=== PATIENT | male | born 1935 | race Caucasian/White ===

== ENCOUNTER → 2018-03-23 | Outpatient (CLI) | payer MEDICARE ==
[2018-03-23 09:27] LABS: Basophils # (A) 0.1 k/uL (0-0.2); Basophils % (A) 1 %; Eosinophils # (A) 0.4 k/uL (0-0.7); Eosinophils % (A) 5 %; HGB 13.6 gm/dL (13.0-17.5); Lymphocytes % (A) 21 %; MCH 29.4 pg (25.0-35.0); MCHC 31.6 g/dL (31.0-37.0); MCV 92.9 fL (80.0-100.0); Mean Platelet Volume 6.5; Monocytes # (A) 0.7 k/uL (0-1.0); Monocytes % (A) 7 %; Neutrophils # (A) 5.9 k/uL (1.3-7.7); Neutrophils % (A) 65 %; Platelet Count 228 k/uL (150-450); RBC 4.63 m/uL (4.30-5.90); RDW 13.9 % (11.5-15.5); WBC 9.1 k/uL (3.8-10.6)
[2018-03-23 10:01] LABS: Calcium 9.9 mg/dL (8.4-10.2); Potassium 5.4 mmol/L (3.5-5.1)
== END | disposition home or self-care (01) ==
LOC: LABPAT 08:22
PROVIDERS: ATTEND Urology
DX: Z01.812 Encounter for preprocedural laboratory examination (principal); R31.29 Other microscopic hematuria; E11.9 Type 2 diabetes mellitus without complications; N40.1 Benign prostatic hyperplasia with lower urinary tract symptoms
CPT/HCPCS: 36415; 80048; 85025; 87086

== ENCOUNTER 2018-03-25 07:36 | Day surgery (SDC) | payer MEDICARE ==
[2018-03-22 15:13] VITALS: BMI 33.5
--- NOTE | 2018-03-25 06:39 | P.GSHP ---
History of Present Illness H&P Date: 03/25/18 Chief Complaint: Urinary retention The patient is an 83-year-old male with a long history of incomplete bladder emptying secondary to BPH. He developed acute urinary retention in August 2017. His incomplete bladder emptying persisted despite taking finasteride 5 mg daily and tamsulosin 0.8 mg daily. In view of this, he has elected to undergo a TURP. - EENT Ears: bilateral: decreased hearing - Genitourinary (Male) Genitourinary: Reports incontinence, Reports urinary frequency, Reports urinary retention - Allergic/Immunologic Allergic/Immunologic: Reports seasonal allergies Past Medical History Past Medical History: Asthma, Coronary Artery Disease (CAD), CVA/TIA, Diabetes Mellitus, Skin Disorder Additional Past Medical History / Comment(s): TIA post op after gallbladder surgery-no residual effects, constipation, urinary retention, History of Any Multi-Drug Resistant Organisms: None Reported Past Surgical History: Cholecystectomy, Coronary Bypass/CABG, Heart Catheterization, Hernia Repair, Tonsillectomy Additional Past Surgical History / Comment(s): CABG 2000, bari cataracts, Past Anesthesia/Blood Transfusion Reactions: No Reported Reaction Smoking Status: Never smoker - Past Family History Mother Family Medical History: No Reported History Medications and Allergies Home Medications Medication Instructions Recorded Confirmed Type Albuterol Inhaler [Ventolin Hfa 2 puff INHALATION Q6HR PRN 03/22/18 03/22/18 History Inhaler] Aspirin 325 mg PO DAILY 03/22/18 03/22/18 History Finasteride [Proscar] 5 mg PO DAILY 03/22/18 03/22/18 History Fluticasone Nasal [place] [Flonase 1 spray EA NOSTRIL DAILY PRN 03/22/18 03/22/18 History Nasal [place]] Fluticasone/Salmeterol [Advair 1 inhalation PO BID PRN 03/22/18 03/22/18 History 250-50 Diskus] Glucosam/Augusto-Msm1/C/Chadd/Bosw 1 each PO DAILY 03/22/18 03/22/18 History [Glucosamine-Chondroitin Tablet] Losartan [Cozaar] 50 mg PO BID 03/22/18 03/22/18 History Metoprolol Succinate (ER) [Toprol 25 mg PO BID 03/22/18 03/22/18 History Xl] Multivitamins, Thera [Multivitamin 1 tab PO DAILY 03/22/18 03/22/18 History (formulary)] Polyethylene Glycol 3350 [Clearlax] 17 gm PO DAILY 03/22/18 03/22/18 History Repaglinide [Prandin] 1 mg PO AC-TID 03/22/18 03/22/18 History Simvastatin 80 mg PO SUTUWEFR 03/22/18 03/22/18 History Tamsulosin HCl [Flomax] 0.4 mg PO BID 03/22/18 03/22/18 History metFORMIN HCL [Glucophage] 500 mg PO BID 03/22/18 03/22/18 History Allergies Allergy/AdvReac Type Severity Reaction Status Date / Time Sulfa (Sulfonamide Allergy Unknown Verified 03/22/18 14:52 Antibiotics) Surgical - Exam - General well developed, well nourished, no distress - Respiratory normal respiratory effort, clear to auscultation - Cardiovascular Rhythm: regular Abnormal Heart Sounds: no systolic murmur, no diastolic murmur, no rub, no S3 Gallop, no S4 Gallop, no click, no other - Genitourinary normal penis with no external lesions, testicles non-tender Assessment and Plan (1) Benign localized hyperplasia of prostate with urinary retention Status: Acute Code(s): N40.1 - BENIGN PROSTATIC HYPERPLASIA WITH LOWER URINARY TRACT SYMP SNOMED Code(s): 52383283 Plan: Cystoscopy, bipolar TURP. The procedure has been reviewed in detail with the patient. Potential risks have also been discussed, which include anesthesia, bleeding, infection, vesical neck contracture, urinary incontinence, and persistent urinary retention.
[~2018-03-25 07:36] MED LIST: DEXAMETHASONE SOD PHOSPHATE 10 MG/ML 1 ML VIAL IV ONE; HYDROmorphone 0.5 MG/0.5 ML SYRINGE IVP PRN; LACTATED RINGERS 1,000 ML IV SCH; LIDOCAINE 1% 20 ML VIAL (10MG/ML) FOR IV START INTRADERMA PRN; ONDANSETRON 4 MG/2 ML VIAL IVP ONE; SCOPOLAMINE 1.5MG/72HR PATCH TRANSDERM ONE; ceFAZolin 1,000 MG in DEXTROSE/WATER 1 50ML.BAG IVPB ONE
[2018-03-25 08:32] LABS: Glucose,Whole Blood 143 mg/dL (75-99)
[2018-03-25] MEDS ORDERED: LIDOCAINE 1% INJ 10MG/ML (20 ML MDV) ONE (09:42)
[2018-03-25] MEDS ORDERED: PHENYLEPHRINE-0.9% NACL SYG 1 MG/10 ML SYRINGE ONE (09:42)
[2018-03-25] MEDS ORDERED: ePHEDrine SULFATE/0.9% NACL/PF 50 MG/5 ML SYRINGE IV ONE (09:42)
[2018-03-25] MEDS ORDERED: fentaNYL (PF) 50 MCG/ML 2 ML AMP ONE (09:42)
[2018-03-25] MEDS ORDERED: MIDAZOLAM 2 MG/2 ML VIAL ONE (09:42)
[2018-03-25] MEDS ORDERED: FUROSEMIDE 10 MG/ML 2 ML VIAL ONE (09:42)
[2018-03-25] MEDS ORDERED: PROPOFOL 10 MG/ML 20 ML VIAL IV ONE (09:42)
[2018-03-25] MEDS ORDERED: LACTATED RINGERS 1,000 ML IV ONE (11:13)
--- NOTE | 2018-03-25 12:11 | P.OP ---
Date of Procedure: 03/25/18 Preoperative Diagnosis: Urinary retention secondary to BPH Postoperative Diagnosis: Same Procedure(s) Performed: Cystoscopy, bipolar transurethral resection of prostate (TURP) Anesthesia: ANTONI Surgeon: Edmond Wright Estimated Blood Loss (ml): 100 IV fluids (ml): 800 Pathology: other (Resected prostate tissue) Condition: stable Disposition: PACU Indications for Procedure: The patient is an 83-year-old male with a long history of incomplete bladder emptying secondary to BPH. He developed acute urinary retention in August 2017. His incomplete bladder emptying persisted despite taking finasteride 5 mg daily and tamsulosin 0.8 mg daily. In view of this, he has elected to undergo a TURP. Operative Findings: Trilobar BPH Description of Procedure: The patient was taken in the operating room and placed in the dorsolithotomy position. The external genitalia was prepped and draped sterilely. The [place] urethrotome was used to incise the urethra, allowing the 25-Trist[place] ACMI resectoscope sheath to be introduced into the bladder. The bladder was inspected. Both ureteral orifices were of normal anatomic location and configuration, and clear urine effluxed from both. No tumors or foreign bodies were seen. Examination of the prostate revealed complete obstruction with a trilobar configuration. Using the bipolar cutting loop, the median lobe was resected. Next, the lateral lobes were resected down to the surgical capsule. The floor of the prostate was then resected, proximal to the verumontanum. Lastly, any remaining anterior tissue was resected. The apical tissue was then carefully resected. The resection was carried down to the surgical capsule in all 4 quadrants. The prostatic fossa was then carefully examined, and any areas of bleeding were controlled with electrocautery. Excellent hemostasis was attained. The resectoscope was withdrawn into the bulbous urethra. The external urinary sphincter remained intact. The prostatic fossa was open. The [employer] evacuator was used to remove all prostate chips from the bladder. These were saved and sent for pathologic examination. The resectoscope was removed, and a 20 Tristanian Castillo catheter was placed. The return was essentially clear. The patient tolerated the procedure well was taken to the recovery room in stable condition.
[2018-03-25 12:18] VITALS: TEMP 99.4
[2018-03-25 12:39] VITALS: RESP 18
[2018-03-25 14:40] VITALS: BP 110/66
[2018-03-25 14:42] VITALS: PULSE 99
== END 2018-03-25 14:47 | disposition home or self-care (01) ==
LOC: OR 07:36
PROVIDERS: ATTEND Urology
DX: N40.1 Benign prostatic hyperplasia with lower urinary tract symptoms (principal); N13.8 Other obstructive and reflux uropathy; R33.8 Other retention of urine; R39.14 Feeling of incomplete bladder emptying; I25.10 Atherosclerotic heart disease of native coronary artery without angina pectoris; J45.909 Unspecified asthma, uncomplicated; I11.0 Hypertensive heart disease with heart failure; I50.9 Heart failure, unspecified; E11.9 Type 2 diabetes mellitus without complications; I65.29 Occlusion and stenosis of unspecified carotid artery; D86.9 Sarcoidosis, unspecified; L30.9 Dermatitis, unspecified; E66.9 Obesity, unspecified; Z68.33 Body mass index [BMI] 33.0-33.9, adult; Z95.1 Presence of aortocoronary bypass graft; Z79.82 Long term (current) use of aspirin; Z79.52 Long term (current) use of systemic steroids; Z79.84 Long term (current) use of oral hypoglycemic drugs; Z79.899 Other long term (current) drug therapy; Z88.2 Allergy status to sulfonamides; Z90.49 Acquired absence of other specified parts of digestive tract; Z86.73 Personal history of transient ischemic attack (TIA), and cerebral infarction without residual deficits; Z87.891 Personal history of nicotine dependence
CPT/HCPCS: 88305; 84132; 52601; J2250; J1100; J1940; J2405; J2001; J3010; J0690; J2370; J2704

== ENCOUNTER 2018-05-15 05:04 | Inpatient (IN) | payer MEDICARE ==
[2018-05-15] MEDS ORDERED: DIPH,PERTUS(ACELL)TETVAC-LF 0.5 ML VIAL IM ONE (05:13)
[2018-05-15] MEDS ORDERED: SODIUM CHLORIDE 0.9% 1,000 ML IV STA (05:13)
--- NOTE | 2018-05-15 05:17 | ED ---
Weakness HPI - General Chief complaint: Weakness Stated complaint: fall Time Seen by Provider: 05/15/18 05:08 Source: EMS Mode of arrival: EMS Limitations: no limitations - History of Present Illness Initial comments: Viet is an 83-year-old gentleman is brought to the emergency department today via EMS for evaluation of generalized weakness and fall. Patient reports he's not been feeling well all day. He reports just generalized fatigue muscle aches and weakness. This evening he had a fall in which she fell forward and struck his head either on the covered or the floor. He did note a very small laceration. He did not lose consciousness. He was so weak he couldn't get up off the ground his could not help him up so EMS was contacted. Upon their arrival they found that he was febrile and tachycardic and recommended he come to the ER for evaluation. - Related Data Home Medications Medication Instructions Recorded Confirmed Albuterol Inhaler [Ventolin Hfa 2 puff INHALATION Q6HR PRN 03/22/18 03/22/18 Inhaler] Aspirin 325 mg PO DAILY 03/22/18 03/22/18 Finasteride [Proscar] 5 mg PO DAILY 03/22/18 03/22/18 Fluticasone Nasal [place] [Flonase 1 spray EA NOSTRIL DAILY PRN 03/22/18 03/22/18 Nasal [place]] Fluticasone/Salmeterol [Advair 1 inhalation PO BID PRN 03/22/18 03/22/18 250-50 Diskus] Glucosam/Augusto-Msm1/C/Chadd/Bosw 1 each PO DAILY 03/22/18 03/22/18 [Glucosamine-Chondroitin Tablet] Losartan [Cozaar] 50 mg PO BID 03/22/18 03/22/18 Metoprolol Succinate (ER) [Toprol 25 mg PO BID 03/22/18 03/22/18 Xl] Multivitamins, Thera [Multivitamin 1 tab PO DAILY 03/22/18 03/22/18 (formulary)] Polyethylene Glycol 3350 [Clearlax] 17 gm PO DAILY 03/22/18 03/22/18 Repaglinide [Prandin] 1 mg PO AC-TID 03/22/18 03/22/18 Simvastatin 80 mg PO SUTUWEFR 03/22/18 03/22/18 Tamsulosin HCl [Flomax] 0.4 mg PO BID 03/22/18 03/22/18 metFORMIN HCL [Glucophage] 500 mg PO BID 03/22/18 03/22/18 Allergies Allergy/AdvReac Type Severity Reaction Status Date / Time Sulfa (Sulfonamide Allergy Unknown Verified 05/15/18 05:13 Antibiotics) Review of Systems ROS Statement: Those systems with pertinent positive or pertinent negative responses have been documented in the HPI. ROS Other: All systems not noted in ROS Statement are negative. Past Medical History Past Medical History: Asthma, Coronary Artery Disease (CAD), CVA/TIA, Diabetes Mellitus, Skin Disorder Additional Past Medical History / Comment(s): TIA post op after gallbladder surgery-no residual effects, constipation, urinary retention, History of Any Multi-Drug Resistant Organisms: None Reported Past Surgical History: Cholecystectomy, Coronary Bypass/CABG, Heart Catheterization, Hernia Repair, Tonsillectomy Additional Past Surgical History / Comment(s): CABG 2000, bari cataracts, Past Anesthesia/Blood Transfusion Reactions: No Reported Reaction Past Psychological History: No Psychological Hx Reported Smoking Status: Never smoker Past Alcohol Use History: Rare Past Drug Use History: None Reported - Past Family History Mother Family Medical History: No Reported History General Exam - General Exam Comments Initial Comments: Physical Exam GENERAL: Ill appearing elderly male HENT: Normocephalic Centimeter laceration in the mid forehead with bleeding controlled EYES: PERRL, EOMI PULMONARY: Crackles in all lung baeza CARDIOVASCULAR: There is a regular rate and rhythm without any murmurs gallops or rubs. ABDOMEN: Rotund, Soft and nontender with normal bowel sounds. SKIN: Warm and clammy laceration to the forehead as noted above Skin is clear with no lesions or rashes and otherwise unremarkable. : Deferred NEUROLOGIC: Patient is alert and oriented x3. Moving all extremities spontaneously MUSCULOSKELETAL: Normal extremities with adequate strength and full range of motion. No lower extremity swelling or edema. No calf tenderness. PSYCHIATRIC: Normal psychiatric evaluation. Limitations: no limitations Limitations: no limitations Course Vital Signs 05/15/18 05/15/18 05:07 06:42 Temperature 100.0 F H 98.4 F Pulse Rate 97 93 Respiratory 20 20 Rate Blood Pressure 153/65 155/76 O2 Sat by Pulse 91 L 96 Oximetry EKG Findings - EKG Comments: EKG Findings:: EKG was obtained at 5:13 AM, rate is 97, rhythm is sinus there is a right bundle-branch block, appears 170, QRS 156 QTC is 510 there is no acute ST elevations or depressions Procedures - Laceration Laceration #1 Consent Obtained: verbal consent Indication: laceration Site: face Description: linear Type of Sutures: other (exofen skin glue) Size of Sutures: other (skin glue) Medical Decision Making - Medical Decision Making Patient was seen and evaluated immediately upon arrival Patient reevaluated Per ATLS protocol - airway breathing and circulation are intact secondary survey reveals an ill-appearing gentleman tachycardic warm to the touch with flulike symptoms Trauma workup was initiated as well as sepsis workup with blood cultures lactic acid an influenza swab EKG was nonischemic Imaging revealed no acute injuries patient's laceration was repaired with skin glue he did receive a tetanus vaccine Chest x-ray concerning for bilateral pneumonia patient with no recent hospitalization or risk factors for age Pneumonia will be treated for community- acquired Patient's influenza is positive Given the patient's advanced age generalized weakness bilateral pneumonia and influenza do feel he warrants inpatient admission for further monitoring. - Lab Data Result diagrams: 05/15/18 05:40 05/15/18 05:40 Lab Results 05/15/18 05/15/18 05/15/18 Range/Units 05:40 05:40 05:40 WBC 8.5 (3.8-10.6) k/uL RBC 4.53 (4.30-5.90) m/uL Hgb 13.3 (13.0-17.5) gm/dL Hct 40.9 (39.0-53.0) % MCV 90.4 (80.0-100.0) fL MCH 29.3 (25.0-35.0) pg MCHC 32.4 (31.0-37.0) g/dL RDW 14.4 (11.5-15.5) % Plt Count 221 (150-450) k/uL Neutrophils % (Manual) 69 % Lymphocytes % (Manual) 13 % Monocytes % (Manual) 17 % Eosinophils % (Manual) 1 % Neutrophils # (Manual) 5.87 (1.3-7.7) k/uL Lymphocytes # (Manual) 1.11 (1.0-4.8) k/uL Monocytes # (Manual) 1.45 H (0-1.0) k/uL Eosinophils # (Manual) 0.09 (0-0.7) k/uL Nucleated RBCs 0 (0-0) /100 WBC Manual Slide Review Performed PT (9.0-12.0) sec INR (<1.2) APTT (22.0-30.0) sec Sodium 139 (137-145) mmol/L Potassium 4.5 (3.5-5.1) mmol/L Chloride 103 (98-107) mmol/L Carbon Dioxide 27 (22-30) mmol/L Anion Gap 9 mmol/L BUN 22 H (9-20) mg/dL Creatinine 1.31 H (0.66-1.25) mg/dL Est GFR (CKD-EPI)AfAm 58 (>60 ml/min/1.73 sqM) Est GFR (CKD-EPI)NonAf 51 (>60 ml/min/1.73 sqM) Glucose 172 H (74-99) mg/dL Plasma Lactic Acid Saji 1.8 (0.7-2.0) mmol/L Calcium 9.7 (8.4-10.2) mg/dL Total Bilirubin 0.6 (0.2-1.3) mg/dL AST 34 (17-59) U/L ALT 26 (21-72) U/L Alkaline Phosphatase 80 (38-126) U/L Troponin I (0.000-0.034) ng/mL Total Protein 7.5 (6.3-8.2) g/dL Albumin 4.0 (3.5-5.0) g/dL Influenza Type A RNA (Not Detectd) Influenza Type B (PCR) (Not Detectd) 05/15/18 05/15/18 05/15/18 Range/Units 05:40 05:40 05:40 WBC (3.8-10.6) k/uL RBC (4.30-5.90) m/uL Hgb (13.0-17.5) gm/dL Hct (39.0-53.0) % MCV (80.0-100.0) fL MCH (25.0-35.0) pg MCHC (31.0-37.0) g/dL RDW (11.5-15.5) % Plt Count (150-450) k/uL Neutrophils % (Manual) % Lymphocytes % (Manual) % Monocytes % (Manual) % Eosinophils % (Manual) % Neutrophils # (Manual) (1.3-7.7) k/uL Lymphocytes # (Manual) (1.0-4.8) k/uL Monocytes # (Manual) (0-1.0) k/uL Eosinophils # (Manual) (0-0.7) k/uL Nucleated RBCs (0-0) /100 WBC Manual Slide Review PT 10.7 (9.0-12.0) sec INR 1.0 (<1.2) APTT 25.3 (22.0-30.0) sec Sodium (137-145) mmol/L Potassium (3.5-5.1) mmol/L Chloride (98-107) mmol/L Carbon Dioxide (22-30) mmol/L Anion Gap mmol/L BUN (9-20) mg/dL Creatinine (0.66-1.25) mg/dL Est GFR (CKD-EPI)AfAm (>60 ml/min/1.73 sqM) Est GFR (CKD-EPI)NonAf (>60 ml/min/1.73 sqM) Glucose (74-99) mg/dL Plasma Lactic Acid Saji (0.7-2.0) mmol/L Calcium (8.4-10.2) mg/dL Total Bilirubin (0.2-1.3) mg/dL AST (17-59) U/L ALT (21-72) U/L Alkaline Phosphatase (38-126) U/L Troponin I <0.012 (0.000-0.034) ng/mL Total Protein (6.3-8.2) g/dL Albumin (3.5-5.0) g/dL Influenza Type A RNA Detected H (Not Detectd) Influenza Type B (PCR) Not Detected (Not Detectd) Disposition Clinical Impression: Pneumonia and influenza, General weakness Disposition: ADMITTED IP TO THIS HOSP Condition: Stable Is patient prescribed a controlled substance at d/c from ED?: No Referrals: Gloria Torrez DO [Primary Care Provider] - 1-2 days
--- NOTE | 2018-05-15 05:43 | XR ---
EXAM: XR Chest, 1 View CLINICAL HISTORY: ITS.REASON XR Reason: trauma TECHNIQUE: Frontal view of the chest. COMPARISON: No relevant prior studies available. FINDINGS: Lungs: Low lung volumes with patchy bilateral atelectasis or infiltrate. Pleural space: Trace pleural effusions not excluded. No significant pneumothorax. Heart: Enlarged cardiomediastinal silhouette. Mediastinum: See above. Bones/joints: No gross acute fracture. Sternotomy wires noted IMPRESSION: 1. Low lung volumes with patchy bilateral atelectasis or infiltrate. 2. Trace pleural effusions not excluded. 3. Enlarged cardiomediastinal silhouette.
[2018-05-15 05:54] LABS: HCT 40.9 % (39.0-53.0); HGB 13.3 gm/dL (13.0-17.5); MCH 29.3 pg (25.0-35.0); MCHC 32.4 g/dL (31.0-37.0); MCV 90.4 fL (80.0-100.0); Mean Platelet Volume 7.4; Platelet Count 221 k/uL (150-450); RBC 4.53 m/uL (4.30-5.90); RDW 14.4 % (11.5-15.5); WBC 8.5 k/uL (3.8-10.6)
--- NOTE | 2018-05-15 05:54 | CT ---
EXAM: CT Head Without Intravenous Contrast CLINICAL HISTORY: ITS.REASON CT Reason: trauma TECHNIQUE: Axial computed tomography images of the head/brain without intravenous contrast. CTDI is 45.2, 16 mGy and DLP is 1597.1 mGy-cm. This CT exam was performed using one or more of the following dose reduction techniques: automated exposure control, adjustment of the mA and/or kV according to patient size, and/or use of iterative reconstruction technique. COMPARISON: No relevant prior studies available. FINDINGS: Brain: No hemorrhage. No acute cortical infarct. No mass effect or midline shift. Involutional changes and probable small vessel disease. Ventricles: Unremarkable. Bones/joints: No acute fracture. Soft tissues: Frontal scalp soft tissue swelling. Sinuses: Sinus disease. Mastoid air cells: Unremarkable as visualized. IMPRESSION: No intracranial hemorrhage or skull fracture. EXAM: CT Cervical Spine Without Intravenous Contrast CLINICAL HISTORY: ITS.REASON CT Reason: trauma TECHNIQUE: Axial computed tomography images of the cervical spine without intravenous contrast. CTDI is 45.2, 16 mGy and DLP is 1597.1 mGy-cm. This CT exam was performed using one or more of the following dose reduction techniques: automated exposure control, adjustment of the mA and/or kV according to patient size, and/or use of iterative reconstruction technique. COMPARISON: No relevant prior studies available. FINDINGS: Vertebrae: No acute fracture. No subluxation. Discs/spinal canal/neural foramina: Degenerative changes. Soft tissues: Unremarkable. IMPRESSION: No acute fracture.
[2018-05-15 06:02] LABS: Partial Thromboplastin Time 25.3 sec (22.0-30.0); Prothrombin Time 10.7 sec (9.0-12.0)
[2018-05-15 06:03] LABS: Calcium 9.7 mg/dL (8.4-10.2); Potassium 4.5 mmol/L (3.5-5.1); Total Bilirubin 0.6 mg/dL (0.2-1.3); Total Protein 7.5 g/dL (6.3-8.2)
[2018-05-15] MEDS ORDERED: PNEUMONIA PROTOCOL UTILIZED 1 EACH MISC PO PRN (06:04)
[2018-05-15] MEDS ORDERED: TOPICAL SKIN ADHESIVE 1 EACH AMP TOPICAL ONE (06:21)
[2018-05-15 06:24] LABS: Eosinophils # (M) 0.09 k/uL (0-0.7); Lymphocytes # (M) 1.11 k/uL (1.0-4.8); Monocytes # (M) 1.45 k/uL (0-1.0); Neutrophils # (M) 5.87 k/uL (1.3-7.7); Neutrophils % (M) 69 %; Nucleated Red Blood Cells 0 /100 WBC (0-0); Total Cells Counted 100
[2018-05-15] MEDS: AZITHROMYCIN 500 MG TAB PO SCH (06:37)
[2018-05-15] MEDS ORDERED: OSELTAMIVIR 75 MG CAP PO ONE (07:00)
[2018-05-15 07:40] LABS: Glucose,Whole Blood 159 mg/dL (75-99)
[2018-05-15 08:54] VITALS: BMI 31.0
[2018-05-15 10:57] LABS: Appearance,Urine Cloudy (Clear); Bilirubin,Urine Negative (Negative); Blood,Urine Moderate (Negative); Color,Urine Yellow; Glucose,Urine (UA) Trace (Negative); Hyaline Casts,Urine 1 /lpf (0-2); Ketones,Urine Negative (Negative); Leukocyte Esterase,Urine Large (Negative); Mucus,Urine Rare /hpf; Nitrite,Urine Negative (Negative); PH, Urine 5.5 (5.0-8.0); Protein,Urine 1+ (Negative); RBC,Urine 103 /hpf (0-5); Specific Gravity,Urine 1.019 (1.001-1.035); Urobilinogen,Urine <2.0 mg/dL (<2.0)
--- NOTE | 2018-05-15 11:59 | P.HPIM ---
History of Present Illness H&P Date: 05/15/18 Arnulfo allen is an 83-year-old male patient of Dr. Gloria Torrez who presented to [facility] emergency room via EMS after sustaining a fall at home with head trauma patient has been complaining of generalized weakness and not feeling well he was evaluated in the emergency room he had a bruise on his forehead computed tomography scan of the head and neck did not reveal any significant abnormality no intracranial bleeding further evaluation revealed positive influenza A testing, bilateral lower lobe infiltrates suggestive of pneumonia and evidence of urinary tract infection he was started on IV antibiotic Rocephin and Zithromax and was admitted to medical floor for further evaluation and treatment. Patient has a known history of coronary artery disease, [id number] d iabetes mellitus, history of TIA in the past, and history of BPH with urinary retention, his surgical history is significant for coronary artery bypass graft surgery, cholecystectomy, hernia repair, and tonsillectomy. Patient was seen and examined on 05/15/2018 he is somnolent but awake easily he is complaining of weakness and low-grade fever otherwise he denies any complaints there is no chills no headache or dizziness, no chest pain or shortness of breath there is occasional cough there is no nausea or vomiting no abdominal pain no diarrhea and no urinary symptoms Past Medical History Past Medical History: Asthma, Coronary Artery Disease (CAD), CVA/TIA, Diabetes Mellitus, Skin Disorder Additional Past Medical History / Comment(s): TIA post op after gallbladder surgery-no residual effects, constipation, urinary retention, History of Any Multi-Drug Resistant Organisms: None Reported Past Surgical History: Cholecystectomy, Coronary Bypass/CABG, Heart Catheterization, Hernia Repair, Tonsillectomy Additional Past Surgical History / Comment(s): CABG 2000, bari cataracts, Past Anesthesia/Blood Transfusion Reactions: No Reported Reaction Past Psychological History: No Psychological Hx Reported Smoking Status: Never smoker Past Alcohol Use History: Rare Past Drug Use History: None Reported - Past Family History Mother Family Medical History: No Reported History Medications and Allergies Home Medications Medication Instructions Recorded Confirmed Type Glucosam/Augusto-Msm1/C/Chadd/Bosw 1 tab PO DAILY 03/22/18 05/15/18 History [Glucosamine-Chondroitin Tablet] Metoprolol Succinate (ER) [Toprol 25 mg PO DAILY 03/22/18 05/15/18 History Xl] Multivitamins, Thera [Multivitamin 1 tab PO DAILY 03/22/18 05/15/18 History (formulary)] Repaglinide [Prandin] 1 mg PO AC-BID 03/22/18 05/15/18 History Tamsulosin HCl [Flomax] 0.4 mg PO BID 03/22/18 05/15/18 History metFORMIN HCL [Glucophage] 500 mg PO BID 03/22/18 05/15/18 History Furosemide [Lasix] 40 mg PO DAILY 05/15/18 05/15/18 History L.acidoph,Paracasei, B.lactis 1 cap PO DAILY 05/15/18 05/15/18 History [Probiotic] Levothyroxine Sodium [Synthroid] 50 mcg PO DAILY 05/15/18 05/15/18 History Potassium Chloride [Klor-Con 20] 20 meq PO DAILY 05/15/18 05/15/18 History Allergies Allergy/AdvReac Type Severity Reaction Status Date / Time Sulfa (Sulfonamide Allergy Unknown Verified 05/15/18 07:05 Antibiotics) Physical Exam Vitals: Vital Signs Temp Pulse Pulse Resp BP BP Pulse Ox 05/15/18 10:25 100.1 F H 91 12 126/68 100 05/15/18 08:00 20 05/15/18 06:42 98.4 F 93 20 155/76 96 05/15/18 05:07 100.0 F H 97 20 153/65 91 L Intake and Output 05/14/18 05/15/18 05/15/18 22:59 06:59 14:59 Other: Voiding Method Toilet Weight 95.254 kg In general patient is somnolent but awakes easily he is answering questions appropriately HEENT head normocephalic there is a bruise with small laceration in the middle of the front area Neck is supple no JVD no goiter no lymphadenopathy Chest exam reveals a few scattered crackles in bilateral bases no wheezing Cardiac exam reveals regular heart sounds S1 and S2 no gallops no murmurs Abdomen is soft nontender no organomegaly with normal bowel sounds Extremity exam reveals no edema no cyanosis or clubbing Neurological examination reveals no gross focal deficit Results CBC & Chem 7: 05/15/18 05:40 05/15/18 05:40 Labs: Abnormal Lab Results - Last 24 Hours (Table) 05/15/18 05/15/18 05/15/18 Range/Units 05:40 05:40 05:40 Monocytes # (Manual) 1.45 H (0-1.0) k/uL BUN 22 H (9-20) mg/dL Creatinine 1.31 H (0.66-1.25) mg/dL Glucose 172 H (74-99) mg/dL POC Glucose (mg/dL) (75-99) mg/dL Urine Protein (Negative) Urine Glucose (UA) (Negative) Urine Blood (Negative) Ur Leukocyte Esterase (Negative) Urine RBC (0-5) /hpf Urine WBC (0-5) /hpf Urine Mucus (None) /hpf Influenza Type A RNA Detected H (Not Detectd) 05/15/18 05/15/18 Range/Units 07:37 09:21 Monocytes # (Manual) (0-1.0) k/uL BUN (9-20) mg/dL Creatinine (0.66-1.25) mg/dL Glucose (74-99) mg/dL POC Glucose (mg/dL) 159 H (75-99) mg/dL Urine Protein 1+ H (Negative) Urine Glucose (UA) Trace H (Negative) Urine Blood Moderate H (Negative) Ur Leukocyte Esterase Large H (Negative) Urine RBC 103 H (0-5) /hpf Urine WBC 165 H (0-5) /hpf Urine Mucus Rare H (None) /hpf Influenza Type A RNA (Not Detectd) Thrombosis Risk Factor Assmnt - Choose All That Apply Any of the Below Risk Factors Present?: Yes Each Factor Represents 1 point: Obesity (BMI >25) Each Risk Factor Represents 3 Points: Age 75 years or older Thrombosis Risk Factor Assessment Total Risk Factor Score: 4 Thrombosis Risk Factor Assessment Level: Moderate Risk Assessment and Plan Plan: #1 generalized weakness with fall and head trauma #2 bilateral lower lobe infiltrate suggestive of pneumonia #3 urinary tract infection #4 positive influenza A testing #5 febrile illness related to influenza A, urinary tract infection, and possible bilateral pneumonia #6 underlying history of diabetes mellitus [id number] #7 underlying history of coronary artery disease with previous history of coronary artery bypass graft surgery #8 dehydration with acute kidney injury was elevated BUN at 22 and creatinine at 1.31 At this time patient is admitted to medical floor Will hydrate gently, continue IV antibiotic Rocephin and Zithromax Check urine culture and sputum culture Continue Tamiflu Treat symptomatically for fever and weakness Initiated physical therapy when patient improved Will follow closely
[2018-05-15 12:10] LABS: Glucose,Whole Blood 168 mg/dL (75-99)
[2018-05-15] MEDS: TAMSULOSIN 0.4 MG CAP.ER.24H PO SCH ×2 (13:35→21:44)
[2018-05-15] MEDS: LEVOTHYROXINE 50 MCG TAB PO SCH (13:35)
[2018-05-15] MEDS: MULTIVITAMINS, THERA 1 EACH TAB PO SCH (13:35)
[2018-05-15] MEDS: SODIUM CHLORIDE 0.9% 1,000 ML IV SCH (14:36)
[2018-05-15 17:22] LABS: Glucose,Whole Blood 112 mg/dL (75-99)
[2018-05-15] MEDS: REPAGLINIDE 1 MG TAB PO SCH (17:37)
[2018-05-15 20:56] LABS: Glucose,Whole Blood 91 mg/dL (75-99)
[2018-05-15] MEDS: OSELTAMIVIR 75 MG CAP PO SCH (21:43)
[2018-05-15] MEDS: metFORMIN 500 MG TAB PO SCH (21:43)
--- NOTE | 2018-05-16 00:33 | P.CONS ---
History of Present Illness - Reason for Consult Consult date: 05/15/18 - Chief Complaint Fall at home - History of Present Illness 83-year-old male is brought to Hospital by EMS after the patient suffers a fall at home. The patient relates that in the days before becoming weak enough that he fell he was not feeling well. He had some mild symptoms of congestion to his chest, some fever and progressive weakness. Eventually he fell and was brought into hospital. Because fever testing was performed per patient without evidence of influenza a is also concerned to urinary tract infection. Does have a history of a recent urinary tract infection with E. coli that was not highly resistant. The patient seems to be feeling better today. He has been put upright in the chair and is having his meal without great difficulties. Review of Systems Patient is somewhat of a poor historian however HEENT:Denies headache or acute visual change. Denies sinus or mouth discomforts. Denies neck stiffness or pain. Denies significant oral cavity pain. Denies difficulty on swallowing. Lungs: Does relate to some shortness of breath cough without significant sputum production or hemoptysis Cardiovascular: Mild shortness of breath but denies, chest pain, chest wall pain, orthopnea, does believe he had syncopal event and does have dyspnea on exertion unclear if this is worse Gastrointestinal:Denies nausea, vomiting, diarrhea, constipation, hematemesis, melena, hematochezia. No no significant change of bowel habit noticed. Musculoskeletal: denies significant myalgias or arthralgias. No new joint swelling. Denies new back pain. Skin: Denies new rash or lesions. No new ulcers or wounds are related.. Neuro: Does not have focal deficits but does not feel as well was normal Psychiatric:Denies anxiety or depression. Endocrine: Positive fatigue Past Medical History Past Medical History: Asthma, Coronary Artery Disease (CAD), CVA/TIA, Diabetes Mellitus, Skin Disorder Additional Past Medical History / Comment(s): TIA post op after gallbladder khadra anupam-no residual effects, constipation, urinary retention, History of Any Multi-Drug Resistant Organisms: None Reported Past Surgical History: Cholecystectomy, Coronary Bypass/CABG, Heart Catheterization, Hernia Repair, Tonsillectomy Additional Past Surgical History / Comment(s): CABG 2000, bari cataracts, Past Anesthesia/Blood Transfusion Reactions: No Reported Reaction Past Psychological History: No Psychological Hx Reported Smoking Status: Never smoker Past Alcohol Use History: Rare Past Drug Use History: None Reported - Past Family History Mother Family Medical History: No Reported History Medications and Allergies Home Medications and Allergies Comment(s): Current Medications Azithromycin (Zithromax) 500 mg PO Q24H [facility] Last Admin: 05/15/18 06:37 Dose: 500 mg Documented by: Furosemide (Lasix) 40 mg PO DAILY [facility] Ceftriaxone Sodium 1 gm/ (Sodium Chloride) 50 mls @ 100 mls/hr IVPB Q24H [facility] Last Admin: 05/15/18 06:37 Dose: 100 mls/hr Documented by: Sodium Chloride (Saline 0.9%) 1,000 mls @ 50 mls/hr IV .Q20H [facility] Last Admin: 05/15/18 14:36 Dose: 50 mls/hr Documented by: Lactobacillus Acidoph/Bulgaricus (Lactinex) 1 each PO DAILY [facility] Levothyroxine Sodium (Synthroid) 50 mcg PO 0630 [facility] Last Admin: 05/15/18 13:35 Dose: 50 mcg Documented by: Metformin HCl (Glucophage) 500 mg PO BID [facility] Last Admin: 05/15/18 21:43 Dose: 500 mg Documented by: Metoprolol Succinate (Toprol Xl) 25 mg PO DAILY [facility] Miscellaneous Information (Pneumonia Protocol Utilized) 1 each PO ONCE PRN PRN Reason: Per Protocol Multivitamins (Theragran) 1 each PO 1200 [facility] Last Admin: 05/15/18 13:35 Dose: 1 each Documented by: Oseltamivir Phosphate (Tamiflu) 75 mg PO Q12HR [facility] Stop: 05/19/18 21:01 Last Admin: 05/15/18 21:43 Dose: 75 mg Documented by: Potassium Chloride (K-Dur 20) 20 meq PO DAILY [facility] Repaglinide (Prandin) 1 mg PO AC-BID [facility] Last Admin: 05/15/18 17:37 Dose: 1 mg Documented by: Tamsulosin HCl (Flomax) 0.4 mg PO BID [facility] Last Admin: 05/15/18 21:44 Dose: 0.4 mg Documented by: Home Medications Medication Instructions Recorded Confirmed Type Glucosam/Augusto-Msm1/C/Chadd/Bosw 1 tab PO DAILY 03/22/18 05/15/18 History [Glucosamine-Chondroitin Tablet] Metoprolol Succinate (ER) [Toprol 25 mg PO DAILY 03/22/18 05/15/18 History Xl] Multivitamins, Thera [Multivitamin 1 tab PO DAILY 03/22/18 05/15/18 History (formulary)] Repaglinide [Prandin] 1 mg PO AC-BID 03/22/18 05/15/18 History Tamsulosin HCl [Flomax] 0.4 mg PO BID 03/22/18 05/15/18 History metFORMIN HCL [Glucophage] 500 mg PO BID 03/22/18 05/15/18 History Furosemide [Lasix] 40 mg PO DAILY 05/15/18 05/15/18 History L.acidoph,Paracasei, B.lactis 1 cap PO DAILY 05/15/18 05/15/18 History [Probiotic] Levothyroxine Sodium [Synthroid] 50 mcg PO DAILY 05/15/18 05/15/18 History Potassium Chloride [Klor-Con 20] 20 meq PO DAILY 05/15/18 05/15/18 History Allergies Allergy/AdvReac Type Severity Reaction Status Date / Time Sulfa (Sulfonamide Allergy Unknown Verified 05/15/18 07:05 Antibiotics) Physical Exam Vitals: Vital Signs Temp Pulse Pulse Resp BP BP Pulse Ox 05/15/18 20:56 99.5 F 73 16 103/64 05/15/18 20:31 92 L 05/15/18 16:00 91 12 05/15/18 15:00 98.4 F 79 12 128/67 92 L 05/15/18 10:25 100.1 F H 91 12 126/68 100 05/15/18 08:00 20 05/15/18 06:42 98.4 F 93 20 155/76 96 05/15/18 05:07 100.0 F H 97 20 153/65 91 L Intake and Output 05/15/18 05/15/18 05/16/18 14:59 22:59 06:59 Other: Voiding Method Toilet Toilet # Voids 200 83-year-old male not in distress HEENT: Anicteric conjunctiva are pink and moist nasal mucosa grossly intact without significant lesions, there is no thrush. Abrasion to the forehead is without significant purulence Neck: The neck is supple without significant lymphadenopathy or thyromegaly. Lungs: Symmetrical air entry few basilar crackles scattered wheezes no bronchial sounds Heart: Regular rate and rhythm with an audible S1-S2, no S3 no S4. There is no significant murmur click or rub, PMI was nondisplaced. Abdomen: Positive bowel sounds soft and nontender without palpable masses or organomegaly. There was no guarding or rebound. Extremities: The upper extremities have excellent pulses they are symmetric, no significant petechiae or telangiectasia. No splinter hemorrhages were noted. The lower extremities are free from significant edema. The peripheral pulses were 2+ and symmetric. Neuro: The patient is able to converse, seems comfortable but does have a slow mentation Results CBC & Chem 7: 05/15/18 05:40 05/15/18 05:40 Labs: Abnormal Lab Results - Last 24 Hours (Table) 05/15/18 05/15/18 05/15/18 Range/Units 05:40 05:40 05:40 Monocytes # (Manual) 1.45 H (0-1.0) k/uL BUN 22 H (9-20) mg/dL Creatinine 1.31 H (0.66-1.25) mg/dL Glucose 172 H (74-99) mg/dL POC Glucose (mg/dL) (75-99) mg/dL Urine Protein (Negative) Urine Glucose (UA) (Negative) Urine Blood (Negative) Ur Leukocyte Esterase (Negative) Urine RBC (0-5) /hpf Urine WBC (0-5) /hpf Urine Mucus (None) /hpf Influenza Type A RNA Detected H (Not Detectd) 05/15/18 05/15/18 05/15/18 Range/Units 07:37 09:21 11:52 Monocytes # (Manual) (0-1.0) k/uL BUN (9-20) mg/dL Creatinine (0.66-1.25) mg/dL Glucose (74-99) mg/dL POC Glucose (mg/dL) 159 H 168 H (75-99) mg/dL Urine Protein 1+ H (Negative) Urine Glucose (UA) Trace H (Negative) Urine Blood Moderate H (Negative) Ur Leukocyte Esterase Large H (Negative) Urine RBC 103 H (0-5) /hpf Urine WBC 165 H (0-5) /hpf Urine Mucus Rare H (None) /hpf Influenza Type A RNA (Not Detectd) 05/15/18 Range/Units 17:18 Monocytes # (Manual) (0-1.0) k/uL BUN (9-20) mg/dL Creatinine (0.66-1.25) mg/dL Glucose (74-99) mg/dL POC Glucose (mg/dL) 112 H (75-99) mg/dL Urine Protein (Negative) Urine Glucose (UA) (Negative) Urine Blood (Negative) Ur Leukocyte Esterase (Negative) Urine RBC (0-5) /hpf Urine WBC (0-5) /hpf Urine Mucus (None) /hpf Influenza Type A RNA (Not Detectd) Microbiology - Last 24 Hours (Table) 05/15/18 09:21 Urine Culture - Preliminary Urine,Voided Laboratory Results WBC 8.5 k/uL (3.8-10.6) 05/15/18 05:40 RBC 4.53 m/uL (4.30-5.90) 05/15/18 05:40 Hgb 13.3 gm/dL (13.0-17.5) 05/15/18 05:40 Hct 40.9 % (39.0-53.0) 05/15/18 05:40 MCV 90.4 fL (80.0-100.0) 05/15/18 05:40 MCH 29.3 pg (25.0-35.0) 05/15/18 05:40 MCHC 32.4 g/dL (31.0-37.0) 05/15/18 05:40 RDW 14.4 % (11.5-15.5) 05/15/18 05:40 Plt Count 221 k/uL (150-450) 05/15/18 05:40 Neutrophils % (Manual) 69 % 05/15/18 05:40 Lymphocytes % (Manual) 13 % 05/15/18 05:40 Monocytes % (Manual) 17 % 05/15/18 05:40 Eosinophils % (Manual) 1 % 05/15/18 05:40 Neutrophils # (Manual) 5.87 k/uL (1.3-7.7) 05/15/18 05:40 Lymphocytes # (Manual) 1.11 k/uL (1.0-4.8) 05/15/18 05:40 Monocytes # (Manual) 1.45 k/uL (0-1.0) H 05/15/18 05:40 Eosinophils # (Manual) 0.09 k/uL (0-0.7) 05/15/18 05:40 Nucleated RBCs 0 /100 WBC (0-0) 05/15/18 05:40 Manual Slide Review Performed 05/15/18 05:40 PT 10.7 sec (9.0-12.0) 05/15/18 05:40 INR 1.0 (<1.2) 05/15/18 05:40 APTT 25.3 sec (22.0-30.0) 05/15/18 05:40 Sodium 139 mmol/L (137-145) 05/15/18 05:40 Potassium 4.5 mmol/L (3.5-5.1) 05/15/18 05:40 Chloride 103 mmol/L (98-107) 05/15/18 05:40 Carbon Dioxide 27 mmol/L (22-30) 05/15/18 05:40 Anion Gap 9 mmol/L 05/15/18 05:40 BUN 22 mg/dL (9-20) H 05/15/18 05:40 Creatinine 1.31 mg/dL (0.66-1.25) H 05/15/18 05:40 Est GFR (CKD-EPI)AfAm 58 (>60 ml/min/1.73 sqM) 05/15/18 05:40 Est GFR (CKD-EPI)NonAf 51 (>60 ml/min/1.73 sqM) 05/15/18 05:40 Glucose 172 mg/dL (74-99) H 05/15/18 05:40 POC Glucose (mg/dL) 91 mg/dL (75-99) 05/15/18 20:45 POC Glu [employer] ID Shereen García 05/15/18 20:45 Plasma Lactic Acid Saji 1.8 mmol/L (0.7-2.0) 05/15/18 05:40 Calcium 9.7 mg/dL (8.4-10.2) 05/15/18 05:40 Total Bilirubin 0.6 mg/dL (0.2-1.3) 05/15/18 05:40 AST 34 U/L (17-59) 05/15/18 05:40 ALT 26 U/L (21-72) 05/15/18 05:40 Alkaline Phosphatase 80 U/L (38-126) 05/15/18 05:40 Troponin I <0.012 ng/mL (0.000-0.034) 05/15/18 05:40 Total Protein 7.5 g/dL (6.3-8.2) 05/15/18 05:40 Albumin 4.0 g/dL (3.5-5.0) 05/15/18 05:40 Urine Color Yellow 05/15/18 09:21 Urine Appearance Cloudy (Clear) 05/15/18 09:21 Urine pH 5.5 (5.0-8.0) 05/15/18 09:21 Ur Specific [place] 1.019 (1.001-1.035) 05/15/18 09:21 Urine Protein 1+ (Negative) H 05/15/18 09:21 Urine Glucose (UA) Trace (Negative) H 05/15/18 09:21 Urine Ketones Negative (Negative) 05/15/18 09:21 Urine Blood Moderate (Negative) H 05/15/18 09:21 Urine Nitrite Negative (Negative) 05/15/18 09:21 Urine Bilirubin Negative (Negative) 05/15/18 09:21 Urine Urobilinogen <2.0 mg/dL (<2.0) 05/15/18 09:21 Ur Leukocyte Esterase Large (Negative) H 05/15/18 09:21 Urine RBC 103 /hpf (0-5) H 05/15/18 09:21 Urine WBC 165 /hpf (0-5) H 05/15/18 09:21 Hyaline Casts 1 /lpf (0-2) 05/15/18 09:21 Urine Mucus Rare /hpf (None) H 05/15/18 09:21 Influenza Type A RNA Detected (Not Detectd) H 05/15/18 05:40 Influenza Type B (PCR) Not Detected (Not Detectd) 05/15/18 05:40 Blood Type A Positive 05/15/18 08:09 Blood Type Confirm A Positive 05/15/18 09:28 Blood Type Recheck CABO Indicated 05/15/18 08:09 Antibody Screen NEGATIVE 05/15/18 08:09 Spec Expiration Date 05/18/2018230805/15/18 08:09 Microbiology 05/15/18 09:21 Urine,Voided Urine Culture - Preliminary Recent urine culture with E. coli cavazos susceptible Chest x-ray: image reviewed (Patchy basilar infiltrates) CT scan - chest: report reviewed (Without acute intracranial bleed or mass) Assessment and Plan (1) Pneumonia and influenza Narrative/Plan: 83-year-old presents to Hospital status post fall. He did not been feeling well for a few days in the time presentation to the ER occurs the EMS the patient has evidence of generalized weakness and fever. Workup reveals evidence of influenza A. Patient has been initiated to Tamiflu and she is to be showing some improvement this evening. There is concerns for left lower lobe infiltrate and also has a history of a recent urinary tract infection and blood and urine cultures are pending. The E. coli that was recently isolated was quite susceptible and the Rocephin and azithromycin be utilized for the current treatment of pneumonia should be effective for the prior isolated E. coli. Final cultures will help determine the final course of antibiotic therapy at discharge. Continue ongoing supportive care. Enhance nutritional intake is helpful given his recent decline of his status. Current Visit: Yes Status: Acute Code(s): J11.00 - FLU DUE TO UNIDENTIFIED FLU VIRUS [facility] TYPE OF PNEUMONIA SNOMED Code(s): 491457484 (2) Fall at home Current Visit: Yes Status: Acute Code(s): W19.XXXA - UNSPECIFIED FALL, INITIAL ENCOUNTER; Y92.009 - UNSP PLACE IN [facility] RESIDENCE PL[facility] SNOMED Code(s): 01716691
[2018-05-16] MEDS: AZITHROMYCIN 500 MG TAB PO SCH (05:40)
[2018-05-16] MEDS: LEVOTHYROXINE 50 MCG TAB PO SCH (05:40)
[2018-05-16] MEDS: POTASSIUM CHLORIDE ER 20 MEQ TAB.ER PO SCH (08:02)
[2018-05-16] MEDS: LACTOBACILLUS ACIDOPH & BULGAR 1 EACH PACKET PO SCH (08:02)
[2018-05-16] MEDS: MULTIVITAMINS, THERA 1 EACH TAB PO SCH (08:02)
[2018-05-16] MEDS: FUROSEMIDE 40 MG TAB PO SCH (08:02)
[2018-05-16] MEDS: METOPROLOL SUCCINATE (ER) 25 MG TAB.ER.24H PO SCH (08:02)
[2018-05-16] MEDS: metFORMIN 500 MG TAB PO SCH ×2 (08:02→22:15)
[2018-05-16] MEDS: REPAGLINIDE 1 MG TAB PO SCH ×2 (08:02→16:55)
[2018-05-16] MEDS: TAMSULOSIN 0.4 MG CAP.ER.24H PO SCH ×2 (08:02→22:15)
[2018-05-16] MEDS: OSELTAMIVIR 75 MG CAP PO SCH ×2 (08:03→22:15)
[2018-05-16] MEDS ORDERED: NON-FORMULARY DRUG (Glucosam/Chon-Msm1/C/Mang/Bosw [Glucosamine-Chondroitin Tablet] 1 TAB) PO SCH (09:00)
[2018-05-16 09:16] LABS: Basophils % (A) 1 %; Eosinophils # (A) 0.3 k/uL (0-0.7); Eosinophils % (A) 4 %; HCT 38.2 % (39.0-53.0); HGB 12.2 gm/dL (13.0-17.5); Lymphocytes # (A) 1.3 k/uL (1.0-4.8); Lymphocytes % (A) 20 %; MCHC 31.8 g/dL (31.0-37.0); MCV 91.2 fL (80.0-100.0); Mean Platelet Volume 7.4; Monocytes # (A) 0.7 k/uL (0-1.0); Monocytes % (A) 11 %; Neutrophils % (A) 62 %; Platelet Count 147 k/uL (150-450); RBC 4.19 m/uL (4.30-5.90); RDW 14.3 % (11.5-15.5); WBC 6.4 k/uL (3.8-10.6)
--- NOTE | 2018-05-16 09:19 | XR ---
EXAMINATION TYPE: XR chest 2V DATE OF EXAM: 05/16/2018 COMPARISON: 05/15/2018 INDICATION: Pneumonia TECHNIQUE: Frontal and lateral views of the chest are obtained. FINDINGS: The heart size is normal. The pulmonary vasculature is normal. There is mild increasing infiltrate at the left base likely the lingula. This is slightly increased f rom comparison. Developing pneumonia could be considered. Atelectasis would be within the differentia l. IMPRESSION: 1. Mild developing infiltrate at the left base. Correlate for pneumonia or possibly atelectasis. Foll ow-up is recommended.
[2018-05-16 09:30] LABS: ALT 39 U/L (21-72); AST 54 U/L (17-59); Albumin 3.1 g/dL (3.5-5.0); Alkaline Phosphatase 54 U/L (38-126); Anion Gap 8 mmol/L; Blood Urea Nitrogen 22 mg/dL (9-20); Calcium 8.4 mg/dL (8.4-10.2); Carbon Dioxide 25 mmol/L (22-30); Chloride 106 mmol/L (98-107); Glucose 88 mg/dL (74-99); Potassium 4.5 mmol/L (3.5-5.1); Sodium 139 mmol/L (137-145); Total Bilirubin 0.4 mg/dL (0.2-1.3); Total Protein 6.3 g/dL (6.3-8.2)
--- NOTE | 2018-05-16 13:57 | P.PN ---
Subjective Progress Note Date: 05/16/18 Arnulfo allen is an 83-year-old male patient of Dr. Gloria Torrez who presented to [facility] emergency room via EMS after sustaining a fall at home with head trauma patient has been complaining of generalized weakness and not feeling well he was evaluated in the emergency room he had a bruise on his forehead computed tomography scan of the head and neck did not reveal any significant abnormality no intracranial bleeding further evaluation revealed positive influenza A testing, bilateral lower lobe infiltrates suggestive of pneumonia and evidence of urinary tract infection he was started on IV antibiotic Rocephin and Zithromax and was admitted to medical floor for further evaluation and treatment. Patient has a known history of coronary artery disease, [id number] diabetes mellitus, history of TIA in the past, and history of BPH with urinary retention, his surgical history is significant for coronary artery bypass graft surgery, cholecystectomy, hernia repair, and tonsillectomy. Patient was seen and examined on 05/15/2018 he is somnolent but awake easily he is complaining of weakness and low-grade fever otherwise he denies any complaints there is no chills no headache or dizziness, no chest pain or shortness of breath there is occasional cough there is no nausea or vomiting no abdominal pain no diarrhea and no urinary symptoms On 05/16/2018 patient was seen and examined on the medical floor he is alert and oriented 3 in no apparent distress he is still feeling very weak and unsteady on his feet, he has cough, otherwise there is no complaints there is no fever or chills no headache or dizziness no chest pain no shortness of breath no nausea or vomiting no abdominal pain no diarrhea and no urinary symptoms Objective - Vital Signs Vital signs: Vital Signs Temp 97.7 F 05/16/18 07:00 Pulse 67 05/16/18 08:00 Resp 16 05/16/18 08:00 BP 120/67 05/16/18 07:00 Pulse Ox 97 05/16/18 07:00 Intake & Output 05/15/18 05/16/18 05/16/18 18:59 06:59 18:59 Intake Total 240 Balance 240 Intake: Oral 240 Other: Voiding Method Toilet Toilet # Voids 200 1 - Exam In general patient is somnolent but awakes easily he is answering questions appropriately HEENT head normocephalic there is a bruise with small laceration in the middle of the front area Neck is supple no JVD no goiter no lymphadenopathy Chest exam reveals a few scattered crackles in bilateral bases no wheezing Cardiac exam reveals regular heart sounds S1 and S2 no gallops no murmurs Abdomen is soft nontender no organomegaly with normal bowel sounds Extremity exam reveals no edema no cyanosis or clubbing Neurological examination reveals no gross focal deficit - Labs CBC & Chem 7: 05/16/18 07:49 05/16/18 07:49 Labs: Abnormal Lab Results - Last 24 Hours (Table) 05/15/18 05/16/18 05/16/18 Range/Units 17:18 07:49 07:49 RBC 4.19 L (4.30-5.90) m/uL Hgb 12.2 L (13.0-17.5) gm/dL Hct 38.2 L (39.0-53.0) % Plt Count 147 L (150-450) k/uL BUN 22 H (9-20) mg/dL POC Glucose (mg/dL) 112 H (75-99) mg/dL Albumin 3.1 L (3.5-5.0) g/dL Microbiology - Last 24 Hours (Table) 05/15/18 05:40 Blood Culture - Preliminary Blood No Growth after 24 hours 05/15/18 09:21 Urine Culture - Preliminary Urine,Voided Assessment and Plan Plan: #1 generalized weakness with fall and head trauma #2 bilateral lower lobe infiltrate suggestive of pneumonia #3 urinary tract infection #4 positive influenza A testing #5 febrile illness related to influenza A, urinary tract infection, and possible bilateral pneumonia #6 underlying history of diabetes mellitus [id number] #7 underlying history of coronary artery disease with previous history of coronary artery bypass graft surgery #8 dehydration with acute kidney injury was elevated BUN at 22 and creatinine at 1.31 At this time patient is admitted to medical floor Will hydrate gently, continue IV antibiotic Rocephin and Zithromax Check urine culture and sputum culture Continue Tamiflu Treat symptomatically for fever and weakness Initiated physical therapy when patient improved Will follow closely
[2018-05-16 21:35] LABS: Glucose,Whole Blood 67 mg/dL (75-99)
[2018-05-16 22:30] LABS: Glucose,Whole Blood 120 mg/dL (75-99)
[2018-05-17] MEDS: SODIUM CHLORIDE 0.9% 1,000 ML IV SCH ×2 (05:28→22:42)
[2018-05-17] MEDS: LEVOTHYROXINE 50 MCG TAB PO SCH (05:29)
[2018-05-17] MEDS: AZITHROMYCIN 500 MG TAB PO SCH (05:29)
[2018-05-17] MEDS: OSELTAMIVIR 75 MG CAP PO SCH ×2 (09:31→20:54)
[2018-05-17] MEDS: MULTIVITAMINS, THERA 1 EACH TAB PO SCH (09:31)
[2018-05-17] MEDS: REPAGLINIDE 1 MG TAB PO SCH ×2 (09:31→17:44)
[2018-05-17] MEDS: METOPROLOL SUCCINATE (ER) 25 MG TAB.ER.24H PO SCH (09:31)
[2018-05-17] MEDS: TAMSULOSIN 0.4 MG CAP.ER.24H PO SCH ×2 (09:31→20:54)
[2018-05-17] MEDS: FUROSEMIDE 40 MG TAB PO SCH (09:31)
[2018-05-17] MEDS: POTASSIUM CHLORIDE ER 20 MEQ TAB.ER PO SCH (09:31)
[2018-05-17] MEDS: metFORMIN 500 MG TAB PO SCH ×2 (09:31→20:54)
[2018-05-17] MEDS: LACTOBACILLUS ACIDOPH & BULGAR 1 EACH PACKET PO SCH (11:09)
[2018-05-17] MEDS ORDERED: ONDANSETRON 4 MG/2 ML VIAL IVP PRN (12:40)
[2018-05-17] MEDS ORDERED: ACETAMINOPHEN TAB 325 MG TAB PO PRN (12:40)
--- NOTE | 2018-05-17 12:45 | P.PN ---
Subjective Progress Note Date: 05/17/18 Arnulfo allen is an 83-year-old male patient of Dr. Gloria Torrez who presented to [facility] emergency room via EMS after sustaining a fall at home with head trauma patient has been complaining of generalized weakness and not feeling well he was evaluated in the emergency room he had a bruise on his forehead computed tomography scan of the head and neck did not reveal any significant abnormality no intracranial bleeding further evaluation revealed positive influenza A testing, bilateral lower lobe infiltrates suggestive of pneumonia and evidence of urinary tract infection he was started on IV antibiotic Rocephin and Zithromax and was admitted to medical floor for further evaluation and treatment. Patient has a known history of coronary artery disease, [id number] diabetes mellitus, history of TIA in the past, and history of BPH with urinary retention, his surgical history is significant for coronary artery bypass graft surgery, cholecystectomy, hernia repair, and tonsillectomy. Patient was seen and examined on 05/15/2018 he is somnolent but awake easily he is complaining of weakness and low-grade fever otherwise he denies any complaints there is no chills no headache or dizziness, no chest pain or shortness of breath there is occasional cough there is no nausea or vomiting no abdominal pain no diarrhea and no urinary symptoms On 05/16/2018 patient was seen and examined on the medical floor he is alert and oriented 3 in no apparent distress he is still feeling very weak and unsteady on his feet, he has cough, otherwise there is no complaints there is no fever or chills no headache or dizziness no chest pain no shortness of breath no nausea or vomiting no abdominal pain no diarrhea and no urinary symptoms 05/17/2018 patient sitting at bedside chair. Reports that he is still having a cough. He is influenza A positive on Tamiflu. Urine culture growing presumptive staph aureus. Blood cultures remain negative. Currently on Rocephin and azithromycin. Patient denies any chest pain. Denies any nausea or vomiting. Did report having diarrhea this morning. Stool for C. diff was ordered. He reports taking a shower this morning without dizziness or difficulty with his balance. Objective - Vital Signs Vital signs: Vital Signs Temp 97.9 F 05/17/18 09:29 Pulse 74 05/17/18 09:29 Resp 16 05/17/18 09:29 BP 120/70 05/17/18 09:29 Pulse Ox 92 L 05/17/18 09:29 Intake & Output 05/16/18 05/17/18 05/17/18 18:59 06:59 18:59 Intake Total 830 Balance 830 Intake: Intake, IV Titration 350 Amount Sodium Chloride 0.9% 1, 350 000 ml @ 50 mls/hr IV . Q20H [facility] Rx#:[id number] Oral 480 Other: Voiding Method Toilet # Voids 6 1 - Exam Head normocephalic Neck supple Lungs a few coarse breath sounds noted at the bases Heart regular rate and rhythm S1-S2, no rub or gallop Abdomen is soft nontender nondistended positive bowel sounds no hepa tosplenomegaly Extremities no edema Neuro patient is awake and alert answering questions appropriately - Labs CBC & Chem 7: 05/16/18 07:49 05/16/18 07:49 Labs: Abnormal Lab Results - Last 24 Hours (Table) 05/16/18 05/16/18 Range/Units 21:13 22:19 POC Glucose (mg/dL) 67 L 120 H (75-99) mg/dL Microbiology - Last 24 Hours (Table) 05/15/18 05:40 Blood Culture - Preliminary Blood No Growth after 48 hours 05/15/18 09:21 Urine Culture - Preliminary Urine,Voided Presumptive Staph aureus Assessment and Plan Assessment: #1 generalized weakness with fall and head trauma: Likely related to patient's infections and dehydration #2 bilateral lower lobe infiltrate suggestive of pneumonia: Continue Rocephin and azithromycin #3 urinary tract infection: Urine culture growing presumptive staph aureus. Continue Rocephin await final urine culture results #4 positive influenza A testing: Continue Tamiflu #5 febrile illness related to influenza A, urinary tract infection, and possible bilateral pneumonia #6 underlying history of diabetes mellitus [id number] #7 underlying history of coronary artery disease with previous history of coronary artery bypass graft surgery #8 dehydration with acute kidney injury was elevated BUN at 22 and creatinine at 1.31. Creatinine has normalized at 0.87. We'll continue IV fluids for now #9 diarrhea check stool for C. diff GI prophylaxis Pepcid and DVT prophylaxis Lovenox Consult physical therapy I performed an examination of the patient and discussed their management with the physician Technical Account Manager. I have reviewed the Physician Technical Account Manager's notes and agree with the documented findings and plan of care
[2018-05-17] MEDS: ENOXAPARIN 40 MG/0.4 ML SYRINGE SQ SCH (14:58)
[2018-05-18] MEDS: SODIUM CHLORIDE 0.9% 1,000 ML IV SCH (03:59)
[2018-05-18] MEDS: AZITHROMYCIN 500 MG TAB PO SCH (04:53)
[2018-05-18] MEDS: LEVOTHYROXINE 50 MCG TAB PO SCH (04:54)
[2018-05-18 08:18] LABS: ALT 33 U/L (21-72); AST 40 U/L (17-59); Albumin 3.1 g/dL (3.5-5.0); Alkaline Phosphatase 62 U/L (38-126); Anion Gap 5 mmol/L; Blood Urea Nitrogen 18 mg/dL (9-20); Calcium 8.8 mg/dL (8.4-10.2); Carbon Dioxide 27 mmol/L (22-30); Chloride 106 mmol/L (98-107); Glucose 119 mg/dL (74-99); Potassium 4.2 mmol/L (3.5-5.1); Sodium 138 mmol/L (137-145); Total Bilirubin 0.4 mg/dL (0.2-1.3); Total Protein 6.1 g/dL (6.3-8.2)
[2018-05-18] MEDS ORDERED: VANCOMYCIN IV PER PHARMACY 1 EACH MISC MISCELLANE PRN (08:19)
[2018-05-18 08:40] LABS: Basophils % (A) 1 %; Eosinophils # (A) 0.4 k/uL (0-0.7); Eosinophils % (A) 10 %; HCT 38.2 % (39.0-53.0); Lymphocytes % (A) 26 %; MCH 28.1 pg (25.0-35.0); MCHC 31.4 g/dL (31.0-37.0); MCV 89.5 fL (80.0-100.0); Mean Platelet Volume 6.9; Monocytes # (A) 0.4 k/uL (0-1.0); Monocytes % (A) 9 %; Neutrophils # (A) 2.1 k/uL (1.3-7.7); Neutrophils % (A) 53 %; Platelet Count 200 k/uL (150-450); RBC 4.26 m/uL (4.30-5.90); RDW 14.2 % (11.5-15.5); WBC 3.9 k/uL (3.8-10.6)
[2018-05-18] MEDS: VANCOMYCIN 1,500 MG in SODIUM CHLORIDE 0.9% 250 ML IVPB SCH ×2 (09:51→21:32)
[2018-05-18] MEDS: ENOXAPARIN 40 MG/0.4 ML SYRINGE SQ SCH (09:51)
[2018-05-18] MEDS: OSELTAMIVIR 75 MG CAP PO SCH ×2 (09:52→21:31)
[2018-05-18] MEDS: FUROSEMIDE 40 MG TAB PO SCH (09:52)
[2018-05-18] MEDS: FAMOTIDINE 20 MG TAB PO SCH (09:52)
[2018-05-18] MEDS: REPAGLINIDE 1 MG TAB PO SCH ×2 (09:53→17:36)
[2018-05-18] MEDS: POTASSIUM CHLORIDE ER 20 MEQ TAB.ER PO SCH (09:53)
[2018-05-18] MEDS: LACTOBACILLUS ACIDOPH & BULGAR 1 EACH PACKET PO SCH (09:53)
[2018-05-18] MEDS: TAMSULOSIN 0.4 MG CAP.ER.24H PO SCH ×2 (09:54→21:31)
[2018-05-18] MEDS: METOPROLOL SUCCINATE (ER) 25 MG TAB.ER.24H PO SCH (09:54)
[2018-05-18] MEDS: metFORMIN 500 MG TAB PO SCH ×2 (09:54→21:36)
--- NOTE | 2018-05-18 12:47 | P.PN ---
Subjective Progress Note Date: 05/18/18 Arnulfo allen is an 83-year-old male patient of Dr. Gloria Torrez who presented to [facility] emergency room via EMS after sustaining a fall at home with head trauma patient has been complaining of generalized weakness and not feeling well he was evaluated in the emergency room he had a bruise on his forehead computed tomography scan of the head and neck did not reveal any significant abnormality no intracranial bleeding further evaluation revealed positive influenza A testing, bilateral lower lobe infiltrates suggestive of pneumonia and evidence of urinary tract infection he was started on IV antibiotic Rocephin and Zithromax and was admitted to medical floor for further evaluation and treatment. Patient has a known history of coronary artery disease, pgh-laplzad-qrvrelkzh diabetes mellitus, history of TIA in the past, and history of BPH with urinary retention, his surgical history is significant for coronary artery bypass graft surgery, cholecystectomy, hernia repair, and tonsillectomy. Patient was seen and examined on 05/15/2018 he is somnolent but awake easily he is complaining of weakness and low-grade fever otherwise he denies any complaints there is no chills no headache or dizziness, no chest pain or shortness of breath there is occasional cough there is no nausea or vomiting no abdominal pain no diarrhea and no urinary symptoms On 05/16/2018 patient was seen and examined on the medical floor he is alert and oriented 3 in no apparent distress he is still feeling very weak and unsteady on his feet, he has cough, otherwise there is no complaints there is no fever or chills no headache or dizziness no chest pain no shortness of breath no nausea or vomiting no abdominal pain no diarrhea and no urinary symptoms 05/17/2018 patient sitting at bedside chair. Reports that he is still having a cough. He is influenza A positive on Tamiflu. Urine culture growing presumptive staph aureus. Blood cultures remain negative. Currently on Rocephin and azithromycin. Patient denies any chest pain. Denies any nausea or vomiting. Did report having diarrhea this morning. Stool for C. diff was ordered. He reports taking a shower this morning without dizziness or difficulty with his balance. 05/18/2018 patient's urine is positive for MRSA. IV vancomycin has been added. Infectious disease consulted. Patient still reporting cough and some shortness of breath. He is no longer having diarrhea. Stools are now soft. Denies any nausea or vomiting. Denies any burning with urination Objective - Vital Signs Vital signs: Vital Signs Temp 97.6 F 05/18/18 07:03 Pulse 70 05/18/18 07:03 Resp 16 05/18/18 07:04 BP 134/76 05/18/18 07:03 Pulse Ox 90 L 05/18/18 07:03 Intake & Output 05/17/18 05/18/18 05/18/18 18:59 06:59 18:59 Intake Total 500 Balance 500 Intake: Intake, IV Titration 500 Amount Sodium Chloride 0.9% 1, 450 000 ml @ 50 mls/hr IV . Q20H BRIGID Rx#:[id number] cefTRIAXone 1 gm In 50 Sodium Chloride 0.9% 50 ml @ 100 mls/hr IVPB Q24H BRIGID Rx#:[id number] Other: Voiding Method Toilet # Voids 2 # Bowel Movements 1 - Exam Head normocephalic Neck supple Lungs a few coarse breath sounds noted at the bases Heart regular rate and rhythm S1-S2, no rub or gallop Abdomen is soft nontender nondistended positive bowel sounds no hepatosplenomegaly Extremities no edema Neuro patient is awake and alert answering questions appropriately - Labs CBC & Chem 7: 05/18/18 07:27 05/18/18 07:27 Labs: Abnormal Lab Results - Last 24 Hours (Table) 05/18/18 05/18/18 Range/Units 07:27 07:27 RBC 4.26 L (4.30-5.90) m/uL Hgb 12.0 L (13.0-17.5) gm/dL Hct 38.2 L (39.0-53.0) % Glucose 119 H (74-99) mg/dL Total Protein 6.1 L (6.3-8.2) g/dL Albumin 3.1 L (3.5-5.0) g/dL Microbiology - Last 24 Hours (Table) 05/15/18 05:40 Blood Culture - Preliminary Blood No Growth after 72 hours 05/15/18 09:21 Urine Culture - Final Urine,Voided Methicillin resist S. aureus Assessment and Plan Assessment: #1 generalized weakness with fall and head trauma: Likely related to patient's infections and dehydration #2 bilateral lower lobe infiltrate suggestive of pneumonia: Continue Rocephin and azithromycin. Encouraged patient to give us a sputum sample #3 urinary tract infection: Urine culture growing MRSA. Patient started on IV vancomycin. Infectious disease consulted #4 positive influenza A testing: Continue Tamiflu #5 febrile illness related to influenza A, urinary tract infection, and possible bilateral pneumonia #6 underlying history of diabetes mellitus [id number]-[id number] #7 underlying history of coronary artery disease with previous history of coronary artery bypass graft surgery #8 dehydration with acute kidney injury was elevated BUN at 22 and creatinine at 1.31. Creatinine has normalized at 0.87. We'll continue IV fluids for now #9 diarrhea : Resolved unable to collect stool for C. diff GI prophylaxis Pepcid and DVT prophylaxis Lovenox Consult physical therapy I performed an examination of the patient and discussed their management with the physician Adult Education Teacher. I have reviewed the Physician Adult Education Teacher's notes and agree with the documented findings and plan of care
[2018-05-18] MEDS: MULTIVITAMINS, THERA 1 EACH TAB PO SCH (13:32)
--- NOTE | 2018-05-18 21:28 | P.PN ---
Subjective Progress Note Date: 05/18/18 83-year-old male is brought to Hospital by EMS after the patient suffers a fall at home. The patient relates that in the days before becoming weak enough that he fell he was not feeling well. He had some mild symptoms of congestion to his chest, some fever and progressive weakness. Eventually he fell and was brought into hospital. Because fever testing was performed per patient without evidence of influenza a is also concerned to urinary tract infection. Does have a history of a recent urinary tract infection with E. coli that was not highly resistant. The patient seems to be feeling better today. He has been put upright in the chair and is having his meal without great difficulties. 05/18/2018 urine culture now shows evidence of MRSA. Patient though is feeling somewhat better. He is having no other new acute complaints. With the culture vancomycin was started. He is denying fevers or chills. He is eating well without nausea or emesis. Shortness of breath is improved. Objective - Vital Signs Vital signs: Vital Signs Temp 98.2 F 05/18/18 20:51 Pulse 92 05/18/18 20:51 Resp 18 05/18/18 20:51 BP 135/73 05/18/18 20:51 Pulse Ox 92 L 05/18/18 20:51 Intake & Output 05/18/18 05/18/18 05/19/18 06:59 18:59 06:59 Intake Total 500 240 Balance 500 240 Intake: Intake, IV Titration 500 Amount Sodium Chloride 0.9% 1, 450 000 ml @ 50 mls/hr IV . Q20H BRIGID Rx#:[id number] cefTRIAXone 1 gm In 50 Sodium Chloride 0.9% 50 ml @ 100 mls/hr IVPB Q24H BRIGID Rx#:[id number] Oral 240 Other: Voiding Method Toilet # Voids 2 # Bowel Movements 1 - Exam 83-year-old male not in distress HEENT: Anicteric conjunctiva are pink and moist nasal mucosa grossly intact without significant lesions, there is no thrush. Abrasion to the forehead is without significant purulence Neck: The neck is supple without significant lymphadenopathy or thyromegaly. Lungs: Symmetrical air entry few basilar crackles scattered wheezes no bronchial sounds Heart: Regular rate and rhythm with an audible S1-S2, no S3 no S4. There is no significant murmur click or rub, PMI was nondisplaced. Abdomen: Positive bowel sounds soft and nontender without palpable masses or organomegaly. There was no guarding or rebound. Extremities: The upper extremities have excellent pulses they are symmetric, no significant petechiae or telangiectasia. No splinter hemorrhages were noted. The lower extremities are free from significant edema. The peripheral pulses were 2+ and symmetric. Neuro: Sitting upright awake alert no acute gross focal sensory motor deficits - Labs CBC & Chem 7: 05/18/18 07:27 05/18/18 07:27 Labs: Abnormal Lab Results - Last 24 Hours (Table) 05/18/18 05/18/18 Range/Units 07:27 07:27 RBC 4.26 L (4.30-5.90) m/uL Hgb 12.0 L (13.0-17.5) gm/dL Hct 38.2 L (39.0-53.0) % Glucose 119 H (74-99) mg/dL Total Protein 6.1 L (6.3-8.2) g/dL Albumin 3.1 L (3.5-5.0) g/dL Microbiology - Last 24 Hours (Table) 05/15/18 09:21 Urine Culture - Final Urine,Voided Methicillin resist S. aureus 05/15/18 05:40 Blood Culture - Preliminary Blood No Growth after 72 hours Laboratory Results WBC 3.9 k/uL (3.8-10.6) 05/18/18 07:27 RBC 4.26 m/uL (4.30-5.90) L 05/18/18 07:27 Hgb 12.0 gm/dL (13.0-17.5) L 05/18/18 07:27 Hct 38.2 % (39.0-53.0) L 05/18/18 07:27 MCV 89.5 fL (80.0-100.0) 05/18/18 07:27 MCH 28.1 pg (25.0-35.0) 05/18/18 07:27 MCHC 31.4 g/dL (31.0-37.0) 05/18/18 07:27 RDW 14.2 % (11.5-15.5) 05/18/18 07:27 Plt Count 200 k/uL (150-450) 05/18/18 07:27 Neutrophils % 53 % 05/18/18 07:27 Neutrophils % (Manual) 69 % 05/15/18 05:40 Lymphocytes % 26 % 05/18/18 07:27 Lymphocytes % (Manual) 13 % 05/15/18 05:40 Monocytes % 9 % 05/18/18 07:27 Monocytes % (Manual) 17 % 05/15/18 05:40 Eosinophils % 10 % 05/18/18 07:27 Eosinophils % (Manual) 1 % 05/15/18 05:40 Basophils % 1 % 05/18/18 07:27 Neutrophils # 2.1 k/uL (1.3-7.7) 05/18/18 07:27 Neutrophils # (Manual) 5.87 k/uL (1.3-7.7) 05/15/18 05:40 Lymphocytes # 1.0 k/uL (1.0-4.8) 05/18/18 07:27 Lymphocytes # (Manual) 1.11 k/uL (1.0-4.8) 05/15/18 05:40 Monocytes # 0.4 k/uL (0-1.0) 05/18/18 07:27 Monocytes # (Manual) 1.45 k/uL (0-1.0) H 05/15/18 05:40 Eosinophils # 0.4 k/uL (0-0.7) 05/18/18 07:27 Eosinophils # (Manual) 0.09 k/uL (0-0.7) 05/15/18 05:40 Basophils # 0.0 k/uL (0-0.2) 05/18/18 07:27 Nucleated RBCs 0 /100 WBC (0-0) 05/15/18 05:40 Manual Slide Review Performed 05/15/18 05:40 PT 10.7 sec (9.0-12.0) 05/15/18 05:40 INR 1.0 (<1.2) 05/15/18 05:40 APTT 25.3 sec (22.0-30.0) 05/15/18 05:40 Sodium 138 mmol/L (137-145) 05/18/18 07:27 Potassium 4.2 mmol/L (3.5-5.1) 05/18/18 07:27 Chloride 106 mmol/L (98-107) 05/18/18 07:27 Carbon Dioxide 27 mmol/L (22-30) 05/18/18 07:27 Anion Gap 5 mmol/L 05/18/18 07:27 BUN 18 mg/dL (9-20) 05/18/18 07:27 Creatinine 0.79 mg/dL (0.66-1.25) 05/18/18 07:27 Est GFR (CKD-EPI)AfAm >90 (>60 ml/min/1.73 sqM) 05/18/18 07:27 Est GFR (CKD-EPI)NonAf 84 (>60 ml/min/1.73 sqM) 05/18/18 07:27 Glucose 119 mg/dL (74-99) H 05/18/18 07:27 POC Glucose (mg/dL) 120 mg/dL (75-99) H 05/16/18 22:19 POC Glu Acquisitions Librarian ID Arianne Bowers 05/16/18 22:19 Plasma Lactic Acid Saji 1.8 mmol/L (0.7-2.0) 05/15/18 05:40 Calcium 8.8 mg/dL (8.4-10.2) 05/18/18 07:27 Total Bilirubin 0.4 mg/dL (0.2-1.3) 05/18/18 07:27 AST 40 U/L (17-59) 05/18/18 07:27 ALT 33 U/L (21-72) 05/18/18 07:27 Alkaline Phosphatase 62 U/L (38-126) 05/18/18 07:27 Troponin I <0.012 ng/mL (0.000-0.034) 05/15/18 05:40 Total Protein 6.1 g/dL (6.3-8.2) L 05/18/18 07:27 Albumin 3.1 g/dL (3.5-5.0) L 05/18/18 07:27 Urine Color Yellow 05/15/18 09:21 Urine Appearance Cloudy (Clear) 05/15/18 09:21 Urine pH 5.5 (5.0-8.0) 05/15/18 09:21 Ur Specific [place] 1.019 (1.001-1.035) 05/15/18 09:21 Urine Protein 1+ (Negative) H 05/15/18 09:21 Urine Glucose (UA) Trace (Negative) H 05/15/18 09:21 Urine Ketones Negative (Negative) 05/15/18 09:21 Urine Blood Moderate (Negative) H 05/15/18 09:21 Urine Nitrite Negative (Negative) 05/15/18 09:21 Urine Bilirubin Negative (Negative) 05/15/18 09:21 Urine Urobilinogen <2.0 mg/dL (<2.0) 05/15/18 09:21 Ur Leukocyte Esterase Large (Negative) H 05/15/18 09:21 Urine RBC 103 /hpf (0-5) H 05/15/18 09:21 Urine WBC 165 /hpf (0-5) H 05/15/18 09:21 Hyaline Casts 1 /lpf (0-2) 05/15/18 09:21 Urine Mucus Rare /hpf (None) H 05/15/18 09:21 Influenza Type A RNA Detected (Not Detectd) H 05/15/18 05:40 Influenza Type B (PCR) Not Detected (Not Detectd) 05/15/18 05:40 Blood Type A Positive 05/15/18 08:09 Blood Type Confirm A Positive 05/15/18 09:28 Blood Type Recheck CABO Indicated 05/15/18 08:09 Antibody Screen NEGATIVE 05/15/18 08:09 Spec Expiration Date 05/18/2018230805/15/18 08:09 Microbiology 05/15/18 09:21 Urine,Voided Urine Culture - Final Methicillin resist S. aureus 05/15/18 05:40 Blood Blood Culture - Preliminary No Growth after 72 hours Assessment and Plan (1) Pneumonia and influenza Narrative/Plan: 83-year-old presents to Hospital status post fall. He did not been feeling well for a few days in the time presentation to the ER occurs the EMS the patient has evidence of generalized weakness and fever. Workup reveals evidence of influenza A. Patient has been initiated to Tamiflu and she is to be showing some improvement this evening. There is concerns for left lower lobe infiltrate and also has a history of a recent urinary tract infection and blood and urine cultures are pending. The E. coli that was recently isolated was quite susceptible and the Rocephin and azithromycin be utilized for the current treatment of pneumonia should be effective for the prior isolated E. coli. Final cultures will help determine the final course of antibiotic therapy at discharge. Continue ongoing supportive care. Enhance nutritional intake is helpful given his recent decline of his status. 05/18/2018 patient is doing somewhat better. Respiratory status is improving with the treatment of his influenza. There is also the left lower lobe infiltrate that is found to admission. Overall the patient is considerably better but there is evidence of MRSA in the urine. For antibiotic therapy will transition to doxycycline milligrams twice per day for 10 days of discharge to complete the treatment of his pulmonary infection as well as of his MRSA urinary tract infection. Expect ready for discharge tomorrow. Current Visit: Yes Status: Acute Code(s): J11.00 - FLU DUE TO UNIDENTIFIED FLU VIRUS W UNSP TYPE OF PNEUMONIA SNOMED Code(s): 569727003 (2) Fall at home Current Visit: Yes Status: Acute Code(s): W19.XXXA - UNSPECIFIED FALL, INITIAL ENCOUNTER; Y92.009 - UNSP PLACE IN UNSP [facility] RESIDENCE PLACE SNOMED Code(s): 72220237
[2018-05-19 01:35] VITALS: RESP 17
[2018-05-19] MEDS: SODIUM CHLORIDE 0.9% 1,000 ML IV SCH (01:58)
[2018-05-19] MEDS: LEVOTHYROXINE 50 MCG TAB PO SCH (05:00)
[2018-05-19] MEDS: AZITHROMYCIN 500 MG TAB PO SCH (05:00)
[2018-05-19] MEDS: VANCOMYCIN 1,500 MG in SODIUM CHLORIDE 0.9% 250 ML IVPB SCH (07:31)
[2018-05-19] MEDS: POTASSIUM CHLORIDE ER 20 MEQ TAB.ER PO SCH (07:32)
[2018-05-19] MEDS: FAMOTIDINE 20 MG TAB PO SCH (07:32)
[2018-05-19] MEDS: METOPROLOL SUCCINATE (ER) 25 MG TAB.ER.24H PO SCH (07:32)
[2018-05-19] MEDS: FUROSEMIDE 40 MG TAB PO SCH (07:32)
[2018-05-19] MEDS: TAMSULOSIN 0.4 MG CAP.ER.24H PO SCH (07:32)
[2018-05-19] MEDS: MULTIVITAMINS, THERA 1 EACH TAB PO SCH (07:32)
[2018-05-19] MEDS: REPAGLINIDE 1 MG TAB PO SCH (07:32)
[2018-05-19] MEDS: OSELTAMIVIR 75 MG CAP PO SCH ×2 (07:33→15:30)
[2018-05-19] MEDS: metFORMIN 500 MG TAB PO SCH (07:33)
[2018-05-19 08:04] VITALS: BP 152/78; PULSE 74; TEMP 97.7
[2018-05-19 08:40] LABS: HCT 37.6 % (39.0-53.0); HGB 12.1 gm/dL (13.0-17.5); MCH 28.8 pg (25.0-35.0); MCHC 32.1 g/dL (31.0-37.0); MCV 89.7 fL (80.0-100.0); Mean Platelet Volume 7.1; Platelet Count 227 k/uL (150-450); RBC 4.19 m/uL (4.30-5.90); RDW 14.1 % (11.5-15.5); WBC 4.9 k/uL (3.8-10.6)
[2018-05-19 08:50] LABS: ALT 33 U/L (21-72); AST 34 U/L (17-59); Albumin 3.1 g/dL (3.5-5.0); Alkaline Phosphatase 61 U/L (38-126); Anion Gap 5 mmol/L; Blood Urea Nitrogen 15 mg/dL (9-20); Carbon Dioxide 29 mmol/L (22-30); Chloride 107 mmol/L (98-107); Glucose 132 mg/dL (74-99); Potassium 4.6 mmol/L (3.5-5.1); Sodium 141 mmol/L (137-145); Total Bilirubin 0.4 mg/dL (0.2-1.3); Total Protein 6.3 g/dL (6.3-8.2)
[2018-05-19 10:15] LABS: Eosinophils # (M) 0.29 k/uL (0-0.7); Lymphocytes # (M) 2.01 k/uL (1.0-4.8); Monocytes # (M) 0.83 k/uL (0-1.0); Neutrophils # (M) 1.76 k/uL (1.3-7.7); Neutrophils % (M) 36 %; Nucleated Red Blood Cells 0 /100 WBC (0-0); Total Cells Counted 100
[2018-05-19] MEDS: LACTOBACILLUS ACIDOPH & BULGAR 1 EACH PACKET PO SCH (11:00)
--- NOTE | 2018-05-19 14:19 | P.DS ---
Providers Date of admission: 05/15/18 06:22 Expected date of discharge: 05/19/18 Attending physician: Mayank Cisneros Consults: 05/15/18 11:59 Consult Physician Routine Consulting Provider: Migue Adams Consult Reason/Comments: uti, pneumonia Do you want consulting provider notified?: Yes Primary care physician: Gloria Torrez [facility] Course: Discharge diagnosis #1 generalized weakness with fall and head trauma: Likely related to patient's infections and dehydration #2 bilateral lower lobe infiltrate suggestive of pneumonia: Continue Rocephin and azithromycin. Encouraged patient to give us a sputum sample #3 urinary tract infection: Urine culture growing MRSA. Patient started on IV vancomycin. Infectious disease consulted #4 positive influenza A testing: Continue Tamiflu #5 febrile illness related to influenza A, urinary tract infection, and possible bilateral pneumonia #6 underlying history of diabetes mellitus fge-wjeuiuc-aejjufrli #7 underlying history of coronary artery disease with previous history of coronary artery bypass graft surgery #8 dehydration with acute kidney injury was elevated BUN at 22 and creatinine at 1.31. Creatinine has normalized at 0.87. We'll continue IV fluids for now #9 diarrhea : Resolved unable to collect stool for C. diff Patient has been DC'd on doxycycline per infectious disease. Hospital course Arnulfo allen is an 83-year-old male patient of Dr. Gloria Torrez who presented to [facility] emergency room via EMS after sustaining a fall at home with head trauma patient has been complaining of generalized weakness and not feeling well he was evaluated in the emergency room he had a bruise on his forehead computed tomography scan of the head and neck did not reveal any significant abnormality no intracranial bleeding further evaluation revealed positive influenza A testing, bilateral lower lobe infiltrates suggestive of pneumonia and evidence of urinary tract infection he was started on IV antibiotic Rocephin and Zithromax and was admitted to medical floor for further evaluation and treatment. Patient has a known history of coronary artery disease, ruc-ykwanmv-ixqkoltnd diabetes mellitus, history of TIA in the past, and history of BPH with urinary retention, his surgical history is significant for coronary artery bypass graft surgery, cholecystectomy, hernia repair, and tonsillectomy. Patient was seen and examined on 05/15/2018 he is somnolent but awake easily he is complaining of weakness and low-grade fever otherwise he denies any com plaints there is no chills no headache or dizziness, no chest pain or shortness of breath there is occasional cough there is no nausea or vomiting no abdominal pain no diarrhea and no urinary symptoms On 05/16/2018 patient was seen and examined on the medical floor he is alert and oriented 3 in no apparent distress he is still feeling very weak and unsteady on his feet, he has cough, otherwise there is no complaints there is no fever or chills no headache or dizziness no chest pain no shortness of breath no nausea or vomiting no abdominal pain no diarrhea and no urinary symptoms 05/17/2018 patient sitting at bedside chair. Reports that he is still having a cough. He is influenza A positive on Tamiflu. Urine culture growing presumptive staph aureus. Blood cultures remain negative. Currently on Rocephin and azithromycin. Patient denies any chest pain. Denies any nausea or vomiting. Did report having diarrhea this morning. Stool for C. diff was ordered. He reports taking a shower this morning without dizziness or difficulty with his balance. 05/18/2018 patient's urine is positive for MRSA. IV vancomycin has been added. Infectious disease consulted. Patient still reporting cough and some shortness of breath. He is no longer having diarrhea. Stools are now soft. Denies any nausea or vomiting. Denies any burning with urination On 05/19/2018 patient is alert and oriented 3. Patient stresses that he feels ready and eager to go home. Infectious disease has sent prescription for doxycycline outpatient. Patient has completed course of Tamiflu. Patient to receive final dose of Tamiflu prior to discharge. Patient advised to follow-up with his PCP closely. At this time patient denies chest pain. Patient denies shortness breath. Patient denies nausea vomiting or diarrhea. Patient denies urinary burning or frequency I performed an examination of the patient and discussed their management with the Nurse Practitioner. I have reviewed the Nurse Practitioner's notes and agree with the documented findings and plan of care Patient Condition at Discharge: Stable Plan - Discharge Summary New Discharge Prescriptions: New Doxycycline Monohydrate [Monodox] 100 mg PO Q12HR #20 cap Continue Tamsulosin HCl [Flomax] 0.4 mg PO BID Repaglinide [Prandin] 1 mg PO AC-BID Metoprolol Succinate (ER) [Toprol XL] 25 mg PO DAILY metFORMIN HCL [Glucophage] 500 mg PO BID Glucosam/Augusto-Msm1/C/Chadd/Bosw [Glucosamine-Chondroitin Tablet] 1 tab PO DAILY Multivitamins, Thera [Multivitamin (formulary)] 1 tab PO DAILY Levothyroxine Sodium [Synthroid] 50 mcg PO DAILY Furosemide [Lasix] 40 mg PO DAILY Potassium Chloride [Klor-Con 20] 20 meq PO DAILY L.acidoph,Paracasei, B.lactis [Probiotic] 1 cap PO DAILY Discharge Medication List Glucosam/Augusto-Msm1/C/Chadd/Bosw [Glucosamine-Chondroitin Tablet] 1 tab PO DAILY 03/22/18 [History] Metoprolol Succinate (ER) [Toprol XL] 25 mg PO DAILY 03/22/18 [History] Multivitamins, Thera [Multivitamin (formulary)] 1 tab PO DAILY 03/22/18 [History] Repaglinide [Prandin] 1 mg PO AC-BID 03/22/18 [History] Tamsulosin HCl [Flomax] 0.4 mg PO BID 03/22/18 [History] metFORMIN HCL [Glucophage] 500 mg PO BID 03/22/18 [History] Furosemide [Lasix] 40 mg PO DAILY 05/15/18 [History] L.acidoph,Paracasei, B.lactis [Probiotic] 1 cap PO DAILY 05/15/18 [History] Levothyroxine Sodium [Synthroid] 50 mcg PO DAILY 05/15/18 [History] Potassium Chloride [Klor-Con 20] 20 meq PO DAILY 05/15/18 [History] Doxycycline Monohydrate [Monodox] 100 mg PO Q12HR #20 cap 05/18/18 [Rx] Follow up Appointment(s)/Referral(s): [facility],Equipment [NON-STAFF] - Gloria Torrez DO [Primary Care Provider] - 1-2 days [facility], [NON-STAFF] - Activity/Diet/Wound Care/Special Instructions: Change optifoam dressing or hydrocolloid on buttocks every 72 hours Walker delivered by [facility] to the bedside Discharge Disposition: HOME SELF-CARE
[2018-05-20] MEDS ORDERED: VANCOMYCIN TROUGH DUE 1 EACH MISC MISCELLANE ONE (08:00)
== END 2018-05-19 16:00 | disposition home or self-care (01) | DRG 194 ==
LOC: EC 05:04 → 4SSUR 06:22
PROVIDERS: ADMIT Internal Medicine; ATTEND Internal Medicine
DX: J10.00 Influenza due to other identified influenza virus with unspecified type of pneumonia (principal); N17.9 Acute kidney failure, unspecified; N39.0 Urinary tract infection, site not specified; B95.62 Methicillin resistant Staphylococcus aureus infection as the cause of diseases classified elsewhere; E11.9 Type 2 diabetes mellitus without complications; E86.0 Dehydration; I25.10 Atherosclerotic heart disease of native coronary artery without angina pectoris; J45.909 Unspecified asthma, uncomplicated; N40.1 Benign prostatic hyperplasia with lower urinary tract symptoms; S00.83XA Contusion of other part of head, initial encounter; W19.XXXA Unspecified fall, initial encounter; Y92.009 Unspecified place in unspecified non-institutional (private) residence as the place of occurrence of the external cause; Z79.82 Long term (current) use of aspirin; Z79.84 Long term (current) use of oral hypoglycemic drugs; Z79.890 Hormone replacement therapy; Z79.899 Other long term (current) drug therapy; Z86.73 Personal history of transient ischemic attack (TIA), and cerebral infarction without residual deficits; Z95.1 Presence of aortocoronary bypass graft; Z88.2 Allergy status to sulfonamides; Z90.49 Acquired absence of other specified parts of digestive tract; Z98.42 Cataract extraction status, left eye; Z98.41 Cataract extraction status, right eye; R19.7 Diarrhea, unspecified; R40.2142 Coma scale, eyes open, spontaneous, at arrival to emergency department; R40.2362 Coma scale, best motor response, obeys commands, at arrival to emergency department; R40.2252 Coma scale, best verbal response, oriented, at arrival to emergency department
CPT/HCPCS: 12011; 36415; 70450; 71045; 71046; 72125; 80053; 81001; 83605; 84484; 85025; 85610; 85730; 86850; 86900; 86901; 87040; 87077; 87086; 87186; 87502; 90471; 90715; 93005; 94760; 96361; 96365; 99285

== ENCOUNTER 2018-10-19 16:51 | Inpatient (IN) | payer MEDICARE ==
[2018-10-19] MEDS ORDERED: ONDANSETRON 4 MG/2 ML VIAL IVP STA (17:45)
[2018-10-19] MEDS ORDERED: SODIUM CHLORIDE 0.9% 1,000 ML IV STA (17:45)
--- NOTE | 2018-10-19 18:03 | ED ---
Nausea/Vomiting/Diarrhea HPI - General Chief complaint: Nausea/Vomiting/Diarrhea Stated complaint: Dehydration Time Seen by Provider: 10/19/18 16:59 Source: patient Mode of arrival: wheelchair Limitations: no limitations - History of Present Illness Initial comments: The patient is an 83-year-old male who presents to the emergency room in with reported nausea and vomiting since 4 AM. He states that he has been unable to tolerate any by mouth intake. He denies any sick contacts or recent travel. Denies possibility of eating any tainted foods. He states that with the last vomiting episode that he did see some bright red blood. He denies any ass ociated abdominal pain. Reports that he has not had a bowel movement yet today. Last bowel movement was 2 days ago and was brown in color. Denies any melanotic stools or hematochezia. Denies constipation or diarrhea. Reports that he is still passing gas. He denies any changes in his urination to include dysuria, hematuria or difficulty voiding. Denies any back or flank pain. No chest pain or shortness of breath. There are no other alleviating, precipitating or modifying factors - Related Data Home Medications Medication Instructions Recorded Confirmed Glucosam/Augusto-Msm1/C/Chadd/Bosw 1 tab PO DAILY 03/22/18 10/19/18 [Glucosamine-Chondroitin Tablet] Metoprolol Succinate (ER) [Toprol 12.5 mg PO DAILY 03/22/18 10/19/18 XL] Multivitamins, Thera [Multivitamin 1 tab PO DAILY 03/22/18 10/19/18 (formulary)] Repaglinide [Prandin] 1 mg PO AC-BID 03/22/18 10/19/18 Tamsulosin HCl [Flomax] 0.4 mg PO BID 03/22/18 10/19/18 metFORMIN HCL [Glucophage] 500 mg PO BID 03/22/18 10/19/18 Furosemide [Lasix] 40 mg PO DAILY 05/15/18 10/19/18 Levothyroxine Sodium [Synthroid] 50 mcg PO DAILY 05/15/18 10/19/18 Atorvastatin [Lipitor] 40 mg PO Q48H 10/19/18 10/19/18 Finasteride [Proscar] 5 mg PO DAILY 10/19/18 10/19/18 Fluticasone Nasal [place] [Flonase 1 spray EA NOSTRIL DAILY PRN 10/19/18 10/19/18 Nasal [place]] Fluticasone/Salmeterol [Advair 1 puff INHALATION RT-BID 10/19/18 10/19/18 250-50 Diskus] Losartan Potassium [Cozaar] 25 mg PO DAILY 10/19/18 10/19/18 Allergies Allergy/AdvReac Type Severity Reaction Status Date / Time Sulfa (Sulfonamide Allergy Unknown Verified 10/19/18 17:37 Antibiotics) Childhood Review of Systems ROS Statement: Those systems with pertinent positive or pertinent negative responses have been documented in the HPI. ROS Other: All systems not noted in ROS Statement are negative. Past Medical History Past Medical History: Asthma, Coronary Artery Disease (CAD), CVA/TIA, Diabetes Mellitus, Skin Disorder Additional Past Medical History / Comment(s): TIA post op after gallbladder surgery-no residual effects, constipation, urinary retention, History of Any Multi-Drug Resistant Organisms: MRSA Date of last positivie culture/infection: 05/15/18 MDRO Source:: URINE MRSA Past Surgical History: Cholecystectomy, Coronary Bypass/CABG, Heart Catheterization, Hernia Repair, Tonsillectomy Additional Past Surgical History / Comment(s): CABG 2000, bari cataracts, Past Anesthesia/Blood Transfusion Reactions: No Reported Reaction Past Psychological History: No Psychological Hx Reported Smoking Status: Never smoker Past Alcohol Use History: Rare Past Drug Use History: None Reported - Past Family History Mother Family Medical History: No Reported History General Exam Limitations: no limitations General appearance: alert, in no apparent distress Head exam: Present: atraumatic, normocephalic, normal inspection Eye exam: Present: normal appearance, PERRL, EOMI. Absent: scleral icterus, conjunctival injection, periorbital swelling ENT exam: Present: normal exam, mucous membranes moist Neck exam: Present: normal inspection. Absent: tenderness, meningismus, lymphadenopathy Respiratory exam: Present: normal lung sounds bilaterally. Absent: respiratory distress, wheezes, rales, rhonchi, stridor Cardiovascular Exam: Present: regular rate, normal rhythm, normal heart sounds. Absent: systolic murmur, diastolic murmur, rubs, gallop, clicks GI/Abdominal exam: Present: soft, distended (minimally), normal bowel sounds. Absent: tenderness, guarding, rebound, rigid Rectal exam: Present: deferred Extremities exam: Present: normal inspection, full ROM, normal capillary refill. Absent: tenderness, pedal edema, joint swelling, calf tenderness Back exam: Present: normal inspection Neurological exam: Present: alert, oriented X3, CN II-XII intact Psychiatric exam: Present: normal affect, normal mood Skin exam: Present: warm, dry, intact, normal color. Absent: rash Course Vital Signs 10/19/18 10/19/18 16:52 21:00 Temperature 97.3 F L 97.9 F Pulse Rate 95 82 Respiratory 18 18 Rate Blood Pressure 110/70 118/67 O2 Sat by Pulse 95 100 Oximetry Medical Decision Making - Medical Decision Making Upon arrival the patient was placed into room 17. He is hooked up to continuous pulse ox and cardiac monitoring. A thorough history of physical exam is performed. Peripheral IV was established the patient was given a liter bolus of normal saline. Laboratory studies were conducted. The patient was sent over for CT of his abdomen and pelvis. Blood work is remarkable for a lactic acid of 2.9. With blood cell count is 14.2. Patient's creatinine is 1.5 from a baseline of 0.8. I did review CT of the patient's abdomen and pelvis which did demonstrate signs of a small bowel obstruction with a transition point in the pelvis. Because of these results I did call and discuss the case with Dr. Nelly harris. He did recommend hospital admission pain control, fluid hydration, antibiotics and an NG tube. The nurse does attempt to pass NG tube however has difficulty. I did attempt and and able to pass the tube. The patient is hooked up to Continuous low intermittent suction. Blood cultures were obtained and the patient was started on Zosyn. The patient did agree to hospital admission. I will place Dr. Marek Mendiola on consult. Patient remained in stable condition was transported to the floor - Lab Data Result diagrams: 10/24/18 07:15 10/24/18 07:15 Lab Results 10/19/18 10/19/18 10/19/18 Range/Units 18:09 18:09 18:09 WBC 14.2 H (3.8-10.6) k/uL RBC 4.45 (4.30-5.90) m/uL Hgb 13.5 (13.0-17.5) gm/dL Hct 41.1 (39.0-53.0) % MCV 92.4 (80.0-100.0) fL MCH 30.4 (25.0-35.0) pg MCHC 32.9 (31.0-37.0) g/dL RDW 15.4 (11.5-15.5) % Plt Count 244 (150-450) k/uL Neutrophils % 83 % Lymphocytes % 9 % Monocytes % 6 % Eosinophils % 1 % Basophils % 0 % Neutrophils # 11.8 H (1.3-7.7) k/uL Lymphocytes # 1.3 (1.0-4.8) k/uL Monocytes # 0.8 (0-1.0) k/uL Eosinophils # 0.1 (0-0.7) k/uL Basophils # 0.0 (0-0.2) k/uL Sodium 144 (137-145) mmol/L Potassium 4.5 (3.5-5.1) mmol/L Chloride 103 (98-107) mmol/L Carbon Dioxide 30 (22-30) mmol/L Anion Gap 11 mmol/L BUN 37 H (9-20) mg/dL Creatinine 1.51 H (0.66-1.25) mg/dL Est GFR (CKD-EPI)AfAm 49 (>60 ml/min/1.73 sqM) Est GFR (CKD-EPI)NonAf 43 (>60 ml/min/1.73 sqM) Glucose 202 H (74-99) mg/dL Lactic Ac Sepsis Rflx Plasma Lactic Acid Saji 2.9 H* (0.7-2.0) mmol/L Calcium 10.0 (8.4-10.2) mg/dL Total Bilirubin 0.5 (0.2-1.3) mg/dL AST 25 (17-59) U/L ALT 19 L (21-72) U/L Alkaline Phosphatase 70 (38-126) U/L Total Protein 7.8 (6.3-8.2) g/dL Albumin 4.3 (3.5-5.0) g/dL Lipase 174 (23-300) U/L 10/19/18 Range/Units 19:11 WBC (3.8-10.6) k/uL RBC (4.30-5.90) m/uL Hgb (13.0-17.5) gm/dL Hct (39.0-53.0) % MCV (80.0-100.0) fL MCH (25.0-35.0) pg MCHC (31.0-37.0) g/dL RDW (11.5-15.5) % Plt Count (150-450) k/uL Neutrophils % % Lymphocytes % % Monocytes % % Eosinophils % % Basophils % % Neutrophils # (1.3-7.7) k/uL Lymphocytes # (1.0-4.8) k/uL Monocytes # (0-1.0) k/uL Eosinophils # (0-0.7) k/uL Basophils # (0-0.2) k/uL Sodium (137-145) mmol/L Potassium (3.5-5.1) mmol/L Chloride (98-107) mmol/L Carbon Dioxide (22-30) mmol/L Anion Gap mmol/L BUN (9-20) mg/dL Creatinine (0.66-1.25) mg/dL Est GFR (CKD-EPI)AfAm (>60 ml/min/1.73 sqM) Est GFR (CKD-EPI)NonAf (>60 ml/min/1.73 sqM) Glucose (74-99) mg/dL Lactic Ac Sepsis Rflx Y Plasma Lactic Acid Saji (0.7-2.0) mmol/L Calcium (8.4-10.2) mg/dL Total Bilirubin (0.2-1.3) mg/dL AST (17-59) U/L ALT (21-72) U/L Alkaline Phosphatase (38-126) U/L Total Protein (6.3-8.2) g/dL Albumin (3.5-5.0) g/dL Lipase (23-300) U/L - EKG Data EKG Comments: EKG demonstrates a sinus rhythm with a ventricular rate of 84. LA interval 186. QRS 160. QTC 489. There is a right bundle branch block. No acute ST segment elevations Disposition Clinical Impression: Small bowel obstruction, Dehydration, KIRBY (acute kidney injury), Leukocytosis, Lactic acid acidosis Disposition: ADMITTED IP TO [facility] Condition: Stable Is patient prescribed a controlled substance at d/c from ED?: No Decision to Admit Reason: Admit from EC Decision Date: 10/19/18 Decision Time: 21:07
[2018-10-19 18:24] LABS: Basophils % (A) 0 %; Eosinophils # (A) 0.1 k/uL (0-0.7); Eosinophils % (A) 1 %; HCT 41.1 % (39.0-53.0); HGB 13.5 gm/dL (13.0-17.5); Lymphocytes # (A) 1.3 k/uL (1.0-4.8); Lymphocytes % (A) 9 %; MCH 30.4 pg (25.0-35.0); MCHC 32.9 g/dL (31.0-37.0); MCV 92.4 fL (80.0-100.0); Mean Platelet Volume 7.2; Monocytes # (A) 0.8 k/uL (0-1.0); Monocytes % (A) 6 %; Neutrophils # (A) 11.8 k/uL (1.3-7.7); Neutrophils % (A) 83 %; Platelet Count 244 k/uL (150-450); RBC 4.45 m/uL (4.30-5.90); RDW 15.4 % (11.5-15.5); WBC 14.2 k/uL (3.8-10.6)
[2018-10-19 18:38] LABS: Albumin 4.3 g/dL (3.5-5.0); Potassium 4.5 mmol/L (3.5-5.1); Total Bilirubin 0.5 mg/dL (0.2-1.3); Total Protein 7.8 g/dL (6.3-8.2)
--- NOTE | 2018-10-19 20:22 | CT ---
EXAMINATION TYPE: CT abdomen pelvis wo con DATE OF EXAM: 10/19/2018 COMPARISON: HISTORY: abdominal pain and vomiting CT DLP: 1052.4 mGycm Automated exposure control for dose reduction was used. TECHNIQUE: Helical acquisition of images was performed from the lung bases through the pelvis. FINDINGS: Within the limitations of noncontrast CT the following observations are made. LUNG BASES: No acute findings, but prominent coronary calcifications are noted. LIVER/GB: No significant abnormality is appreciated. PANCREAS: No significant abnormality is seen. SPLEEN: No significant abnormality is seen. ADRENALS: No significant abnormality is seen. KIDNEYS: No hydronephrosis or hydroureter. PERITONEAL CAVITY: No free air is visualized. No peritoneal fluid. RETROPERITONEAL ADENOPATHY: None visualized REPRODUCTIVE ORGANS: No significant abnormality is seen URINARY BLADDER: No significant abnormality is seen. PELVIC ADENOPATHY: None visualized. OSSEOUS STRUCTURES: No significant abnormality is seen. BOWEL: The stomach is mild-plus distended, as is the duodenum and jejunum. Duodenal loops reach 4 cm caliber. Small bowel mesentery is negative and there is no bowel wall thickening. The ileum is colla psed and the colon shows gas and stool throughout, but is not distended. The transition point appears to be in the pelvis, without mass, mass effect or abnormal gas or fluid collection, or other etiolog y. Therefore, etiology for the caliber change is presumably adhesions. IMPRESSION: MILD-PLUS SMALL BOWEL OBSTRUCTION PATTERN, LIKELY SECONDARY TO ADHESIONS.
[2018-10-19] MEDS ORDERED: NALOXONE 0.4 MG/ML 1 ML VIAL IV PRN (20:34)
[2018-10-19] MEDS ORDERED: ONDANSETRON 4 MG/2 ML VIAL IVP PRN (20:34)
[2018-10-19] MEDS: SODIUM CHLORIDE 0.9% 1,000 ML IV SCH (21:45)
[2018-10-19] MEDS: PIPERACILLIN-TAZOBACTAM 3.375 GM in SODIUM CHLORIDE 0.9% 100 ML IVPB SCH (21:46)
[2018-10-20] MEDS: SODIUM CHLORIDE 0.9% 1,000 ML IV SCH ×5 (00:15→17:43)
[2018-10-20] MEDS: PIPERACILLIN-TAZOBACTAM 3.375 GM in SODIUM CHLORIDE 0.9% 100 ML IVPB SCH ×4 (04:38→20:41)
[2018-10-20] MEDS: LEVOTHYROXINE 50 MCG TAB PO SCH (04:42)
[2018-10-20 05:08] LABS: Appearance,Urine Cloudy (Clear); Bacteria,Urine Rare /hpf; Bilirubin,Urine Negative (Negative); Blood,Urine Negative (Negative); Color,Urine Yellow; Glucose,Urine (UA) Negative (Negative); Hyaline Casts,Urine 57 /lpf (0-2); Ketones,Urine Negative (Negative); Leukocyte Esterase,Urine Moderate (Negative); Mucus,Urine Moderate /hpf; Nitrite,Urine Negative (Negative); PH, Urine 6.5 (5.0-8.0); Protein,Urine 1+ (Negative); RBC,Urine 2 /hpf (0-5); Specific Gravity,Urine 1.027 (1.001-1.035); Squamous Epithelial Cell,Urine 10 /hpf (0-4); Urobilinogen,Urine <2.0 mg/dL (<2.0); WBC,Urine 28 /hpf (0-5)
[2018-10-20 07:29] LABS: HCT 38.8 % (39.0-53.0); HGB 12.6 gm/dL (13.0-17.5); MCH 30.2 pg (25.0-35.0); MCHC 32.4 g/dL (31.0-37.0); MCV 93.2 fL (80.0-100.0); Mean Platelet Volume 6.8; Platelet Count 223 k/uL (150-450); RBC 4.16 m/uL (4.30-5.90); RDW 14.2 % (11.5-15.5)
[2018-10-20 07:33] LABS: Calcium 8.6 mg/dL (8.4-10.2); Potassium 4.2 mmol/L (3.5-5.1)
[2018-10-20] MEDS: INSULIN ASPART (NovoLOG) 100 UNIT/ML VIAL SQ SCH ×3 (08:12→17:44)
[2018-10-20] MEDS: LOSARTAN 25 MG TAB PO SCH ×2 (08:12→13:39)
[2018-10-20] MEDS: METOPROLOL SUCCINATE (ER) 25 MG TAB.ER.24H PO SCH ×2 (08:12→13:39)
[2018-10-20 09:04] LABS: Eosinophils # (M) 0.22 k/uL (0-0.7); Lymphocytes # (M) 1.21 k/uL (1.0-4.8); Neutrophils % (M) 77 %; Nucleated Red Blood Cells 0 /100 WBC (0-0); Total Cells Counted 100
[2018-10-20 09:05] LABS: Poikilocytosis (M) Present
--- NOTE | 2018-10-20 10:35 | P.GSHP ---
<Shahla Robin A - Last Filed: 10/20/18 10:32> History of Present Illness H&P Date: 10/20/18 Chief Complaint: abdominal pain CHIEF COMPLAINT: Abdominal pain HISTORY OF PRESENT ILLNESS: 83-year-old male who presented to the emergency room a chief complaint of abdominal pain, nausea, and vomiting. Patient reports two day history of nausea and vomiting. He has been unable to keep any fluids down. He reports generalized abdominal pain that has improved since coming to the hospital. NG tube was placed in ER. He denies passing flatus this AM. Last bowel movement was 2 days ago. Reports history of cholecystectomy a few years ago at outside facility that was unable to be performed laparoscopically and had to be converted to open. PAST MEDICAL HISTORY: See list. PAST SURGICAL HISTORY: See list. SOCIAL HISTORY: No illicit drug use. REVIEW OF SYSTEMS: CONSTITUTIONAL: Denies fever or chills. HEENT: Denies blurred vision, vision changes, or eye pain. Denies hemoptysis CARDIOVASCULAR: Denies chest pain or pressure. RESPIRATORY: No shortness of breath. GASTROINTESTINAL: Refer to [facility] for pertinent findings HEMATOLOGIC: Denies bleeding disorders. GENITOURINARY: Denies any blood in urine. SKIN: Denies pruitis. Denies rash. PHYSICAL EXAM: VITAL SIGNS: Reviewed. GENERAL: Well-developed in no acute distress. HEENT: NG to low intermittent suction. No sclera icterus. Extraocular movements grossly intact. Moist buccal mucosa. Head is atraumatic, normocephalic. ABDOMEN: Soft. Nondistended. Nontender. NEUROLOGIC: Alert and oriented. Cranial nerves II through XII grossly intact. LABORATORY DATA: Laboratory data on admission reveals white count 14.2. Hemoglobin 13.5. BUN 37. Creatinine 1.51. Lactic acid 2.9. IMAGING: CT abdomen and pelvis: Stomach is mild plus distended as it is the jejunum and duodenum. Duodenal loops measuring 4 cm. Small bowel mesentery is negative and there is no bowel wall thickening. Sandhu is collapsed in the colon shows gas and stool throughout but is not distended. The transition point appears to be in the pelvis, without mass, mass effect or abnormal gas or fluid collection. Impression mild plus small bowel obstruction pattern, likely secondary to effusions ASSESSMENT: 1. Abdominal pain, nausea, vomiting 2. Small bowel obstruction 3. History of open cholecystectomy PLAN: 1. NPO 2. Continue NG to LIS 3. Continue IV fluids 4. Medical management per Dr. Torrez 5. Protonix and Heparin 6. Patient to undergo exploratory laparotomy today with Dr. James Nurse practitioner note has been reviewed by physician. Signing provider agrees with the documented findings, assessment, and plan of care. Past Medical History Past Medical History: Asthma, Coronary Artery Disease (CAD), CVA/TIA, Diabetes Mellitus, Skin Disorder Additional Past Medical History / Comment(s): TIA post op after gallbladder surgery-no residual effects, constipation, urinary retention, History of Any Multi-Drug Resistant Organisms: MRSA Date of last positivie culture/infection: 05/15/18 MDRO Source:: URINE MRSA Past Surgical History: Cholecystectomy, Coronary Bypass/CABG, Heart Catheter ization, Hernia Repair, Tonsillectomy Additional Past Surgical History / Comment(s): CABG 2000, bari cataracts, Past Anesthesia/Blood Transfusion Reactions: No Reported Reaction Past Psychological History: No Psychological Hx Reported Smoking Status: Never smoker Past Alcohol Use History: Rare Past Drug Use History: None Reported - Past Family History Mother Family Medical History: No Reported History Medications and Allergies Home Medications Medication Instructions Recorded Confirmed Type Glucosam/Uagusto-Msm1/C/Chadd/Bosw 1 tab PO DAILY 03/22/18 10/19/18 History [Glucosamine-Chondroitin Tablet] Metoprolol Succinate (ER) [Toprol 12.5 mg PO DAILY 03/22/18 10/19/18 History XL] Multivitamins, Thera [Multivitamin 1 tab PO DAILY 03/22/18 10/19/18 History (formulary)] Repaglinide [Prandin] 1 mg PO AC-BID 03/22/18 10/19/18 History Tamsulosin HCl [Flomax] 0.4 mg PO BID 03/22/18 10/19/18 History metFORMIN HCL [Glucophage] 500 mg PO BID 03/22/18 10/19/18 History Furosemide [Lasix] 40 mg PO DAILY 05/15/18 10/19/18 History Levothyroxine Sodium [Synthroid] 50 mcg PO DAILY 05/15/18 10/19/18 History Atorvastatin [Lipitor] 40 mg PO Q48H 10/19/18 10/19/18 History Finasteride [Proscar] 5 mg PO DAILY 10/19/18 10/19/18 History Fluticasone Nasal [place] [Flonase 1 spray EA NOSTRIL DAILY PRN 10/19/18 10/19/18 History Nasal [place]] Fluticasone/Salmeterol [Advair 1 puff INHALATION RT-BID 10/19/18 10/19/18 Hi story 250-50 Diskus] Losartan Potassium [Cozaar] 25 mg PO DAILY 10/19/18 10/19/18 History Allergies Allergy/AdvReac Type Severity Reaction Status Date / Time Sulfa (Sulfonamide Allergy Unknown Verified 10/19/18 17:37 Antibiotics) Childhood Surgical - Exam Vital Signs Temp Pulse Resp BP Pulse Ox 97.3 F L 95 18 110/70 95 10/19/18 16:52 10/19/18 16:52 10/19/18 16:52 10/19/18 16:52 10/19/18 16:52 Results - Labs 10/20/18 07:00 10/20/18 07:00 Abnormal Lab Results - Last 24 Hours (Table) 10/19/18 10/19/18 10/19/18 Range/Units 18:09 18:09 18:09 WBC 14.2 H (3.8-10.6) k/uL RBC (4.30-5.90) m/uL Hgb (13.0-17.5) gm/dL Hct (39.0-53.0) % Neutrophils # 11.8 H (1.3-7.7) k/uL Chloride (98-107) mmol/L Carbon Dioxide (22-30) mmol/L BUN 37 H (9-20) mg/dL Creatinine 1.51 H (0.66-1.25) mg/dL Glucose 202 H (74-99) mg/dL Plasma Lactic Acid Saji 2.9 H* (0.7-2.0) mmol/L ALT 19 L (21-72) U/L Urine Protein (Negative) Ur Leukocyte Esterase (Negative) Urine WBC (0-5) /hpf Urine WBC Clumps (None) /hpf Ur Squamous Epith Cells (0-4) /hpf Urine Bacteria (None) /hpf Hyaline Casts (0-2) /lpf Urine Mucus (None) /hpf 10/20/18 10/20/18 10/20/18 Range/Units 04:45 07:00 07:00 WBC 11.0 H (3.8-10.6) k/uL RBC 4.16 L (4.30-5.90) m/uL Hgb 12.6 L (13.0-17.5) gm/dL Hct 38.8 L (39.0-53.0) % Neutrophils # (1.3-7.7) k/uL Chloride 108 H (98-107) mmol/L Carbon Dioxide 31 H (22-30) mmol/L BUN 30 H (9-20) mg/dL Creatinine 1.33 H (0.66-1.25) mg/dL Glucose 153 H (74-99) mg/dL Plasma Lactic Acid Saji (0.7-2.0) mmol/L ALT (21-72) U/L Urine Protein 1+ H (Negative) Ur Leukocyte Esterase Moderate H (Negative) Urine WBC 28 H (0-5) /hpf Urine WBC Clumps Rare H (None) /hpf Ur Squamous Epith Cells 10 H (0-4) /hpf Urine Bacteria Rare H (None) /hpf Hyaline Casts 57 H (0-2) /lpf Urine Mucus Moderate H (None) /hpf Diabetes panel 10/19/18 10/20/18 Range/Units 18:09 07:00 Sodium 144 145 (137-145) mmol/L Potassium 4.5 4.2 (3.5-5.1) mmol/L Chloride 103 108 H (98-107) mmol/L Carbon Dioxide 30 31 H (22-30) mmol/L BUN 37 H 30 H (9-20) mg/dL Creatinine 1.51 H 1.33 H (0.66-1.25) mg/dL Glucose 202 H 153 H (74-99) mg/dL Calcium 10.0 8.6 (8.4-10.2) mg/dL AST 25 (17-59) U/L ALT 19 L (21-72) U/L Alkaline Phosphatase 70 (38-126) U/L Total Protein 7.8 (6.3-8.2) g/dL Albumin 4.3 (3.5-5.0) g/dL Calcium panel 10/19/18 10/20/18 Range/Units 18:09 07:00 Calcium 10.0 8.6 (8.4-10.2) mg/dL Albumin 4.3 (3.5-5.0) g/dL Pituitary panel 10/19/18 10/20/18 Range/Units 18:09 07:00 Sodium 144 145 (137-145) mmol/L Potassium 4.5 4.2 (3.5-5.1) mmol/L Chloride 103 108 H (98-107) mmol/L Carbon Dioxide 30 31 H (22-30) mmol/L BUN 37 H 30 H (9-20) mg/dL Creatinine 1.51 H 1.33 H (0.66-1.25) mg/dL Glucose 202 H 153 H (74-99) mg/dL Calcium 10.0 8.6 (8.4-10.2) mg/dL Adrenal panel 10/19/18 10/20/18 Range/Units 18:09 07:00 Sodium 144 145 (137-145) mmol/L Potassium 4.5 4.2 (3.5-5.1) mmol/L Chloride 103 108 H (98-107) mmol/L Carbon Dioxide 30 31 H (22-30) mmol/L BUN 37 H 30 H (9-20) mg/dL Creatinine 1.51 H 1.33 H (0.66-1.25) mg/dL Glucose 202 H 153 H (74-99) mg/dL Calcium 10.0 8.6 (8.4-10.2) mg/dL Total Bilirubin 0.5 (0.2-1.3) mg/dL AST 25 (17-59) U/L ALT 19 L (21-72) U/L Alkaline Phosphatase 70 (38-126) U/L Total Protein 7.8 (6.3-8.2) g/dL Albumin 4.3 (3.5-5.0) g/dL <Chema James - Last Filed: 10/20/18 14:06> Surgical - Exam Vital Signs Temp Pulse Resp BP Pulse Ox 97.3 F L 95 18 110/70 95 10/19/18 16:52 10/19/18 16:52 10/19/18 16:52 10/19/18 16:52 10/19/18 16:52 Results - Labs 10/20/18 07:00 10/20/18 07:00 Abnormal Lab Results - Last 24 Hours (Table) 10/19/18 10/19/18 10/19/18 Range/Units 18:09 18:09 18:09 WBC 14.2 H (3.8-10.6) k/uL RBC (4.30-5.90) m/uL Hgb (13.0-17.5) gm/dL Hct (39.0-53.0) % Neutrophils # 11.8 H (1.3-7.7) k/uL Neutrophils # (Manual) (1.3-7.7) k/uL Monocytes # (Manual) (0-1.0) k/uL Chloride (98-107) mmol/L Carbon Dioxide (22-30) mmol/L BUN 37 H (9-20) mg/dL Creatinine 1.51 H (0.66-1.25) mg/dL Glucose 202 H (74-99) mg/dL POC Glucose (mg/dL) (75-99) mg/dL Plasma Lactic Acid Saji 2.9 H* (0.7-2.0) mmol/L ALT 19 L (21-72) U/L Urine Protein (Negative) Ur Leukocyte Esterase (Negative) Urine WBC (0-5) /hpf Urine WBC Clumps (None) /hpf Ur Squamous Epith Cells (0-4) /hpf Urine Bacteria (None) /hpf Hyaline Casts (0-2) /lpf Urine Mucus (None) /hpf 10/20/18 10/20/18 10/20/18 Range/Units 04:45 07:00 07:00 WBC 11.0 H (3.8-10.6) k/uL RBC 4.16 L (4.30-5.90) m/uL Hgb 12.6 L (13.0-17.5) gm/dL Hct 38.8 L (39.0-53.0) % Neutrophils # (1.3-7.7) k/uL Neutrophils # (Manual) 8.47 H (1.3-7.7) k/uL Monocytes # (Manual) 1.10 H (0-1.0) k/uL Chloride 108 H (98-107) mmol/L Carbon Dioxide 31 H (22-30) mmol/L BUN 30 H (9-20) mg/dL Creatinine 1.33 H (0.66-1.25) mg/dL Glucose 153 H (74-99) mg/dL POC Glucose (mg/dL) (75-99) mg/dL Plasma Lactic Acid Saji (0.7-2.0) mmol/L ALT (21-72) U/L Urine Protein 1+ H (Negative) Ur Leukocyte Esterase Moderate H (Negative) Urine WBC 28 H (0-5) /hpf Urine WBC Clumps Rare H (None) /hpf Ur Squamous Epith Cells 10 H (0-4) /hpf Urine Bacteria Rare H (None) /hpf Hyaline Casts 57 H (0-2) /lpf Urine Mucus Moderate H (None) /hpf 10/20/18 Range/Units 11:32 WBC (3.8-10.6) k/uL RBC (4.30-5.90) m/uL Hgb (13.0-17.5) gm/dL Hct (39.0-53.0) % Neutrophils # (1.3-7.7) k/uL Neutrophils # (Manual) (1.3-7.7) k/uL Monocytes # (Manual) (0-1.0) k/uL Chloride (98-107) mmol/L Carbon Dioxide (22-30) mmol/L BUN (9-20) mg/dL Creatinine (0.66-1.25) mg/dL Glucose (74-99) mg/dL POC Glucose (mg/dL) 140 H (75-99) mg/dL Plasma Lactic Acid Saji (0.7-2.0) mmol/L ALT (21-72) U/L Urine Protein (Negative) Ur Leukocyte Esterase (Negative) Urine WBC (0-5) /hpf Urine WBC Clumps (None) /hpf Ur Squamous Epith Cells (0-4) /hpf Urine Bacteria (None) /hpf Hyaline Casts (0-2) /lpf Urine Mucus (None) /hpf Diabetes panel 10/19/18 10/20/18 Range/Units 18:09 07:00 Sodium 144 145 (137-145) mmol/L Potassium 4.5 4.2 (3.5-5.1) mmol/L Chloride 103 108 H (98-107) mmol/L Carbon Dioxide 30 31 H (22-30) mmol/L BUN 37 H 30 H (9-20) mg/dL Creatinine 1.51 H 1.33 H (0.66-1.25) mg/dL Glucose 202 H 153 H (74-99) mg/dL Calcium 10.0 8.6 (8.4-10.2) mg/dL AST 25 (17-59) U/L ALT 19 L (21-72) U/L Alkaline Phosphatase 70 (38-126) U/L Total Protein 7.8 (6.3-8.2) g/dL Albumin 4.3 (3.5-5.0) g/dL Calcium panel 10/19/18 10/20/18 Range/Units 18: 07:00 Calcium 10.0 8.6 (8.4-10.2) mg/dL Albumin 4.3 (3.5-5.0) g/dL Pituitary panel 10/19/18 10/20/18 Range/Units 18: 07:00 Sodium 144 145 (137-145) mmol/L Potassium 4.5 4.2 (3.5-5.1) mmol/L Chloride 103 108 H (98-107) mmol/L Carbon Dioxide 30 31 H (22-30) mmol/L BUN 37 H 30 H (9-20) mg/dL Creatinine 1.51 H 1.33 H (0.66-1.25) mg/dL Glucose 202 H 153 H (74-99) mg/dL Calcium 10.0 8.6 (8.4-10.2) mg/dL Adrenal panel 10/19/18 10/20/18 Range/Units 18:09 07:00 Sodium 144 145 (137-145) mmol/L Potassium 4.5 4.2 (3.5-5.1) mmol/L Chloride 103 108 H (98-107) mmol/L Carbon Dioxide 30 31 H (22-30) mmol/L BUN 37 H 30 H (9-20) mg/dL Creatinine 1.51 H 1.33 H (0.66-1.25) mg/dL Glucose 202 H 153 H (74-99) mg/dL Calcium 10.0 8.6 (8.4-10.2) mg/dL Total Bilirubin 0.5 (0.2-1.3) mg/dL AST 25 (17-59) U/L ALT 19 L (21-72) U/L Alkaline Phosphatase 70 (38-126) U/L Total Protein 7.8 (6.3-8.2) g/dL Albumin 4.3 (3.5-5.0) g/dL Assessment and Plan Plan: Small bowel obstruction. We'll perform exploratory laparotomy with lysis of adhesions.
[2018-10-20] MEDS: PANTOPRAZOLE 40 MG/10 ML VIAL IVP SCH (11:05)
[2018-10-20 11:34] LABS: Glucose,Whole Blood 140 mg/dL (75-99)
[2018-10-20] MEDS ORDERED: LACTATED RINGERS 1,000 ML IV ONE ×3 (14:08→17:17)
[2018-10-20] MEDS ORDERED: ONDANSETRON 4 MG/2 ML VIAL IVP ONE (14:13)
[2018-10-20] MEDS ORDERED: DEXAMETHASONE SOD PHOSPHATE 10 MG/ML 1 ML VIAL IV ONE (14:14)
[2018-10-20 14:19] LABS: Glucose,Whole Blood 119 mg/dL (75-99)
[2018-10-20] MEDS ORDERED: MIDAZOLAM (PF) 2 MG/2 ML VIAL IV ONE (14:55)
[2018-10-20] MEDS ORDERED: HEPARIN SODIUM,PORCINE 5,000 UNIT/ML 1 ML VIAL SQ ONE (15:11)
[2018-10-20] MEDS ORDERED: PHENYLEPHRINE-0.9% NACL SYG 1 MG/10 ML SYRINGE ONE (15:12)
[2018-10-20] MEDS ORDERED: NEOSTIGMINE 1 MG/ML 10 ML VIAL ONE (15:12)
[2018-10-20] MEDS ORDERED: SUCCINYLCHOLINE CHLORIDE 100 MG/5 ML SYR IV ONE (15:12)
[2018-10-20] MEDS ORDERED: NALOXONE 0.4 MG/ML 1 ML VIAL IV PRN ×2 (15:12→16:42)
[2018-10-20] MEDS ORDERED: PROPOFOL 10 MG/ML 20 ML VIAL IV ONE (15:12)
[2018-10-20] MEDS ORDERED: fentaNYL (PF) 50 MCG/ML 2 ML AMP ONE (15:12)
[2018-10-20] MEDS ORDERED: diphenhydrAMINE 50 MG/ML 1 ML VIAL IVP PRN (15:12)
[2018-10-20] MEDS ORDERED: LIDOCAINE 1% INJ 10MG/ML (20 ML MDV) ONE (15:12)
[2018-10-20] MEDS ORDERED: GLYCOPYRROLATE 0.2 MG/ML 2 ML VIAL ONE (15:12)
[2018-10-20] MEDS ORDERED: ROCURONIUM BROMIDE 10 MG/ML 10 ML VIAL IV ONE (15:12)
[2018-10-20] MEDS ORDERED: ePHEDrine SULFATE/0.9% NACL/PF 50 MG/5 ML SYRINGE IV ONE (15:12)
--- NOTE | 2018-10-20 16:41 | P.OP ---
Date of Procedure: 10/20/18 Preoperative Diagnosis: Small bowel obstruction Postoperative Diagnosis: Small bowel obstruction secondary to adhesions Procedure(s) Performed: Exploratory laparotomy Anesthesia: ANTONI Surgeon: Chema James Estimated Blood Loss (ml): 5 Pathology: none sent Condition: stable Disposition: PACU Description of Procedure: Patient's placed on the operative table in the supine position. He received general anesthesia. His abdomen was prepped and draped usual sterile fashion. The abdomen was entered through a midline incision. Upon entering the abdomen there was dilated small bowel. Small bowel was run and in the right upper quadrant there is evidence of an internal hernia with an adhesion. The adhesion was lysed the small bowel was freed. There is no evidence of any ischemia to the small bowel. The small bowel was then run from the terminal ileum to the ligament of Treitz there is no other obstruction seen. This point the abdomen was irrigated. The fascia was closed with looped #1 PDS suture. Skin was closed franki. Patient top she will was sent to recovery room stable condition.
[2018-10-20] MEDS ORDERED: HYDROmorphone 0.5 MG/0.5 ML SYRINGE IVP PRN (16:42)
[2018-10-20] MEDS ORDERED: METOCLOPRAMIDE 5 MG/ML 2 ML VIAL IVP PRN (16:42)
[2018-10-20] MEDS ORDERED: HYDROcodone/APAP 5-325MG 1 EACH TAB PO PRN (16:42)
[2018-10-20] MEDS ORDERED: traMADol 50 MG TAB PO PRN (16:42)
[2018-10-20 17:10] LABS: Glucose,Whole Blood 160 mg/dL (75-99)
[2018-10-20] MEDS: HEPARIN SODIUM,PORCINE 5,000 UNIT/ML 1 ML VIAL SQ SCH (17:43)
[2018-10-20] MEDS: ROPIVACAINE 250 MG, HYDROMORPHONE (PF) 5 MG in SODIUM CHLORIDE 0.9% 200 ML EPIDURAL PRN (18:28)
[2018-10-20] MEDS: DOCUSATE 100 MG CAP PO SCH (21:10)
--- NOTE | 2018-10-20 21:34 | P.CONS ---
History of Present Illness - Reason for Consult Consult date: 10/20/18 - Chief Complaint n/v abd pain - History of Present Illness Arnulfo Ortiz is an 83 yo M who presented to [facility] ED with a 2 day history of nausea, vomiting, and abdominal pain. He states he has had previous similar episodes over the past 1-2 years but this was severe and long lasting to the point he decided to come to the hospital. He reports being in usual state of health until Thursday evening, when he began to feel very nauseated. He made himself vomit and went to sleep. When he woke up he remained nauseated and vomited again Thursday morning. He barely had anything to eat over the past two days and when his nausea persisted he came in. He reports history of cholecystectomy a few years ago. No fevers, chills, diarrhea. Review of Systems All systems: negative Constitutional: Reports malaise, Denies chills, Denies fever Eyes: denies blurred vision, denies pain Ears, nose, mouth and throat: Denies headache, Denies sore throat Cardiovascular: Denies chest pain, Denies shortness of breath Respiratory: Denies cough Gastrointestinal: Reports loss of appetite, Reports nausea, Reports vomiting, Denies abdominal pain, Denies diarrhea Musculoskeletal: Denies myalgias Integumentary: Denies pruritus, Denies rash Neurological: Denies numbness, Denies weakness Psychiatric: Denies anxiety, Denies depression Endocrine: Denies fatigue, Denies weight change Past Medical History Past Medical History: Asthma, Coronary Artery Disease (CAD), CVA/TIA, Diabetes Mellitus, Skin Disorder Additional Past Medical History / Comment(s): TIA post op after gallbladder surgery-no residual effects, constipation, urinary retention, History of Any Multi-Drug Resistant Organisms: MRSA Year Discovered:: 05/15/18 MDRO Source:: URINE MRSA Past Surgical History: Cholecystectomy, Coronary Bypass/CABG, Heart Catheterization, Hernia Repair, Tonsillectomy Additional Past Surgical History / Comment(s): CABG 2000, bari cataracts, Past Anesthesia/Blood Transfusion Reactions: No Reported Reaction Past Psychological History: No Psychological Hx Reported Smoking Status: Never smoker Past Alcohol Use History: Rare Past Drug Use History: None Reported - Past Family History Mother Family Medical History: No Reported History Medications and Allergies Home Medications Medication Instructions Recorded Confirmed Type Glucosam/Augusto-Msm1/C/Chadd/Bosw 1 tab PO DAILY 03/22/18 10/19/18 History [Glucosamine-Chondroitin Tablet] Metoprolol Succinate (ER) [Toprol 12.5 mg PO DAILY 03/22/18 10/19/18 History XL] Multivitamins, Thera [Multivitamin 1 tab PO DAILY 03/22/18 10/19/18 History (formulary)] Repaglinide [Prandin] 1 mg PO AC-BID 03/22/18 10/19/18 History Tamsulosin HCl [Flomax] 0.4 mg PO BID 03/22/18 10/19/18 History metFORMIN HCL [Glucophage] 500 mg PO BID 03/22/18 10/19/18 History Furosemide [Lasix] 40 mg PO DAILY 05/15/18 10/19/18 History Levothyroxine Sodium [Synthroid] 50 mcg PO DAILY 05/15/18 10/19/18 History Atorvastatin [Lipitor] 40 mg PO Q48H 10/19/18 10/19/18 History Finasteride [Proscar] 5 mg PO DAILY 10/19/18 10/19/18 History Fluticasone Nasal [place] [Flonase 1 spray EA NOSTRIL DAILY PRN 10/19/18 10/19/18 History Nasal [place]] Fluticasone/Salmeterol [Advair 1 puff INHALATION RT-BID 10/19/18 10/19/18 History 250-50 Diskus] Losartan Potassium [Cozaar] 25 mg PO DAILY 10/19/18 10/19/18 History Allergies Allergy/AdvReac Type Severity Reaction Status Date / Time Sulfa (Sulfonamide Allergy Unknown Verified 10/19/18 17:37 Antibiotics) Childhood Physical Exam Vitals: Vital Signs Temp Pulse Resp BP Pulse Ox 10/20/18 19:10 93 116/68 95 10/20/18 18:55 102 H 132/72 94 L 10/20/18 18:40 99 126/71 93 L 10/20/18 18:25 101 H 131/72 93 L 10/20/18 18:10 98 128/72 95 10/20/18 17:55 97 135/74 90 L 10/20/18 17:40 97.5 F L 97 17 143/75 92 L 10/20/18 17:15 96 16 136/65 10/20/18 17:00 98 16 139/66 97 10/20/18 16:45 104 H 14 134/63 100 10/20/18 16:40 97.1 F L 109 H 16 143/69 98 10/20/18 15:08 79 18 125/60 98 10/20/18 14:02 97.8 F 84 18 154/72 94 L 10/20/18 08:00 17 10/20/18 07:00 97.9 F 80 16 126/71 94 L 10/20/18 00:17 98.1 F 98 17 143/72 90 L Intake and Output 10/20/18 10/20/18 10/20/18 06:59 14:59 22:59 Intake Total 1100 1000 1225 Output Total 560 Balance 1100 1000 665 Intake: IV 200 850 Intake, IV Titration 1100 800 375 Amount Lactated Ringers 1,000 ml 375 @ 125 mls/hr IV .Q8H [facility] Rx#:[id number] Piperacillin-Tazobactam 3 100 100 .375 gm In Sodium Chloride 0.9% 100 ml @ 25 mls/hr IVPB Q8H [facility] Rx#: [id number] Sodium Chloride 0.9% 1, 1000 700 000 ml @ 100 mls/hr IV . Q10H [facility] Rx#:[id number] Output: Urine 550 Estimated Blood Loss 10 Other: Voiding Method Indwelling Catheter General: well nourished, well developed, NAD. Vitals reviewed Eyes: PERRL, EOMI, conjunctiva normal HENT: normocephalic, mucus membranes moist. NGT to LIS with minimal output Neck: supple, no JVD Lungs: normal respiratory effort, no wheezes or rales CV: Regular rate and rhythm, no murmur. Peripheral pulses 2+ Abdomen: soft, nondistended, no organomegaly Lymph: no cervical or axillary LAD Skin: warm and dry. Neuro: A&Ox3, normal mood and affect Results CBC & Chem 7: 10/20/18 07:00 10/20/18 07:00 Labs: Abnormal Lab Results - Last 24 Hours (Table) 10/20/18 10/20/18 10/20/18 Range/Units 04:45 07:00 07:00 WBC 11.0 H (3.8-10.6) k/uL RBC 4.16 L (4.30-5.90) m/uL Hgb 12.6 L (13.0-17.5) gm/dL Hct 38.8 L (39.0-53.0) % Neutrophils # (Manual) 8.47 H (1.3-7.7) k/uL Monocytes # (Manual) 1.10 H (0-1.0) k/uL Chloride 108 H (98-107) mmol/L Carbon Dioxide 31 H (22-30) mmol/L BUN 30 H (9-20) mg/dL Creatinine 1.33 H (0.66-1.25) mg/dL Glucose 153 H (74-99) mg/dL POC Glucose (mg/dL) (75-99) mg/dL Urine Protein 1+ H (Negative) Ur Leukocyte Esterase Moderate H (Negative) Urine WBC 28 H (0-5) /hpf Urine WBC Clumps Rare H (None) /hpf Ur Squamous Epith Cells 10 H (0-4) /hpf Urine Bacteria Rare H (None) /hpf Hyaline Casts 57 H (0-2) /lpf Urine Mucus Moderate H (None) /hpf 10/20/18 10/20/18 10/20/18 Range/Units 11:32 14:17 17:03 WBC (3.8-10.6) k/uL RBC (4.30-5.90) m/uL Hgb (13.0-17.5) gm/dL Hct (39.0-53.0) % Neutrophils # (Manual) (1.3-7.7) k/uL Monocytes # (Manual) (0-1.0) k/uL Chloride (98-107) mmol/L Carbon Dioxide (22-30) mmol/L BUN (9-20) mg/dL Creatinine (0.66-1.25) mg/dL Glucose (74-99) mg/dL POC Glucose (mg/dL) 140 H 119 H 160 H (75-99) mg/dL Urine Protein (Negative) Ur Leukocyte Esterase (Negative) Urine WBC (0-5) /hpf Urine WBC Clumps (None) /hpf Ur Squamous Epith Cells (0-4) /hpf Urine Bacteria (None) /hpf Hyaline Casts (0-2) /lpf Urine Mucus (None) /hpf Assessment and Plan (1) Intra-abdominal adhesions Current Visit: Yes Status: Acute Code(s): K66.0 - PERITONEAL ADHESIONS (POSTPROCEDURAL) (POSTINFECTION) SNOMED Code(s): 797010201 (2) Hypertension Current Visit: Yes Status: Acute Code(s): I10 - ESSENTIAL (PRIMARY) HYPERTENSION SNOMED Code(s): 01489565 (3) Acquired hypothyroidism Current Visit: Yes Status: Acute Code(s): E03.9 - HYPOTHYROIDISM, UNSPECIFIED SNOMED Code(s): 060183792 (4) Small bowel obstruction Current Visit: Yes Status: Acute Code(s): K56.609 - UNSP INTESTNL OBST, UNSP TO PARTIAL VERSUS COMPLETE OBST SNOMED Code(s): 996846752 (5) Leukocytosis Current Visit: Yes Status: Acute Code(s): D72.829 - ELEVATED WHITE BLOOD CELL COUNT, UNSPECIFIED SNOMED Code(s): 478572383 (6) KIRBY (acute kidney injury) Current Visit: Yes Status: Acute Code(s): N17.9 - ACUTE KIDNEY FAILURE, UNSP ECIFIED SNOMED Code(s): 87380319 Plan: 1. SBO. NGT in place. Management per primary. Cover with zosyn 2. Leukocytosis. Secondary to above 3. KIRBY. Continue IV fluids 4. HTN. Continue cozaar 5. T2DM. Accucheck/sliding scale 6. BPH. Hold flomax while NPO, resume in am DVT prophylaxis heparin GI prophylaxis protonix
[2018-10-21] MEDS: HEPARIN SODIUM,PORCINE 5,000 UNIT/ML 1 ML VIAL SQ SCH ×3 (00:03→18:21)
[2018-10-21] MEDS: SODIUM CHLORIDE 0.9% 1,000 ML IV SCH (03:28)
[2018-10-21] MEDS: PIPERACILLIN-TAZOBACTAM 3.375 GM in SODIUM CHLORIDE 0.9% 100 ML IVPB SCH ×3 (05:06→21:53)
[2018-10-21] MEDS: LEVOTHYROXINE 50 MCG TAB PO SCH (05:35)
[2018-10-21 07:03] LABS: Glucose,Whole Blood 169 mg/dL (75-99)
[2018-10-21 07:16] LABS: Basophils % (A) 0 %; Eosinophils # (A) 0.1 k/uL (0-0.7); Eosinophils % (A) 0 %; HCT 37.4 % (39.0-53.0); HGB 11.8 gm/dL (13.0-17.5); Lymphocytes % (A) 9 %; MCH 30.1 pg (25.0-35.0); MCHC 31.5 g/dL (31.0-37.0); MCV 95.3 fL (80.0-100.0); Mean Platelet Volume 7.1; Monocytes # (A) 0.9 k/uL (0-1.0); Monocytes % (A) 8 %; Neutrophils # (A) 9.1 k/uL (1.3-7.7); Neutrophils % (A) 82 %; Platelet Count 224 k/uL (150-450); RBC 3.92 m/uL (4.30-5.90); RDW 14.6 % (11.5-15.5); WBC 11.1 k/uL (3.8-10.6)
[2018-10-21 07:38] LABS: Calcium 8.6 mg/dL (8.4-10.2); Potassium 5.4 mmol/L (3.5-5.1)
[2018-10-21] MEDS: INSULIN ASPART (NovoLOG) 100 UNIT/ML VIAL SQ SCH ×3 (07:55→17:31)
[2018-10-21] MEDS: DOCUSATE 100 MG CAP PO SCH ×2 (07:56→21:53)
[2018-10-21] MEDS: ENOXAPARIN 40 MG/0.4 ML SYRINGE SQ SCH (07:56)
[2018-10-21] MEDS: METOPROLOL SUCCINATE (ER) 25 MG TAB.ER.24H PO SCH (07:56)
[2018-10-21] MEDS: LOSARTAN 25 MG TAB PO SCH (07:56)
[2018-10-21] MEDS: PANTOPRAZOLE 40 MG/10 ML VIAL IVP SCH (07:57)
--- NOTE | 2018-10-21 08:36 | P.PN ---
Progress Note - Text Progress Note Date: 10/21/18 Patient was seen today at 07:10 in the morning, Postoperative day #1 status post exp laparotomy/epidural catheter placed for postoperative analgesia, patient doing well epidural site okay, patient currently on combination of epidural infusion solution of Ropivacaine 0.0625% and Dilaudid 20 g per mL the infusion rate at 8 ml per hour , patient had no motor deficit epidural site okay , vital signs stable ,VAS 2 /10 , Assessment and plan= post operative day #1 patient doing well ,pain well controlled , there is no anesthesia related complications
[2018-10-21 11:19] LABS: Glucose,Whole Blood 144 mg/dL (75-99)
--- NOTE | 2018-10-21 13:31 | P.PN ---
Subjective Progress Note Date: 10/21/18 CHIEF COMPLAINT: Abdominal pain HISTORY OF PRESENT ILLNESS: Patient seen and examined this morning the bedside. He is status post exploratory laparotomy with lysis of adhesions. POD #1. Patient reports he is having pain overnight and has epidural was increased. He states he feels groggy this morning. He denies abdominal pain. NG intact. He denies passing flatus. PHYSICAL EXAM: VITAL SIGNS: Reviewed. GENERAL: Well-developed in no acute distress. HEENT: NG to low intermittent suction. No sclera icterus. Extraocular movements grossly intact. Moist buccal mucosa. Head is atraumatic, normocephalic. ABDOMEN: Soft. Nondistended. Nontender. Dressing to the midline incision with shadowing present. NEUROLOGIC: Alert and oriented. Cranial nerves II through XII grossly intact. ASSESSMENT: 1. Abdominal pain, nausea, vomiting 2. Small bowel obstruction, status post exploratory laparotomy with lysis of a dhesions 3. History of open cholecystectomy PLAN: 1. Discontinue NG tube 2. Begin sips of clear liquids 3. Pain control. Continue epidural. Recommend turning down infusion by 1 mL. 4. Continue urinary catheter while epidural is intact 5. Activity as tolerated Nurse practitioner note has been reviewed by physician. Signing provider agrees with the documented findings, assessment, and plan of care. Objective - Vital Signs Vital signs: Vital Signs Temp 97.6 F 10/21/18 06:53 Pulse 85 10/21/18 08:40 Resp 18 10/21/18 08:40 BP 128/72 10/21/18 06:53 Pulse Ox 96 10/21/18 06:53 Intake & Output 10/20/18 10/21/18 10/21/18 18:59 06:59 18:59 Intake Total 1850 1200 Output Total 560 Balance 1290 1200 Intake: IV 1050 Intake, IV Titration 800 1200 Amount Lactated Ringers 1,000 ml 1000 @ 125 mls/hr IV .Q8H [facility] Rx#:[id number] Piperacillin-Tazobactam 3 100 200 .375 gm In Sodium Chloride 0.9% 100 ml @ 25 mls/hr IVPB Q8H [facility] Rx#: [id number] Sodium Chloride 0.9% 1, 700 000 ml @ 100 mls/hr IV . Q10H [facility] Rx#:[id number] Output: Urine 550 Estimated Blood Loss 10 Other: Voiding Method Indwelling Catheter Indwelling Catheter - Labs CBC & Chem 7: 10/21/18 06:53 10/21/18 12:04 Labs: Abnormal Lab Results - Last 24 Hours (Table) 10/20/18 10/20/18 10/21/18 Range/Units 14:17 17:03 06:52 WBC (3.8-10.6) k/uL RBC (4.30-5.90) m/uL Hgb (13.0-17.5) gm/dL Hct (39.0-53.0) % Neutrophils # (1.3-7.7) k/uL Potassium (3.5-5.1) mmol/L Chloride (98-107) mmol/L BUN (9-20) mg/dL Creatinine (0.66-1.25) mg/dL Glucose (74-99) mg/dL POC Glucose (mg/dL) 119 H 160 H 169 H (75-99) mg/dL 10/21/18 10/21/18 10/21/18 Range/Units 06:53 06:53 11:07 WBC 11.1 H (3.8-10.6) k/uL RBC 3.92 L (4.30-5.90) m/uL Hgb 11.8 L (13.0-17.5) gm/dL Hct 37.4 L (39.0-53.0) % Neutrophils # 9.1 H (1.3-7.7) k/uL Potassium 5.4 H (3.5-5.1) mmol/L Chloride 110 H (98-107) mmol/L BUN 28 H (9-20) mg/dL Creatinine 1.27 H (0.66-1.25) mg/dL Glucose 173 H (74-99) mg/dL POC Glucose (mg/dL) 144 H (75-99) mg/dL Microbiology - Last 24 Hours (Table) 10/19/18 21:27 Blood Culture - Preliminary Blood No Growth after 24 hours
[2018-10-21 17:33] LABS: Glucose,Whole Blood 102 mg/dL (75-99)
[2018-10-21 17:33] LABS: Hemoglobin A1C 6.7 % (4.0-6.0)
[2018-10-21] MEDS: ROPIVACAINE 250 MG, HYDROMORPHONE (PF) 5 MG in SODIUM CHLORIDE 0.9% 200 ML EPIDURAL PRN (22:13)
[2018-10-22] MEDS: HEPARIN SODIUM,PORCINE 5,000 UNIT/ML 1 ML VIAL SQ SCH ×3 (00:20→15:25)
[2018-10-22] MEDS: SODIUM CHLORIDE 0.9% 1,000 ML IV SCH ×4 (02:14→19:56)
[2018-10-22] MEDS: ROPIVACAINE 250 MG, HYDROMORPHONE (PF) 5 MG in SODIUM CHLORIDE 0.9% 200 ML EPIDURAL PRN (03:23)
[2018-10-22] MEDS: PIPERACILLIN-TAZOBACTAM 3.375 GM in SODIUM CHLORIDE 0.9% 100 ML IVPB SCH ×3 (05:50→21:53)
--- NOTE | 2018-10-22 07:02 | P.PN ---
Progress Note - Text Progress Note Date: 10/22/18 Patient c/o some pain, especially with coughing. Generally pain controlled. Denies headache or leg weakness VSS Back - epidural A/P POD#2 s/p exploratory laparotomy - increase epidural to 9 ml/hr if BP allows to increase patient comfort - incentive spirometer
[2018-10-22 07:16] LABS: Glucose,Whole Blood 139 mg/dL (75-99)
[2018-10-22] MEDS: DOCUSATE 100 MG CAP PO SCH ×2 (07:42→21:53)
[2018-10-22] MEDS: INSULIN ASPART (NovoLOG) 100 UNIT/ML VIAL SQ SCH ×3 (07:43→17:34)
[2018-10-22] MEDS: LEVOTHYROXINE 50 MCG TAB PO SCH (07:43)
[2018-10-22] MEDS: METOPROLOL SUCCINATE (ER) 25 MG TAB.ER.24H PO SCH (07:43)
[2018-10-22] MEDS: ENOXAPARIN 40 MG/0.4 ML SYRINGE SQ SCH (07:44)
[2018-10-22] MEDS: LOSARTAN 25 MG TAB PO SCH (07:45)
[2018-10-22] MEDS: PANTOPRAZOLE 40 MG/10 ML VIAL IVP SCH (07:46)
[2018-10-22 09:31] LABS: Calcium 8.8 mg/dL (8.4-10.2); Potassium 4.2 mmol/L (3.5-5.1)
[2018-10-22 10:29] LABS: Basophils % (A) 0 %; Eosinophils # (A) 0.3 k/uL (0-0.7); Eosinophils % (A) 3 %; Lymphocytes # (A) 1.1 k/uL (1.0-4.8); Lymphocytes % (A) 12 %; MCH 30.5 pg (25.0-35.0); MCHC 32.5 g/dL (31.0-37.0); MCV 93.9 fL (80.0-100.0); Mean Platelet Volume 7.7; Monocytes # (A) 0.6 k/uL (0-1.0); Monocytes % (A) 6 %; Neutrophils # (A) 6.9 k/uL (1.3-7.7); Neutrophils % (A) 77 %; Platelet Count 210 k/uL (150-450); RBC 3.94 m/uL (4.30-5.90); RDW 13.9 % (11.5-15.5)
[2018-10-22 11:43] LABS: Glucose,Whole Blood 132 mg/dL (75-99)
[2018-10-22 13:43] VITALS: BMI 32.5
--- NOTE | 2018-10-22 15:18 | P.PN ---
Subjective Progress Note Date: 10/22/18 CHIEF COMPLAINT: Abdominal pain HISTORY OF PRESENT ILLNESS: Patient seen and examined this morning the bedside. He is status post exploratory laparotomy with lysis of adhesions. POD #2. He reports pain is controlled at this time. Epidural infusing. NG tube has been discontinued. He denies passing flatus. Reports a lot of belching. He is taking sips of clear liquid tray. PHYSICAL EXAM: VITAL SIGNS: Reviewed. GENERAL: Well-developed in no acute distress. HEENT: No sclera icterus. Extraocular movements grossly intact. Moist buccal mucosa. Head is atraumatic, normocephalic. ABDOMEN: Soft. Distended. Nontender. Dressing to the midline incision with shadowing present. NEUROLOGIC: Alert and oriented. Cranial nerves II through XII grossly intact. ASSESSMENT: 1. Abdominal pain, nausea, vomiting 2. Small bowel obstruction, status post exploratory laparotomy with lysis of adhesions 3. History of open cholecystectomy PLAN: 1. Continue sips of clear liquids. Do not advance diet. If nausea or increased abdominal pain, downgrade diet to NPO 2. Await bowel function. Add Reglan 10mg IV Q6 hours 3. Pain control. Continue epidural. Discontinue POD #3 (tomorrow) 4. Continue urinary catheter while epidural is intact 5. Activity as tolerated 6. Incentive spirometry Nurse practitioner note has been reviewed by physician. Signing provider agrees with the documented findings, assessment, and plan of care. Objective - Vital Signs Vital signs: Vital Signs Temp 98.0 F 10/22/18 07:13 Pulse 60 10/22/18 08:15 Resp 18 10/22/18 08:15 BP 117/68 10/22/18 07:13 Pulse Ox 97 10/22/18 07:13 Intake & Output 10/21/18 10/22/18 10/22/18 18:59 06:59 18:59 Intake Total 425.25 1490 Output Total 725 350 200 Balance -725 75.25 1290 Weight 99.79 kg Intake: Intake, IV Titration 425.25 800 Amount Ropivacaine 250 mg 225.25 Hydromorphone (Pf) 5 mg In Sodium Chloride 0.9% 200 ml @ Per Protocol EPIDURAL .Q0M [facility] Rx#: [id number] Sodium Chloride 0.9% 1, 200 800 000 ml @ 100 mls/hr IV . Q10H [facility] Rx#:[id number] Oral 690 Output: Gastric Drainage 200 Urine 725 350 Other: Voiding Method Indwelling Catheter Indwelling Catheter - Labs CBC & Chem 7: 10/22/18 08:01 10/22/18 08:01 Labs: Abnormal Lab Results - Last 24 Hours (Table) 10/21/18 10/21/18 10/22/18 Range/Units 06:53 17:19 07:14 RBC (4.30-5.90) m/uL Hgb (13.0-17.5) gm/dL Hct (39.0-53.0) % Carbon Dioxide (22-30) mmol/L BUN (9-20) mg/dL Glucose (74-99) mg/dL POC Glucose (mg/dL) 102 H 139 H (75-99) mg/dL Hemoglobin A1c 6.7 H (4.0-6.0) % 10/22/18 10/22/18 10/22/18 Range/Units 08:01 08:01 11:37 RBC 3.94 L (4.30-5.90) m/uL Hgb 12.0 L (13.0-17.5) gm/dL Hct 37.0 L (39.0-53.0) % Carbon Dioxide 31 H (22-30) mmol/L BUN 26 H (9-20) mg/dL Glucose 129 H (74-99) mg/dL POC Glucose (mg/dL) 132 H (75-99) mg/dL Hemoglobin A1c (4.0-6.0) % Microbiology - Last 24 Hours (Table) 10/19/18 21:27 Blood Culture - Preliminary Blood No Growth after 48 hours
[2018-10-22 17:10] LABS: Glucose,Whole Blood 132 mg/dL (75-99)
[2018-10-22] MEDS: METOCLOPRAMIDE 5 MG/ML 2 ML VIAL IVP SCH (18:04)
[2018-10-22 21:15] LABS: Glucose,Whole Blood 143 mg/dL (75-99)
[2018-10-23] MEDS: METOCLOPRAMIDE 5 MG/ML 2 ML VIAL IVP SCH ×5 (00:17→23:28)
[2018-10-23] MEDS: HEPARIN SODIUM,PORCINE 5,000 UNIT/ML 1 ML VIAL SQ SCH ×4 (00:17→23:29)
[2018-10-23] MEDS: ROPIVACAINE 250 MG, HYDROMORPHONE (PF) 5 MG in SODIUM CHLORIDE 0.9% 200 ML EPIDURAL PRN (03:30)
[2018-10-23] MEDS: PIPERACILLIN-TAZOBACTAM 3.375 GM in SODIUM CHLORIDE 0.9% 100 ML IVPB SCH ×3 (05:01→21:27)
[2018-10-23] MEDS: SODIUM CHLORIDE 0.9% 1,000 ML IV SCH ×2 (05:01→15:35)
[2018-10-23] MEDS: LEVOTHYROXINE 50 MCG TAB PO SCH (05:02)
[2018-10-23 07:31] LABS: Glucose,Whole Blood 148 mg/dL (75-99)
[2018-10-23] MEDS ORDERED: HYDROmorphone 1 MG/ML 1 ML SYRINGE IVP PRN (07:59)
[2018-10-23] MEDS ORDERED: HYDROcodone/APAP 5-325MG 1 EACH TAB PO PRN ×2 (08:00→08:01)
[2018-10-23 08:13] LABS: Potassium 3.6 mmol/L (3.5-5.1)
[2018-10-23] MEDS: LOSARTAN 25 MG TAB PO SCH (08:15)
[2018-10-23] MEDS: METOPROLOL SUCCINATE (ER) 25 MG TAB.ER.24H PO SCH (08:15)
[2018-10-23] MEDS: ENOXAPARIN 40 MG/0.4 ML SYRINGE SQ SCH (08:15)
[2018-10-23] MEDS: INSULIN ASPART (NovoLOG) 100 UNIT/ML VIAL SQ SCH ×3 (08:15→17:26)
[2018-10-23] MEDS: PANTOPRAZOLE 40 MG/10 ML VIAL IVP SCH (08:15)
[2018-10-23] MEDS: DOCUSATE 100 MG CAP PO SCH ×2 (08:16→21:27)
[2018-10-23 08:39] LABS: HCT 33.8 % (39.0-53.0); HGB 11.2 gm/dL (13.0-17.5); MCH 30.9 pg (25.0-35.0); MCV 93.7 fL (80.0-100.0); Mean Platelet Volume 7.5; Platelet Count 192 k/uL (150-450); RBC 3.61 m/uL (4.30-5.90); WBC 6.3 k/uL (3.8-10.6)
--- NOTE | 2018-10-23 10:48 | P.PN ---
Subjective Progress Note Date: 10/22/18 83 yo M who presented to [facility] ED with a 2 day history of nausea, vomiting, and abdominal pain. Patient was admitted to hospital with small bowel obstruction and underwent exploratory laparotomy with adhenolysis Objective - Vital Signs Vital signs: Vital Signs Temp 98.0 F 10/22/18 07:13 Pulse 60 10/22/18 07:13 Resp 18 10/22/18 07:13 BP 117/68 10/22/18 07:13 Pulse Ox 97 10/22/18 07:13 Intake & Output 10/21/18 10/22/18 10/22/18 18:59 06:59 18:59 Intake Total 425.25 Output Total 725 350 200 Balance -725 75.25 -200 Intake: Intake, IV Titration 425.25 Amount Ropivacaine 250 mg 225.25 Hydromorphone (Pf) 5 mg In Sodium Chloride 0.9% 200 ml @ Per Protocol EPIDURAL .Q0M [facility] Rx#: [id number] Sodium Chloride 0.9% 1, 200 000 ml @ 100 mls/hr IV . Q10H [facility] Rx#:[id number] Output: Gastric Drainage 200 Urine 725 350 Other: Voiding Method Indwelling Catheter - Exam General: well nourished, well developed, NAD. Vitals reviewed Eyes: PERRL, EOMI, conjunctiva normal HENT: normocephalic, mucus membranes moist. NGT to LIS with minimal output Neck: supple, no JVD Lungs: normal respiratory effort, no wheezes or rales CV: Regular rate and rhythm, no murmur. Peripheral pulses 2+ Abdomen: soft, nondistended, no organomegaly Lymph: no cervical or axillary LAD Skin: warm and dry. Neuro: A&Ox3, normal mood and affect - Labs CBC & Chem 7: 10/23/18 07:03 10/23/18 07:03 Labs: Abnormal Lab Results - Last 24 Hours (Table) 10/21/18 10/21/18 10/22/18 Range/Units 06:53 17: 07:14 RBC (4.30-5.90) m/uL Hgb (13.0-17.5) gm/dL Hct (39.0-53.0) % Carbon Dioxide (22-30) mmol/L BUN (9-20) mg/dL Glucose (74-99) mg/dL POC Glucose (mg/dL) 102 H 139 H (75-99) mg/dL Hemoglobin A1c 6.7 H (4.0-6.0) % 10/22/18 10/22/18 Range/Units 08:01 08:01 RBC 3.94 L (4.30-5.90) m/uL Hgb 12.0 L (13.0-17.5) gm/dL Hct 37.0 L (39.0-53.0) % Carbon Dioxide 31 H (22-30) mmol/L BUN 26 H (9-20) mg/dL Glucose 129 H (74-99) mg/dL POC Glucose (mg/dL) (75-99) mg/dL Hemoglobin A1c (4.0-6.0) % Microbiology - Last 24 Hours (Table) 10/19/18 21:27 Blood Culture - Preliminary Blood No Growth after 48 hours Assessment and Plan Assessment: 1. SBO; status post exploratory laparotomy with lysis of adhesions. Remains on IV zosyn 2. Leukocytosis. Resolved 3. Acute renal injury; resolved with creatinine at 1.09 this morning; Continue with slow IV fluids hydration 4. HTN. Continue cozar 25 mg daily along with Toprol-XL 12.5 mg daily 5. T2DM. Accucheck/sliding scale 6. Hypothyroidism; continue with levothyroxine at 50 MCG daily 7. DVT prophylaxis; subcu Lovenox CODE STATUS; full code Time with Patient: Greater than 30
--- NOTE | 2018-10-23 11:13 | P.PN ---
Progress Note - Text Progress Note Date: 10/23/18 The patient still has not had any significant flatus. He denies it minimal abdominal pain. His epidural catheter was removed this morning. On exam his vital signs are stable. His abdomen soft. Status post lysis of adhesion for small on traction. Patient will not be advanced past clear liquids until he has significant bowel function.
--- NOTE | 2018-10-23 11:48 | P.PN ---
Progress Note - Text 10/23/2018 1110am 83-year-old male status post exploratory lap by Dr. James. Patient patient has an epidural catheter for postop pain control, epidural catheter was DC'd as per the surgeon, patient seen this morning, doing very well. She has a VAS of 2 at rest with no motor or sensory weakness. Plan patient to be treated with either IV or oral pain meds as per the surgeon
[2018-10-23 12:12] LABS: Glucose,Whole Blood 181 mg/dL (75-99)
[2018-10-23 12:15] LABS: Eosinophils # (M) 0.32 k/uL (0-0.7); Lymphocytes # (M) 0.69 k/uL (1.0-4.8); Monocytes # (M) 0.88 k/uL (0-1.0); Neutrophils % (M) 70 %; Nucleated Red Blood Cells 0 /100 WBC (0-0); Total Cells Counted 100
[2018-10-23 17:21] LABS: Glucose,Whole Blood 125 mg/dL (75-99)
[2018-10-23 21:03] LABS: Glucose,Whole Blood 112 mg/dL (75-99)
[2018-10-24] MEDS: SODIUM CHLORIDE 0.9% 1,000 ML IV SCH ×3 (01:02→20:33)
[2018-10-24] MEDS: PIPERACILLIN-TAZOBACTAM 3.375 GM in SODIUM CHLORIDE 0.9% 100 ML IVPB SCH ×3 (05:10→20:33)
[2018-10-24] MEDS: LEVOTHYROXINE 50 MCG TAB PO SCH (05:10)
[2018-10-24] MEDS: METOCLOPRAMIDE 5 MG/ML 2 ML VIAL IVP SCH ×3 (05:10→17:36)
[2018-10-24 07:26] LABS: Glucose,Whole Blood 129 mg/dL (75-99)
[2018-10-24] MEDS: INSULIN ASPART (NovoLOG) 100 UNIT/ML VIAL SQ SCH ×3 (07:26→17:36)
[2018-10-24] MEDS: HEPARIN SODIUM,PORCINE 5,000 UNIT/ML 1 ML VIAL SQ SCH ×2 (07:27→17:36)
[2018-10-24] MEDS: LOSARTAN 25 MG TAB PO SCH (07:35)
[2018-10-24] MEDS: DOCUSATE 100 MG CAP PO SCH ×2 (07:35→20:33)
[2018-10-24] MEDS: PANTOPRAZOLE 40 MG/10 ML VIAL IVP SCH (07:35)
[2018-10-24] MEDS: METOPROLOL SUCCINATE (ER) 25 MG TAB.ER.24H PO SCH (07:35)
[2018-10-24] MEDS: ENOXAPARIN 40 MG/0.4 ML SYRINGE SQ SCH (07:35)
[2018-10-24 08:18] LABS: African American GFR (CKD) >90 (>60 ml/min/1.73 sqM); Anion Gap 5 mmol/L; Blood Urea Nitrogen 15 mg/dL (9-20); Calcium 7.7 mg/dL (8.4-10.2); Carbon Dioxide 26 mmol/L (22-30); Chloride 110 mmol/L (98-107); Glucose 113 mg/dL (74-99); Potassium 3.5 mmol/L (3.5-5.1); Sodium 141 mmol/L (137-145)
[2018-10-24 08:44] LABS: HCT 32.5 % (39.0-53.0); MCH 30.8 pg (25.0-35.0); MCHC 33.7 g/dL (31.0-37.0); MCV 91.3 fL (80.0-100.0); Mean Platelet Volume 7.5; Platelet Count 190 k/uL (150-450); RBC 3.56 m/uL (4.30-5.90); RDW 13.8 % (11.5-15.5); WBC 6.9 k/uL (3.8-10.6)
--- NOTE | 2018-10-24 10:46 | P.PN ---
Progress Note - Text Progress Note Date: 10/24/18 The patient is resting comfortably in his bed. He has had some flatus today. However he has developed urinary retention. He requires Castillo catheter to be replaced. On exam his vital signs are stable. His abdomen soft. Incision sites clean dry tach. Resolving small bowel obstruction. Patient will have his diet advanced. He will have Castillo catheter placed today.
[2018-10-24 10:58] LABS: Band Neutrophils % 1 %; Eosinophils # (M) 0.14 k/uL (0-0.7); Lymphocytes # (M) 1.59 k/uL (1.0-4.8); Monocytes # (M) 0.97 k/uL (0-1.0); Neutrophils % (M) 60 %; Nucleated Red Blood Cells 0 /100 WBC (0-0); Total Cells Counted 100
[2018-10-24 11:46] LABS: Glucose,Whole Blood 152 mg/dL (75-99)
--- NOTE | 2018-10-24 14:03 | P.PN ---
Subjective Progress Note Date: 10/23/18 Principal diagnosis: Bowel obstruction; status post exploratory laparotomy with adhenolysis 83 yo M who presented to [facility] ED with a 2 day history of nausea, vomiting, and abdominal pain. Patient was admitted to hospital with small bowel obstruction and underwent exploratory laparotomy with adhenolysis 10/23/2018 Patient is seen and evaluated in room sitting up in a chair with family members at bedside; patient continues to complain of pain with movement; epidural catheter has been removed this morning; patient hasn't had any significant bowel function Vital signs remained stable with a temperature of 99, pulse 80, respirations 16 and blood pressure 128/79. SpO2 of 93% on room air Labs are reviewed showing a white blood count of 6.3, hemoglobin of 11.2 and platelet count of 192; sodium is 141, potassium of 3.6 with BUN of 29 and creatinine of 0.99; blood cultures have been negative so far; blood sugars remained stable between 112-127 Surgery is following and recommending to continue with clear liquids until patient has significant bowel function improvement Objective - Vital Signs Vital signs: Vital Signs Temp 98 F 10/23/18 07:00 Pulse 80 10/23/18 07:00 Resp 16 10/23/18 07:00 BP 133/73 10/23/18 07:00 Pulse Ox 97 10/23/18 07:00 Intake & Output 10/22/18 10/23/18 10/23/18 18:59 06:59 18:59 Intake Total 1490 1608.817 Output Total 200 700 Balance 1290 908.817 Weight 99.79 kg Intake: Intake, IV Titration 800 1368.817 Amount Ropivacaine 250 mg 168.817 Hydromorphone (Pf) 5 mg In Sodium Chloride 0.9% 200 ml @ Per Protocol EPIDURAL .Q0M [facility] Rx#: [id number] Sodium Chloride 0.9% 1, 800 1200 000 ml @ 100 mls/hr IV . Q10H [facility] Rx#:[id number] Oral 690 240 Output: Gastric Drainage 200 Urine 700 Uretheral (Castillo) 700 Other: Voiding Method Indwelling Catheter Indwelling Catheter - Exam General: well nourished, well developed, NAD. Vitals reviewed Eyes: PERRL, EOMI, conjunctiva normal HENT: normocephalic, mucus membranes moist. NGT to LIS with minimal output Neck: supple, no JVD Lungs: normal respiratory effort, no wheezes or rales CV: Regular rate and rhythm, no murmur. Peripheral pulses 2+ Abdomen: soft, nondistended, no organomegaly Lymph: no cervical or axillary LAD Skin: warm and dry. Neuro: A&Ox3, normal mood and affect - Labs CBC & Chem 7: 10/24/18 07:15 10/24/18 07:15 Labs: Abnormal Lab Results - Last 24 Hours (Table) 10/22/18 10/22/18 10/22/18 Range/Units 08:01 11:37 16:59 RBC 3.94 L (4.30-5.90) m/uL Hgb 12.0 L (13.0-17.5) gm/dL Hct 37.0 L (39.0-53.0) % Chloride (98-107) mmol/L BUN (9-20) mg/dL Glucose (74-99) mg/dL POC Glucose (mg/dL) 132 H 132 H (75-99) mg/dL Calcium (8.4-10.2) mg/dL 10/22/18 10/23/18 10/23/18 Range/Units 21:03 07:03 07:03 RBC 3.61 L (4.30-5.90) m/uL Hgb 11.2 L (13.0-17.5) gm/dL Hct 33.8 L (39.0-53.0) % Chloride 109 H (98-107) mmol/L BUN 21 H (9-20) mg/dL Glucose 127 H (74-99) mg/dL POC Glucose (mg/dL) 143 H (75-99) mg/dL Calcium 8.0 L (8.4-10.2) mg/dL 10/23/18 Range/Units 07:19 RBC (4.30-5.90) m/uL Hgb (13.0-17.5) gm/dL Hct (39.0-53.0) % Chloride (98-107) mmol/L BUN (9-20) mg/dL Glucose (74-99) mg/dL POC Glucose (mg/dL) 148 H (75-99) mg/dL Calcium (8.4-10.2) mg/dL Microbiology - Last 24 Hours (Table) 09/03/19 21:27 Blood Culture - Preliminary Blood No Growth after 72 hours Assessment and Plan Assessment: 1. SBO; status post exploratory laparotomy with lysis of adhesions. Remains on IV zosyn 2. Leukocytosis. Resolved 3. Acute renal injury; resolved with creatinine at 1.09 this morning; Continue with slow IV fluids hydration 4. HTN. Continue cozar 25 mg daily along with Toprol-XL 12.5 mg daily 5. T2DM. Accucheck/sliding scale 6. Hypothyroidism; continue with levothyroxine at 50 MCG daily 7. DVT prophylaxis; subcu Lovenox CODE STATUS; full code Time with Patient: Greater than 30
--- NOTE | 2018-10-24 16:52 | P.PN ---
Subjective Progress Note Date: 10/24/18 Principal diagnosis: Bowel obstruction; status post exploratory laparotomy with adhenolysis 83 yo M who presented to [facility] ED with a 2 day history of nausea, vomiting, and abdominal pain. Patient was admitted to hospital with small bowel obstruction and underwent exploratory laparotomy with adhenolysis 10/23/2018 Patient is seen and evaluated in room sitting up in a chair with family members at bedside; patient continues to complain of pain with movement; epidural catheter has been removed this morning; patient hasn't had any significant bowel function Vital signs remained stable with a temperature of 99, pulse 80, respirations 16 and blood pressure 128/79. SpO2 of 93% on room air Labs are reviewed showing a white blood count of 6.3, hemoglobin of 11.2 and platelet count of 192; sodium is 141, potassium of 3.6 with BUN of 29 and creatinine of 0.99; blood cultures have been negative so far; blood sugars remained stable between 112-127 Surgery is following and recommending to continue with clear liquids until patient has significant bowel function improvement 10/24/2018 Patient reports some improvement in pain; epidural catheter has been removed since yesterday; patient has been passing some flatus; did develop urinary retention for which he required for the catheter Stable vital signs with temperature 98.5, pulse 74, respirations 16 and blood pressure 149/78 Labs stable at white blood count of 6.9, hemoglobin of 11, sodium of 141 with potassium 3.5 Patient's diet is being advanced by surgery with slowly resolving small bowel obstruction Objective - Vital Signs Vital signs: Vital Signs Temp 98 F 10/24/18 07:00 Pulse 87 10/24/18 07:00 Resp 16 10/24/18 07:00 BP 153/80 10/24/18 07:00 Pulse Ox 94 L 10/24/18 07:00 Intake & Output 10/23/18 10/24/18 10/24/18 18:59 06:59 18:59 Intake Total 120 1440 240 Output Total 1000 500 Balance 120 440 -260 Intake: Intake, IV Titration 1200 Amount Sodium Chloride 0.9% 1, 1200 000 ml @ 100 mls/hr IV . Q10H BRIGID Rx#:[id number] Oral 120 240 240 Output: Urine 1000 500 Uretheral (Castillo) 500 Other: # Voids 3 1 3 - Exam General: well nourished, well developed, NAD. Vitals reviewed Eyes: PERRL, EOMI, conjunctiva normal HENT: normocephalic, mucus membranes moist. NGT to LIS with minimal output Neck: supple, no JVD Lungs: normal respiratory effort, no wheezes or rales CV: Regular rate and rhythm, no murmur. Peripheral pulses 2+ Abdomen: soft, nondistended, no organomegaly Lymph: no cervical or axillary LAD Skin: warm and dry. Neuro: A&Ox3, normal mood and affect - Labs CBC & Chem 7: 10/24/18 07:15 10/24/18 07:15 Labs: Abnormal Lab Results - Last 24 Hours (Table) 10/23/18 10/23/18 10/24/18 Range/Units 17:10 20:52 07:13 RBC (4.30-5.90) m/uL Hgb (13.0-17.5) gm/dL Hct (39.0-53.0) % Chloride (98-107) mmol/L Glucose (74-99) mg/dL POC Glucose (mg/dL) 125 H 112 H 129 H (75-99) mg/dL Calcium (8.4-10.2) mg/dL 10/24/18 10/24/18 10/24/18 Range/Units 07:15 07:15 11:34 RBC 3.56 L (4.30-5.90) m/uL Hgb 11.0 L (13.0-17.5) gm/dL Hct 32.5 L (39.0-53.0) % Chloride 110 H (98-107) mmol/L Glucose 113 H (74-99) mg/dL POC Glucose (mg/dL) 152 H (75-99) mg/dL Calcium 7.7 L (8.4-10.2) mg/dL Microbiology - Last 24 Hours (Table) 10/19/18 21:27 Blood Culture - Preliminary Blood No Growth after 96 hours Assessment and Plan Assessment: 1. SBO; status post exploratory laparotomy with lysis of adhesions. Remains on IV zosyn 2. Leukocytosis. Resolved 3. Acute renal injury; resolved with creatinine at 1.09 this morning; Continue with slow IV fluids hydration 4. HTN. Continue cozar 25 mg daily along with Toprol-XL 12.5 mg daily 5. T2DM. Accucheck/sliding scale 6. Hypothyroidism; continue with levothyroxine at 50 MCG daily 7. DVT prophylaxis; subcu Lovenox CODE STATUS; full code Time with Patient: Greater than 30
[2018-10-24 17:13] LABS: Glucose,Whole Blood 133 mg/dL (75-99)
[2018-10-24 20:19] LABS: Glucose,Whole Blood 134 mg/dL (75-99)
[2018-10-25] MEDS: PIPERACILLIN-TAZOBACTAM 3.375 GM in SODIUM CHLORIDE 0.9% 100 ML IVPB SCH ×3 (05:30→21:20)
[2018-10-25] MEDS: LEVOTHYROXINE 50 MCG TAB PO SCH (05:31)
[2018-10-25] MEDS: METOCLOPRAMIDE 5 MG/ML 2 ML VIAL IVP SCH ×4 (05:31→17:55)
[2018-10-25] MEDS: SODIUM CHLORIDE 0.9% 1,000 ML IV SCH ×2 (06:13→17:48)
[2018-10-25 07:13] LABS: Glucose,Whole Blood 126 mg/dL (75-99)
[2018-10-25 07:31] LABS: HGB 11.8 gm/dL (13.0-17.5); MCH 30.9 pg (25.0-35.0); MCHC 33.7 g/dL (31.0-37.0); MCV 91.8 fL (80.0-100.0); Mean Platelet Volume 7.5; Platelet Count 220 k/uL (150-450); RBC 3.81 m/uL (4.30-5.90); RDW 14.8 % (11.5-15.5); WBC 8.7 k/uL (3.8-10.6)
[2018-10-25 07:37] LABS: African American GFR (CKD) >90 (>60 ml/min/1.73 sqM); Anion Gap 7 mmol/L; Blood Urea Nitrogen 11 mg/dL (9-20); Carbon Dioxide 26 mmol/L (22-30); Chloride 109 mmol/L (98-107); Glucose 133 mg/dL (74-99); Potassium 3.4 mmol/L (3.5-5.1); Sodium 142 mmol/L (137-145)
[2018-10-25] MEDS: INSULIN ASPART (NovoLOG) 100 UNIT/ML VIAL SQ SCH ×3 (07:46→17:47)
[2018-10-25 07:54] LABS: Eosinophils # (M) 0.17 k/uL (0-0.7); Lymphocytes # (M) 1.91 k/uL (1.0-4.8); Monocytes # (M) 1.04 k/uL (0-1.0); Neutrophils % (M) 64 %; Nucleated Red Blood Cells 0 /100 WBC (0-0); Total Cells Counted 100
[2018-10-25] MEDS: LOSARTAN 25 MG TAB PO SCH (08:47)
[2018-10-25] MEDS: DOCUSATE 100 MG CAP PO SCH ×2 (08:47→21:20)
[2018-10-25] MEDS: METOPROLOL SUCCINATE (ER) 25 MG TAB.ER.24H PO SCH (08:48)
[2018-10-25] MEDS: HEPARIN SODIUM,PORCINE 5,000 UNIT/ML 1 ML VIAL SQ SCH ×2 (08:49)
[2018-10-25] MEDS: PANTOPRAZOLE 40 MG/10 ML VIAL IVP SCH (08:50)
[2018-10-25] MEDS: ENOXAPARIN 40 MG/0.4 ML SYRINGE SQ SCH (08:51)
--- NOTE | 2018-10-25 08:57 | P.PN ---
Subjective Progress Note Date: 10/25/18 83 yo M who presented to [facility] ED with a 2 day history of nausea, vomiting, and abdominal pain. Patient was admitted to hospital with small bowel obstruction and underwent exploratory laparotomy with adhenolysis 10/23/2018 Patient is seen and evaluated in room sitting up in a chair with family members at bedside; patient continues to complain of pain with movement; epidural catheter has been removed this morning; patient hasn't had any significant bowel function Vital signs remained stable with a temperature of 99, pulse 80, respirations 16 and blood pressure 128/79. SpO2 of 93% on room air Labs are reviewed showing a white blood count of 6.3, hemoglobin of 11.2 and p latelet count of 192; sodium is 141, potassium of 3.6 with BUN of 29 and creatinine of 0.99; blood cultures have been negative so far; blood sugars remained stable between 112-127 Surgery is following and recommending to continue with clear liquids until patient has significant bowel function improvement 10/24/2018 Patient reports some improvement in pain; epidural catheter has been removed since yesterday; patient has been passing some flatus; did develop urinary reten tion for which he required for the catheter Stable vital signs with temperature 98.5, pulse 74, respirations 16 and blood pressure 149/78 Labs stable at white blood count of 6.9, hemoglobin of 11, sodium of 141 with potassium 3.5 Patient's diet is being advanced by surgery with slowly resolving small bowel obstruction 10/25. Pt had brief cramping pain last night but currently is comfortable. Contin ues to pass flatus but no BM. Denies nausea or bloating. He is tolerating full liquid diet. Ambulating minimally with rolling walker. Labs stable and glucose controlled. Objective - Vital Signs Vital signs: Vital Signs Temp 98.6 F 10/25/18 08:43 Pulse 101 H 10/25/18 08:43 Resp 16 10/25/18 08:43 BP 170/82 10/25/18 08:43 Pulse Ox 94 L 10/25/18 08:43 Intake & Output 10/24/18 10/25/18 10/25/18 18:59 06:59 18:59 Intake Total 240 Output Total 500 Balance -260 Intake: Oral 240 Output: Urine 500 Other: Voiding Method Indwelling Catheter Indwelling Catheter Indwelling Catheter # Voids 3 0 - Exam General: well nourished, well developed, NAD. Vitals reviewed Lungs: normal respiratory effort, no wheezes or rales CV: Regular rate and rhythm, no murmur. Peripheral pulses 2+ Abdomen: soft, nondistended, no organomegaly, hypoactive bowel sounds Skin: warm and dry. Neuro: A&Ox3, normal mood and affect - Labs CBC & Chem 7: 10/25/18 06:54 10/25/18 06:54 Labs: Abnormal Lab Results - Last 24 Hours (Table) 10/24/18 10/24/18 10/24/18 Range/Units 07:15 11:34 17:12 RBC 3.56 L (4.30-5.90) m/uL Hgb 11.0 L (13.0-17.5) gm/dL Hct 32.5 L (39.0-53.0) % Monocytes # (Manual) (0-1.0) k/uL Potassium (3.5-5.1) mmol/L Chloride (98-107) mmol/L Glucose (74-99) mg/dL POC Glucose (mg/dL) 152 H 133 H (75-99) mg/dL Calcium (8.4-10.2) mg/dL 10/24/18 10/25/18 10/25/18 Range/Units 20:07 06:54 06:54 RBC 3.81 L (4.30-5.90) m/uL Hgb 11.8 L (13.0-17.5) gm/dL Hct 35.0 L (39.0-53.0) % Monocytes # (Manual) 1.04 H (0-1.0) k/uL Potassium 3.4 L (3.5-5.1) mmol/L Chloride 109 H (98-107) mmol/L Glucose 133 H (74-99) mg/dL POC Glucose (mg/dL) 134 H (75-99) mg/dL Calcium 8.0 L (8.4-10.2) mg/dL 10/25/18 Range/Units 07:11 RBC (4.30-5.90) m/uL Hgb (13.0-17.5) gm/dL Hct (39.0-53.0) % Monocytes # (Manual) (0-1.0) k/uL Potassium (3.5-5.1) mmol/L Chloride (98-107) mmol/L Glucose (74-99) mg/dL POC Glucose (mg/dL) 126 H (75-99) mg/dL Calcium (8.4-10.2) mg/dL Microbiology - Last 24 Hours (Table) 10/19/18 21:27 Blood Culture - Preliminary Blood No Growth after 120 hours Assessment and Plan (1) Intra-abdominal adhesions Current Visit: Yes Status: Acute Code(s): K66.0 - PERITONEAL ADHESIONS (POSTPROCEDURAL) (POSTINFECTION) SNOMED Code(s): 244621063 (2) Hypertension Current Visit: Yes Status: Acute Code(s): I10 - ESSENTIAL (PRIMARY) HYPERTENSION SNOMED Code(s): 21177015 (3) Acquired hypothyroidism Current Visit: Yes Status: Acute Code(s): E03.9 - HYPOTHYROIDISM, U NSPECIFIED SNOMED Code(s): 976720542 (4) Small bowel obstruction Current Visit: Yes Status: Acute Code(s): K56.609 - UNSP INTESTNL OBST, UNSP TO PARTIAL VERSUS COMPLETE OBST SNOMED Code(s): 962377880 (5) Leukocytosis Current Visit: Yes Status: Acute Code(s): D72.829 - ELEVATED WHITE BLOOD CELL COUNT, UNSPECIFIED SNOMED Code(s): 102489076 (6) KIRBY (acute kidney injury) Current Visit: Yes Status: Acute Code(s): N17.9 - ACUTE KIDNEY FAILURE, UNSPECIFIED SNOMED Code(s): 83049299 Plan: 1. SBO; status post exploratory laparotomy with lysis of adhesions. Remains on IV zosyn. Advance diet per surgery. Ambulate with PT today 2. Leukocytosis. Resolved 3. Acute renal injury; resolved 4. HTN. Continue cozar 25 mg daily along with Toprol-XL 12.5 mg daily 5. T2DM. Accucheck/sliding scale 6. Hypothyroidism. continue with levothyroxine at 50 MCG daily 7. DVT prophylaxis. subcu Lovenox
--- NOTE | 2018-10-25 10:57 | P.PN ---
Subjective Progress Note Date: 10/25/18 CHIEF COMPLAINT: Abdominal pain HISTORY OF PRESENT ILLNESS: Patient examined this morning at the bedside. He is status post exploratory laparotomy with lysis of adhesions. POD #5. He reports pain is controlled at this time. Tolerating full liquid diet. Passing flatus. Denies BM. Denies nausea or vomiting. PHYSICAL EXAM: VITAL SIGNS: Reviewed. GENERAL: Well-developed in no acute distress. HEENT: No sclera icterus. Extraocular movements grossly intact. Moist buccal mucosa. Head is atraumatic, normocephalic. ABDOMEN: Soft. Mildly distended. Nontender. Dressing to the midline incision with shadowing present. NEUROLOGIC: Alert and oriented. Cranial nerves II through XII grossly intact. ASSESSMENT: 1. Abdominal pain, nausea, vomiting 2. Small bowel obstruction, status post exploratory laparotomy with lysis of adhesions 3. History of open cholecystectomy 4. Urinary retention PLAN: 1. Continue full liquid diet. Do not advance until patient has BM. Continue IV reglan. 2. Management of urinary catheter per Dr. Torrez 3. Pain control 4. Activity as tolerated. Patient encouraged to be OOB and ambulatory. PT/OT on consult 6. Incentive spirometry Nurse practitioner note has been reviewed by physician. Signing provider agrees with the documented findings, assessment, and plan of care. Objective - Vital Signs Vital signs: Vital Signs Temp 98.6 F 10/25/18 08:43 Pulse 101 H 10/25/18 08:43 Resp 16 10/25/18 08:43 BP 170/82 10/25/18 08:43 Pulse Ox 94 L 10/25/18 08:43 Intake & Output 10/24/18 10/25/18 10/25/18 18:59 06:59 18:59 Intake Total 240 Output Total 500 Balance -260 Intake: Oral 240 Output: Urine 500 Other: Voiding Method Indwelling Catheter Indwelling Catheter Indwelling Catheter # Voids 3 0 - Labs CBC & Chem 7: 10/25/18 06:54 10/25/18 06:54 Labs: Abnormal Lab Results - Last 24 Hours (Table) 10/24/18 10/24/18 10/24/18 Range/Units 11:34 17:12 20:07 RBC (4.30-5.90) m/uL Hgb (13.0-17.5) gm/dL Hct (39.0-53.0) % Monocytes # (Manual) (0-1.0) k/uL Potassium (3.5-5.1) mmol/L Chloride (98-107) mmol/L Glucose (74-99) mg/dL POC Glucose (mg/dL) 152 H 133 H 134 H (75-99) mg/dL Calcium (8.4-10.2) mg/dL 10/25/18 10/25/18 10/25/18 Range/Units 06:54 06:54 07:11 RBC 3.81 L (4.30-5.90) m/uL Hgb 11.8 L (13.0-17.5) gm/dL Hct 35.0 L (39.0-53.0) % Monocytes # (Manual) 1.04 H (0-1.0) k/uL Potassium 3.4 L (3.5-5.1) mmol/L Chloride 109 H (98-107) mmol/L Glucose 133 H (74-99) mg/dL POC Glucose (mg/dL) 126 H (75-99) mg/dL Calcium 8.0 L (8.4-10.2) mg/dL Microbiology - Last 24 Hours (Table) 10/19/18 21:27 Blood Culture - Preliminary Blood No Growth after 120 hours
[2018-10-25 12:01] LABS: Glucose,Whole Blood 169 mg/dL (75-99)
[2018-10-25] MEDS ORDERED: diphenhydrAMINE 25 MG CAP PO PRN (14:00)
[2018-10-25 17:40] LABS: Glucose,Whole Blood 119 mg/dL (75-99)
[2018-10-25 20:19] LABS: Glucose,Whole Blood 131 mg/dL (75-99)
[2018-10-25] MEDS: LISINOPRIL 10 MG TAB PO SCH (21:20)
[2018-10-25] MEDS: FINASTERIDE 5 MG TAB PO SCH (21:20)
[2018-10-26] MEDS: METOCLOPRAMIDE 5 MG/ML 2 ML VIAL IVP SCH ×2 (00:11→05:28)
[2018-10-26] MEDS: SODIUM CHLORIDE 0.9% 1,000 ML IV SCH (02:40)
[2018-10-26] MEDS: LEVOTHYROXINE 50 MCG TAB PO SCH (05:28)
[2018-10-26] MEDS: PIPERACILLIN-TAZOBACTAM 3.375 GM in SODIUM CHLORIDE 0.9% 100 ML IVPB SCH ×2 (05:28→12:19)
[2018-10-26 07:25] LABS: Glucose,Whole Blood 129 mg/dL (75-99)
[2018-10-26] MEDS: INSULIN ASPART (NovoLOG) 100 UNIT/ML VIAL SQ SCH ×2 (08:35→12:19)
[2018-10-26] MEDS: DOCUSATE 100 MG CAP PO SCH (08:36)
[2018-10-26] MEDS: LOSARTAN 25 MG TAB PO SCH (08:38)
[2018-10-26] MEDS: ENOXAPARIN 40 MG/0.4 ML SYRINGE SQ SCH (08:38)
[2018-10-26] MEDS: LISINOPRIL 10 MG TAB PO SCH (08:38)
[2018-10-26] MEDS: METOPROLOL SUCCINATE (ER) 25 MG TAB.ER.24H PO SCH (08:38)
[2018-10-26] MEDS: FINASTERIDE 5 MG TAB PO SCH (08:38)
[2018-10-26] MEDS ORDERED: TAMSULOSIN 0.4 MG CAP.ER.24H PO STA (08:55)
[2018-10-26] MEDS ORDERED: PANTOPRAZOLE 40 MG TABLET PO SCH (09:00)
[2018-10-26 09:36] VITALS: RESP 16; TEMP 97.6
[2018-10-26] MEDS ORDERED: Potassium Replacement Protocol 1 EACH MISC MISCELLANE PRN (10:12)
--- NOTE | 2018-10-26 10:19 | P.PN ---
Subjective Progress Note Date: 10/27/18 83 yo M who presented to [facility] ED with a 2 day history of nausea, vomiting, and abdominal pain. Patient was admitted to hospital with small bowel obstruction and underwent exploratory laparotomy with adhenolysis 10/23/2018 Patient is seen and evaluated in room sitting up in a chair with family members at bedside; patient continues to complain of pain with movement; epidural c atheter has been removed this morning; patient hasn't had any significant bowel function Vital signs remained stable with a temperature of 99, pulse 80, respirations 16 and blood pressure 128/79. SpO2 of 93% on room air Labs are reviewed showing a white blood count of 6.3, hemoglobin of 11.[address] atelet count of 192; sodium is 141, potassium of 3.6 with BUN of 29 and creatinine of 0.99; blood cultures have been negative so far; blood sugars remained stable between 112-127 Surgery is following and recommending to continue with clear liquids until patient has significant bowel function improvement 10/24/2018 Patient reports some improvement in pain; epidural catheter has been removed since yesterday; patient has been passing some flatus; did develop urinary retention for which he required for the catheter Stable vital signs with temperature 98.5, pulse 74, respirations 16 and blood pressure 149/78 Labs stable at white blood count of 6.9, hemoglobin of 11, sodium of 141 with potassium 3.5 Patient's diet is being advanced by surgery with slowly resolving small bowel obstruction 10/25. Pt had brief cramping pain last night but currently is comfortable. Continu es to pass flatus but no BM. Denies nausea or bloating. He is tolerating full liquid diet. Ambulating minimally with rolling walker. Labs stable and glucose controlled. 10/26/2018 positive bowel movement; one last night and one this morning. Denies nausea or vomiting, tolerating full liquid diet. Blood sugars controlled. Pain controlled. BMP pending. Castillo catheter inserted yesterday for urinary retention. Patient follows with Dr. Irby outpatient. Objective - Vital Signs Vital signs: Vital Signs Temp 97.6 F 10/26/18 07:00 Pulse 76 10/26/18 07:00 Resp 16 10/26/18 07:00 BP 178/79 10/26/18 07:00 Pulse Ox 93 L 10/26/18 07:00 Intake & Output 10/25/18 10/26/18 10/26/18 18:59 06:59 18:59 Intake Total 1250 240 Output Total 1001 450 600 Balance 249 -450 -360 Weight 99.79 kg Intake: Intake, IV Titration 750 Amount Piperacillin-Tazobactam 3 100 .375 gm In Sodium Chloride 0.9% 100 ml @ 25 mls/hr IVPB Q8H BRIGID Rx#: [id number] Sodium Chloride 0.9% 1, 650 000 ml @ 100 mls/hr IV . Q10H BRIGID Rx#:[id number] Oral 500 240 Output: Urine 1000 450 600 Uretheral (Castillo) 1000 Stool 1 Other: Voiding Method Indwelling Catheter Indwelling Catheter - Exam - Exam General: Alert and oriented 3, no acute distress Lungs: normal respiratory effort, no wheezes or rales CV: Regular rate and rhythm, no murmur. Peripheral pulses 2+ Abdomen: soft, nondistended, no organomegaly, positive bowel sounds Skin: warm and dry. Neuro: No focal deficits - Labs CBC & Chem 7: 10/25/18 06:54 10/25/18 06:54 Labs: Abnormal Lab Results - Last 24 Hours (Table) 10/25/18 10/25/18 10/25/18 Range/Units 11:59 17:27 20:07 POC Glucose (mg/dL) 169 H 119 H 131 H (75-99) mg/dL 10/26/18 Range/Units 07:14 POC Glucose (mg/dL) 129 H (75-99) mg/dL Microbiology - Last 24 Hours (Table) 10/19/18 21:27 Blood Culture - Final Blood No Growth after 144 hours Assessment and Plan Assessment: (1) Intra-abdominal adhesions, status post exploratory laparotomy with lysis of adhesions. Current Visit: Yes Status: Acute Code(s): K66.0 - PERITONEAL ADHESIONS (POSTPROCEDURAL) (POSTINFECTION) SNOMED Code(s): 825741782 (2) Hypertension Current Visit: Yes Status: Acute Code(s): I10 - ESSENTIAL (PRIMARY) HYPERTENSION SNOMED Code(s): 81477281 (3) Acquired hypothyroidism Current Visit: Yes Status: Acute Code(s): E03.9 - HYPOTHYROIDISM, UNSPECIFIED SNOMED Code(s): 870755021 (4) Small bowel obstruction Current Visit: Yes Status: Acute Code(s): K56.609 - UNSP INTESTNL OBST, UNSP TO PARTIAL VERSUS COMPLETE OBST SNOMED Code(s): 781023352 (5) Leukocytosis, resolved Current Visit: Yes Status: Acute Code(s): D72.829 - ELEVATED WHITE BLOOD CELL COUNT, UNSPECIFIED SNOMED Code(s): 900381057 (6) KIRBY (acute kidney injury), resolved Current Visit: Yes Status: Acute Code(s): N17.9 - ACUTE KIDNEY FAILURE, UNSPECIFIED SNOMED Code(s): 39444422 Plan: Continue on current medication regime ,monitoring and symptomatic treatment. Significant clinical improvement. Discharge planning in progress for today as per surgery. Maintain on Flomax, Proscar, Lasix. Castillo catheter being discontinued today. If any problems with urinary retention, reinsert and follow-up with Dr. Irby outpatient in 1 week. Follow-up with PCP in one week. Aggressive pulmonary toileting, recommended discharge incentive spirometer every hour 10 while awake. Further recommendations to follow. The impression and plan of care has been dictated as directed. : I performed a history and examination of this patient, discussed the same with the dictator. I agree with the dictator's note ,documented as a scribe. Any additional findings or plans will be noted.
[2018-10-26 11:18] LABS: Glucose,Whole Blood 146 mg/dL (75-99)
[2018-10-26 11:25] LABS: African American GFR (CKD) >90 (>60 ml/min/1.73 sqM); Anion Gap 6 mmol/L; Blood Urea Nitrogen 9 mg/dL (9-20); Calcium 8.3 mg/dL (8.4-10.2); Carbon Dioxide 26 mmol/L (22-30); Chloride 109 mmol/L (98-107); Glucose 162 mg/dL (74-99); Potassium 3.3 mmol/L (3.5-5.1); Sodium 141 mmol/L (137-145)
[2018-10-26 11:44] VITALS: BP 135/63; PULSE 74
[2018-10-26] MEDS: POTASSIUM CHLORIDE ER 20 MEQ TAB.ER PO SCH ×2 (12:32→14:01)
[2018-10-26] MEDS ORDERED: FUROSEMIDE 40 MG TAB PO STA (13:03)
--- NOTE | 2018-10-26 13:03 | P.DS ---
Providers Date of admission: 10/19/18 20:34 Expected date of discharge: 10/26/18 Attending physician: Chema James Consults: 10/19/18 20:35 Consult Physician Urgent Consulting Provider: Marek Torrez Consult Reason/Comments: medical management, n/v, sbo Do you want consulting provider notified?: Yes Primary care physician: Gloria [facility] Course: 83-year-old male who presented to the emergency room a chief complaint of abdominal pain, nausea, and vomiting. Patient reports two day history of nausea and vomiting. He has been unable to keep any fluids down. He reports generalized abdominal pain that has improved since coming to the hospital. NG tube was placed in ER. He denies passing flatus. Last bowel movement was 2 days ago before coming to the hospital. Reports history of cholecystectomy a few years ago at outside facility that was unable to be performed laparoscopically and had to be converted to open. CT completed in ER with evidence of small bowel obstruction. Patiet underwent exploratory laparotomy with lysis of adhesions with Dr. James. Patient doing well postoperatively. He is tolerating diet. Passing flatus and having BMs. Stable for discharge home today per Dr. James. Please see EMR for further hospital course details. Discharge Diagnosis: 1. Abdominal pain, nausea, vomiting 2. Small bowel obstruction 3. History of open cholecystectomy 4. Urinary retention, pre-existing uropathy 5. Anemia, suspect dilutional with component of acute blood loss anemia from surgery, an expected outcome Nurse practitioner note has been reviewed by physician. Signing provider agrees with the documented findings, assessment, and plan of care Patient Condition at Discharge: Stable Plan - Discharge Summary Discharge Rx Participant: Yes New Discharge Prescriptions: New Lisinopril [Zestril] 10 mg PO DAILY #30 tab Hydrocodone/Acetaminophen [Bidwell 5-325] 1 tab PO Q4HR PRN 3 Days #18 tab PRN Reason: Pain Continue Tamsulosin HCl [Flomax] 0.4 mg PO BID Repaglinide [Prandin] 1 mg PO AC-BID Metoprolol Succinate (ER) [Toprol XL] 12.5 mg PO DAILY metFORMIN HCL [Glucophage] 500 mg PO BID Glucosam/Augusto-Msm1/C/Chadd/Bosw [Glucosamine-Chondroitin Tablet] 1 tab PO DAILY Multivitamins, Thera [Multivitamin (formulary)] 1 tab PO DAILY Levothyroxine Sodium [Synthroid] 50 mcg PO DAILY Furosemide [Lasix] 40 mg PO DAILY Losartan Potassium [Cozaar] 25 mg PO DAILY Fluticasone/Salmeterol [Advair 250-50 Diskus] 1 puff INHALATION RT-BID Finasteride [Proscar] 5 mg PO DAILY Fluticasone Nasal [place] [Flonase Nasal [place]] 1 spray EA NOSTRIL DAILY PRN PRN Reason: Congestion Atorvastatin [Lipitor] 40 mg PO Q48H Discharge Medication List Glucosam/Augusto-Msm1/C/Chadd/Bosw [Glucosamine-Chondroitin Tablet] 1 tab PO DAILY 03/22/18 [History] Metoprolol Succinate (ER) [Toprol XL] 12.5 mg PO DAILY 03/22/18 [History] Multivitamins, Thera [Multivitamin (formulary)] 1 tab PO DAILY 03/22/18 [History] Repaglinide [Prandin] 1 mg PO AC-BID 03/22/18 [History] Tamsulosin HCl [Flomax] 0.4 mg PO BID 03/22/18 [History] metFORMIN HCL [Glucophage] 500 mg PO BID 03/22/18 [History] Furosemide [Lasix] 40 mg PO DAILY 05/15/18 [History] Levothyroxine Sodium [Synthroid] 50 mcg PO DAILY 05/15/18 [History] Atorvastatin [Lipitor] 40 mg PO Q48H 10/19/18 [History] Finasteride [Proscar] 5 mg PO DAILY 10/19/18 [History] Fluticasone Nasal [place] [Flonase Nasal [place]] 1 spray EA NOSTRIL DAILY PRN 10/19/18 [History] Fluticasone/Salmeterol [Advair 250-50 Diskus] 1 puff INHALATION RT-BID 10/19/18 [History] Losartan Potassium [Cozaar] 25 mg PO DAILY 10/19/18 [History] Hydrocodone/Acetaminophen [Bidwell 5-325] 1 tab PO Q4HR PRN 3 Days #18 tab 10/26/18 [Rx] Lisinopril [Zestril] 10 mg PO DAILY #30 tab 10/26/18 [Rx] Follow up Appointment(s)/Referral(s): Gloria Torrez DO [Primary Care Provider] - 11/01/18 2:00 pm [facility], [NON-STAFF] - As Needed Chema James MD [STAFF PHYSICIAN] - 11/02/18 4:20 pm Activity/Diet/Wound Care/Special Instructions: No driving while taking Bidwell No lifting over 10 pounds You may shower. No soaking or tub baths Very light activity until you are reevaluated at your follow up appointment with your surgeon
--- NOTE | 2018-10-28 08:24 | CDI ---
Documentation Clarification Form Date: 10/28/2018 8:22:00 AM From: Jessica Steel Phone: If you have a question regarding this query, please contact Bonnie Cunningham at [phone] between 8am and 5pm. Admit Date: 10/19/2018 8:34:00 PM Patient Name: Arnulfo Ortiz Visit Number: [id number] Discharge Date: 10/26/2018 5:08:00 PM ATTENTION: The Clinical Documentation Specialists (CDI) and [facility] Coding Staff appreciate your assistance in clarifying documentation. Please respond to the clarification below the line at the bottom and electronically sign. The CDI & [facility] Coding staff will review the response and follow-up if needed. Please note: Queries are made part of the Legal Health Record. If you have any questions, please contact the author of this message via ITS. Dr. Marek Torrez Acute Renal failure is documented in the ED note, your consult and progress notes and Dr. Turner's progress notes. History Risk factors/Other underlying illness: Dehydration, small bowel obstruction, adhesions Clinical Indicators: Elevated Creatinine Labs: Patient presents with a BUN/CR and GFR of: 37/1.51/43 Patients baseline BUN/CR and GFR: Patient's baseline creatinine is 0.8 Urinalysis: Protein 1+, casts 57, moderate leukocyte esterase, WBC 28, bacteria rare, mucus moderate, squamous epithelial cells 10, wbc clumps rare Treatment: Sodium Chloride 1 liter bolus then at 100 mls/hr In your professional opinion, can you please clarify if the condition can be further specified? Acute Renal Failure with Acute Tubular Necrosis Acute Renal Failure with Renal Cortical Necrosis Acute Renal Failure with other specified pathological cause, please specify Acute Renal Failure with other cause, please specify Unable to determine Other, please specify ARF with ATN MTDD
== END 2018-10-26 17:08 | disposition home health service (06) | DRG 335 ==
LOC: EC 16:51 → 4SSUR 20:34
PROVIDERS: ADMIT Surgery; ATTEND Surgery
PROC: 0DNW0ZZ Release Peritoneum, Open Approach (ICD-10-PCS; principal; 2018-10-20 10:30)
DX: K56.50 Intestinal adhesions [bands], unspecified as to partial versus complete obstruction (principal); N17.0 Acute kidney failure with tubular necrosis; E87.2 Acidosis; D62 Acute posthemorrhagic anemia; E86.0 Dehydration; Z95.1 Presence of aortocoronary bypass graft; E11.9 Type 2 diabetes mellitus without complications; D72.829 Elevated white blood cell count, unspecified; E03.9 Hypothyroidism, unspecified; I10 Essential (primary) hypertension; I25.10 Atherosclerotic heart disease of native coronary artery without angina pectoris; J45.909 Unspecified asthma, uncomplicated; R33.9 Retention of urine, unspecified; N39.9 Disorder of urinary system, unspecified; E78.5 Hyperlipidemia, unspecified; Z90.49 Acquired absence of other specified parts of digestive tract; Z86.73 Personal history of transient ischemic attack (TIA), and cerebral infarction without residual deficits; Z79.84 Long term (current) use of oral hypoglycemic drugs; Z79.890 Hormone replacement therapy; Z79.899 Other long term (current) drug therapy; Z88.2 Allergy status to sulfonamides; Z86.14 Personal history of Methicillin resistant Staphylococcus aureus infection; Z98.42 Cataract extraction status, left eye; Z98.41 Cataract extraction status, right eye; Z96.1 Presence of intraocular lens
CPT/HCPCS: 36415; 74176; 80048; 80053; 81001; 83036; 83605; 83690; 83735; 84132; 85025; 87040; 93005; 96361; 96365; 96375; 99285

== ENCOUNTER 2020-07-30 15:56 | Inpatient (IN) | payer MEDICARE ==
--- NOTE | 2020-07-30 16:19 | ED ---
General Adult HPI - General Chief complaint: Weakness Stated complaint: weakness Time Seen by Provider: 07/30/20 16:04 Source: patient Mode of arrival: wheelchair Limitations: no limitations - History of Present Illness Initial comments: Dictation was produced using Dragon Law dictation software. please excuse any grammatical, word or spelling errors. Chief Complaint: 85-year-old male past medical history of asthma coronary artery disease diabetes presents to the emergency department for blood transfusion History of Present Illness: And 85-year-old male he has multiple comorbidities he is here today in the emergency department after being directed by his primary care doctor, Dr. Brooks come to the emergency department for blood transfusion. Patient states that he was in the office recently and had blood work drawn and was told that he should come to the emergency room for low hemoglobin. He does not know what the exact levels are. Patient fell yesterday. states that he tripped over a rock that was covered by a piece of paper. Fell forward. He denies any pain. The ROS documented in this emergency department record has been reviewed and confirmed by me. Those systems with pertinent positive or negative responses have been documented in the HPI. All other systems are other negative and/or noncontributory. PHYSICAL EXAM: General Impression: Alert and oriented x3, not in acute distress HEENT: Mild left sided ecchymoses to the periorbital area, extra-ocular movements intact, pupils equal and reactive to light bilaterally, mucous membranes moist. Cardiovascular: Heart regular rate and rhythm Chest: Able to complete full sentences, no retractions, no tachypnea Abdomen: abdomen soft, non-tender, non-distended, no organomegaly Musculoskeletal: Pulses present and equal in all extremities, no peripheral edema Motor: no focal deficits noted Neurological: CN II-XII grossly intact, no focal motor or sensory deficits noted Skin: Small superficial abrasions to the bilateral knees Psych: Normal affect and mood ED course: 85-year-old male presents to the emergency department for low hemoglobin, fall yesterday. Vital signs upon arrival are within acceptable limits. EKG interpretation: Ventricular rate 86, normal sinus rhythm, KS interval 176, QRS 154, QTC 512, right bundle branch block. No KS prolongation, no ST or T-wave changes noted. Laboratory evaluation obtained. Patient is leukocytosis of 32.5. This appears to be significant increased from patient's baseline. Hemoglobin of 7.1. There is market macrocytosis. Coag panel is unremarkable. Metabolic panel shows acute kidney injury. GI still call blood is negative. Computed tomography scan the brain is unremarkable for any injuries. At this point patient's anemia is likely secondary to anemia of chronic disease. Patient is afebrile does not have any localizing symptoms. Unlikely to be infectious cause. Case is discussed with Dr. Torrez who requests the patient be given a transfusion of 1 unit of packed red blood cells and to have a GI consult. Hematology is also consulted. Patient reevaluated at bedside at 6:20 PM found to be stable medical condition. He has no complaints at this time. He is agreeable to admission. - Related Data Home Medications Medication Instructions Recorded Confirmed Repaglinide [Prandin] 1 mg PO TID 03/22/18 07/30/20 Furosemide [Lasix] 40 mg PO DAILY 05/15/18 07/30/20 Levothyroxine Sodium [Synthroid] 50 mcg PO DAILY 05/15/18 07/30/20 Losartan Potassium [Cozaar] 50 mg PO DAILY 10/19/18 07/30/20 Atorvastatin Calcium [Lipitor] 40 mg PO DAILY 07/30/20 07/30/20 DULoxetine HCL [Cymbalta] 30 mg PO DAILY 07/30/20 07/30/20 metOLazone 2.5 mg PO MOTH 07/30/20 07/30/20 traZODone HCL [Desyrel] 50 mg PO HS 07/30/20 07/30/20 Allergies Allergy/AdvReac Type Severity Reaction Status Date / Time Sulfa (Sulfonamide Allergy Unknown Verified 07/30/20 16:02 Antibiotics) Childhood Review of Systems ROS Statement: Those systems with pertinent positive or pertinent negative responses have been documented in the HPI. ROS Other: All systems not noted in ROS Statement are negative. Past Medical History Past Medical History: Asthma, Coronary Artery Disease (CAD), CVA/TIA, Diabetes M ellitus, Skin Disorder Additional Past Medical History / Comment(s): TIA post op after gallbladder surgery-no residual effects, constipation, urinary retention, History of Any Multi-Drug Resistant Organisms: MRSA Date of last positivie culture/infection: 05/15/18 MDRO Source:: URINE MRSA Past Surgical History: Cholecystectomy, Coronary Bypass/CABG, Heart Catheterization, Hernia Repair, Tonsillectomy Additional Past Surgical History / Comment(s): CABG 2000, bari cataracts, Past Anesthesia/Blood Transfusion Reactions: No Reported Reaction Past Psychological History: No Psychological Hx Reported Smoking Status: Never smoker Past Alcohol Use History: Rare Past Drug Use History: None Reported - Past Family History Mother Family Medical History: No Reported History General Exam Limitations: no limitations Course Vital Signs 07/30/20 07/30/20 15:59 17:43 Temperature 98.3 F Pulse Rate 81 89 Respiratory 18 18 Rate Blood Pressure 118/57 124/64 O2 Sat by Pulse 92 L 94 L Oximetry Medical Decision Making - Lab Data Result diagrams: 07/30/20 16:20 07/30/20 16:20 Lab Results 07/30/20 07/30/20 07/30/20 Range/Units 16:20 16:20 16:20 WBC 32.5 H (3.8-10.6) k/uL RBC 1.98 L (4.30-5.90) m/uL Hgb 7.1 L (13.0-17.5) gm/dL Hct 22.0 L (39.0-53.0) % MCV 111.2 H (80.0-100.0) fL MCH 36.0 H (25.0-35.0) pg MCHC 32.4 (31.0-37.0) g/dL RDW 16.1 H (11.5-15.5) % Plt Count 318 (150-450) k/uL MPV 7.2 Neutrophils % (Manual) 83 % Band Neuts % (Manual) 1 % Lymphocytes % (Manual) 8 % Monocytes % (Manual) 9 % Neutrophils # (Manual) 27.30 H (1.3-7.7) k/uL Lymphocytes # (Manual) 2.60 (1.0-4.8) k/uL Monocytes # (Manual) 2.93 H (0-1.0) k/uL Nucleated RBCs 0 (0-0) /100 WBC Manual Slide Review Performed Anisocytosis Slight Macrocytosis Marked A PT 10.9 (9.0-12.0) sec INR 1.0 (<1.2) APTT 22.0 (22.0-30.0) sec Sodium 138 (137-145) mmol/L Potassium 4.6 (3.5-5.1) mmol/L Chloride 103 (98-107) mmol/L Carbon Dioxide 24 (22-30) mmol/L Anion Gap 11 mmol/L BUN 37 H (9-20) mg/dL Creatinine 2.14 H (0.66-1.25) mg/dL Est GFR (CKD-EPI)AfAm 32 (>60 ml/min/1.73 sqM) Est GFR (CKD-EPI)NonAf 28 (>60 ml/min/1.73 sqM) Glucose 89 (74-99) mg/dL Calcium 9.3 (8.4-10.2) mg/dL Stool Occult Blood (Negative) Blood Type Blood Type Recheck Bld Type Recheck Status Antibody Screen Crossmatch Spec Expiration Date 07/30/20 07/30/20 Range/Units 16:20 16:20 WBC (3.8-10.6) k/uL RBC (4.30-5.90) m/uL Hgb (13.0-17.5) gm/dL Hct (39.0-53.0) % MCV (80.0-100.0) fL MCH (25.0-35.0) pg MCHC (31.0-37.0) g/dL RDW (11.5-15.5) % Plt Count (150-450) k/uL MPV Neutrophils % (Manual) % Band Neuts % (Manual) % Lymphocytes % (Manual) % Monocytes % (Manual) % Neutrophils # (Manual) (1.3-7.7) k/uL Lymphocytes # (Manual) (1.0-4.8) k/uL Monocytes # (Manual) (0-1.0) k/uL Nucleated RBCs (0-0) /100 WBC Manual Slide Review Anisocytosis Macrocytosis PT (9.0-12.0) sec INR (<1.2) APTT (22.0-30.0) sec Sodium (137-145) mmol/L Potassium (3.5-5.1) mmol/L Chloride (98-107) mmol/L Carbon Dioxide (22-30) mmol/L Anion Gap mmol/L BUN (9-20) mg/dL Creatinine (0.66-1.25) mg/dL Est GFR (CKD-EPI)AfAm (>60 ml/min/1.73 sqM) Est GFR (CKD-EPI)NonAf (>60 ml/min/1.73 sqM) Glucose (74-99) mg/dL Calcium (8.4-10.2) mg/dL Stool Occult Blood Negative (Negative) Blood Type A Positive Blood Type Recheck A Pos Bld Type Recheck Status No Antibody Screen NEGATIVE Crossmatch See Detail Spec Expiration Date 08/02/20202319 Disposition Clinical Impression: Anemia Disposition: ADMITTED IP TO THIS [facility] Condition: Fair Referrals: Gloria Torrez DO [Primary Care Provider] - 1-2 days
[2020-07-30 16:48] LABS: Prothrombin Time 10.9 sec (9.0-12.0)
[2020-07-30 16:50] LABS: Anisocytosis Slight; HGB 7.1 gm/dL (13.0-17.5); MCHC 32.4 g/dL (31.0-37.0); MCV 111.2 fL (80.0-100.0); Macrocytosis Marked; Mean Platelet Volume 7.2; Platelet Count 318 k/uL (150-450); RBC 1.98 m/uL (4.30-5.90); RDW 16.1 % (11.5-15.5); WBC 32.5 k/uL (3.8-10.6)
[2020-07-30 16:55] LABS: Calcium 9.3 mg/dL (8.4-10.2); Potassium 4.6 mmol/L (3.5-5.1)
[2020-07-30] MEDS ORDERED: SODIUM CHLORIDE 0.9% 1,000 ML IV STA (17:04)
[2020-07-30 17:17] LABS: Band Neutrophils % 1 %; Monocytes # (M) 2.93 k/uL (0-1.0); Neutrophils % (M) 83 %; Nucleated Red Blood Cells 0 /100 WBC (0-0); Total Cells Counted 200
--- NOTE | 2020-07-30 17:36 | CT ---
EXAMINATION TYPE: CT brain wo con DATE OF EXAM: 07/30/2020 COMPARISON: 05/15/2018 INDICATION: Weakness, fall with head injury. DLP: 1099.4 mGycm, Automated exposure control for dose reduction was used. CONTRAST: None CT of the brain is performed utilizing 3 mm thick sections through the posterior fossa and 3 mm thick sections through the remaining calvarium. Study is performed within 24 hours of arrival to the hosp [facility]. No abnormal hyperdensity is present to suggest an acute intracranial hemorrhage. No mass lesion is evident. No acute infarcts are evident. There is some mild periventricular white matter hypodensity, likely on the basis of chronic white matter ischemic change. Ventricles and sulci are prominent for the patient age. Paranasal sinuses and mastoid air cells within the [id number] are clear. IMPRESSIONS: 1. Atrophy with mild periventricular white matter ischemic-type changes.
[2020-07-30] MEDS ORDERED: ONDANSETRON 4 MG/2 ML VIAL IVP PRN (18:22)
[2020-07-30] MEDS ORDERED: NALOXONE 0.4 MG/ML 1 ML VIAL IV PRN (18:22)
[2020-07-30] MEDS ORDERED: ACETAMINOPHEN TAB 325 MG TAB PO PRN (18:22)
[2020-07-30] MEDS ORDERED: PANTOPRAZOLE 40 MG/10 ML VIAL IVP STA (18:26)
[2020-07-30] MEDS: SODIUM CHLORIDE 0.9% 1,000 ML IV SCH (19:30)
[2020-07-30] MEDS ORDERED: traZODone HCL 50 MG TAB PO SCH (22:30)
[2020-07-30] MEDS ORDERED: metOLazone 2.5 MG TAB PO SCH (22:30)
[2020-07-31 01:09] LABS: Anisocytosis Slight; Basophils # (A) 0.1 k/uL (0-0.2); Basophils % (A) 0 %; Eosinophils # (A) 0.1 k/uL (0-0.7); Eosinophils % (A) 0 %; HCT 27.7 % (39.0-53.0); HGB 8.5 gm/dL (13.0-17.5); Hypochromasia Slight; Lymphocytes # (A) 1.8 k/uL (1.0-4.8); Lymphocytes % (A) 6 %; MCH 34.6 pg (25.0-35.0); MCHC 30.7 g/dL (31.0-37.0); MCV 112.9 fL (80.0-100.0); Macrocytosis Marked; Monocytes # (A) 2.3 k/uL (0-1.0); Monocytes % (A) 7 %; Neutrophils # (A) 27.8 k/uL (1.3-7.7); Neutrophils % (A) 86 %; Platelet Count 204 k/uL (150-450); RBC 2.46 m/uL (4.30-5.90); RDW 17.1 % (11.5-15.5); WBC 32.4 k/uL (3.8-10.6)
[2020-07-31 03:27] LABS: Band Neutrophils % 3 %; Lymphocytes # (M) 3.56 k/uL (1.0-4.8); Monocytes # (M) 2.27 k/uL (0-1.0); Neutrophils % (M) 79 %; Nucleated Red Blood Cells 0 /100 WBC (0-0); Total Cells Counted 100
[2020-07-31] MEDS ORDERED: LEVOTHYROXINE 50 MCG TAB PO SCH (06:30)
[2020-07-31] MEDS: SODIUM CHLORIDE 0.9% 1,000 ML IV SCH (07:01)
[2020-07-31] MEDS ORDERED: ATORVASTATIN 40 MG TAB PO SCH (09:00)
[2020-07-31] MEDS ORDERED: REPAGLINIDE 1 MG TAB PO SCH (09:00)
[2020-07-31] MEDS ORDERED: DULoxetine HCL 30 MG CAPSULE.DR PO SCH (09:00)
[2020-07-31] MEDS ORDERED: FUROSEMIDE 40 MG TAB PO SCH (09:00)
[2020-07-31 09:23] LABS: African American GFR (CKD) 42 (>60 ml/min/1.73 sqM); Anion Gap 5 mmol/L; Blood Urea Nitrogen 32 mg/dL (9-20); Calcium 8.1 mg/dL (8.4-10.2); Carbon Dioxide 25 mmol/L (22-30); Chloride 107 mmol/L (98-107); Glucose 112 mg/dL (74-99); Non-African American GFR(CKD) 36 (>60 ml/min/1.73 sqM); Potassium 4.4 mmol/L (3.5-5.1); Sodium 137 mmol/L (137-145)
[2020-07-31 12:44] VITALS: RESP 18
--- NOTE | 2020-07-31 14:52 | P.CONS ---
History of Present Illness - Reason for Consult Consult date: 07/31/20 Anemia Requesting physician: Marek Torrez - Chief Complaint Sent in for abnormal labs - History of Present Illness This is a pleasant 85-year-old white male patient who was sent into the emergency department by his PCP with a low hemoglobin. His past medical history includes asthma, coronary artery disease, CVA/TIA, diabetes mellitus and chronic kidney disease. On admission he presented with a hemoglobin of 7.1, he was transfused with 1 unit of PRBC. He denies any recent weakness, dizziness, or increased fatigue. He denies any history of anemia unsure if he is on any blood thinners, denies any NSAID use. He denies any black or maroon colored stool, denies any rectal bleeding. He denies any history of peptic ulcer disease or GERD. He does not believe he has had colonoscopy or an EGD before. He denies any nausea, vomiting, diarrhea or abdominal pain. He is currently denying any shortness of breath, chest pain, abdominal pain, fever or chills. States he has a bowel movement daily. Today's labs to PBC 32.4, hemoglobin 8.5, hematocrit 27.7, platelets 204,000, INR 1.0, negative stool for occult blood Review of Systems REVIEW OF SYSTEMS: CARDIOPULMONARY: No chest pain or shortness of breath. Gastrointestinal: Denies any abdominal pain. No nausea or vomiting. No hematemesis, coffee-ground emesis. No rectal bleeding, or melena. GENITOURINARY: No dysuria or hematuria. MUSCULOSKELETAL: Reports normal range of motion., Joint pain. SKIN: No rashes. No jaundice. ENDOCRINE: No chills, fevers. No excessive weight gain or loss. No polydipsia or polyuria. PSYCHIATRIC: Unremarkable. NEUROLOGY: No change in mental status. Denies dizziness, headache. ENT: Vision unremarkable. CONSTITUTIONAL: No recent weight loss. No fever, chills, night sweats. Past Medical History Past Medical History: Asthma, Coronary Artery Disease (CAD), CVA/TIA, Diabetes Mellitus, Hyperlipidemia, Hypertension, Pneumonia, Prostate Disorder, Skin Disorder, Thyroid Disorder Additional Past Medical History / Comment(s): Pt recently went to 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, bilateral lower leg edema/fluid retention, current R hip decub/seen in [facility], past L axillae boil/C now healed, hypothyroid, History of Any Multi-Drug Resistant Organisms: MRSA Year Discovered:: 05/15/18 MDRO Source:: URINE MRSA Past Surgical History: Cholecystectomy, Coronary Bypass/CABG, Heart Catheterization, Hernia Repair, Prostate Surgery, Tonsillectomy Additional Past Surgical History / Comment(s): 2 vessel CABG 2000, 2018 exploratory laparotomy/lysis of adhesions, TURP, colonoscopy, L axillae boil drained, R hip I&D, bari cataracts, Past Anesthesia/Blood Transfusion Reactions: No Reported Reaction Additional Past Anesthesia/Blood Transfusion Reaction / Comm: Pt received blood without reaction. Smoking Status: Never smoker - Past Family History Mother History Unknown: Yes Family Medical History: No Reported History Additional Family Medical History / Comment(s): Pt cannot recall mother's medical hx. Father History Unknown: Yes Additional Family Medical History / Comment(s): Pt cannot recall father's medical history. Medications and Allergies Home Medications Medication Instructions Recorded Confirmed Type Repaglinide [Prandin] 1 mg PO TID 03/22/18 07/30/20 History Furosemide [Lasix] 40 mg PO DAILY 05/15/18 07/30/20 History Levothyroxine Sodium [Synthroid] 50 mcg PO DAILY 05/15/18 07/30/20 History Losartan Potassium [Cozaar] 50 mg PO DAILY 10/19/18 07/30/20 History Atorvastatin Calcium [Lipitor] 40 mg PO DAILY 07/30/20 07/30/20 History DULoxetine HCL [Cymbalta] 30 mg PO DAILY 07/30/20 07/30/20 History metOLazone 2.5 mg PO MOTH 07/30/20 07/30/20 History traZODone HCL [Desyrel] 50 mg PO HS 07/30/20 07/30/20 History Allergies Allergy/AdvReac Type Severity Reaction Status Date / Time Sulfa (Sulfonamide Allergy Unknown Verified 07/30/20 16:02 Antibiotics) Childhood Physical Exam Vitals: Vital Signs Temp Pulse Resp BP Pulse Ox 07/31/20 12:00 98 F 92 18 103/46 95 07/31/20 10:00 96 16 106/50 95 07/31/20 08:00 98.2 F 87 16 113/44 94 L 07/31/20 06:39 99.1 F 88 16 133/52 95 07/31/20 03:00 88 16 137/58 96 07/30/20 23:36 87 16 128/64 96 07/30/20 22:20 98.6 F 83 18 116/55 96 07/30/20 21:23 98.8 F 84 18 131/57 95 07/30/20 20:23 98.2 F 82 18 133/65 93 L 07/30/20 19:53 98.6 F 87 18 131/64 92 L 07/30/20 19:43 99.2 F 88 18 123/56 95 07/30/20 17:43 89 18 124/64 94 L 07/30/20 15:59 98.3 F 81 18 118/57 92 L Intake and Output 07/30/20 07/31/20 07/31/20 22:59 06:59 14:59 Intake Total 310 Balance 310 Intake: Blood Product 310 Rc As-1 Unit 310 [id number] Other: Weight 83 kg 83 kg General appearance: The patient is alert, oriented, appears in no acute distress. HET: Head is normocephalic and atraumatic. Conjunctiva pink. Sclerae anicteric. Neck: Supple without lymphadenopathy. Trachea midline. Heart: S1 S2. Regular rate and rhythm. Lungs: Her to auscultation.. Abdomen: Soft, diffuse tenderness,, nondistended with bowel sounds. No guardin g or rigidity. Extremities: No pedal edema. Neurological: No focal deficits. Alert and oriented 3. Results CBC & Chem 7: 07/31/20 00:13 07/31/20 08:13 Labs: Abnormal Lab Results - Last 24 Hours (Table) 07/30/20 07/30/20 07/30/20 Range/Units 16:20 16:20 16:20 WBC 32.5 H (3.8-10.6) k/uL RBC 1.98 L (4.30-5.90) m/uL Hgb 7.1 L (13.0-17.5) gm/dL Hct 22.0 L (39.0-53.0) % MCV 111.2 H (80.0-100.0) fL MCH 36.0 H (25.0-35.0) pg MCHC (31.0-37.0) g/dL RDW 16.1 H (11.5-15.5) % Neutrophils # (1.3-7.7) k/uL Neutrophils # (Manual) 27.30 H (1.3-7.7) k/uL Monocytes # (0-1.0) k/uL Monocytes # (Manual) 2.93 H (0-1.0) k/uL Macrocytosis Marked A BUN 37 H (9-20) mg/dL Creatinine 2.14 H (0.66-1.25) mg/dL Glucose (74-99) mg/dL Calcium (8.4-10.2) mg/dL Crossmatch See Detail 07/31/20 07/31/20 Range/Units 00:13 08:13 WBC 32.4 H (3.8-10.6) k/uL RBC 2.46 L (4.30-5.90) m/uL Hgb 8.5 L (13.0-17.5) gm/dL Hct 27.7 L (39.0-53.0) % MCV 112.9 H (80.0-100.0) fL MCH (25.0-35.0) pg MCHC 30.7 L (31.0-37.0) g/dL RDW 17.1 H (11.5-15.5) % Neutrophils # 27.8 H (1.3-7.7) k/uL Neutrophils # (Manual) 26.50 H (1.3-7.7) k/uL Monocytes # 2.3 H (0-1.0) k/uL Monocytes # (Manual) 2.27 H (0-1.0) k/uL Macrocytosis Marked A BUN 32 H (9-20) mg/dL Creatinine 1.70 H (0.66-1.25) mg/dL Glucose 112 H (74-99) mg/dL Calcium 8.1 L (8.4-10.2) mg/dL Crossmatch Assessment and Plan (1) Anemia Narrative/Plan: This is an 85-year-old male patient who was sent in by his PCP for low hemoglobin. His presenting hemoglobin was 7.1 and was transfused with 1 unit of PRBC transfusion and his hemoglobin went up to 8.5. He has a past medical history including asthma coronary artery disease, CVA/TIA, diabetes and chronic kidney disease. He does have a history of a small bowel obstruction and underwent exploratory laparotomy October 2018. He denies any previous history of GI bleed, denies NSAID use, unsure if he takes any blood thinners. Patient is somewhat of a poor historian. He denies any black, mild room, or blood in his stool. He denies any rectal bleeding. He denies any previous history of peptic ulcer disease or reflux disease. He is unsure if he's ever had colonoscopy please see his never had an EGD or colonoscopy. He had negative occult stool. Likely we are dealing with anemia of chronic disease. Iron studies will be ordered. Patient is declining any endoscopic evaluation and patient has been discharged from primary medicine pending GI clearance. Current Visit: Yes Status: Acute Code(s): D64.9 - ANEMIA, UNSPECIFIED SNOMED Code(s): 583669793 (2) Leukocytosis Current Visit: No Status: Acute Code(s): D72.829 - ELEVATED WHITE BLOOD CELL COUNT, UNSPECIFIED SNOMED Code(s): 384250021 Plan: 1. Symptomatic and supportive care 2. Anemia panel ordered 3. Avoid NSAIDs 4. Close outpatient monitoring of hemoglobin/hematocrit 5. Patient may follow-up with gastroenterology in two weeks, can consider outpatient EGD and colonoscopy at that time. Thank you for this consultation, patient may be discharged home from a gastroenterology standpoint. Dr. Kane Nguyen I agree with the dictator's note, documented as a scribe by Beata Green.
--- NOTE | 2020-07-31 14:52 | P.CONS ---
History of Present Illness - Reason for Consult Consult date: 07/31/20 Leukocytosis, ARF, Anemia - Chief Complaint bayudan - History of Present Illness Patient presents with worsening anemia, renal function and increased leukocytosis over the past couple years, worse the past few months. Therefore we have been asked to further evaluate. 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, bilateral lower leg edema/fluid retention, current R hip decub/seen in [facility], past L axillae boil/WCC now healed, hypothyroid, History of Any Multi-Drug Resistant Organisms: MRSA Year Discovered:: 07/26/20 MDRO Source:: Buttock Past Surgical History: Cholecystectomy, Coronary Bypass/CABG, Heart Catheterization, Hernia Repair, Prostate Surgery, Tonsillectomy Additional Past Surgical History / Comment(s): 2 vessel CABG 2000, 2018 exploratory laparotomy/lysis of adhesions, TURP, colonoscopy, L axillae boil drained, R hip I&D, bari cataracts, Past Anesthesia/Blood Transfusion Reactions: No Reported Reaction Additional Past Anesthesia/Blood Transfusion Reaction / Comm: Pt received blood without reaction. Smoking Status: Never smoker - Past Family History Mother History Unknown: Yes Family Medical History: No Reported History Additional Family Medical History / Comment(s): Pt cannot recall mother's medical hx. Father History Unknown: Yes Additional Family Medical History / Comment(s): Pt cannot recall father's medical history. Medications and Allergies Home Medications Medication Instructions Recorded Confirmed Type Repaglinide [Prandin] 1 mg PO TID 03/22/18 07/30/20 History Furosemide [Lasix] 40 mg PO DAILY 05/15/18 07/30/20 History Levothyroxine Sodium [Synthroid] 50 mcg PO DAILY 05/15/18 07/30/20 History Losartan Potassium [Cozaar] 50 mg PO DAILY 10/19/18 07/30/20 History Atorvastatin Calcium [Lipitor] 40 mg PO DAILY 07/30/20 07/30/20 History DULoxetine HCL [Cymbalta] 30 mg PO DAILY 07/30/20 07/30/20 History metOLazone 2.5 mg PO MOTH 07/30/20 07/30/20 History traZODone HCL [Desyrel] 50 mg PO HS 07/30/20 07/30/20 History Allergies Allergy/AdvReac Type Severity Reaction Status Date / Time Sulfa (Sulfonamide Allergy Unknown Verified 07/30/20 16:02 Antibiotics) Childhood Physical Exam Vitals: Vital Signs Temp Pulse Resp BP Pulse Ox 07/31/20 12:00 98 F 92 18 103/46 95 07/31/20 10:00 96 16 106/50 95 07/31/20 08:00 98.2 F 87 16 113/44 94 L 07/31/20 06:39 99.1 F 88 16 133/52 95 07/31/20 03:00 88 16 137/58 96 07/30/20 23:36 87 16 128/64 96 07/30/20 22:20 98.6 F 83 18 116/55 96 07/30/20 21:23 98.8 F 84 18 131/57 95 07/30/20 20:23 98.2 F 82 18 133/65 93 L 07/30/20 19:53 98.6 F 87 18 131/64 92 L 07/30/20 19:43 99.2 F 88 18 123/56 95 07/30/20 17:43 89 18 124/64 94 L 07/30/20 15:59 98.3 F 81 18 118/57 92 L Intake and Output 07/30/20 07/31/20 07/31/20 22:59 06:59 14:59 Intake Total 310 Balance 310 Intake: Blood Product 310 Rc As-1 Unit 310 [id number] Other: Weight 83 kg 83 kg General Impression: Alert and oriented x3, not in acute distress HEENT: Mild left sided ecchymoses to the periorbital area, Heart: RRR Abdomen: abdomen soft Musculoskeletal: Pulses present Motor: no focal deficits noted Neurological: , no focal motor or sensory deficits noted Skin: Small superficial abrasions to the bilateral knees Psych: Normal affect and mood Results CBC & Chem 7: 07/31/20 00:13 06/15/21 08:13 Labs: Abnormal Lab Results - Last 24 Hours (Table) 07/30/20 07/30/20 07/30/20 Range/Units 16:20 16:20 16:20 WBC 32.5 H (3.8-10.6) k/uL RBC 1.98 L (4.30-5.90) m/uL Hgb 7.1 L (13.0-17.5) gm/dL Hct 22.0 L (39.0-53.0) % MCV 111.2 H (80.0-100.0) fL MCH 36.0 H (25.0-35.0) pg MCHC (31.0-37.0) g/dL RDW 16.1 H (11.5-15.5) % Neutrophils # (1.3-7.7) k/uL Neutrophils # (Manual) 27.30 H (1.3-7.7) k/uL Monocytes # (0-1.0) k/uL Monocytes # (Manual) 2.93 H (0-1.0) k/uL Macrocytosis Marked A BUN 37 H (9-20) mg/dL Creatinine 2.14 H (0.66-1.25) mg/dL Glucose (74-99) mg/dL Calcium (8.4-10.2) mg/dL Crossmatch See Detail 07/31/20 07/31/20 Range/Units 00:13 08:13 WBC 32.4 H (3.8-10.6) k/uL RBC 2.46 L (4.30-5.90) m/uL Hgb 8.5 L (13.0-17.5) gm/dL Hct 27.7 L (39.0-53.0) % MCV 112.9 H (80.0-100.0) fL MCH (25.0-35.0) pg MCHC 30.7 L (31.0-37.0) g/dL RDW 17.1 H (11.5-15.5) % Neutrophils # 27.8 H (1.3-7.7) k/uL Neutrophils # (Manual) 26.50 H (1.3-7.7) k/uL Monocytes # 2.3 H (0-1.0) k/uL Monocytes # (Manual) 2.27 H (0-1.0) k/uL Macrocytosis Marked A BUN 32 H (9-20) mg/dL Creatinine 1.70 H (0.66-1.25) mg/dL Glucose 112 H (74-99) mg/dL Calcium 8.1 L (8.4-10.2) mg/dL Crossmatch Assessment and Plan (1) Anemia Current Visit: Yes Status: Acute Code(s): D64.9 - ANEMIA, UNSPECIFIED SNOMED Code(s): 758034264 (2) KIRBY (acute kidney injury) Current Visit: No Status: Acute Code(s): N17.9 - ACUTE KIDNEY FAILURE, UNSPECIFIED SNOMED Code(s): 84066637 (3) Fall at home Current Visit: No Status: Acute Code(s): W19.XXXA - UNSPECIFIED FALL, INITIAL ENCOUNTER; Y92.009 - UNSP PLACE IN [facility] SNOMED Code(s): 47931856 (4) Leukocytosis Current Visit: No Status: Acute Code(s): D72.829 - ELEVATED WHITE BLOOD CELL COUNT, UNSPECIFIED SNOMED Code(s): 829304781 Plan: Neutrophiollic leukocytosis - Work-up for infectious causes Anemia work-=up in progress including myeloma and Chronic inflammatory Physician attest: I have completed the full history and physical and agree with above dictation, dictated as a ascribe.
[2020-07-31 15:48] VITALS: BP 130/70; PULSE 90; TEMP 98.5
[2020-07-31 22:55] LABS: % Iron Saturation 6.32 (15.00-50.00); Ferritin 1516.8 ng/mL (22.0-322.0); Folate, Serum 16.6 ng/mL
--- NOTE | 2020-07-31 22:55 | P.HPIM ---
History of Present Illness H&P Date: 07/31/20 Arnulfo Ortiz is an 85 yo M with PMH of HTN, T2DM, anemia, chronic pressure ulcer of buttock being followed by his PCP who presented to the ED at the request of his PCP for outpatient hemoglobin of 6.4. He states he has felt more easily fatigued but denies any dizziness, shortness of breath or dark stools. He has not had a colonoscopy in years. On presentation his WBC was 32k, Hgb 7.1, Cr 2.12, FOBT negative. Review of Systems All systems: negative Constitutional: Reports weakness, Denies chills, Denies fever Eyes: denies blurred vision, denies pain Ears, nose, mouth and throat: Denies headache, Denies sore throat Cardiovascular: Denies chest pain, Denies shortness of breath Respiratory: Denies cough Gastrointestinal: Denies abdominal pain, Denies diarrhea, Denies nausea, Denies vomiting Musculoskeletal: Denies myalgias Integumentary: Reports wounds, Denies pruritus, Denies rash Neurological: Denies numbness, Denies weakness Psychiatric: Denies anxiety, Denies depression Endocrine: Denies fatigue, Denies weight change Past Medical History Past Medical History: Asthma, Coronary Artery Disease (CAD), CVA/TIA, Diabetes Mellitus, Hyperlipidemia, Hypertension, Pneumonia, Prostate Disorder, Skin Disorder, Thyroid Disorder Additional Past Medical History / Comment(s): Pt recently went to [facility] with fall/injury to L forehead/anemia-refused admission/transfusion, chronic leukocytosis, iron deficiency anemia, TIA after gallbladder surgery, SBO with surgery, urinary retention, 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, bilateral lower leg edema/fluid retention, current R hip decub/seen in [facility], past L axillae boil/[facility] now healed, hypothyroid, History of Any Multi-Drug Resistant Organisms: MRSA Date of last positivie culture/infection: 05/15/18 MDRO Source:: URINE MRSA Past Surgical History: Cholecystectomy, Coronary Bypass/CABG, Heart Catheterization, Hernia Repair, Prostate Surgery, Tonsillectomy Additional Past Surgical History / Comment(s): 2 vessel CABG 2000, 2018 exploratory laparotomy/lysis of adhesions, TURP, colonoscopy, L axillae boil drained, R hip I&D, bari cataracts, Past Anesthesia/Blood Transfusion Reactions: No Reported Reaction Additional Past Anesthesia/Blood Transfusion Reaction / Comment(s): Pt received blood without reaction. Smoking Status: Never smoker - Past Family History Mother History Unknown: Yes Family Medical History: No Reported History Additional Family Medical History / Comment(s): Pt cannot recall mother's medical hx. Father History Unknown: Yes Additional Family Medical History / Comment(s): Pt cannot recall father's medical history. Medications and Allergies Home Medications Medication Instructions Recorded Confirmed Type Repaglinide [Prandin] 1 mg PO TID 03/22/18 07/30/20 History Furosemide [Lasix] 40 mg PO DAILY 05/15/18 07/30/20 History Levothyroxine Sodium [Synthroid] 50 mcg PO DAILY 05/15/18 07/30/20 History Losartan Potassium [Cozaar] 50 mg PO DAILY 10/19/18 07/30/20 History Atorvastatin Calcium [Lipitor] 40 mg PO DAILY 07/30/20 07/30/20 History DULoxetine HCL [Cymbalta] 30 mg PO DAILY 07/30/20 07/30/20 History metOLazone 2.5 mg PO MOTH 07/30/20 07/30/20 History traZODone HCL [Desyrel] 50 mg PO HS 07/30/20 07/30/20 History Allergies Allergy/AdvReac Type Severity Reaction Status Date / Time Sulfa (Sulfonamide Allergy Unknown Verified 07/30/20 16:02 Antibiotics) Childhood Physical Exam Vitals: Vital Signs Temp Pulse Resp BP Pulse Ox 07/31/20 15:45 98.5 F 90 18 130/70 99 07/31/20 12:00 98 F 92 18 103/46 95 07/31/20 10:00 96 16 106/50 95 07/31/20 08:00 98.2 F 87 16 113/44 94 L 07/31/20 06:39 99.1 F 88 16 133/52 95 07/31/20 03:00 88 16 137/58 96 07/30/20 23:36 87 16 128/64 96 Intake and Output 07/31/20 07/31/20 07/31/20 06:59 14:59 22:59 Other: Weight 83 kg General: well nourished, well developed, NAD. Vitals reviewed Eyes: PERRL, EOMI, conjunctiva normal HENT: normocephalic, mucus membranes moist Neck: supple, no JVD Lungs: normal respiratory effort, no wheezes or rales CV: Regular rate and rhythm, no murmur. Peripheral pulses 2+ Abdomen: soft, nondistended, no organomegaly Lymph: no cervical or axillary LAD Skin: warm and dry. Neuro: A&Ox3, normal mood and affect Results CBC & Chem 7: 07/31/20 00:13 07/31/20 08:13 Labs: Abnormal Lab Results - Last 24 Hours (Table) 07/31/20 07/31/20 Range/Units 00:13 08:13 WBC 32.4 H (3.8-10.6) k/uL RBC 2.46 L (4.30-5.90) m/uL Hgb 8.5 L (13.0-17.5) gm/dL Hct 27.7 L (39.0-53.0) % MCV 112.9 H (80.0-100.0) fL MCHC 30.7 L (31.0-37.0) g/dL RDW 17.1 H (11.5-15.5) % Neutrophils # 27.8 H (1.3-7.7) k/uL Neutrophils # (Manual) 26.50 H (1.3-7.7) k/uL Monocytes # 2.3 H (0-1.0) k/uL Monocytes # (Manual) 2.27 H (0-1.0) k/uL Macrocytosis Marked A BUN 32 H (9-20) mg/dL Creatinine 1.70 H (0.66-1.25) mg/dL Glucose 112 H (74-99) mg/dL Calcium 8.1 L (8.4-10.2) mg/dL Thrombosis Risk Factor Assmnt - Choose All That Apply Any of the Below Risk Factors Present?: Yes Each Factor Represents 1 point: Obesity (BMI >25) Other Risk Factors: Yes Each Risk Factor Represents 3 Points: Age 75 years or older Other congenital or acquired thrombophilia - If yes, enter type in comment: No Thrombosis Risk Factor Assessment Total Risk Factor Score: 4 Thrombosis Risk Factor Assessment Level: Moderate Risk Assessment and Plan Plan: 1. Symptomatic anemia due to iron deficiency. Admit, transfuse 1 U PRBC. GI consult consider colonoscopy 2. Leukocytosis. consider secondary to chronic pressure ulcer vs leukemia. Hematology consulted 3. T2DM. Continue home medications
--- NOTE | 2020-08-12 18:08 | P.DS ---
Providers Date of admission: 07/30/20 18:22 Expected date of discharge: 07/31/20 Attending physician: Marek Torrez MD Consults: 07/30/20 18:23 Consult Physician Routine Consulting Provider: Félix Gerard Consult Reason/Comments: leukocytosis, anemia of chronic disease Do you want consulting provider notified?: Yes Consult Physician Routine Consulting Provider: Deirdre Nguyen Consult Reason/Comments: anemia, GI bleed? Do you want consulting provider notified?: Yes Primary care physician: [facility] Course: Arnulfo Ortiz is an 85 yo M with PMH of HTN, T2DM, anemia, chronic pressure ulcer of buttock being followed by his PCP who presented to the ED at the request of his PCP for outpatient hemoglobin of 6.4. He states he has felt more easily fatigued but denies any dizziness, shortness of breath or dark stools. He has not had a colonoscopy in years. On presentation his WBC was 32k, Hgb 7.1, Cr 2.12, FOBT negative. He was transfused 1 U PRBC with improvement in Hgb. Pt declined further workup and testing of his leukocytosis and expressed desire to leave the hospital after he was transfused and follow as an outpatient. He is discharged in serious condition with guarded prognosis. Patient Condition at Discharge: Fair Plan - Discharge Summary Discharge Rx Participant: No New Discharge Prescriptions: Continue Repaglinide [Prandin] 1 mg PO TID Levothyroxine Sodium [Synthroid] 50 mcg PO DAILY Furosemide [Lasix] 40 mg PO DAILY Losartan Potassium [Cozaar] 50 mg PO DAILY DULoxetine HCL [Cymbalta] 30 mg PO DAILY traZODone HCL [Desyrel] 50 mg PO HS Atorvastatin Calcium [Lipitor] 40 mg PO DAILY No Action lisinopriL [Zestril] 2.5 mg PO DAILY tab metroNIDAZOLE [Flagyl] 500 mg PO Q8HR #90 tab INSULIN LISPRO (HumaLOG) [humaLOG] 0 unit SQ ACHS #1 vial Famotidine [Pepcid] 20 mg PO HS tab Acetaminophen Tab [Tylenol] 650 mg PO Q6HR PRN tab PRN Reason: Fever And/ Or Pain Vancomycin HCl in 5 % Dextrose [Vancomycin 1 Gram/250 ml-D5w] 1.25 gm IV DAILY #28 plast..bag Discharge Medication List Repaglinide [Prandin] 1 mg PO TID 03/22/18 [History] Furosemide [Lasix] 40 mg PO DAILY 05/15/18 [History] Levothyroxine Sodium [Synthroid] 50 mcg PO DAILY 05/15/18 [History] Losartan Potassium [Cozaar] 50 mg PO DAILY 10/19/18 [History] Atorvastatin Calcium [Lipitor] 40 mg PO DAILY 07/30/20 [History] DULoxetine HCL [Cymbalta] 30 mg PO DAILY 07/30/20 [History] traZODone HCL [Desyrel] 50 mg PO HS 07/30/20 [History] Acetaminophen Tab [Tylenol] 650 mg PO Q6HR PRN tab 08/09/20 [Rx] Famotidine [Pepcid] 20 mg PO HS tab 08/09/20 [Rx] INSULIN LISPRO (HumaLOG) [humaLOG] 0 unit SQ ACHS #1 vial 08/09/20 [Rx] Vancomycin HCl in 5 % Dextrose [Vancomycin 1 Gram/250 ml-D5w] 1.25 gm IV DAILY #28 plast..bag 08/10/20 [Rx] lisinopriL [Zestril] 2.5 mg PO DAILY tab 08/10/20 [Rx] metroNIDAZOLE [Flagyl] 500 mg PO Q8HR #90 tab 08/10/20 [Rx] Follow up Appointment(s)/Referral(s): Gloria Torrez DO [Primary Care Provider] - 1-2 days Nina Duong NPC [Nurse Practitioner] - 2 Weeks Discharge Disposition: HOME SELF-CARE
== END 2020-07-31 15:45 | disposition home or self-care (01) | DRG 812 ==
LOC: EC 15:56 → 5NMEDONC 18:22
PROVIDERS: ADMIT Family Medicine; ATTEND Family Medicine
PROC: 30233N1 Transfusion of Nonautologous Red Blood Cells into Peripheral Vein, Percutaneous Approach (ICD-10-PCS; principal; 2020-07-30)
DX: D50.9 Iron deficiency anemia, unspecified (principal); N17.9 Acute kidney failure, unspecified; N13.8 Other obstructive and reflux uropathy; D63.8 Anemia in other chronic diseases classified elsewhere; D72.829 Elevated white blood cell count, unspecified; D75.89 Other specified diseases of blood and blood-forming organs; I25.10 Atherosclerotic heart disease of native coronary artery without angina pectoris; I12.9 Hypertensive chronic kidney disease with stage 1 through stage 4 chronic kidney disease, or unspecified chronic kidney disease; S80.211A Abrasion, right knee, initial encounter; S80.212A Abrasion, left knee, initial encounter; N40.1 Benign prostatic hyperplasia with lower urinary tract symptoms; S00.10XA Contusion of unspecified eyelid and periocular area, initial encounter; E03.9 Hypothyroidism, unspecified; E11.22 Type 2 diabetes mellitus with diabetic chronic kidney disease; N18.9 Chronic kidney disease, unspecified; Z20.822 Contact with and (suspected) exposure to COVID-19; E78.5 Hyperlipidemia, unspecified; L89.309 Pressure ulcer of unspecified buttock, unspecified stage; I45.10 Unspecified right bundle-branch block; J45.909 Unspecified asthma, uncomplicated; Z79.890 Hormone replacement therapy; Y92.009 Unspecified place in unspecified non-institutional (private) residence as the place of occurrence of the external cause; Z79.899 Other long term (current) drug therapy; Z86.73 Personal history of transient ischemic attack (TIA), and cerebral infarction without residual deficits; Z95.1 Presence of aortocoronary bypass graft; W19.XXXA Unspecified fall, initial encounter; Z87.01 Personal history of pneumonia (recurrent); Z87.19 Personal history of other diseases of the digestive system; Z88.2 Allergy status to sulfonamides; Z90.49 Acquired absence of other specified parts of digestive tract; Z98.42 Cataract extraction status, left eye; Z98.41 Cataract extraction status, right eye
CPT/HCPCS: 36415; 70450; 80048; 82272; 82607; 82728; 82746; 83540; 83550; 83735; 85025; 85610; 85730; 86850; 86900; 86901; 86920; 87635; 93005; 96360; 99285

== ENCOUNTER 2020-08-01 | Inpatient (IN) | payer MEDICARE | END 2020-08-10 19:12 | DRG 853 | PROVIDERS: ADMIT Family Medicine | PROC: 30233N1 Transfusion of Nonautologous Red Blood Cells into Peripheral Vein, Percutaneous Approach (ICD-10-PCS; 2020-08-02) | PROC: 0JB90ZZ Excision of Buttock Subcutaneous Tissue and Fascia, Open Approach (ICD-10-PCS; principal; 2020-08-09) | PROC: 02HV33Z Insertion of Infusion Device into Superior Vena Cava, Percutaneous Approach (ICD-10-PCS; 2020-08-09) | DX: A41.02 Sepsis due to Methicillin resistant Staphylococcus aureus (principal); G93.41 Metabolic encephalopathy; L89.213 Pressure ulcer of right hip, stage 3; D62 Acute posthemorrhagic anemia; C94.6 Myelodysplastic disease, not elsewhere classified; N17.9 Acute kidney failure, unspecified; N13.8 Other obstructive and reflux uropathy; L03.317 Cellulitis of buttock; E11.52 Type 2 diabetes mellitus with diabetic peripheral angiopathy with gangrene; L89.322 Pressure ulcer of left buttock, stage 2; E11.22 Type 2 diabetes mellitus with diabetic chronic kidney disease; E11.622 Type 2 diabetes mellitus with other skin ulcer; F03.90 Unspecified dementia, unspecified severity, without behavioral disturbance, psychotic disturbance, mood disturbance, and anxiety; N18.30 Chronic kidney disease, stage 3 unspecified; I13.10 Hypertensive heart and chronic kidney disease without heart failure, with stage 1 through stage 4 chronic kidney disease, or unspecified chronic kidney disease; Z20.822 Contact with and (suspected) exposure to COVID-19; D50.9 Iron deficiency anemia, unspecified; F32.9 Major depressive disorder, single episode, unspecified; I25.5 Ischemic cardiomyopathy; I08.1 Rheumatic disorders of both mitral and tricuspid valves; E78.5 Hyperlipidemia, unspecified; I25.10 Atherosclerotic heart disease of native coronary artery without angina pectoris; N40.1 Benign prostatic hyperplasia with lower urinary tract symptoms; R33.8 Other retention of urine; J45.909 Unspecified asthma, uncomplicated; E03.9 Hypothyroidism, unspecified; R29.6 Repeated falls; D75.89 Other specified diseases of blood and blood-forming organs; I45.10 Unspecified right bundle-branch block; R26.9 Unspecified abnormalities of gait and mobility; I87.2 Venous insufficiency (chronic) (peripheral); Z79.890 Hormone replacement therapy; Z79.899 Other long term (current) drug therapy; Z95.1 Presence of aortocoronary bypass graft; Z90.89 Acquired absence of other organs; Z90.49 Acquired absence of other specified parts of digestive tract; Z87.19 Personal history of other diseases of the digestive system; Z87.438 Personal history of other diseases of male genital organs; Z90.79 Acquired absence of other genital organ(s); Z98.42 Cataract extraction status, left eye; Z98.41 Cataract extraction status, right eye; Z86.73 Personal history of transient ischemic attack (TIA), and cerebral infarction without residual deficits; Z86.14 Personal history of Methicillin resistant Staphylococcus aureus infection; Z95.5 Presence of coronary angioplasty implant and graft; Z98.890 Other specified postprocedural states; Z88.2 Allergy status to sulfonamides; W19.XXXA Unspecified fall, initial encounter; Y92.009 Unspecified place in unspecified non-institutional (private) residence as the place of occurrence of the external cause | CPT/HCPCS: 36415; 36573; 71046; 74176; 80053; 80202; 81001; 81206; 81270; 82306; 82550; 82565; 82607; 82668; 82728; 82746; 82784; 83010; 83021; 83036; 83540; 83550; 83605; 83615; 83735; 83883; 83921; 84100; 84145; 84443; 84484; 84550; 84630; 85025; 85045; 85379; 85384; 85610; 85652; 85730; 86038; 86334; 86850; 86900; 86901; 86920; 87040; 87070; 87075; 87077; 87186; 87205; 87635; 93005; 93306; 96374; 96375; 99285 ==

== ENCOUNTER 2020-09-07 19:18 | Inpatient (IN) | payer MEDICARE ==
[2020-09-07 19:48] LABS: Albumin 3.4 g/dL (3.5-5.0); Calcium 9.4 mg/dL (8.4-10.2); Magnesium 2.7 mg/dL (1.6-2.3); Total Bilirubin 0.6 mg/dL (0.2-1.3); Total Protein 7.2 g/dL (6.3-8.2)
[2020-09-07] MEDS ORDERED: DOPamine DRIP 800 MG in DEXTROSE/WATER 1 250ML.BAG IV ONE (19:53)
[2020-09-07 19:59] LABS: Potassium 6.3 mmol/L (3.5-5.1)
[2020-09-07] MEDS ORDERED: INSULIN REGULAR 100 UNIT/ML VIAL (IV) IV ONE (20:02)
[2020-09-07] MEDS ORDERED: CALCIUM CHLORIDE 100 MG/ML 10 ML SYRINGE IVP STA (20:02)
[2020-09-07] MEDS ORDERED: SODIUM BICARB 8.4% 50 ML SYR (1 MEQ/ML) IV STA (20:03)
[2020-09-07] MEDS ORDERED: DEXTROSE 50% SYRINGE 50 ML IVP STA (20:03)
[2020-09-07] MEDS ORDERED: SODIUM CHLORIDE 0.9% 1,000 ML IV ONE (20:04)
--- NOTE | 2020-09-07 20:05 | ED ---
General Adult HPI - General Chief complaint: Altered Mental Status Stated complaint: unresponsive Time Seen by Provider: 09/07/20 19:25 Source: EMS Mode of arrival: EMS - History of Present Illness Initial comments: Patient is an 85 year old male with past medical history of CVA, diabetes mellitus, coronary artery disease with history of CABG, sacral wounds with recent bacteremia currently on antibiotics via PICC line who presents emergency department from [facility]. History is provided by EMS. They state that the patient was found unresponsive by nursing staff at 4:30 PM. They left the patient alone at that time hoping that his mentation would "resolve." The patient remained altered at 6:30 PM and this is when EMS was called. They arrived on scene and found the patient to be hypotensive with a heart rate of 20. He was unresponsive and therefore a 7.5 ET tube was placed and they began cutaneously pacing the patient. He also received a dose of epi prior to hospital arrival. He does arrive being bagged. No further history can be obtained. I did review the patient's chart and he was recently hospitalized for sepsis due to sacral wounds. Patient is currently on antibiotics. He is also on Xarelto for documented reason of "CAGB". The patient cannot provide any history and family is unavailable for questioning. Patient is not on any AV kaitlin blocking agents. No history of kidney disease. The remainder of the HPI is limited - Related Data Home Medications Medication Instructions Recorded Confirmed Insulin Detemir [Levemir Flextouch] 10 units SQ HS 09/07/20 09/07/20 Ondansetron HCl [Zofran] 4 mg PO Q6H PRN 09/07/20 09/07/20 Vancomycin 500 mg IVPB Q24HR 09/07/20 09/07/20 Allergies Allergy/AdvReac Type Severity Reaction Status Date / Time Sulfa (Sulfonamide Allergy Unknown Verified 09/07/20 20:45 Antibiotics) Childhood Review of Systems ROS Statement: Those systems with pertinent positive or pertinent negative responses have been documented in the HPI. ROS Other: All systems not noted in ROS Statement are negative. 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, bilateral lower leg edema/fluid retention, current R hip decub/seen in [facility], past L axillae boil/[facility] now healed, hypothyroid, History of Any Multi-Drug Resistant Organisms: MRSA Date of last positivie culture/infection: 08/04/20 MDRO Source:: Buttock, BLOOD Past Surgical History: Cholecystectomy, Coronary Bypass/CABG, Heart Catheterization, Hernia Repair, Prostate Surgery, Tonsillectomy Additional Past Surgical History / Comment(s): 2 vessel CABG 2000, 2018 exploratory laparotomy/lysis of adhesions, TURP, colonoscopy, L axillae boil drained, R hip I&D, bari cataracts, Past Anesthesia/Blood Transfusion Reactions: No Reported Reaction Additional Past Anesthesia/Blood Transfusion Reaction / Comment(s): Pt received blood without reaction. Past Psychological History: No Psychological Hx Reported Smoking Status: Never smoker Past Alcohol Use History: Occasional - Past Family History Mother History Unknown: Yes Family Medical History: No Reported History Additional Family Medical History / Comment(s): Pt cannot recall mother's medical hx. Father History Unknown: Yes Additional Family Medical History / Comment(s): Pt cannot recall father's medical history. General Exam Limitations: altered mental status General appearance: obtunded Head exam: Present: atraumatic, normocephalic, normal inspection Eye exam: Present: normal appearance, PERRL, EOMI. Absent: scleral icterus, conjunctival injection, periorbital swelling Respiratory exam: Present: rales (left base), other (Patient is being bagged. 7.[address]) Cardiovascular Exam: Present: bradycardia, other (Transcutaneous pacing) GI/Abdominal exam: Present: soft, normal bowel sounds. Absent: distended, tenderness, guarding, rebound, rigid Neurological exam: Present: altered Skin exam: Present: pallor, other (cool) Course Vital Signs 09/07/20 09/07/20 09/07/20 19:22 19:26 19:30 Pulse Rate 79 79 Pulse Rate [ Director Patient Financial Services ] Respiratory 16 53 H 44 H Rate Blood Pressure 96/54 96/54 83/48 O2 Sat by Pulse 97 Oximetry 09/07/20 09/07/20 09/07/20 19:31 19:38 19:40 Pulse Rate 79 79 79 Pulse Rate [ 78 Director Patient Financial Services ] Respiratory 16 16 22 Rate Blood Pressure 83/48 108/46 108/46 O2 Sat by Pulse 97 100 100 Oximetry 09/07/20 09/07/20 09/07/20 19:41 19:47 19:50 Pulse Rate 79 79 79 Pulse Rate [ Director Patient Financial Services ] Respiratory 22 22 54 H Rate Blood Pressure 86/53 71/54 71/54 O2 Sat by Pulse 100 98 100 Oximetry 09/07/20 09/07/20 09/07/20 19:55 20:00 20:05 Pulse Rate 79 Pulse Rate [ Director Patient Financial Services ] Respiratory 29 H 60 H 54 H Rate Blood Pressure 75/54 115/63 102/23 O2 Sat by Pulse 100 100 99 Oximetry 09/07/20 09/07/20 09/07/20 20:10 20:14 20:15 Pulse Rate 79 79 58 L Pulse Rate [ Director Patient Financial Services ] Respiratory 56 H 14 39 H Rate Blood Pressure 71/59 97/56 97/56 O2 Sat by Pulse 98 98 99 Oximetry 09/07/20 09/07/20 20:20 20:25 Pulse Rate 54 L 79 Pulse Rate [ Director Patient Financial Services ] Respiratory 22 22 Rate Blood Pressure 53/38 65/31 O2 Sat by Pulse 98 99 Oximetry EKG Findings - EKG Comments: EKG Findings:: EKG looks like a third-degree heart block with a ventricular rate of 30. QRS 12. QTC of 176. Negative for STEMI criteria. Procedures - Central Line Placement Right IJ Consent Obtained: emergent situation Patient Placed on Monitor/Pulse Ox: Yes Prep: mask, gown, gloves Central Line Prep: Chlorhexidine scrub Ultrasound Used for Placement: Yes Central Line Lumen Inserted: triple Central Line Position: good blood return, all ports aspirated, flushed, capped, sutured in place with nylon Dressing Applied: Tegaderm Post Procedure X-Ray: tip of catheter in good position Patient Tolerated Procedure: no complications Medical Decision Making - Medical Decision Making Upon arrival patient was promptly placed into trauma bay 2. He is being transcutaneously paced. He is moved to the stretcher and the cutaneous pacer is turned off. The EKG was performed which demonstrates a third-degree heart block. Patient is hypotensive and therefore cutaneous pacing is resumed. Cardiology is notified. I did speak with Dr. Koroma who asked for the mechanical laboratory technician to be activated. Patient is started on dopamine. Laboratory studies are drawn. We did place an OG tube and a right-sided central line is placed in the patient's IJ. Laboratory studies are remarkable for a white count of 25.6. Hemoglobin 8.4. Potassium 6.3. Creatinine 4.2 which is a change from the patient's baseline. Glucose of 404. Troponin is 2.1. Patient is given 10 units of insulin, 1 g of calcium chloride, 1 amp of bicarb. ABG is ordered. Patient remains ended without sedation. He does have some purposeful movement of his left upper extremity. Pupils are 4-3 and reactive. Chest x-ray demonstrates a low endotracheal tube. His proximal 0.2 cm from the yair. This is discussed with the respiratory therapist. Dr. Koroma does present to the emergency department. Agrees to take the patient for TVP. I did attempt to call family however I am unable to reach the patient's however did leave a message. Dr. Clifton is paged. He response via [employer] serve to litigation secretary Clair stating he is busy in the hospital right now but will call back soon. I'm currently awaiting his call back. Patient was taken to [facility] in critical condition - Lab Data Result diagrams: 09/14/20 04:30 09/14/20 04:30 Lab Results 09/07/20 09/07/20 09/07/20 Range/Units 19:20 19:32 19:32 WBC 25.6 H (3.8-10.6) k/uL RBC 2.45 L (4.30-5.90) m/uL Hgb 8.4 L (13.0-17.5) gm/dL Hct 27.7 L (39.0-53.0) % MCV 112.8 H D (80.0-100.0) fL MCH 34.2 (25.0-35.0) pg MCHC 30.3 L (31.0-37.0) g/dL RDW 19.0 H (11.5-15.5) % Plt Count 290 (150-450) k/uL MPV 9.3 Neutrophils % (Manual) 72 % Lymphocytes % (Manual) 20 % Monocytes % (Manual) 7 % Myelocytes % 1 % Neutrophils # (Manual) 18.43 H (1.3-7.7) k/uL Lymphocytes # (Manual) 5.12 H (1.0-4.8) k/uL Monocytes # (Manual) 1.79 H (0-1.0) k/uL Myelocytes # (Manual) 0.26 H (0) k/uL Nucleated RBCs 0 (0-0) /100 WBC Manual Slide Review Performed Hypochromasia Marked Anisocytosis Slight Macrocytosis Marked A PT 11.4 (9.0-12.0) sec INR 1.1 (<1.2) APTT 23.5 (22.0-30.0) sec Sodium (137-145) mmol/L Potassium (3.5-5.1) mmol/L Chloride (98-107) mmol/L Carbon Dioxide (22-30) mmol/L Anion Gap mmol/L BUN (9-20) mg/dL Creatinine (0.66-1.25) mg/dL Est GFR (CKD-EPI)AfAm (>60 ml/min/1.73 sqM) Est GFR (CKD-EPI)NonAf (>60 ml/min/1.73 sqM) Glucose (74-99) mg/dL POC Glucose (mg/dL) 403 H (75-99) mg/dL POC Glu Custodial Engineer ID Heather Jhaa Calcium (8.4-10.2) mg/dL Magnesium (1.6-2.3) mg/dL Total Bilirubin (0.2-1.3) mg/dL AST (17-59) U/L ALT (4-49) U/L Alkaline Phosphatase (38-126) U/L Troponin I (0.000-0.034) ng/mL Total Protein (6.3-8.2) g/dL Albumin (3.5-5.0) g/dL TSH (0.465-4.680) mIU/L Free T4 (0.78-2.19) ng/dL 09/07/20 09/07/20 Range/Units 19:32 19:32 WBC (3.8-10.6) k/uL RBC (4.30-5.90) m/uL Hgb (13.0-17.5) gm/dL Hct (39.0-53.0) % MCV (80.0-100.0) fL MCH (25.0-35.0) pg MCHC (31.0-37.0) g/dL RDW (11.5-15.5) % Plt Count (150-450) k/uL MPV Neutrophils % (Manual) % Lymphocytes % (Manual) % Monocytes % (Manual) % Myelocytes % % Neutrophils # (Manual) (1.3-7.7) k/uL Lymphocytes # (Manual) (1.0-4.8) k/uL Monocytes # (Manual) (0-1.0) k/uL Myelocytes # (Manual) (0) k/uL Nucleated RBCs (0-0) /100 WBC Manual Slide Review Hypochromasia Anisocytosis Macrocytosis PT (9.0-12.0) sec INR (<1.2) APTT (22.0-30.0) sec Sodium 138 (137-145) mmol/L Potassium 6.3 H* (3.5-5.1) mmol/L Chloride 102 (98-107) mmol/L Carbon Dioxide 10 L (22-30) mmol/L Anion Gap 26 mmol/L BUN 79 H (9-20) mg/dL Creatinine 4.22 H (0.66-1.25) mg/dL Est GFR (CKD-EPI)AfAm 14 (>60 ml/min/1.73 sqM) Est GFR (CKD-EPI)NonAf 12 (>60 ml/min/1.73 sqM) Glucose 404 H (74-99) mg/dL POC Glucose (mg/dL) (75-99) mg/dL POC Glu Custodial Engineer ID Calcium 9.4 (8.4-10.2) mg/dL Magnesium 2.7 H (1.6-2.3) mg/dL Total Bilirubin 0.6 (0.2-1.3) mg/dL AST 64 H (17-59) U/L ALT 30 (4-49) U/L Alkaline Phosphatase 84 (38-126) U/L Troponin I 2.130 H* (0.000-0.034) ng/mL Total Protein 7.2 (6.3-8.2) g/dL Albumin 3.4 L (3.5-5.0) g/dL TSH 8.320 H (0.465-4.680) mIU/L Free T4 1.81 (0.78-2.19) ng/dL Critical Care Time Critical Care Time: Yes Critical Care Time: 45 minutes Disposition Clinical Impression: Acute encephalopathy, Third degree AV block, Hypotension, KIRBY (acute kidney injury), Hyperkalemia Disposition: ADMITTED IP TO THIS [facility] Condition: Stable Is patient prescribed a controlled substance at d/c from ED?: No Decision to Admit Reason: Admit from EC Decision Date: 09/07/20 Decision Time: 20:20
--- NOTE | 2020-09-07 20:10 | XR ---
EXAMINATION TYPE: XR chest 1V portable DATE OF EXAM: 09/07/2020 COMPARISON: 08/02/2020 HISTORY: Dysrhythmia TECHNIQUE: 2 views FINDINGS: There is no heart failure nor confluent pneumonic infiltrate. Costophrenic angles are clear . There is right jugular catheter with tip in the superior vena cava. Endotracheal tube is approximat margy 1.2 cm from the yair. There is no pleural effusion. There is nasogastric tube in the stomach. T here is left subclavian catheter with tip in the superior vena cava. IMPRESSION: Endotracheal tube is low. There is improvement in the pulmonary interstitial infiltrates compared to last exam.
[2020-09-07 20:12] LABS: Anisocytosis Slight; HCT 27.7 % (39.0-53.0); HGB 8.4 gm/dL (13.0-17.5); Hypochromasia Marked; MCH 34.2 pg (25.0-35.0); MCHC 30.3 g/dL (31.0-37.0); Macrocytosis Marked; Mean Platelet Volume 9.3; Platelet Count 290 k/uL (150-450); RBC 2.45 m/uL (4.30-5.90); WBC 25.6 k/uL (3.8-10.6)
[2020-09-07 20:16] LABS: INR 1.1 (<1.2); Partial Thromboplastin Time 23.5 sec (22.0-30.0); Prothrombin Time 11.4 sec (9.0-12.0)
[2020-09-07] MEDS ORDERED: LIDOCAINE 1% INJ 10MG/ML (20 ML MDV) ONE (20:18)
[2020-09-07 20:23] LABS: MCV 112.8 fL (80.0-100.0)
[2020-09-07] MEDS ORDERED: IV FLUID CONTINUATION 1,000 ML IV ONE (20:40)
[2020-09-07] MEDS ORDERED: LIDOCAINE 1% INJ 10MG/ML (20 ML MDV) SQ ONE (20:47)
[2020-09-07 20:58] LABS: Lymphocytes # (M) 5.12 k/uL (1.0-4.8); Monocytes # (M) 1.79 k/uL (0-1.0); Myelocytes # (M) 0.26 k/uL (0); Myelocytes % 1 %; Neutrophils # (M) 18.43 k/uL (1.3-7.7); Neutrophils % (M) 72 %; Nucleated Red Blood Cells 0 /100 WBC (0-0); Total Cells Counted 200
[2020-09-07] MEDS ORDERED: NOREPINEPHRINE 4 MG in SODIUM CHLORIDE 0.9% 250 ML IV ONE (21:06)
[2020-09-07 21:11] LABS: T4, Free (Free Thyroxine) 1.81 ng/dL (0.78-2.19)
[2020-09-07] MEDS ORDERED: NALOXONE 0.4 MG/ML 1 ML VIAL IV PRN (21:11)
--- NOTE | 2020-09-07 21:13 | CONS ---
CONSULTATION Mr. Ortiz is an 85-year-old male who was brought in from the [facility], being unresponsive. Apparently, he was unresponsive a couple hours in the [facility] and since he did not improve, he was brought into the emergency room, was noted to be severely bradycardic with complete heart block and rate in the 20s with hypotension. In view of that, cardiology consultation was requested. The patient was in the hospital toward the end of July with sepsis. He has a history of coronary artery disease status post coronary artery bypass grafting. According to the records, he was in sinus mechanism with right bundle branch block on his EKG. An echocardiogram that was performed during that hospitalization showed a preserved left ventricular size and systolic function with no significant valvular disease. On presentation here, he has significant worsening of his renal function with hyperkalemia and a complete heart block with a very slow ventricular escape. The patient is intubated and unresponsive. He had a decubitus during prior admission with sepsis. He has a prior history of chronic anemia, history of hypertension, hyperlipidemia, diabetes mellitus, and history of cerebrovascular accident, according to the records. He is limited in his physical activity and apparently during the last admission, he had some element of confusion. No other history is obtainable. In the emergency room, he was placed on cutaneous pacing. MEDICATION: At the time of admission included Flagyl, Zestril 2.5 mg daily, vancomycin. Prandin, Cozaar 50 mg daily. It is unclear to me if he was on both of them. Levothyroxine, insulin, furosemide 40 mg daily, Pepcid, Cymbalta, Lipitor 40 mg daily, and Tylenol. According to the emergency room, he was on Xarelto. It is unclear to me why he was on it, and I am reviewing the list of medication from the emergency room, Xarelto is not one of the medications. PHYSICAL EXAMINATION: An 85-year-old male, intubated, unresponsive. Blood pressure running in the 60s to 90s with a heart rate in the 50s to 70s. HEAD: Normocephalic. EYES: Pupils fixed and not reactive. NECK: IJ noted on the right side. LUNGS: Clear to auscultation anteriorly. HEART: S1, S2. No S3. Unable to appreciate a murmur. ABDOMEN: Soft, hypoactive bowel sounds. No organomegaly. EXTREMITIES: Decreased distal pulses with mild chronic skin changes. LAB DATA: Hemoglobin 8.4, white blood cell 25.6, platelet count of 290, potassium 6.3, BUN and creatinine 79 and 4.22. Troponin of 2.130. TSH of 8.3, blood sugar of 404. EKG revealed a complete heart block with a slow wide escape. IMPRESSION: 1. Complete heart block, probably exacerbated by the hyperkalemia and the renal failure. 2. Troponin elevation most likely related to hypoperfusion and hypotension. 3. Respiratory failure. 4. Anoxic encephalopathy. 5. History of coronary bypass grafting. 6. History of hypertension. 7. Hyperlipidemia. 8. Chronic anemia. 9. Worsening renal failure. 10.Decubitus, by history. RECOMMENDATION: From the cardiac standpoint, the prognosis unfortunately is very poor. The patient is FULL CODE. Will proceed in placing a temporary pacemaker. Follow his lab data. He will receive IV fluid. Depending on his progress, further recommendation will be made. MMODL / IJN: [id number] /
[2020-09-07 21:44] LABS: Glucose,Whole Blood 331 mg/dL (75-99)
[2020-09-07] MEDS ORDERED: propofoL 100 ML IV ONE (21:50)
[2020-09-07 22:07] LABS: ABG Base Excess -14.2 mmol/L; ABG HCO3 14 mmol/L (21-25); ABG PCO2 33 mmHg (35-45); ABG PH 7.22 (7.35-7.45); ABG PO2 >400 mmHg (83-108); ABG TCO2 15 mmol/L (19-24); Allen Test Performed? Yes
[2020-09-07 22:22] LABS: Albumin 3.2 g/dL (3.5-5.0); Calcium 10.1 mg/dL (8.4-10.2); Magnesium 2.3 mg/dL (1.6-2.3); Potassium 5.3 mmol/L (3.5-5.1); Total Bilirubin 0.4 mg/dL (0.2-1.3); Total Protein 7.1 g/dL (6.3-8.2)
[2020-09-07] MEDS: NOREPINEPHRINE 8 MG in SODIUM CHLORIDE 0.9% 250 ML IV SCH (22:35)
[2020-09-08] MEDS ORDERED: VANCOMYCIN IV PER PHARMACY 1 EACH MISC MISCELLANE PRN (01:15)
--- NOTE | 2020-09-08 01:27 | P.HPIM ---
History of Present Illness H&P Date: 09/07/20 The patient is an 85-year-old male with a PMH of type II DM, coronary artery disease status post CABG (on Xarelto) hypertension, hyperlipidemia, hypothyroidism, and multiple decubitus ulcers and recent sepsis requiring IV antibiotics via PICC line, [facility]resp onsiveness. The patient was intubated at time of evaluation and no family could be contacted thereby history obtained from the emergency room physician and chart review. The patient was reportedly found to be unresponsive by nursing staff of [facility] at 4:30 PM. The staff was hoping that his mental status would improve spontaneously, and proceeded to call EMS at 6:30 PM when it did not. Upon arrival, the patient was noted to be bradycardic with a heart rate of 20 along with being hypertensive. He was intubated and was transcutaneously paced. Upon chart review, the patient was discharged on 08/10 to [facility] after a prolonged hospitalization for left gluteal necrotizing infection requiring debridement with MRSA and was prescribed vancomycin and Flagyl for 2 or 3 weeks and further follow-up. Upon presentation to the emergency room, the patient's EKG revealed third-degree AV block. Cardiology was immediately notified and the patient was taken for transvenous pacemaker insertion, which was performed by Dr. Koroma. Laboratory evaluation revealed potassium of 6.3, troponin I 2.13, WBC count 25.6, hemoglobin 8.4, platelets 290, CO2 10, BUN 79, creatinine 4.2 (baseline 1.1), and glucose 404. Multiple attempts were made to contact the family via all numbers listed in the [facility] chart with no answer. Review of systems: Could not be obtained since patient intubated at time of evaluation Physical examination: General: Intubated male, nontoxic, no distress, appears at stated age, normal weight Derm: Right lateral hip stage I healing ulcer, left gluteal large stage II ulcer without surrounding erythema or drainage, no unusual ecchymoses, warm, dry Head: atraumatic, normocephalic, symmetric Eyes: Anicteric sclera, pupils pinpoint ENT: Nose and ears atraumatic Neck: No thyromegaly, no cervical lymphadenopathy, trachea midline, supple Mouth: no lip lesion Cardiovascular: S1S2 reg, no murmur, positive posterior tibial pulse bilateral, no edema, capillary refill less than 2 seconds Lungs: CTA bilateral, no rhonchi, no rales , no accessory muscle use Abdominal: soft, no appreciable organomegaly Ext: no gross muscle atrophy, no contractures Neuro: Unable to assess, unresponsive to noxious stimuli Assessment/plan Third-degree heart block, possibly secondary to hyperkalemia and uremia -Status post transvenous pacer insertion -Cardiology recommendations appreciated -Cardiac monitoring Septic shock requiring IV pressors -Patient was receiving vancomycin via PICC line as per nursing documentation -C/w Vancomycin and Flagyl for now -Infectious disease consult -Follow up blood cultures Acute renal failure, likely due to hypotension with hyperkalemia -Nephrology consult -Monitor BMP -Status post calcium chloride Macrocytic anemia, at baseline -Monitor for now Chronic conditions: Type 2 DM, Hypothyroidism, CAD, HLD -LADAN with FS -Check A1C, Levemir 10 U qhs -Hold antihypertensives -C/w home Synthroid 50 mcg qd, -Will defer to Cardio regarding restarting Xarelto DVT prophylaxis -Xarelto The patient is admitted with an anticipated greater than 2 midnight stay for evaluation of septic shock CODE STATUS: Full Code Anticipated discharge date: 4-[address]: SNF Past Medical History Past Medical History: Asthma, Coronary Artery Disease (CAD), CVA/TIA, Diabetes Mellitus, Hyperlipidemia, Hypertension, Pneumonia, Prostate Disorder, Skin Disorder, Thyroid Disorder Additional Past Medical History / Comment(s): Pt recently went to [facility] with fall/injury to L forehead/anemia-refused admission/transfusion, chronic leukocytosis, iron deficiency anemia, TIA after gallbladder surgery, SBO with surgery, urinary retention, 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, bilateral lower leg edema/fluid retention, current R hip decub/seen in [facility], past L axillae boil/C now healed, hypothyroid, History of Any Multi-Drug Resistant Organisms: MRSA Date of last positivie culture/infection: 08/04/20 MDRO Source:: Buttock, BLOOD Past Surgical History: Cholecystectomy, Coronary Bypass/CABG, Heart Catheterization, Hernia Repair, Prostate Surgery, Tonsillectomy Additional Past Surgical History / Comment(s): 2 vessel CABG 2000, 2018 exploratory laparotomy/lysis of adhesions, TURP, colonoscopy, L axillae boil drained, R hip I&D, bari cataracts, Past Anesthesia/Blood Transfusion Reactions: No Reported Reaction Additional Past Anesthesia/Blood Transfusion Reaction / Comment(s): Pt received blood without reaction. Past Psychological History: No Psychological Hx Reported Smoking Status: Never smoker Past Alcohol Use History: Occasional - Past Family History Mother History Unknown: Yes Family Medical History: Unable to Obtain (Patient intubated) Additional Family Medical History / Comment(s): Pt cannot recall mother's medic al hx. Father History Unknown: Yes Additional Family Medical History / Comment(s): Pt cannot recall father's medical history. Medications and Allergies Home Medications Medication Instructions Recorded Confirmed Type Insulin Detemir [Levemir Flextouch] 10 units SQ HS 09/07/20 09/07/20 History Ondansetron HCl [Zofran] 4 mg PO Q6H PRN 09/07/20 09/07/20 History Vancomycin 500 mg IVPB Q24HR 09/07/20 09/07/20 History Allergies Allergy/AdvReac Type Severity Reaction Status Date / Time Sulfa (Sulfonamide Allergy Unknown Verified 09/07/20 20:45 Antibiotics) Childhood Physical Exam Vitals: Vital Signs Temp Pulse Pulse Resp BP Pulse Ox 09/07/20 23:15 78 86/55 99 09/07/20 23:00 79 18 97/50 99 09/07/20 22:45 80 14 97/50 99 09/07/20 22:30 79 16 90/43 09/07/20 22:15 80 17 115/45 09/07/20 22:00 92.8 F L 79 21 103/44 09/07/20 20:25 79 22 65/31 99 09/07/20 20:20 54 L 22 53/38 98 09/07/20 20:15 58 L 39 H 97/56 99 09/07/20 20:14 79 14 97/56 98 09/07/20 20:10 79 56 H 71/59 98 09/07/20 20:05 79 54 H 102/23 99 09/07/20 20:00 60 H 115/63 100 09/07/20 19:55 29 H 75/54 100 09/07/20 19:50 79 54 H 71/54 100 09/07/20 19:47 79 22 71/54 98 09/07/20 19:41 79 22 86/53 100 09/07/20 19:40 79 78 22 108/46 100 09/07/20 19:38 79 16 108/46 100 09/07/20 19:31 79 16 83/48 97 09/07/20 19:30 44 H 83/48 09/07/20 19:26 79 53 H 96/54 09/07/20 19:22 79 16 96/54 97 Intake and Output 09/07/20 09/07/20 09/08/20 14:59 22:59 06:59 Intake Total 209 Output Total 5 Balance 209 -5 Intake: IV 209 Output: Urine 5 Other: Voiding Method Indwelling Catheter Weight 77 kg ABP, PAP, CO, CI - Last 8 Hours Arterial Blood Pressure 110/52 Arterial Blood Pressure 106/49 Arterial Blood Pressure 97/47 Arterial Blood Pressure 95/46 Arterial Blood Pressure 97/42 Arterial Blood Pressure 100/23 Results CBC & Chem 7: 09/07/20 19:32 09/07/20 21:55 Labs: Abnormal Lab Results - Last 24 Hours (Table) 09/07/20 09/07/20 09/07/20 Range/Units 19:32 19:32 19:32 WBC 25.6 H (3.8-10.6) k/uL RBC 2.45 L (4.30-5.90) m/uL Hgb 8.4 L (13.0-17.5) gm/dL Hct 27.7 L (39.0-53.0) % MCV 112.8 H D (80.0-100.0) fL MCHC 30.3 L (31.0-37.0) g/dL RDW 19.0 H (11.5-15.5) % Neutrophils # (Manual) 18.43 H (1.3-7.7) k/uL Lymphocytes # (Manual) 5.12 H (1.0-4.8) k/uL Monocytes # (Manual) 1.79 H (0-1.0) k/uL Myelocytes # (Manual) 0.26 H (0) k/uL Macrocytosis Marked A ABG pH (7.35-7.45) ABG pCO2 (35-45) mmHg ABG pO2 (83-108) mmHg ABG HCO3 (21-25) mmol/L ABG Total CO2 (19-24) mmol/L ABG O2 Saturation (94-97) % Potassium 6.3 H* (3.5-5.1) mmol/L Chloride (98-107) mmol/L Carbon Dioxide 10 L (22-30) mmol/L BUN 79 H (9-20) mg/dL Creatinine 4.22 H (0.66-1.25) mg/dL Glucose 404 H (74-99) mg/dL POC Glucose (mg/dL) (75-99) mg/dL Magnesium 2.7 H (1.6-2.3) mg/dL AST 64 H (17-59) U/L Troponin I 2.130 H* (0.000-0.034) ng/mL Albumin 3.4 L (3.5-5.0) g/dL TSH 8.320 H (0.465-4.680) mIU/L 09/07/20 09/07/20 09/07/20 Range/Units 21:42 21:55 22:03 WBC (3.8-10.6) k/uL RBC (4.30-5.90) m/uL Hgb (13.0-17.5) gm/dL Hct (39.0-53.0) % MCV (80.0-100.0) fL MCHC (31.0-37.0) g/dL RDW (11.5-15.5) % Neutrophils # (Manual) (1.3-7.7) k/uL Lymphocytes # (Manual) (1.0-4.8) k/uL Monocytes # (Manual) (0-1.0) k/uL Myelocytes # (Manual) (0) k/uL Macrocytosis ABG pH 7.22 L (7.35-7.45) ABG pCO2 33 L (35-45) mmHg ABG pO2 >400 H (83-108) mmHg ABG HCO3 14 L (21-25) mmol/L ABG Total CO2 15 L (19-24) mmol/L ABG O2 Saturation 100.0 H (94-97) % Potassium 5.3 H (3.5-5.1) mmol/L Chloride 108 H (98-107) mmol/L Carbon Dioxide 14 L (22-30) mmol/L BUN 77 H (9-20) mg/dL Creatinine 4.01 H (0.66-1.25) mg/dL Glucose 275 H (74-99) mg/dL POC Glucose (mg/dL) 331 H (75-99) mg/dL Magnesium (1.6-2.3) mg/dL AST 103 H (17-59) U/L Troponin I (0.000-0.034) ng/mL Albumin 3.2 L (3.5-5.0) g/dL TSH (0.465-4.680) mIU/L
[2020-09-08] MEDS ORDERED: VANCOMYCIN 1,250 MG in SODIUM CHLORIDE 0.9% 250 ML IVPB ONE (03:00)
[2020-09-08 05:06] LABS: Calcium 9.5 mg/dL (8.4-10.2); Magnesium 2.1 mg/dL (1.6-2.3); Potassium 5.9 mmol/L (3.5-5.1)
[2020-09-08 05:16] LABS: Anisocytosis Slight; HCT 24.6 % (39.0-53.0); MCH 34.2 pg (25.0-35.0); MCHC 32.7 g/dL (31.0-37.0); MCV 104.4 fL (80.0-100.0); Macrocytosis Marked; Mean Platelet Volume 8.1; Platelet Count 329 k/uL (150-450); RBC 2.36 m/uL (4.30-5.90); RDW 19.4 % (11.5-15.5); WBC 29.9 k/uL (3.8-10.6)
[2020-09-08 05:55] LABS: ABG Base Excess -2.4 mmol/L; ABG HCO3 23 mmol/L (21-25); ABG Oxygen Saturation 99.7 % (94-97); ABG PCO2 37 mmHg (35-45); ABG PH 7.39 (7.35-7.45); ABG PO2 208 mmHg (83-108); ABG TCO2 24 mmol/L (19-24); Allen Test Performed? Yes
[2020-09-08 05:57] LABS: Band Neutrophils % 1 %; Lymphocytes # (M) 1.79 k/uL (1.0-4.8); Metamyelocytes % 3 %; Monocytes # (M) 5.08 k/uL (0-1.0); Myelocytes % 2 %; Neutrophils % (M) 72 %; Nucleated Red Blood Cells 0 /100 WBC (0-0); Total Cells Counted 200
[2020-09-08 06:36] LABS: Glucose,Whole Blood 167 mg/dL (75-99)
[2020-09-08] MEDS: LEVOTHYROXINE 50 MCG TAB PO SCH (06:50)
[2020-09-08] MEDS: INSULIN ASPART (NovoLOG) 100 UNIT/ML VIAL SQ SCH ×4 (06:50→22:32)
[2020-09-08] MEDS ORDERED: INSULIN DETEMIR (LEVEMIR) 100 UNIT/ML SYR SQ SCH (07:00)
--- NOTE | 2020-09-08 07:20 | CE ---
CARDIAC ELECTROPHYSIOLOGY REPORT PROCEDURE PERFORMED: Temporary pacemaker. INDICATION: Mr. Ortiz is an 85-year-old male who presented to the emergency room from the [place] [facility] with unresponsiveness, was noted to be in complete heart block with very slow escape and hypotensive. In view of that, recommendation was made regarding temporary pacemaker implantation. Patient is a FULL CODE. PROCEDURE: Patient was brought to labor relations consultant. He was prepped and draped in the usual fashion. Using Seldinger technique, a 6-Icelandic sheath was introduced in the right femoral vein. Temporary pacemaker was advanced, positioned under fluoroscopy. Pacing parameters were obtained with good pacing parameters. Pacer was set at 80 beats per minute and secured in place. Subsequently, a 5-Icelandic sheath was introduced in the right femoral artery using Seldinger technique for hemodynamic monitoring with no complication. It was secured in place. There was no immediate complication. The patient is hypotensive. He will receive vasopressor and IV fluid. The prognosis is guarded. MMODL / IJN: [id number] /
--- NOTE | 2020-09-08 07:35 | XR ---
EXAMINATION TYPE: XR chest 1V DATE OF EXAM: 09/08/2020 COMPARISON: 09/07/2020 and prior HISTORY: 85 years Male. STUDY INDICATION GIVEN: Respiratory failure intubated TECHNIQUE: Semiupright AP portable chest radiograph FINDINGS AND IMPRESSION: Tip of endotracheal tube about 2.2 cm above yair. Consider retracting 2 cm. Enteric tube courses into the left upper abdomen. A replaced lead projects over the heart. Postsurgical changes in the mediastinum/heart unchanged. There is an opacity in the retrocardiac space which appears stable, may represent atelectasis or pneu monia. There is mild pulmonary edema which is slightly improved. Left hemidiaphragm eventration slightly increased. Cardiomediastinal silhouette mildly enlarged similar to prior study. No pneumothorax or pleural effusion seen. No acute osseous abnormalities seen.
[2020-09-08] MEDS: NOREPINEPHRINE 8 MG in SODIUM CHLORIDE 0.9% 250 ML IV SCH ×2 (08:00→15:38)
--- NOTE | 2020-09-08 08:18 | PN ---
PROGRESS NOTE Mr. Ortiz is an 85-year-old male who presented with episode of unresponsiveness at the [place] [facility]. On presentation was found to be in complete heart block with slow ventricular response. He underwent the placement of a temporary pacemaker through the right femoral vein and an arterial line in the right femoral artery. The patient was intubated and unresponsive. He has been moving his extremities during the night. He had a prior history of decubitus. On presentation he had worsening renal function as well as hyperkalemia. He continues to be intubated and continues to be paced. His urine output is improving. There is no ventricular ectopic activity. He continues to be on the IV fluid. His dose of norepinephrine has been decreased. His dopamine has been stopped. PHYSICAL EXAMINATION: VITAL SIGNS: Blood pressure is running in the 100s with a heart rate paced at 80s. LUNGS: Clear anteriorly. HEART: Regular rate and rhythm, S1, S2. No S3 with systolic murmur. No diastolic murmur. ABDOMEN: Soft, positive bowel sounds. EXTREMITIES: No edema. LAB DATA: Hemoglobin of 8, white blood cell of 29.9, BUN and creatinine 82 and 3.71, potassium 5.9. His troponin went up to 58. He is paced with complete heart block. IMPRESSION: 1. Complete heart block with prolonged hypotension and unresponsiveness. His neurological status is unclear. 2. Prior history of coronary bypass grafting. 3. Renal failure, worsened compared to last admission. 4. Probable anoxic encephalopathy. 5. Respiratory failure. 6. Hypertension. 7. Hyperlipidemia. 8. Chronic anemia. 9. Decubitus. RECOMMENDATION: We will continue present therapy. Patient elevation of the troponin represents a myocardial infarction that more likely has been exacerbated by the hypotension and bradycardia. It is unclear if this is the initiating problem. At this time, we will continue supportive care. Follow his renal function closely. There is some improvement of his lungs and his renal function, which is encouraging. I will obtain an echocardiogram with Doppler to evaluate his left ventricular systolic function. We will continue on supportive care. I will add an aspirin to his regimen and the hold anticoagulation because of the severe anemia that was in the past. The prognosis remains quite poor. MMODL / IJN: [id number] /
[2020-09-08] MEDS ORDERED: CHLORHEXIDINE GLUCONATE 15 ML CUP MUCOUS MEM SCH (09:00)
[2020-09-08] MEDS: ASPIRIN 81 MG PO SCH (09:42)
[2020-09-08] MEDS: ATORVASTATIN 40 MG TAB PO SCH (09:42)
--- NOTE | 2020-09-08 09:55 | P.CNPUL ---
History of Present Illness Consult date: 09/08/20 Requesting physician: Jorge Alberto Schaeffer Reason for consult: other Chief complaint: Third-degree heart block. History of present illness: 85-year-old male with a history of CVA, diabetes, coronary disease, bypass grafting, and sacral wounds of recent bacteremia, who was at [facility]. Apparently, according to the ER janelle and my nurses in the ICU, the patient started having some changes in mental status. Apparently they waited for quite some time before EMS was called. Maybe 2 hours or so. When EMS arrived, the patient was unresponsive, and they intubated him at the scene. He was hypotensive at that time, with a heart rate of 20. He was brought to the emergency room he was further evaluated. He was found to be in third-degree heart block. The patient was taken to the catheterization laboratory and had a transvenous pacemaker placed by one of the cardiologists. Apparently, the patient has no rhythm under the pacemaker. He apparently has occasional P-wave QRS complex, but essentially his asystole. The patient is on the ventilator. He is on the volume assist control mode, rate, 22, tidal volume 400, FiO2 45%, and PEEP of 5. Blood gases on 60% showed a pO2 of 208. PCO2 37, and pH 7.39. The FiO2 was turned down to 45%. He is on norepinephrine at 15 mcg/m, and prop ofol at 30 mcg/kg/m. I told the nurse to stop the propofol so we can better evaluate his neurologic status. White count 29.9, hemoglobin 8, hematocrit 24.6, and platelet count 329,000. Sodium 139, potassium 5.9, chlorides 107, CO2 23, anion gap 9, BUN 82, and creatinine 3.71. The troponin was 58.6, and creatine kinase is 833. Chest x-ray shows some left lower lobe atelectasis or infiltrate, with some mild pulmonary edema changes. There is cardiomegaly, without pneumothorax or pleural effusion. Review of Systems The patient is currently sedated and possibly unresponsive, and hence, no review of systems can be obtained. 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, past L axillae boil/WCC now healed, hypothyroid, History of Any Multi-Drug Resistant Organisms: MRSA Date of last positivie culture/infection: 08/04/20 MDRO Source:: Buttock, BLOOD Past Surgical History: Cholecystectomy, Coronary Bypass/CABG, Heart Catheterization, Hernia Repair, Prostate Surgery, Tonsillectomy Additional Past Surgical History / Comment(s): 2 vessel CABG 2000, 2018 expl oratory laparotomy/lysis of adhesions, TURP, colonoscopy, L axillae boil drained, R hip I&D, bari cataracts, Past Anesthesia/Blood Transfusion Reactions: No Reported Reaction Additional Past Anesthesia/Blood Transfusion Reaction / Comment(s): Pt received blood without reaction. Past Psychological History: No Psychological Hx Reported Smoking Status: Never smoker Past Alcohol Use History: Occasional - Past Family History Mother History Unknown: Yes Family Medical History: Unable to Obtain (Patient intubated) Additional Family Medical History / Comment(s): Pt cannot recall mother's medical hx. Father History Unknown: Yes Additional Family Medical History / Comment(s): Pt cannot recall father's medical history. Medications and Allergies Home Medications Medication Instructions Recorded Confirmed Type Insulin Detemir [Levemir Flextouch] 10 units SQ HS 09/07/20 09/07/20 History Ondansetron HCl [Zofran] 4 mg PO Q6H PRN 09/07/20 09/07/20 History Vancomycin 500 mg IVPB Q24HR 09/07/20 09/07/20 History Allergies Allergy/AdvReac Type Severity Reaction Status Date / Time Sulfa (Sulfonamide Allergy Unknown Verified 09/07/20 20:45 Antibiotics) Childhood Physical Exam Osteopathic Statement: *. No significant issues noted on an osteopathic structural exam other than those noted in the History and Physical/Consult. Vitals: Vital Signs Temp Pulse Pulse Resp BP Pulse Ox 09/08/20 07:15 83 17 98 09/08/20 07:00 80 20 98 09/08/20 06:45 79 16 98 09/08/20 06:30 79 18 98 09/08/20 06:15 79 7 L 98 09/08/20 06:00 79 20 98 09/08/20 05:45 79 19 98 09/08/20 05:30 79 22 98 09/08/20 05:15 79 22 98 09/08/20 05:00 80 24 98 09/08/20 04:45 99.7 F H 79 24 97 09/08/20 04:30 80 23 97 09/08/20 04:15 79 24 97 09/08/20 04:00 79 80 24 74/58 97 09/08/20 03:45 99.7 F H 79 23 97 09/08/20 03:30 79 23 97 09/08/20 03:15 80 23 97 09/08/20 03:00 79 23 97 09/08/20 02:45 79 98 09/08/20 02:30 79 97 09/08/20 02:15 80 14 97 09/08/20 02:00 79 20 97 09/08/20 01:45 80 23 98 09/08/20 01:30 80 23 99 09/08/20 01:15 79 19 98 09/08/20 01:00 79 19 99 09/08/20 00:45 79 24 74/58 99 09/08/20 00:30 79 19 98 09/08/20 00:15 97.8 F 79 23 98 09/08/20 00:00 79 80 22 99 09/07/20 23:45 79 22 99 09/07/20 23:30 80 19 99 09/07/20 23:23 79 19 99 09/07/20 23:15 78 86/55 99 09/07/20 23:00 79 18 97/50 99 09/07/20 22:45 80 14 97/50 99 09/07/20 22:30 79 16 90/43 09/07/20 22:15 80 17 115/45 09/07/20 22:00 92.8 F L 79 21 103/44 09/07/20 20:25 79 22 65/31 99 09/07/20 20:20 54 L 22 53/38 98 09/07/20 20:15 58 L 39 H 97/56 99 09/07/20 20:14 79 14 97/56 98 09/07/20 20:10 79 56 H 71/59 98 09/07/20 20:05 79 54 H 102/23 99 09/07/20 20:00 60 H 115/63 100 09/07/20 19:55 29 H 75/54 100 09/07/20 19:50 79 54 H 71/54 100 09/07/20 19:47 79 22 71/54 98 09/07/20 19:41 79 22 86/53 100 09/07/20 19:40 79 78 22 108/46 100 09/07/20 19:38 79 16 108/46 100 09/07/20 19:31 79 16 83/48 97 09/07/20 19:30 44 H 83/48 09/07/20 19:26 79 53 H 96/54 09/07/20 19:22 79 16 96/54 97 Intake and Output 09/07/20 09/08/20 09/08/20 22:59 06:59 14:59 Intake Total 209 61.523 258 Output Total 130 80 Balance 209 -68.477 178 Intake: IV 209 Intake, IV Titration 61.523 258 Amount Norepinephrine 8 mg In 258 Sodium Chloride 0.9% 250 ml @ 0.05 MCG/KG/MIN 7.45 mls/hr IV .Q24H [facility] Rx#: [id number] propofoL 1,000 mg In 61.523 Empty Bag 1 bag @ Titrate IV .Q0M [facility] Rx#: [id number] Output: Urine 130 80 Other: Voiding Method Indwelling Catheter Indwelling Catheter Weight 75.9 kg 75.9 kg ABP, PAP, CO, CI - Last 8 Hours Arterial Blood Pressure 108/48 Arterial Blood Pressure 107/48 Arterial Blood Pressure 106/47 Arterial Blood Pressure 112/45 Arterial Blood Pressure 99/43 Arterial Blood Pressure 97/41 Arterial Blood Pressure 94/41 Arterial Blood Pressure 100/43 Arterial Blood Pressure 104/43 Arterial Blood Pressure 109/46 Arterial Blood Pressure 110/47 Arterial Blood Pressure 105/44 Arterial Blood Pressure 117/47 Arterial Blood Pressure 107/44 Arterial Blood Pressure 115/45 Arterial Blood Pressure 111/45 Arterial Blood Pressure 115/47 Arterial Blood Pressure 113/47 Arterial Blood Pressure 126/52 Arterial Blood Pressure 93/41 Arterial Blood Pressure 87/39 Arterial Blood Pressure 91/41 Arterial Blood Pressure 101/45 No acute distress, heavily sedated, with an orally placed endotracheal tube and NG tube. HEENT examination is grossly unremarkable. Neck supple. Full range of motion. No adenopathy thyromegaly or neck vein distention. Cardiovascular examination reveals regular rhythm rate. S1-S2 normal. No S3 or S4. No discernible murmur noted. Heart sounds are distant. Heart rate is 83 bpm. Lungs reveal mostly clear breath sounds. A few scattered rhonchi are noted. No wheezes or crackles. Breath sounds are equal bilaterally. Saturation is 98%. Abdomen is soft, without bowel sounds. No masses or tenderness. Extremities are intact. No cyanosis clubbing or edema. Skin is without rash or lesion. Neurologic examination cannot be adequately assessed as the patient's heavily sedated. Results - Laboratory Findings CBC and BMP: 09/08/20 04:20 09/08/20 04:20 ABG ABG pH 7.39 (7.35-7.45) 09/08/20 05:45 ABG pCO2 37 mmHg (35-45) 09/08/20 05:45 ABG pO2 208 mmHg (83-108) H 09/08/20 05:45 ABG O2 Saturation 99.7 % (94-97) H 09/08/20 05:45 PT/INR, D-dimer PT 11.4 sec (9.0-12.0) 09/07/20 19:32 INR 1.1 (<1.2) 09/07/20 19:32 Abnormal lab findings: Abnormal Labs 09/07/20 09/07/20 09/07/20 19:32 19:32 19:32 WBC 25.6 H RBC 2.45 L Hgb 8.4 L Hct 27.7 L MCV 112.8 H D MCHC 30.3 L RDW 19.0 H Neutrophils # (Manual) 18.43 H Lymphocytes # (Manual) 5.12 H Monocytes # (Manual) 1.79 H Metamyelocytes # (Man) Myelocytes # (Manual) 0.26 H Macrocytosis Marked A ABG pH ABG pCO2 ABG pO2 ABG HCO3 ABG Total CO2 ABG O2 Saturation Potassium 6.3 H* Chloride Carbon Dioxide 10 L BUN 79 H Creatinine 4.22 H Glucose 404 H POC Glucose (mg/dL) Magnesium 2.7 H AST 64 H Creatine Kinase Troponin I 2.130 H* Albumin 3.4 L TSH 8.320 H 09/07/20 09/07/20 09/07/20 21:42 21:55 22:03 WBC RBC Hgb Hct MCV MCHC RDW Neutrophils # (Manual) Lymphocytes # (Manual) Monocytes # (Manual) Metamyelocytes # (Man) Myelocytes # (Manual) Macrocytosis ABG pH 7.22 L ABG pCO2 33 L ABG pO2 >400 H ABG HCO3 14 L ABG Total CO2 15 L ABG O2 Saturation 100.0 H Potassium 5.3 H Chloride 108 H Carbon Dioxide 14 L BUN 77 H Creatinine 4.01 H Glucose 275 H POC Glucose (mg/dL) 331 H Magnesium AST 103 H Creatine Kinase Troponin I Albumin 3.2 L TSH 09/08/20 09/08/20 09/08/20 04:20 04:20 04:20 WBC 29.9 H RBC 2.36 L Hgb 8.0 L Hct 24.6 L MCV 104.4 H D MCHC RDW 19.4 H Neutrophils # (Manual) 21.80 H Lymphocytes # (Manual) Monocytes # (Manual) 5.08 H Metamyelocytes # (Man) 0.90 H Myelocytes # (Manual) 0.60 H Macrocytosis Marked A ABG pH ABG pCO2 ABG pO2 ABG HCO3 ABG Total CO2 ABG O2 Saturation Potassium 5.9 H Chloride Carbon Dioxide BUN 82 H Creatinine 3.71 H Glucose 157 H POC Glucose (mg/dL) Magnesium AST Creatine Kinase 833 H Troponin I 58.600 H* Albumin TSH 09/08/20 09/08/20 05:45 06:34 WBC RBC Hgb Hct MCV MCHC RDW Neutrophils # (Manual) Lymphocytes # (Manual) Monocytes # (Manual) Metamyelocytes # (Man) Myelocytes # (Manual) Macrocytosis ABG pH ABG pCO2 ABG pO2 208 H ABG HCO3 ABG Total CO2 ABG O2 Saturation 99.7 H Potassium Chloride Carbon Dioxide BUN Creatinine Glucose POC Glucose (mg/dL) 167 H Magnesium AST Creatine Kinase Troponin I Albumin TSH - Diagnostic Findings Chest x-ray: image reviewed Assessment and Plan Assessment: Mental status changes, with unresponsiveness, likely secondary to acute myocardial infarction, and third-degree heart block, status post transvenous pac emaker, as well as intubation and mechanical ventilation on September 07 by EMS. Rule out anoxic encephalopathy. Hypotension, currently on norepinephrine. History of chronic bronchial asthma. History of coronary artery disease, status post bypass grafting. History of CVA. Diabetes mellitus. History of hyperlipidemia. History of hypertension. History of hypothyroidism. History of iron deficiency anemia. History of BPH. Multiple other medical problems and comorbidities. Plan: Plan dated 09/08/2020. We will discontinue the propofol and assess the patient's neurologic status. The patient apparently had issues for over 2 hours before EMS was called. The patient may of sustained significant anoxic brain injury. Additional recommendations and suggestions are forthcoming. Apparently the family is coming in to see the patient today. The patient remains on norepinephrine at 15 mcg/m. The FiO2 on the ventilator to this dropped to 45%. Additional recommendations and suggestions are forthcoming. We will begin tube feeds. Prognosis is poor. Time with Patient: Greater than 30
--- NOTE | 2020-09-08 11:35 | P.PN ---
Subjective Progress Note Date: 09/08/20 Principal diagnosis: Unresponsive Patient is still on mechanical ventilation, he is on propofol. Still requiring norepi gtt to keep pressures up. No overnight events. Objective - Vital Signs Vital signs: Vital Signs Temp 98.5 F 09/08/20 08:00 Pulse 79 09/08/20 10:00 Resp 15 09/08/20 10:00 BP 74/58 09/08/20 10:00 Pulse Ox 98 09/08/20 10:00 Intake & Output 09/07/20 09/08/20 09/08/20 18:59 06:59 18:59 Intake Total 270.523 333.768 Output Total 130 120 Balance 140.523 213.768 Weight 75.9 kg 75.9 kg Intake: IV 209 Intake, IV Titration 61.523 333.768 Amount Norepinephrine 8 mg In 258 Sodium Chloride 0.9% 250 ml @ 0.05 MCG/KG/MIN 7.45 mls/hr IV .Q24H [facility] Rx#: [id number] propofoL 1,000 mg In 61.523 75.768 Empty Bag 1 bag @ Titrate IV .Q0M [facility] Rx#: [id number] Output: Urine 130 120 Other: Voiding Method Indwelling Catheter Indwelling Catheter ABP, PAP, CO, CI - Last Documented Arterial Blood Pressure 133/56 - Labs CBC & Chem 7: 09/08/20 04:20 09/08/20 04:20 Labs: Abnormal Lab Results - Last 24 Hours (Table) 09/07/20 09/07/20 09/07/20 Range/Units 19:32 19:32 19:32 WBC 25.6 H (3.8-10.6) k/uL RBC 2.45 L (4.30-5.90) m/uL Hgb 8.4 L (13.0-17.5) gm/dL Hct 27.7 L (39.0-53.0) % MCV 112.8 H D (80.0-100.0) fL MCHC 30.3 L (31.0-37.0) g/dL RDW 19.0 H (11.5-15.5) % Neutrophils # (Manual) 18.43 H (1.3-7.7) k/uL Lymphocytes # (Manual) 5.12 H (1.0-4.8) k/uL Monocytes # (Manual) 1.79 H (0-1.0) k/uL Metamyelocytes # (Man) (0) k/uL Myelocytes # (Manual) 0.26 H (0) k/uL Macrocytosis Marked A ABG pH (7.35-7.45) ABG pCO2 (35-45) mmHg ABG pO2 (83-108) mmHg ABG HCO3 (21-25) mmol/L ABG Total CO2 (19-24) mmol/L ABG O2 Saturation (94-97) % Potassium 6.3 H* (3.5-5.1) mmol/L Chloride (98-107) mmol/L Carbon Dioxide 10 L (22-30) mmol/L BUN 79 H (9-20) mg/dL Creatinine 4.22 H (0.66-1.25) mg/dL Glucose 404 H (74-99) mg/dL POC Glucose (mg/dL) (75-99) mg/dL Magnesium 2.7 H (1.6-2.3) mg/dL AST 64 H (17-59) U/L Creatine Kinase (55-170) U/L Troponin I 2.130 H* (0.000-0.034) ng/mL Albumin 3.4 L (3.5-5.0) g/dL TSH 8.320 H (0.465-4.680) mIU/L 09/07/20 09/07/20 09/07/20 Range/Units 21:42 21:55 22:03 WBC (3.8-10.6) k/uL RBC (4.30-5.90) m/uL Hgb (13.0-17.5) gm/dL Hct (39.0-53.0) % MCV (80.0-100.0) fL MCHC (31.0-37.0) g/dL RDW (11.5-15.5) % Neutrophils # (Manual) (1.3-7.7) k/uL Lymphocytes # (Manual) (1.0-4.8) k/uL Monocytes # (Manual) (0-1.0) k/uL Metamyelocytes # (Man) (0) k/uL Myelocytes # (Manual) (0) k/uL Macrocytosis ABG pH 7.22 L (7.35-7.45) ABG pCO2 33 L (35-45) mmHg ABG pO2 >400 H (83-108) mmHg ABG HCO3 14 L (21-25) mmol/L ABG Total CO2 15 L (19-24) mmol/L ABG O2 Saturation 100.0 H (94-97) % Potassium 5.3 H (3.5-5.1) mmol/L Chloride 108 H (98-107) mmol/L Carbon Dioxide 14 L (22-30) mmol/L BUN 77 H (9-20) mg/dL Creatinine 4.01 H (0.66-1.25) mg/dL Glucose 275 H (74-99) mg/dL POC Glucose (mg/dL) 331 H (75-99) mg/dL Magnesium (1.6-2.3) mg/dL AST 103 H (17-59) U/L Creatine Kinase (55-170) U/L Troponin I (0.000-0.034) ng/mL Albumin 3.2 L (3.5-5.0) g/dL TSH (0.465-4.680) mIU/L 09/08/20 09/08/20 09/08/20 Range/Units 04:20 04:20 04:20 WBC 29.9 H (3.8-10.6) k/uL RBC 2.36 L (4.30-5.90) m/uL Hgb 8.0 L (13.0-17.5) gm/dL Hct 24.6 L (39.0-53.0) % MCV 104.4 H D (80.0-100.0) fL MCHC (31.0-37.0) g/dL RDW 19.4 H (11.5-15.5) % Neutrophils # (Manual) 21.80 H (1.3-7.7) k/uL Lymphocytes # (Manual) (1.0-4.8) k/uL Monocytes # (Manual) 5.08 H (0-1.0) k/uL Metamyelocytes # (Man) 0.90 H (0) k/uL Myelocytes # (Manual) 0.60 H (0) k/uL Macrocytosis Marked A ABG pH (7.35-7.45) ABG pCO2 (35-45) mmHg ABG pO2 (83-108) mmHg ABG HCO3 (21-25) mmol/L ABG Total CO2 (19-24) mmol/L ABG O2 Saturation (94-97) % Potassium 5.9 H (3.5-5.1) mmol/L Chloride (98-107) mmol/L Carbon Dioxide (22-30) mmol/L BUN 82 H (9-20) mg/dL Creatinine 3.71 H (0.66-1.25) mg/dL Glucose 157 H (74-99) mg/dL POC Glucose (mg/dL) (75-99) mg/dL Magnesium (1.6-2.3) mg/dL AST (17-59) U/L Creatine Kinase 833 H (55-170) U/L Troponin I 58.600 H* (0.000-0.034) ng/mL Albumin (3.5-5.0) g/dL TSH (0.465-4.680) mIU/L 09/08/20 09/08/20 Range/Units 05:45 06:34 WBC (3.8-10.6) k/uL RBC (4.30-5.90) m/uL Hgb (13.0-17.5) gm/dL Hct (39.0-53.0) % MCV (80.0-100.0) fL MCHC (31.0-37.0) g/dL RDW (11.5-15.5) % Neutrophils # (Manual) (1.3-7.7) k/uL Lymphocytes # (Manual) (1.0-4.8) k/uL Monocytes # (Manual) (0-1.0) k/uL Metamyelocytes # (Man) (0) k/uL Myelocytes # (Manual) (0) k/uL Macrocytosis ABG pH (7.35-7.45) ABG pCO2 (35-45) mmHg ABG pO2 208 H (83-108) mmHg ABG HCO3 (21-25) mmol/L ABG Total CO2 (19-24) mmol/L ABG O2 Saturation 99.7 H (94-97) % Potassium (3.5-5.1) mmol/L Chloride (98-107) mmol/L Carbon Dioxide (22-30) mmol/L BUN (9-20) mg/dL Creatinine (0.66-1.25) mg/dL Glucose (74-99) mg/dL POC Glucose (mg/dL) 167 H (75-99) mg/dL Magnesium (1.6-2.3) mg/dL AST (17-59) U/L Creatine Kinase (55-170) U/L Troponin I (0.000-0.034) ng/mL Albumin (3.5-5.0) g/dL TSH (0.465-4.680) mIU/L Assessment and Plan Plan: Mental status changes, with unresponsiveness, likely secondary to acute myocard ial infarction, and third-degree heart block, status post transvenous pacemaker, as well as intubation and mechanical ventilation on September 07 by EMS. Rule out anoxic encephalopathy. -Status post transvenous pacer insertion -Cardiology recommendations appreciated -Cardiac monitoring Septic shock requiring IV pressors -Patient was receiving vancomycin via PICC line as per nursing documentation -Started on dapto and zosyn -Infectious disease consult -Follow up blood cultures Acute renal failure, likely due to hypotension with hyperkalemia -Nephrology consult -Monitor BMP -Status post calcium chloride Macrocytic anemia, at baseline -Monitor for now Type 2 DM -LADAN with FS -Check A1C Chronic Hypothyroidism, CAD, HLD -C/w home Synthroid 50 mcg qd, hold bp meds CODE STATUS: Full Code Anticipated discharge date: 4-[address]: [facility]
[2020-09-08] MEDS: PIPERACILLIN-TAZOBACTAM 3.375 GM in SODIUM CHLORIDE 0.9% 100 ML IVPB SCH ×2 (11:41→22:32)
--- NOTE | 2020-09-08 11:46 | P.NPCON ---
History of Present Illness - Reason for Consult Consult date: 09/08/20 acute renal failure - Chief Complaint Complete heart block - History of Present Illness This 85-year-old male seen in consultation because of acute kidney injury, hyperkalemia severe acidosis that he was transferred from the [facility] where he was found to be comatose, he was noted to be severely bradycardic and in complete heart block and was intubated and a transvenous pacemaker has been placed through the right femoral. Currently his face and is on the ventilator but he is awake and alert and follows commands He is recently discharged on 625 after a prolonged hospitalization for a left gluteal necrotizing cellulitis, had debridement and was placed on vancomycin and Flagyl. Admission labs showed creatinine of 4.2, bicarb of 10 gap of 26. potassium of 6.3 Since admission he was hydrated with unknown amount of fluid, remains on Casodex withdrawal. He is on levo fed. He was also on dopamine that has been discontinued. While signs are improved now blood pressure is in the 120s but saline but 70s by cough Is warm to touch and seems to be well perfused he has mild edema Past Medical History Past Medical History: Asthma, Coronary Artery Disease (CAD), CVA/TIA, Diabetes Mellitus, Hyperlipidemia, Hypertension, Pneumonia, Prostate Disorder, Skin Disorder, Thyroid Disorder Additional Past Medical History / Comment(s): Pt recently went to 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, bilateral lower leg edema/fluid retention, current R hip decub/seen in [facility], past L axillae boil/[facility] now healed, hypothyroid, History of Any Multi-Drug Resistant Organisms: MRSA Date of last positivie culture/infection: 08/04/20 MDRO Source:: Buttock, BLOOD Past Surgical History: Cholecystectomy, Coronary Bypass/CABG, Heart Catheterization, Hernia Repair, Prostate Surgery, Tonsillectomy Additional Past Surgical History / Comment(s): 2 vessel CABG 2000, 2018 exploratory laparotomy/lysis of adhesions, TURP, colonoscopy, L axillae boil drained, R hip I&D, bari cataracts, Past Anesthesia/Blood Transfusion Reactions: No Reported Reaction Additional Past Anesthesia/Blood Transfusion Reaction / Comment(s): Pt received blood without reaction. Past Psychological History: No Psychological Hx Reported Smoking Status: Never smoker Past Alcohol Use History: Occasional - Past Family History Mother History Unknown: Yes Family Medical History: Unable to Obtain (Patient intubated) Additional Family Medical History / Comment(s): Pt cannot recall mother's medical hx. Father History Unknown: Yes Additional Family Medical History / Comment(s): Pt cannot recall father's medical history. Medications and Allergies Home Medications Medication Instructions Recorded Confirmed Type Insulin Detemir [Levemir Flextouch] 10 units SQ HS 09/07/20 09/07/20 History Ondansetron HCl [Zofran] 4 mg PO Q6H PRN 09/07/20 09/07/20 History Vancomycin 500 mg IVPB Q24HR 09/07/20 09/07/20 History Allergies Allergy/AdvReac Type Severity Reaction Status Date / Time Sulfa (Sulfonamide Allergy Unknown Verified 09/07/20 20:45 Antibiotics) Childhood Physical Exam Vitals: Vital Signs Temp Pulse Pulse Resp BP Pulse Ox 09/08/20 10:00 79 15 74/58 98 09/08/20 09:30 79 10 L 74/58 98 09/08/20 09:00 80 21 74/58 98 09/08/20 08:30 79 21 74/58 99 09/08/20 08:00 98.5 F 79 22 74/58 99 09/08/20 07:15 83 17 98 09/08/20 07:00 80 20 98 09/08/20 06:45 79 16 98 09/08/20 06:30 79 18 98 09/08/20 06:15 79 7 L 98 09/08/20 06:00 79 20 98 09/08/20 05:45 79 19 98 09/08/20 05:30 79 22 98 09/08/20 05:15 79 22 98 09/08/20 05:00 80 24 98 09/08/20 04:45 99.7 F H 79 24 97 09/08/20 04:30 80 23 97 09/08/20 04:15 79 24 97 09/08/20 04:00 79 80 24 74/58 97 09/08/20 03:45 99.7 F H 79 23 97 09/08/20 03:30 79 23 97 09/08/20 03:15 80 23 97 09/08/20 03:00 79 23 97 09/08/20 02:45 79 98 09/08/20 02:30 79 97 09/08/20 02:15 80 14 97 09/08/20 02:00 79 20 97 09/08/20 01:45 80 23 98 09/08/20 01:30 80 23 99 09/08/20 01:15 79 19 98 09/08/20 01:00 79 19 99 09/08/20 00:45 79 24 74/58 99 09/08/20 00:30 79 19 98 09/08/20 00:15 97.8 F 79 23 98 09/08/20 00:00 79 80 22 99 09/07/20 23:45 79 22 99 09/07/20 23:30 80 19 99 09/07/20 23:23 79 19 99 09/07/20 23:15 78 86/55 99 09/07/20 23:00 79 18 97/50 99 09/07/20 22:45 80 14 97/50 99 09/07/20 22:30 79 16 90/43 09/07/20 22:15 80 17 115/45 09/07/20 22:00 92.8 F L 79 21 103/44 09/07/20 20:25 79 22 65/31 99 09/07/20 20:20 54 L 22 53/38 98 09/07/20 20:15 58 L 39 H 97/56 99 09/07/20 20:14 79 14 97/56 98 09/07/20 20:10 79 56 H 71/59 98 09/07/20 20:05 79 54 H 102/23 99 09/07/20 20:00 60 H 115/63 100 09/07/20 19:55 29 H 75/54 100 09/07/20 19:50 79 54 H 71/54 100 09/07/20 19:47 79 22 71/54 98 09/07/20 19:41 79 22 86/53 100 09/07/20 19:40 79 78 22 108/46 100 09/07/20 19:38 79 16 108/46 100 09/07/20 19:31 79 16 83/48 97 09/07/20 19:30 44 H 83/48 09/07/20 19:26 79 53 H 96/54 09/07/20 19:22 79 16 96/54 97 Intake and Output 09/07/20 09/08/20 09/08/20 22:59 06:59 14:59 Intake Total 209 61.523 333.768 Output Total 130 120 Balance 209 -68.477 213.768 Intake: IV 209 Intake, IV Titration 61.523 333.768 Amount Norepinephrine 8 mg In 258 Sodium Chloride 0.9% 250 ml @ 0.05 MCG/KG/MIN 7.45 mls/hr IV .Q24H [facility] Rx#: [id number] propofoL 1,000 mg In 61.523 75.768 Empty Bag 1 bag @ Titrate IV .Q0M [facility] Rx#: [id number] Output: Urine 130 120 Other: Voiding Method Indwelling Catheter Indwelling Catheter Indwelling Catheter Weight 75.9 kg 75.9 kg 75.9 kg ABP, PAP, CO, CI - Last 8 Hours Arterial Blood Pressure 133/56 Arterial Blood Pressure 113/49 Arterial Blood Pressure 115/48 Arterial Blood Pressure 130/55 Arterial Blood Pressure 140/58 Arterial Blood Pressure 108/48 Arterial Blood Pressure 107/48 Arterial Blood Pressure 106/47 Arterial Blood Pressure 112/45 Arterial Blood Pressure 99/43 Arterial Blood Pressure 97/41 Arterial Blood Pressure 94/41 Arterial Blood Pressure 100/43 Arterial Blood Pressure 104/43 Arterial Blood Pressure 109/46 Arterial Blood Pressure 110/47 Arterial Blood Pressure 105/44 Arterial Blood Pressure 117/47 Arterial Blood Pressure 107/44 Arterial Blood Pressure 115/45 On examination he is on the vent, awake and alert and responsive HEENT exam no JVP is noted no facial asymmetry noted Lungs are clear to auscultation on the ventilator Heart sounds unremarkable for any murmur rub gallop Abdomen soft nontender no masses felt Extremity exam was mild edema Neurologically as mentioned he makes eye contact and follows commands Results - Lab Results Most recent lab results ABG pH 7.39 (7.35-7.45) 09/08/20 05:45 ABG pCO2 37 mmHg (35-45) 09/08/20 05:45 ABG pO2 208 mmHg (83-108) H 09/08/20 05:45 ABG HCO3 23 mmol/L (21-25) 09/08/20 05:45 ABG O2 Saturation 99.7 % (94-97) H 09/08/20 05:45 Calcium 9.5 mg/dL (8.4-10.2) 09/08/20 04:20 Magnesium 2.1 mg/dL (1.6-2.3) 09/08/20 04:20 09/08/20 04:20 09/08/20 04:20 Assessment and Plan Assessment: Impression 1. Acute kidney injury secondary to bradycardia and hypotension possibly vancomycin related. His baseline creatinine was 1.1 on 08/10/2020 on the day of discharge 2. Severe gap acidosis, bicarb was 10 gap was 26. Lactic acid not available, etiology from perfusion because of low blood pressure and bradycardia improved. Bicarb is 23 gap is 9 3. Hyperkalemia secondary to combination of high blood sugar acidosis and acute kidney injury recovering with potassium of 5.9. 4. Possible ID, troponin is gone up to 58 5. Possible sepsis currently on levo fed off of dopamine. 6. History of sacral decubitus which is large on the left gluteal region. 7. Mild increase in total CK at 833, will follow her 8. Anemia of chronic illness, hemoglobin is 8. Recommendation 1. Would start him on lactated Ringer's at 75 an hour for maintenance hydration 2. Watch bicarb potassium and renal profile and urine output 3. No indication for dialysis today. 4. Maintain blood pressure with inotropes as necessary currently on levo fed, 5. Check total CK again tomorrow, troponin needs to be followed up as well. 6. Monitor hemoglobin, If necessary transfuse packed cells Thank you for this consultation and continue to follow closely
[2020-09-08 11:51] LABS: Glucose,Whole Blood 194 mg/dL (75-99)
[2020-09-08] MEDS: LACTATED RINGERS 1,000 ML IV SCH (11:54)
[2020-09-08] MEDS: DAPTOmycin 500 MG in SODIUM CHLORIDE 0.9% 50 ML IVPB SCH (12:09)
[2020-09-08] MEDS: IPRATROPIUM-ALBUTEROL 3 ML NEB INHALATION SCH ×3 (13:06→19:41)
[2020-09-08 13:53] LABS: Hemoglobin A1C 5.7 % (4.0-6.0)
--- NOTE | 2020-09-08 15:00 | ECHOF ---
Referral Reason:mi MEASUREMENTS -------- HEIGHT: 170.2 cm WEIGHT: 75.7 kg BP: IVSd: 0.9 cm (0.6 - 1.1) LVIDd: 4.7 cm (3.9 - 5.3) LVPWd: 1.2 cm (0.6 - 1.1) IVSs: 1.1 cm LVIDs: 3.7 cm LVPWs: 1.6 cm LAESV Index (A-L): 27.17 ml/m Ao Diam: 3.7 cm (2.0 - 3.7) AV Cusp: 1.7 cm (1.5 - 2.6) LA Diam: 3.3 cm (2.7 - 3.8) MV EXCURSION: 19.089 mm (> 18.000) MV EF SLOPE: 164 mm/s (70 - 150) EPSS: 2.2 cm MV E Cirilo: 0.80 m/s MV DecT: 230 ms MV A Cirilo: 0.82 m/s MV E/A Ratio: 0.98 RAP: 5.00 mmHg RVSP: 31.05 mmHg FINDINGS -------- Paced rhythm. This was a technically adequate study. The left ventricular size is normal. Left ventricular wall thickness is normal. Overall left vent ricular systolic function is moderate-severely impaired with, an EF between 30 - 35 %. Basal anteri or LV wall motion is hypokinetic. Basal anteroseptal LV wall motion is hypokinetic. Mid anterio r LV wall motion is hypokinetic. Apical anterior LV wall motion is hypokinetic. Apical septum L V wall motion is hypokinetic. The right ventricle is normal in size. Normal LA size by volume 22+/-6 ml/m2. The right atrial size is normal. There is mild aortic valve sclerosis. Trace amount of aortic regurgitation. Mild mitral annular calcification present. Mild mitral regurgitation is present. The tricuspid valve appears structurally normal. Mild tricuspid regurgitation present. Right vent ricular systolic pressure is normal at < 35 mmHg. There is no pulmonic regurgitation present. The aortic root size is normal. IVC Not well visulized. There is no pericardial effusion. CONCLUSIONS -------- 1. Paced rhythm. 2. Left ventricular wall thickness is normal. 3. Overall left ventricular systolic function is moderate-severely impaired with, an EF between 30 - 35 %. 4. Basal anterior LV wall motion is hypokinetic. 5. Basal anteroseptal LV wall motion is hypokinetic. 6. Mid anterior LV wall motion is hypokinetic. 7. Apical anterior LV wall motion is hypokinetic. 8. Apical septum LV wall motion is hypokinetic. 9. Normal LA size by volume 22+/-6 ml/m2. 10. There is mild aortic valve sclerosis. 11. Trace amount of aortic regurgitation. 12. Mild mitral annular calcification present. 13. Mild mitral regurgitation is present. 14. Mild tricuspid regurgitation present. 15. There is no pericardial effusion. POLICE CAPTAIN: Christal Lopez RDCS
[2020-09-08 17:00] LABS: Glucose,Whole Blood 207 mg/dL (75-99)
[2020-09-08 17:25] LABS: Calcium 9.2 mg/dL (8.4-10.2)
--- NOTE | 2020-09-08 20:50 | P.CONS ---
History of Present Illness - Reason for Consult Consult date: 09/08/20 Sepsis Requesting physician: Jorge Alberto Schaeffer - Chief Complaint unresponsive 1 day - History of Present Illness Patient is 85-year male who was recently admitted at this facility in this patient who did have 11 total abscess and cellulitis status post drainage culture positive for MRSA patient did get a PICC line and was advised a 2 to 3- week course of IV vancomycin but the patient is currently receiving at [facility] patient was supposed to follow-up in the wound care center however he has been lost to follow-up patient has been brought to [facility] ER last night for evaluation of unresponsiveness patient was noticed to be unresponsive in the afternoon by the nursing staff EMS was called around 6 patient was noticed to be unresponsive the patient got intubated in the field and transcutaneously paced at the patient was bradycardic with a heart rate of 20 patient on arrival to the ER was noticed to have third-degree AV block cardiology saw the patient and was taken for a transvenous pacemaker insertion patient on presentation to the hospital was hypothermic with a temperature of 92.8 F patient did have white count of 25.6 up to 29.9 today did have elevated BUN and creatinine as well as troponin (was 26.1 patient was given a dose of Vanco infectious was consulted for further management of antibiotic therapy patient did have a chest x-ray on admission improvement in the pulmonary/infiltrate chest x-ray completed this morning patchy retrocardiac opacity in the most information has been obtained from review the chart and nu rsing staff as the patient himself intubated on the vent and is not able to provide any history Review of Systems Positive points has been mentioned in HPI complete review could not be obtained because of pt sedated on vent Past Medical History Past Medical History: Asthma, Coronary Artery Disease (CAD), CVA/TIA, Diabetes Mellitus, Hyperlipidemia, Hypertension, Pneumonia, Prostate Disorder, Skin Disorder, Thyroid Disorder Additional Past Medical History / Comment(s): Pt recently went to [facility] with fall/injury to L forehead/anemia-refused admission/transfusion, chronic leukocytosis, iron deficiency anemia, TIA after gallbladder surgery, SBO with surgery, urinary retention, 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, bilateral lower leg edema/fluid retention, current R hip decub/seen in [facility], past L axillae boil/[facility] now healed, hypothyroid, History of Any Multi-Drug Resistant Organisms: MRSA Year Discovered:: 08/04/20 MDRO Source:: Buttock, BLOOD Past Surgical History: Cholecystectomy, Coronary Bypass/CABG, Heart Catheterization, Hernia Repair, Prostate Surgery, Tonsillectomy Additional Past Surgical History / Comment(s): 2 vessel CABG 2000, 2018 exploratory laparotomy/lysis of adhesions, TURP, colonoscopy, L axillae boil drained, R hip I&D, bari cataracts, Past Anesthesia/Blood Transfusion Reactions: No Reported Reaction Additional Past Anesthesia/Blood Transfusion Reaction / Comm: Pt received blood without reaction. Past Psychological History: No Psychological Hx Reported Smoking Status: Never smoker Past Alcohol Use History: Occasional - Past Family History Mother History Unknown: Yes Family Medical History: Unable to Obtain (Patient intubated) Additional Family Medical History / Comment(s): Pt cannot recall mother's medical hx. Father History Unknown: Yes Additional Family Medical History / Comment(s): Pt cannot recall father's medical history. Medications and Allergies Home Medications Medication Instructions Recorded Confirmed Type Insulin Detemir [Levemir Flextouch] 10 units SQ HS 09/07/20 09/07/20 History Ondansetron HCl [Zofran] 4 mg PO Q6H PRN 09/07/20 09/07/20 History Vancomycin 500 mg IVPB Q24HR 09/07/20 09/07/20 History Allergies Allergy/AdvReac Type Severity Reaction Status Date / Time Sulfa (Sulfonamide Allergy Unknown Verified 09/07/20 20:45 Antibiotics) Childhood Physical Exam Vitals: Vital Signs Temp Pulse Pulse Resp BP Pulse Ox 09/08/20 10:00 79 15 74/58 98 09/08/20 09:30 79 10 L 74/58 98 09/08/20 09:00 80 21 74/58 98 09/08/20 08:30 79 21 74/58 99 09/08/20 08:00 98.5 F 79 22 74/58 99 09/08/20 07:15 83 17 98 09/08/20 07:00 80 20 98 09/08/20 06:45 79 16 98 09/08/20 06:30 79 18 98 09/08/20 06:15 79 7 L 98 09/08/20 06:00 79 20 98 09/08/20 05:45 79 19 98 09/08/20 05:30 79 22 98 09/08/20 05:15 79 22 98 09/08/20 05:00 80 24 98 09/08/20 04:45 99.7 F H 79 24 97 09/08/20 04:30 80 23 97 09/08/20 04:15 79 24 97 09/08/20 04:00 79 80 24 74/58 97 09/08/20 03:45 99.7 F H 79 23 97 09/08/20 03:30 79 23 97 09/08/20 03:15 80 23 97 09/08/20 03:00 79 23 97 09/08/20 02:45 79 98 09/08/20 02:30 79 97 09/08/20 02:15 80 14 97 09/08/20 02:00 79 20 97 09/08/20 01:45 80 23 98 09/08/20 01:30 80 23 99 09/08/20 01:15 79 19 98 09/08/20 01:00 79 19 99 09/08/20 00:45 79 24 74/58 99 09/08/20 00:30 79 19 98 09/08/20 00:15 97.8 F 79 23 98 09/08/20 00:00 79 80 22 99 09/07/20 23:45 79 22 99 09/07/20 23:30 80 19 99 09/07/20 23:23 79 19 99 09/07/20 23:15 78 86/55 99 09/07/20 23:00 79 18 97/50 99 09/07/20 22:45 80 14 97/50 99 09/07/20 22:30 79 16 90/43 09/07/20 22:15 80 17 115/45 09/07/20 22:00 92.8 F L 79 21 103/44 09/07/20 20:25 79 22 65/31 99 09/07/20 20:20 54 L 22 53/38 98 09/07/20 20:15 58 L 39 H 97/56 99 09/07/20 20:14 79 14 97/56 98 09/07/20 20:10 79 56 H 71/59 98 09/07/20 20:05 79 54 H 102/23 99 09/07/20 20:00 60 H 115/63 100 09/07/20 19:55 29 H 75/54 100 09/07/20 19:50 79 54 H 71/54 100 09/07/20 19:47 79 22 71/54 98 09/07/20 19:41 79 22 86/53 100 09/07/20 19:40 79 78 22 108/46 100 09/07/20 19:38 79 16 108/46 100 09/07/20 19:31 79 16 83/48 97 09/07/20 19:30 44 H 83/48 09/07/20 19:26 79 53 H 96/54 09/07/20 19:22 79 16 96/54 97 Intake and Output 09/07/20 09/08/20 09/08/20 22:59 06:59 14:59 Intake Total 209 61.523 333.768 Output Total 130 120 Balance 209 -68.477 213.768 Intake: IV 209 Intake, IV Titration 61.523 333.768 Amount Norepinephrine 8 mg In 258 Sodium Chloride 0.9% 250 ml @ 0.05 MCG/KG/MIN 7.45 mls/hr IV .Q24H [facility] Rx#: [id number] propofoL 1,000 mg In 61.523 75.768 Empty Bag 1 bag @ Titrate IV .Q0M [facility] Rx#: [id number] Output: Urine 130 120 Other: Voiding Method Indwelling Catheter Indwelling Catheter Indwelling Catheter Weight 75.9 kg 75.9 kg 75.9 kg ABP, PAP, CO, CI - Last 8 Hours Arterial Blood Pressure 133/56 Arterial Blood Pressure 113/49 Arterial Blood Pressure 115/48 Arterial Blood Pressure 130/55 Arterial Blood Pressure 140/58 Arterial Blood Pressure 108/48 Arterial Blood Pressure 107/48 Arterial Blood Pressure 106/47 Arterial Blood Pressure 112/45 Arterial Blood Pressure 99/43 Arterial Blood Pressure 97/41 Arterial Blood Pressure 94/41 Arterial Blood Pressure 100/43 Arterial Blood Pressure 104/43 Arterial Blood Pressure 109/46 Arterial Blood Pressure 110/47 Arterial Blood Pressure 105/44 Arterial Blood Pressure 117/47 Arterial Blood Pressure 107/44 Arterial Blood Pressure 115/45 Arterial Blood Pressure 111/45 Arterial Blood Pressure 115/47 GENERAL DESCRIPTION: Elderly male intubated on the vent, no distress. No tachypnea or accessory muscle of respiration use. HEENT: Shows Pallor , no scleral icterus. Oral mucous membrane is dry. No pharyngeal erythema or thrush NECK: Trachea central, no thyromegaly. LUNGS: Unlabored breathing. Decreased breath sound at the base. HEART: S1, S2, regular rate and rhythm. No loud murmur ABDOMEN: Soft, no tenderness , guarding or rigidity, no organomegaly EXTREMITIES: No edema of feet. SKIN: No rash, no masses palpable. Left gluteal area patient had shown sign ificant improvement some superficial ulceration or redness NEUROLOGICAL: The patient is sedated on the vent Results CBC & Chem 7: 09/08/20 04:20 09/08/20 16:55 Labs: Abnormal Lab Results - Last 24 Hours (Table) 09/07/20 09/07/20 09/07/20 Range/Units 19:32 19:32 19:32 WBC 25.6 H (3.8-10.6) k/uL RBC 2.45 L (4.30-5.90) m/uL Hgb 8.4 L (13.0-17.5) gm/dL Hct 27.7 L (39.0-53.0) % MCV 112.8 H D (80.0-100.0) fL MCHC 30.3 L (31.0-37.0) g/dL RDW 19.0 H (11.5-15.5) % Neutrophils # (Manual) 18.43 H (1.3-7.7) k/uL Lymphocytes # (Manual) 5.12 H (1.0-4.8) k/uL Monocytes # (Manual) 1.79 H (0-1.0) k/uL Metamyelocytes # (Man) (0) k/uL Myelocytes # (Manual) 0.26 H (0) k/uL Macrocytosis Marked A ABG pH (7.35-7.45) ABG pCO2 (35-45) mmHg ABG pO2 (83-108) mmHg ABG HCO3 (21-25) mmol/L ABG Total CO2 (19-24) mmol/L ABG O2 Saturation (94-97) % Potassium 6.3 H* (3.5-5.1) mmol/L Chloride (98-107) mmol/L Carbon Dioxide 10 L (22-30) mmol/L BUN 79 H (9-20) mg/dL Creatinine 4.22 H (0.66-1.25) mg/dL Glucose 404 H (74-99) mg/dL POC Glucose (mg/dL) (75-99) mg/dL Magnesium 2.7 H (1.6-2.3) mg/dL AST 64 H (17-59) U/L Creatine Kinase (55-170) U/L Troponin I 2.130 H* (0.000-0.034) ng/mL Albumin 3.4 L (3.5-5.0) g/dL TSH 8.320 H (0.465-4.680) mIU/L 09/07/20 09/07/20 09/07/20 Range/Units 21:42 21:55 22:03 WBC (3.8-10.6) k/uL RBC (4.30-5.90) m/uL Hgb (13.0-17.5) gm/dL Hct (39.0-53.0) % MCV (80.0-100.0) fL MCHC (31.0-37.0) g/dL RDW (11.5-15.5) % Neutrophils # (Manual) (1.3-7.7) k/uL Lymphocytes # (Manual) (1.0-4.8) k/uL Monocytes # (Manual) (0-1.0) k/uL Metamyelocytes # (Man) (0) k/uL Myelocytes # (Manual) (0) k/uL Macrocytosis ABG pH 7.22 L (7.35-7.45) ABG pCO2 33 L (35-45) mmHg ABG pO2 >400 H (83-108) mmHg ABG HCO3 14 L (21-25) mmol/L ABG Total CO2 15 L (19-24) mmol/L ABG O2 Saturation 100.0 H (94-97) % Potassium 5.3 H (3.5-5.1) mmol/L Chloride 108 H (98-107) mmol/L Carbon Dioxide 14 L (22-30) mmol/L BUN 77 H (9-20) mg/dL Creatinine 4.01 H (0.66-1.25) mg/dL Glucose 275 H (74-99) mg/dL POC Glucose (mg/dL) 331 H (75-99) mg/dL Magnesium (1.6-2.3) mg/dL AST 103 H (17-59) U/L Creatine Kinase (55-170) U/L Troponin I (0.000-0.034) ng/mL Albumin 3.2 L (3.5-5.0) g/dL TSH (0.465-4.680) mIU/L 09/08/20 09/08/20 09/08/20 Range/Units 04:20 04:20 04:20 WBC 29.9 H (3.8-10.6) k/uL RBC 2.36 L (4.30-5.90) m/uL Hgb 8.0 L (13.0-17.5) gm/dL Hct 24.6 L (39.0-53.0) % MCV 104.4 H D (80.0-100.0) fL MCHC (31.0-37.0) g/dL RDW 19.4 H (11.5-15.5) % Neutrophils # (Manual) 21.80 H (1.3-7.7) k/uL Lymphocytes # (Manual) (1.0-4.8) k/uL Monocytes # (Manual) 5.08 H (0-1.0) k/uL Metamyelocytes # (Man) 0.90 H (0) k/uL Myelocytes # (Manual) 0.60 H (0) k/uL Macrocytosis Marked A ABG pH (7.35-7.45) ABG pCO2 (35-45) mmHg ABG pO2 (83-108) mmHg ABG HCO3 (21-25) mmol/L ABG Total CO2 (19-24) mmol/L ABG O2 Saturation (94-97) % Potassium 5.9 H (3.5-5.1) mmol/L Chloride (98-107) mmol/L Carbon Dioxide (22-30) mmol/L BUN 82 H (9-20) mg/dL Creatinine 3.71 H (0.66-1.25) mg/dL Glucose 157 H (74-99) mg/dL POC Glucose (mg/dL) (75-99) mg/dL Magnesium (1.6-2.3) mg/dL AST (17-59) U/L Creatine Kinase 833 H (55-170) U/L Troponin I 58.600 H* (0.000-0.034) ng/mL Albumin (3.5-5.0) g/dL TSH (0.465-4.680) mIU/L 09/08/20 09/08/20 Range/Units 05:45 06:34 WBC (3.8-10.6) k/uL RBC (4.30-5.90) m/uL Hgb (13.0-17.5) gm/dL Hct (39.0-53.0) % MCV (80.0-100.0) fL MCHC (31.0-37.0) g/dL RDW (11.5-15.5) % Neutrophils # (Manual) (1.3-7.7) k/uL Lymphocytes # (Manual) (1.0-4.8) k/uL Monocytes # (Manual) (0-1.0) k/uL Metamyelocytes # (Man) (0) k/uL Myelocytes # (Manual) (0) k/uL Macrocytosis ABG pH (7.35-7.45) ABG pCO2 (35-45) mmHg ABG pO2 208 H (83-108) mmHg ABG HCO3 (21-25) mmol/L ABG Total CO2 (19-24) mmol/L ABG O2 Saturation 99.7 H (94-97) % Potassium (3.5-5.1) mmol/L Chloride (98-107) mmol/L Carbon Dioxide (22-30) mmol/L BUN (9-20) mg/dL Creatinine (0.66-1.25) mg/dL Glucose (74-99) mg/dL POC Glucose (mg/dL) 167 H (75-99) mg/dL Magnesium (1.6-2.3) mg/dL AST (17-59) U/L Creatine Kinase (55-170) U/L Troponin I (0.000-0.034) ng/mL Albumin (3.5-5.0) g/dL TSH (0.465-4.680) mIU/L Assessment and Plan Assessment: 1-patient presented to hospital with unresponsiveness in this patient who did have a acute renal failure with hyperkalemia more likely from her Vanco toxicity the patient was receiving at the skilled nursing for his left gluteal abscess and cellulitis in this patient who was lost to follow-up , patient did have a significant improvement to his left gluteal area compared to his last admission and now with concern for possible aspiration pneumonitis with increasing appearance of retrocardiac area 2-patient with renal insufficiency and high risk of nephrotoxicity from vancomycin (1) Cellulitis of buttock, left Current Visit: No Status: Acute Code(s): L03.317 - CELLULITIS OF BUTTOCK SNOMED Code(s): 29416329 (2) Sepsis Current Visit: No Status: Acute Code(s): A41.9 - SEPSIS, UNSPECIFIED ORGANISM SNOMED Code(s): 29210606 Plan: 1-we will obtain blood cultures and sputum cultures 2-patient empirically treated with Zosyn and daptomycin We will follow on clinical condition and cultures to further adjust medication if needed Thank you for this consultation we will follow the patient along with you Time with Patient: Greater than 30
[2020-09-08 21:02] LABS: Glucose,Whole Blood 215 mg/dL (75-99)
[2020-09-08] MEDS ORDERED: IPRATROPIUM-ALBUTEROL 3 ML NEB INHALATION PRN (22:03)
[2020-09-09] MEDS: LACTATED RINGERS 1,000 ML IV SCH ×2 (00:47→13:26)
[2020-09-09] MEDS: NOREPINEPHRINE 8 MG in SODIUM CHLORIDE 0.9% 250 ML IV SCH ×2 (01:34→16:03)
[2020-09-09 04:51] LABS: Glucose,Whole Blood 192 mg/dL (75-99)
[2020-09-09 05:43] LABS: Anisocytosis Slight; Calcium 9.5 mg/dL (8.4-10.2); HCT 21.3 % (39.0-53.0); MCH 33.7 pg (25.0-35.0); MCHC 32.3 g/dL (31.0-37.0); MCV 104.4 fL (80.0-100.0); Macrocytosis Marked; Mean Platelet Volume 7.9; Platelet Count 207 k/uL (150-450); Potassium 4.8 mmol/L (3.5-5.1); RBC 2.04 m/uL (4.30-5.90); RDW 19.9 % (11.5-15.5); WBC 34.4 k/uL (3.8-10.6)
[2020-09-09 05:49] LABS: HGB 6.9 gm/dL (13.0-17.5)
[2020-09-09] MEDS ORDERED: VANCOMYCIN 1,500 MG in SODIUM CHLORIDE 0.9% 250 ML IVPB ONE (06:00)
[2020-09-09 06:35] LABS: Glucose,Whole Blood 199 mg/dL (75-99)
[2020-09-09] MEDS: LEVOTHYROXINE 50 MCG TAB PO SCH (06:43)
[2020-09-09] MEDS: INSULIN ASPART (NovoLOG) 100 UNIT/ML VIAL SQ SCH ×4 (06:44→21:18)
[2020-09-09 07:32] LABS: Band Neutrophils % 2 %; Lymphocytes # (M) 3.44 k/uL (1.0-4.8); Metamyelocytes # (M) 0.34 k/uL (0); Metamyelocytes % 1 %; Monocytes # (M) 5.85 k/uL (0-1.0); Myelocytes # (M) 0.34 k/uL (0); Myelocytes % 1 %; Neutrophils % (M) 71 %; Nucleated Red Blood Cells 0 /100 WBC (0-0); Total Cells Counted 200
--- NOTE | 2020-09-09 07:39 | XR ---
EXAMINATION TYPE: XR chest 1V portable DATE OF EXAM: 09/09/2020 COMPARISON: 09/08/2020 HISTORY: 85 years Male. STUDY INDICATION GIVEN: Tube placement TECHNIQUE: AP portable chest radiograph FINDINGS AND IMPRESSION: Interval extubation and removal of nasogastric tube. Stable postsurgical changes in the mediastinum with prominence of the cardiomediastinal silhouette. Worsening bilateral left greater than right interstitial opacities and more airspace-like opacity in the left lower lobe: Pulmonary edema, atelectasis, developing infiltrate cannot be entirely excluded. No pneumothorax or pleural effusion. No acute osseous abnormality. Stable right jugular CVC.
--- NOTE | 2020-09-09 08:47 | P.PN ---
Subjective Progress Note Date: 09/09/20 Principal diagnosis: This is an 85-year-old male transferred from group home after a severe bradycardia hypotension. He is in acute kidney injury from a combination off hypotension bradycardia as well as vancomycin possibly. He was on vancomycin in the group home because of sacral decubitus. Vancomycin level drawn yesterday on 09/08/2020 is 26.1 Currently he is in the ICU and additionally he had hyperkalemia secondary to high blood sugar acute kidney injury, severe gap acidosis which improved rapidly because of possibly lactic acidosis from the hypoperfusion. Additionally he had a slightly high CPK at 833, anemia with hemoglobin of 8. Troponins were slightly up to 58. He is known with coronary artery disease asthma diabetes mellitus and was recently discharge after being treated for a large sacral decub in the gluteal area Currently he is on room air, awake and alert stable although he is on small doses of levo fed. Blood pressure is in the 100-110 and his urine output is documented at 11 25 mL Objective - Vital Signs Vital signs: Vital Signs Temp 98.2 F 09/09/20 04:00 Pulse 80 09/09/20 07:00 Resp 19 09/09/20 07:00 BP 108/52 09/08/20 16:30 Pulse Ox 91 L 09/09/20 07:00 Intake & Output 09/08/20 09/09/20 09/09/20 18:59 06:59 18:59 Intake Total 9379.342 4613.028 150 Output Total 590 535 70 Balance 595.116 627.028 80 Weight 75.9 kg Intake: IV 625 900 150 Lactated Ringers 1,000 ml 525 900 150 @ 75 mls/hr IV .[id number] [facility] Rx#:[id number] Piperacillin-Tazobactam 3 100 .375 gm In Sodium Chloride 0.9% 100 ml @ 25 mls/hr IVPB Q12HR [facility] Rx #:[id number] Intake, IV Titration 560.116 262.028 Amount Norepinephrine 8 mg In 484.348 262.028 Sodium Chloride 0.9% 250 ml @ 0.05 MCG/KG/MIN 7.45 mls/hr IV .Q24H [facility] Rx#: [id number] propofoL 1,000 mg In 75.768 Empty Bag 1 bag @ Titrate IV .Q0M [facility] Rx#: [id number] Output: Urine 590 535 70 Other: Voiding Method Indwelling Catheter Indwelling Catheter ABP, PAP, CO, CI - Last Documented Arterial Blood Pressure 115/51 On examination awake alert oriented HEENT exam no JVP neck is supple no facial asymmetry Lungs clear to auscultation with coarse crackles that are improved with cough. Heart sounds unremarkable for any murmur rub gallop Abdomen soft nontender extremity reveals no edema Neurologically awake alert oriented but generalized - Labs CBC & Chem 7: 09/09/20 04:50 09/09/20 04:50 Labs: Abnormal Lab Results - Last 24 Hours (Table) 09/08/20 09/08/20 09/08/20 Range/Units 11:50 12:25 16:55 WBC (3.8-10.6) k/uL RBC (4.30-5.90) m/uL Hgb (13.0-17.5) gm/dL Hct (39.0-53.0) % MCV (80.0-100.0) fL RDW (11.5-15.5) % Neutrophils # (Manual) (1.3-7.7) k/uL Monocytes # (Manual) (0-1.0) k/uL Metamyelocytes # (Man) (0) k/uL Myelocytes # (Manual) (0) k/uL Macrocytosis Chloride 111 H (98-107) mmol/L Carbon Dioxide 20 L (22-30) mmol/L BUN 76 H (9-20) mg/dL Creatinine 3.25 H (0.66-1.25) mg/dL Glucose 199 H (74-99) mg/dL POC Glucose (mg/dL) 194 H (75-99) mg/dL Troponin I 98.600 H* (0.000-0.034) ng/mL 09/08/20 09/08/20 09/09/20 Range/Units 16:57 21:00 04:48 WBC (3.8-10.6) k/uL RBC (4.30-5.90) m/uL Hgb (13.0-17.5) gm/dL Hct (39.0-53.0) % MCV (80.0-100.0) fL RDW (11.5-15.5) % Neutrophils # (Manual) (1.3-7.7) k/uL Monocytes # (Manual) (0-1.0) k/uL Metamyelocytes # (Man) (0) k/uL Myelocytes # (Manual) (0) k/uL Macrocytosis Chloride (98-107) mmol/L Carbon Dioxide (22-30) mmol/L BUN (9-20) mg/dL Creatinine (0.66-1.25) mg/dL Glucose (74-99) mg/dL POC Glucose (mg/dL) 207 H 215 H 192 H (75-99) mg/dL Troponin I (0.000-0.034) ng/mL 09/09/20 09/09/20 09/09/20 Range/Units 04:50 04:50 06:34 WBC 34.4 H (3.8-10.6) k/uL RBC 2.04 L (4.30-5.90) m/uL Hgb 6.9 L* (13.0-17.5) gm/dL Hct 21.3 L (39.0-53.0) % MCV 104.4 H (80.0-100.0) fL RDW 19.9 H (11.5-15.5) % Neutrophils # (Manual) 25.10 H (1.3-7.7) k/uL Monocytes # (Manual) 5.85 H (0-1.0) k/uL Metamyelocytes # (Man) 0.34 H (0) k/uL Myelocytes # (Manual) 0.34 H (0) k/uL Macrocytosis Marked A Chloride 111 H (98-107) mmol/L Carbon Dioxide (22-30) mmol/L BUN 67 H (9-20) mg/dL Creatinine 2.90 H (0.66-1.25) mg/dL Glucose 188 H (74-99) mg/dL POC Glucose (mg/dL) 199 H (75-99) mg/dL Troponin I (0.000-0.034) ng/mL Microbiology - Last 24 Hours (Table) 09/08/20 12:45 Gram Stain - Preliminary Sputum Sputum Culture - Preliminary Assessment and Plan Assessment: Impression 1. Acute kidney injury secondary to bradycardia and hypotension vancomycin r elated, level was 26. His baseline creatinine was 1.1 on 08/10/2020 on the day of discharge. He came in with a creatinine 4.22 and currently is improved to 2.9 2. Severe gap acidosis, bicarb was 10 gap was 26. Lactic acid not available, etiology from perfusion because of low blood pressure and bradycardia improved. Resolved 3. Hyperkalemia secondary to combination of high blood sugar acidosis and acute kidney injury recovering with potassium of 5.9. Resolved this morning 4. Possible UT, troponin is gone up to 58, further up to 98 5. Possible sepsis currently on small doses of levo fed off of dopamine. 6. History of sacral decubitus which is large on the left gluteal region. 7. Mild increase in total CK at 833, will follow her 8. Anemia of chronic illness, hemoglobin is 8 and further down to 6.9. Recommendation 1. Maintain IV fluids at 75 mL of lactated Ringer's Would start him on lactated Ringer's at 75 an hour for maintenance hydration 2. Watch bicarb potassium and renal profile and urine output 3. Avoid nephrotoxic medication including vancomycin 4. Watch troponins as his going up 5. Transfuse 1 unit of packed cells Thank you for this consultation and continue to follow closely
[2020-09-09] MEDS: IPRATROPIUM-ALBUTEROL 3 ML NEB INHALATION SCH ×4 (08:52→20:28)
[2020-09-09] MEDS: PIPERACILLIN-TAZOBACTAM 3.375 GM in SODIUM CHLORIDE 0.9% 100 ML IVPB SCH ×2 (09:17→21:18)
[2020-09-09] MEDS: ATORVASTATIN 40 MG TAB PO SCH (09:17)
[2020-09-09] MEDS: ASPIRIN 81 MG PO SCH (09:17)
--- NOTE | 2020-09-09 09:49 | P.PN ---
Subjective Progress Note Date: 09/09/20 Principal diagnosis: Unresponsive Currently he is on room air, awake and alert stable although he is on small doses of levo fed. Blood pressure is in the 100-110 and his urine output is documented at 11 25 mL Objective - Vital Signs Vital signs: Vital Signs Temp 98.2 F 09/09/20 04:00 Pulse 80 09/09/20 09:07 Resp 19 09/09/20 07:00 BP 108/52 09/08/20 16:30 Pulse Ox 91 L 09/09/20 07:00 Intake & Output 09/08/20 09/09/20 09/09/20 18:59 06:59 18:59 Intake Total 9746.377 3103.028 150 Output Total 590 535 70 Balance 595.116 627.028 80 Weight 75.9 kg Intake: IV 625 900 150 Lactated Ringers 1,000 ml 525 900 150 @ 75 mls/hr IV .[id number] [facility] Rx#:[id number] Piperacillin-Tazobactam 3 100 .375 gm In Sodium Chloride 0.9% 100 ml @ 25 mls/hr IVPB Q12HR [facility] Rx #:[id number] Intake, IV Titration 560.116 262.028 Amount Norepinephrine 8 mg In 484.348 262.028 Sodium Chloride 0.9% 250 ml @ 0.05 MCG/KG/MIN 7.45 mls/hr IV .Q24H [facility] Rx#: [id number] propofoL 1,000 mg In 75.768 Empty Bag 1 bag @ Titrate IV .Q0M [facility] Rx#: [id number] Output: Urine 590 535 70 Other: Voiding Method Indwelling Catheter Indwelling Catheter ABP, PAP, CO, CI - Last Documented Arterial Blood Pressure 115/51 - Exam GEN: No acute distress, pleasantly confused, fidgety. HEENT PERRL, NC, AT. Neck supple. Full range of motion. No adenopathy thyromegaly or neck vein distention. Cardiovascular examination reveals regular rhythm rate. S1-S2 normal. No S3 or S4. No discernible murmur noted. Lungs reveal mostly clear breath sounds. A few scattered rhonchi are noted. No wheezes or crackles. Breath sounds are equal bilaterally. Saturation is 98%. Abdomen is soft, without bowel sounds. No masses or tenderness. Extremities are intact. No cyanosis clubbing or edema. Skin is without rash or lesion. Neuro: Alert and orientedX1. Non focal. - Labs CBC & Chem 7: 09/09/20 04:50 09/09/20 04:50 Labs: Abnormal Lab Results - Last 24 Hours (Table) 09/08/20 09/08/20 09/08/20 Range/Units 11:50 12:25 16:55 WBC (3.8-10.6) k/uL RBC (4.30-5.90) m/uL Hgb (13.0-17.5) gm/dL Hct (39.0-53.0) % MCV (80.0-100.0) fL RDW (11.5-15.5) % Neutrophils # (Manual) (1.3-7.7) k/uL Monocytes # (Manual) (0-1.0) k/uL Metamyelocytes # (Man) (0) k/uL Myelocytes # (Manual) (0) k/uL Macrocytosis Chloride 111 H (98-107) mmol/L Carbon Dioxide 20 L (22-30) mmol/L BUN 76 H (9-20) mg/dL Creatinine 3.25 H (0.66-1.25) mg/dL Glucose 199 H (74-99) mg/dL POC Glucose (mg/dL) 194 H (75-99) mg/dL Troponin I 98.600 H* (0.000-0.034) ng/mL 09/08/20 09/08/20 09/09/20 Range/Units 16:57 21:00 04:48 WBC (3.8-10.6) k/uL RBC (4.30-5.90) m/uL Hgb (13.0-17.5) gm/dL Hct (39.0-53.0) % MCV (80.0-100.0) fL RDW (11.5-15.5) % Neutrophils # (Manual) (1.3-7.7) k/uL Monocytes # (Manual) (0-1.0) k/uL Metamyelocytes # (Man) (0) k/uL Myelocytes # (Manual) (0) k/uL Macrocytosis Chloride (98-107) mmol/L Carbon Dioxide (22-30) mmol/L BUN (9-20) mg/dL Creatinine (0.66-1.25) mg/dL Glucose (74-99) mg/dL POC Glucose (mg/dL) 207 H 215 H 192 H (75-99) mg/dL Troponin I (0.000-0.034) ng/mL 09/09/20 09/09/20 09/09/20 Range/Units 04:50 04:50 06:34 WBC 34.4 H (3.8-10.6) k/uL RBC 2.04 L (4.30-5.90) m/uL Hgb 6.9 L* (13.0-17.5) gm/dL Hct 21.3 L (39.0-53.0) % MCV 104.4 H (80.0-100.0) fL RDW 19.9 H (11.5-15.5) % Neutrophils # (Manual) 25.10 H (1.3-7.7) k/uL Monocytes # (Manual) 5.85 H (0-1.0) k/uL Metamyelocytes # (Man) 0.34 H (0) k/uL Myelocytes # (Manual) 0.34 H (0) k/uL Macrocytosis Marked A Chloride 111 H (98-107) mmol/L Carbon Dioxide (22-30) mmol/L BUN 67 H (9-20) mg/dL Creatinine 2.90 H (0.66-1.25) mg/dL Glucose 188 H (74-99) mg/dL POC Glucose (mg/dL) 199 H (75-99) mg/dL Troponin I (0.000-0.034) ng/mL Microbiology - Last 24 Hours (Table) 09/08/20 12:45 Gram Stain - Preliminary Sputum Sputum Culture - Preliminary Assessment and Plan Plan: Mental status changes, with unresponsiveness, likely secondary to acute myocardial infarction, and third-degree heart block, status post transvenous pacemaker. Rule out anoxic encephalopathy. -Was on mechanical ventilation, extubated 09/08. -Status post transvenous pacer insertion -Cardiology and pulm following -Cardiac monitoring Septic shock possibly sec to HCAP vs aspiration PNA -Requiring IV pressors -Patient was receiving vancomycin via PICC line for recent MRSA left gluteal necrotizing infection that required debridement. This is currently better. -Continue dapto and zosyn -Infectious disease following -Follow up blood and sputum cultures Acute renal failure, likely due to hypotension with hyperkalemia, r/o vanco toxicity from recent treatment -Better -Nephrology following -Monitor BMP Acute on chronic macrocytic anemia, at baseline -Transfuse 1 unit and follow in am. No obvious signs of bleeding. Type 2 DM -LADAN with FS -A1C ok Chronic Hypothyroidism, CAD, HLD -C/w home Synthroid 50 mcg qd, hold bp meds CODE STATUS: Full Code Anticipated discharge date: 4-[address]: SNF
--- NOTE | 2020-09-09 10:30 | P.PN ---
Subjective Progress Note Date: 09/09/20 Principal diagnosis: Respiratory failure. 85-year-old male with a history of CVA, diabetes, coronary disease, bypass grafting, and sacral wounds of recent bacteremia, who was at [facility]. Apparently, according to the ER janelle and my nurses in the ICU, the patient started having some changes in mental status. Apparently they waited for quite some time before EMS was called. Maybe 2 hours or so. When EMS arrived, the patient was unresponsive, and they intubated him at the scene. He was hypotensive at that time, with a heart rate of 20. He was brought to the [facility] room he was further evaluated. He was found to be in third-degree heart block. The patient was taken to the catheterization laboratory and had a transvenous pacemaker placed by one of the cardiologists. Apparently, the patient has no rhythm under the pacemaker. He apparently has occasional P-wave QRS complex, but essentially his asystole. The patient is on the ventilator. He is on the volume assist control mode, rate, 22, tidal volume 400, FiO2 45%, and PEEP of 5. Blood gases on 60% showed a pO2 of 208. PCO2 37, and pH 7.39. The FiO2 was turned down to 45%. He is on norepinephrine at 15 mcg/m, and propofol at 30 mcg/kg/m. I told the nurse to stop the propofol so we can better evaluate his neurologic status. White count 29.9, hemoglobin 8, hematocrit 24.6, and platelet count 329,000. Sodium 139, potassium 5.9, chlorides 107, CO2 23, anion gap 9, BUN 82, and creatinine 3.71. The troponin was 58.6, and creatine kinase is 833. Chest x-ray shows some left lower lobe atelectasis or infiltrate, with some mild pulmonary edema changes. There is cardiomegaly, without pneumothorax or pleural effusion. Progress note dated 09/09/2020. 85-year-old male, with history of CVA, diabetes mellitus, coronary artery disease, status post bypass grafting, sacral wounds/bacteremia, who apparently had mental status changes,. When EMS arrived, the patient was unresponsive and intubated him at the scene. The patient was extubated yesterday. Currently, he's on room air. He is receiving norepinephrine at 7.6 mcg/m, and lactated Ringer's at 75 mL an hour. For low hemoglobin, the patient will receive 1 unit of packed red blood cells. The patient is currently on Zosyn and daptomycin as per infectious diseases. I've asked the nurse to check a TSH, a cortisol level, and add midodrine, 5 mg 3 times a day. White count 34.4, hemoglobin 6.9, hematocrit 21.3, and platelet count 207,000. Sodium 142, potassium 4.8, chlorides 111, CO2 22, anion gap 9, BUN 67, and creatinine 2.90. TSH was 1.070 and cortisol level was 48. Chest x-ray shows diffuse bilateral infiltrates, which may relate to either edema, atelectasis or infiltrate. Objective - Vital Signs Vital signs: Vital Signs Temp 98.2 F 09/09/20 04:00 Pulse 80 09/09/20 09:07 Resp 19 09/09/20 07:00 BP 108/52 09/08/20 16:30 Pulse Ox 91 L 09/09/20 07:00 Intake & Output 09/08/20 09/09/20 09/09/20 18:59 06:59 18:59 Intake Total 0123.539 5141.028 150 Output Total 590 535 70 Balance 595.116 627.028 80 Weight 75.9 kg Intake: IV 625 900 150 Lactated Ringers 1,000 ml 525 900 150 @ 75 mls/hr IV .[id number] [facility] Rx#:[id number] Piperacillin-Tazobactam 3 100 .375 gm In Sodium Chloride 0.9% 100 ml @ 25 mls/hr IVPB Q12HR [facility] Rx #:[id number] Intake, IV Titration 560.116 262.028 Amount Norepinephrine 8 mg In 484.348 262.028 Sodium Chloride 0.9% 250 ml @ 0.05 MCG/KG/MIN 7.45 mls/hr IV .Q24H [facility] Rx#: [id number] propofoL 1,000 mg In 75.768 Empty Bag 1 bag @ Titrate IV .Q0M [facility] Rx#: [id number] Output: Urine 590 535 70 Other: Voiding Method Indwelling Catheter Indwelling Catheter ABP, PAP, CO, CI - Last Documented Arterial Blood Pressure 115/51 - Exam No acute distress, confused, currently on room air. Saturations are 93%. HEENT examination is grossly unremarkable. Neck supple. Full range of motion. No adenopathy thyromegaly or neck vein distention. Cardiovascular examination reveals regular rhythm rate. S1-S2 normal. No S3 or S4. No discernible murmur noted. Heart sounds are distant. Heart rate 80 bpm. Lungs reveal scattered rhonchi. No wheezes or crackles. Breath sounds equal. The patient does not take deep breaths. Abdomen soft bowel sounds are heard. No masses or tenderness. Extremities are intact. No cyanosis clubbing or edema. Skin is without rash or lesion. Neurologic examination reveals an awake individual, that does respond to verbal stimuli. He does move all 4 extremities. He seems a bit confused. - Labs CBC & Chem 7: 09/09/20 04:50 09/09/20 04:50 Labs: Abnormal Lab Results - Last 24 Hours (Table) 09/08/20 09/08/20 09/08/20 Range/Units 11:50 12:25 16:55 WBC (3.8-10.6) k/uL RBC (4.30-5.90) m/uL Hgb (13.0-17.5) gm/dL Hct (39.0-53.0) % MCV (80.0-100.0) fL RDW (11.5-15.5) % Neutrophils # (Manual) (1.3-7.7) k/uL Monocytes # (Manual) (0-1.0) k/uL Metamyelocytes # (Man) (0) k/uL Myelocytes # (Manual) (0) k/uL Macrocytosis Chloride 111 H (98-107) mmol/L Carbon Dioxide 20 L (22-30) mmol/L BUN 76 H (9-20) mg/dL Creatinine 3.25 H (0.66-1.25) mg/dL Glucose 199 H (74-99) mg/dL POC Glucose (mg/dL) 194 H (75-99) mg/dL Troponin I 98.600 H* (0.000-0.034) ng/mL Crossmatch 09/08/20 09/08/20 09/09/20 Range/Units 16:57 21:00 04:48 WBC (3.8-10.6) k/uL RBC (4.30-5.90) m/uL Hgb (13.0-17.5) gm/dL Hct (39.0-53.0) % MCV (80.0-100.0) fL RDW (11.5-15.5) % Neutrophils # (Manual) (1.3-7.7) k/uL Monocytes # (Manual) (0-1.0) k/uL Metamyelocytes # (Man) (0) k/uL Myelocytes # (Manual) (0) k/uL Macrocytosis Chloride (98-107) mmol/L Carbon Dioxide (22-30) mmol/L BUN (9-20) mg/dL Creatinine (0.66-1.25) mg/dL Glucose (74-99) mg/dL POC Glucose (mg/dL) 207 H 215 H 192 H (75-99) mg/dL Troponin I (0.000-0.034) ng/mL Crossmatch 09/09/20 09/09/20 09/09/20 Range/Units 04:50 04:50 06:34 WBC 34.4 H (3.8-10.6) k/uL RBC 2.04 L (4.30-5.90) m/uL Hgb 6.9 L* (13.0-17.5) gm/dL Hct 21.3 L (39.0-53.0) % MCV 104.4 H (80.0-100.0) fL RDW 19.9 H (11.5-15.5) % Neutrophils # (Manual) 25.10 H (1.3-7.7) k/uL Monocytes # (Manual) 5.85 H (0-1.0) k/uL Metamyelocytes # (Man) 0.34 H (0) k/uL Myelocytes # (Manual) 0.34 H (0) k/uL Macrocytosis Marked A Chloride 111 H (98-107) mmol/L Carbon Dioxide (22-30) mmol/L BUN 67 H (9-20) mg/dL Creatinine 2.90 H (0.66-1.25) mg/dL Glucose 188 H (74-99) mg/dL POC Glucose (mg/dL) 199 H (75-99) mg/dL Troponin I (0.000-0.034) ng/mL Crossmatch 09/09/20 Range/Units 09:05 WBC (3.8-10.6) k/uL RBC (4.30-5.90) m/uL Hgb (13.0-17.5) gm/dL Hct (39.0-53.0) % MCV (80.0-100.0) fL RDW (11.5-15.5) % Neutrophils # (Manual) (1.3-7.7) k/uL Monocytes # (Manual) (0-1.0) k/uL Metamyelocytes # (Man) (0) k/uL Myelocytes # (Manual) (0) k/uL Macrocytosis Chloride (98-107) mmol/L Carbon Dioxide (22-30) mmol/L BUN (9-20) mg/dL Creatinine (0.66-1.25) mg/dL Glucose (74-99) mg/dL POC Glucose (mg/dL) (75-99) mg/dL Troponin I (0.000-0.034) ng/mL Crossmatch See Detail Microbiology - Last 24 Hours (Table) 09/08/20 12:45 Gram Stain - Preliminary Sputum Sputum Culture - Preliminary Assessment and Plan Assessment: Mental status changes, with unresponsiveness, likely secondary to acute myocardial infarction, and third-degree heart block, status post transvenous pacemaker, as well as intubation and mechanical ventilation on September 07 by EMS. Status post extubation on 09/08/2020. Rule out anoxic encephalopathy. Hypotension, currently on norepinephrine. History of chronic bronchial asthma. History of coronary artery disease, status post bypass grafting. History of CVA. Diabetes mellitus. History of hyperlipidemia. History of hypertension. History of hypothyroidism. History of iron deficiency anemia. History of BPH. Multiple other medical problems and comorbidities. Plan: Plan dated 09/08/2020. We will discontinue the propofol and assess the patient's neurologic status. The patient apparently had issues for over 2 hours before EMS was called. The patient may of sustained significant anoxic brain injury. Additional recommendations and suggestions are forthcoming. Apparently the family is coming in to see the patient today. The patient remains on norepinephrine at 15 mcg/m. The FiO2 on the ventilator to this dropped to 45%. Additional recommendations and suggestions are forthcoming. We will begin tube feeds. Prognosis is poor. Plan dated 09/09/2020. We were able to get the patient extubated yesterday, September 08. The patient is not requiring any supplemental oxygen. Saturations are in the low 90s. For her low hemoglobin, the patient will receive 1 unit of packed red blood cells. TSH and cortisol levels are both normal. We'll add some midodrine to see for can wean the norepinephrine off. Currently, he is on norepinephrine at 7.6 mcg/m. He is getting lactated Ringer's at 75 mL an hour. Infectious diseases saw the patient and added Zosyn and daptomycin. The family has made the patient's DO NOT RESUSCITATE. I believe that to be appropriate. Time with Patient: Greater than 30
--- NOTE | 2020-09-09 10:41 | PN ---
PROGRESS NOTE INTERVAL HISTORY: Mr. Ortiz is an 85-year-old male who presented with an episode of unresponsiveness. He was noted to be in complete heart block with slow ventricular response. He underwent temporary pacemaker implantation. He is extubated. He is awake, confused, but denying any chest pain. He denies any dizziness. He denies any palpitation. On the monitor, he continues to be 100% paced with complete heart block and slow escape. He had evidence of myocardial infarction with elevation of his troponins. He had an echocardiogram that showed ejection fraction 30-35% with anteroseptal and apical anterior wall severe hypokinesis to akinesis. He continues to be on aspirin, Lipitor 40 mg daily, levothyroxine. PHYSICAL EXAMINATION: VITAL SIGNS: Blood pressure 115/50 with the heart rate paced at 80. LUNGS: Clear anteriorly. HEART: Regular rate and rhythm S1, S2. No S3 with a systolic murmur. No diastolic murmur. ABDOMEN: Soft and nontender. EXTREMITIES: No significant edema. LAB DATA: Lab data revealed a hemoglobin down to 6.9, BUN and creatinine 67 and 2.9, which is improving. His troponin peaked at 98. IMPRESSION: 1. Complete heart block, persistent. 2. Myocardial infarction with moderately severely impaired systolic function with segmental wall motion abnormality. 3. Status post coronary artery bypass grafting. 4. Renal failure, improving. 5. Severe anemia. RECOMMENDATION: From the cardiac standpoint, will continue clinical observation. If he continues to be requiring temporary pacemaker, he will require a permanent one. In regard to his troponin elevation at this time coronary angiography is not advisable in view of the renal failure and severe anemia. We will await stabilization to make further recommendations. The prognosis remains quite guarded. MMODL / IJN: [id number] /
[2020-09-09 11:32] LABS: Glucose,Whole Blood 165 mg/dL (75-99)
[2020-09-09] MEDS: MIDODRINE 5 MG TAB PO SCH ×2 (11:36→17:02)
[2020-09-09 16:16] LABS: Anisocytosis Slight; HCT 23.6 % (39.0-53.0); HGB 7.9 gm/dL (13.0-17.5); MCH 33.7 pg (25.0-35.0); MCHC 33.6 g/dL (31.0-37.0); MCV 100.3 fL (80.0-100.0); Macrocytosis Moderate; Mean Platelet Volume 8.5; Platelet Count 163 k/uL (150-450); RBC 2.35 m/uL (4.30-5.90); RDW 19.5 % (11.5-15.5); WBC 38.1 k/uL (3.8-10.6)
[2020-09-09 16:57] LABS: Glucose,Whole Blood 162 mg/dL (75-99)
--- NOTE | 2020-09-09 20:15 | PN ---
PROGRESS NOTE DATE OF SERVICE: 09/09/2020 REASON FOR FOLLOW UP: 1. Left gluteal MRSA abscess cellulitis. 2. Possible aspiration pneumonia. INTERVAL HISTORY: Patient is afebrile. The patient has been extubated, is slightly lethargic though hemodynamically stable not on any pressor support. No vomiting or diarrhea has been reported by nursing staff. PHYSICAL EXAMINATION: Blood pressure 104/47, pulse of 89, temperature 98.7, he is 97% on 5% FiO2. GENERAL DESCRIPTION: Is a middle-aged male lying in bed in no distress. RESPIRATORY SYSTEM: Unlabored breathing, decreased breath sounds in the base, with no wheeze. HEART: S1, S2. Regular rate and rhythm. ABDOMEN: Soft, bowel sounds normal. LABS: White count 38.1, hemoglobin 7.9. Creatinine is down to 0.90. Sputum is pending. DIAGNOSTIC IMPRESSION AND PLAN: 1. Patient with left gluteal MRSA abscess, cellulitis. The patient has developed nephrotoxicity to vancomycin, is currently on daptomycin. 2. Patient with possible aspiration pneumonia, covered with Zosyn with worsening of the white count. We will monitor closely. at the bedside. Questions were answered. MMODL / IJN: [id number] /
[2020-09-09 20:59] LABS: Glucose,Whole Blood 178 mg/dL (75-99)
[2020-09-09] MEDS ORDERED: ALPRAZolam 0.5 MG TAB PO STA (23:08)
[2020-09-10] MEDS: LACTATED RINGERS 1,000 ML IV SCH ×2 (03:14→16:37)
[2020-09-10 03:40] LABS: Glucose,Whole Blood 403 mg/dL (75-99)
[2020-09-10 04:42] LABS: Anisocytosis Moderate; HCT 23.3 % (39.0-53.0); HGB 7.5 gm/dL (13.0-17.5); MCH 32.8 pg (25.0-35.0); MCHC 32.1 g/dL (31.0-37.0); MCV 102.2 fL (80.0-100.0); Macrocytosis Marked; Mean Platelet Volume 8.6; Platelet Count 160 k/uL (150-450); RBC 2.28 m/uL (4.30-5.90); RDW 20.9 % (11.5-15.5); WBC 32.3 k/uL (3.8-10.6)
[2020-09-10 05:00] LABS: Band Neutrophils % 4 %; Lymphocytes # (M) 3.88 k/uL (1.0-4.8); Monocytes # (M) 4.85 k/uL (0-1.0); Neutrophils % (M) 69 %; Nucleated Red Blood Cells 0 /100 WBC (0-0); Total Cells Counted 100
[2020-09-10 05:01] LABS: Toxic Granulation Present
[2020-09-10 06:11] LABS: Albumin 2.5 g/dL (3.5-5.0); Calcium 9.2 mg/dL (8.4-10.2); Potassium 4.4 mmol/L (3.5-5.1); Total Bilirubin 0.4 mg/dL (0.2-1.3); Total Protein 5.9 g/dL (6.3-8.2)
[2020-09-10 06:40] LABS: Glucose,Whole Blood 148 mg/dL (75-99)
[2020-09-10] MEDS: INSULIN ASPART (NovoLOG) 100 UNIT/ML VIAL SQ SCH ×4 (06:43→20:52)
[2020-09-10] MEDS: MIDODRINE 5 MG TAB PO SCH ×3 (09:26→16:36)
[2020-09-10] MEDS: PIPERACILLIN-TAZOBACTAM 3.375 GM in SODIUM CHLORIDE 0.9% 100 ML IVPB SCH ×2 (09:26→20:53)
[2020-09-10] MEDS: LEVOTHYROXINE 50 MCG TAB PO SCH (09:26)
[2020-09-10] MEDS: ATORVASTATIN 40 MG TAB PO SCH (09:26)
[2020-09-10] MEDS: ASPIRIN 81 MG PO SCH (09:26)
[2020-09-10] MEDS: IPRATROPIUM-ALBUTEROL 3 ML NEB INHALATION SCH ×4 (09:56→20:55)
--- NOTE | 2020-09-10 09:56 | P.PN ---
Subjective Progress Note Date: 09/10/20 85-year-old male with a history of CVA, diabetes, coronary disease, bypass grafting, and sacral wounds of recent bacteremia, who was at [facility]. Apparently, according to the ER janelle and my nurses in the ICU, the patient started having some changes in mental status. Apparently they waited fo r quite some time before EMS was called. Maybe 2 hours or so. When EMS arrived, the patient was unresponsive, and they intubated him at the scene. He was hypotensive at that time, with a heart rate of 20. He was brought to the emergency room he was further evaluated. He was found to be in third-degree heart block. The patient was taken to the catheterization laboratory and had a transvenous pacemaker placed by one of the cardiologists. Apparently, the patient has no rhythm under the pacemaker. He apparently has occasional P-wave QRS complex, but essentially his asystole. The patient is on the ventilator. 09/08/2020, the patient was extubated, on room air. He is receiving norepinep hrine at 0.05 mcg/kg/m, and lactated Ringer's at 75 mL an hour. For low hemoglobin, the patient received 1 unit of packed red blood cells. The patient is currently on Zosyn and daptomycin as per infectious diseases. Note that the patient has history of coronary artery disease. The patient developed also an acute myocardial infarctions elevation of troponin. Echocardiogram showed an ejection fraction of 30-35% along with anteroseptal and anteroapical wall motion abnormalities. Note that the patient is post coronary artery bypass surgery several years back. The patient also developed an acute kidney injury from which she is approving. White cell count was on the rise and the patient was started on a combination of Zosyn and daptomycin. Infectious disease also on the case in combination with cardiology. In terms of his acute myocardial infarction, no cardiac catheterization was done as the patient had developed an acute kidney injury.The patient remains on the percent paced with transvenous pacemaker at the rate of 80. Hemodynamically stable and pressor requirements have improved compared to yesterday. The plan is to ultimately undergoing a cardiac catheterization once the renal function improves and possibly have a pacemaker inserted. The patient was seen by Dr. Perales from cardiology. Creatinine for now is improving and is currently down to 2.48. Serum bicarb is 22 with a sodium level of 141. Troponin peaked at 98.6 consistent with an acute non-STEMI. White cell count is at 32.3. He is covered with broad-spectrum antibiotics and ID is on the case. Blood cultures of been negative.he is on room air oxygen for now. No signs of any respiratory distress. He is a no code, no intubation Objective - Vital Signs Vital signs: Vital Signs Temp 98.4 F 09/10/20 08:00 Pulse 80 09/10/20 09:00 Resp 13 09/10/20 09:00 BP 111/61 09/10/20 06:00 Pulse Ox 93 L 09/10/20 09:00 Intake & Output 09/09/20 09/10/20 09/10/20 18:59 06:59 18:59 Intake Total 9795.713 3914.097 190 Output Total 605 670 10 Balance 1052.626 357.097 180 Weight 78.2 kg 78.8 kg Intake: IV 900 900 190 .9 kvo 40 Lactated Ringers 1,000 ml 900 900 150 @ 75 mls/hr IV .[id number] [facility] Rx#:[id number] Intake, IV Titration 137.626 127.097 Amount Norepinephrine 8 mg In 137.626 127.097 Sodium Chloride 0.9% 250 ml @ 0.05 MCG/KG/MIN 7.45 mls/hr IV .Q24H [facility] Rx#: [id number] Blood Product 620 Rc As-1 Unit 310 [id number] Output: Urine 605 670 10 Other: Voiding Method Indwelling Catheter Indwelling Catheter Indwelling Catheter ABP, PAP, CO, CI - Last Documented Arterial Blood Pressure 110/47 - Exam No acute distress, confused, currently on room air. Saturations are 93%. He is on RA HEENT examination is grossly unremarkable. Neck supple. Full range of motion. No adenopathy thyromegaly or neck vein distention. Cardiovascular examination reveals regular rhythm rate. V paced at a rate of 80. S1-S2 normal. No S3 or S4. No discernible murmur noted. Heart sounds are distant. Lungs reveal scattered rhonchi. No wheezes or crackles. Breath sounds equal. The patient does not take deep breaths. Abdomen soft bowel sounds are heard. No masses or tenderness. Extremities are intact. No cyanosis clubbing or edema. Skin is without rash or lesion. Neurologic examination reveals an awake individual, that does respond to verbal stimuli. He does move all 4 extremities. He seems a bit confused. - Labs CBC & Chem 7: 09/10/20 04:24 09/10/20 04:24 Labs: Abnormal Lab Results - Last 24 Hours (Table) 09/07/20 09/09/20 09/09/20 Range/Units 19:20 09:05 11:31 WBC (3.8-10.6) k/uL RBC (4.30-5.90) m/uL Hgb (13.0-17.5) gm/dL Hct (39.0-53.0) % MCV (80.0-100.0) fL RDW (11.5-15.5) % Neutrophils # (Manual) (1.3-7.7) k/uL Monocytes # (Manual) (0-1.0) k/uL Macrocytosis Chloride (98-107) mmol/L BUN (9-20) mg/dL Creatinine (0.66-1.25) mg/dL Glucose (74-99) mg/dL POC Glucose (mg/dL) 403 H 165 H (75-99) mg/dL AST (17-59) U/L Total Protein (6.3-8.2) g/dL Albumin (3.5-5.0) g/dL Crossmatch See Detail 09/09/20 09/09/20 09/09/20 Range/Units 16:13 16:55 20:57 WBC 38.1 H (3.8-10.6) k/uL RBC 2.35 L (4.30-5.90) m/uL Hgb 7.9 L (13.0-17.5) gm/dL Hct 23.6 L (39.0-53.0) % MCV 100.3 H (80.0-100.0) fL RDW 19.5 H (11.5-15.5) % Neutrophils # (Manual) (1.3-7.7) k/uL Monocytes # (Manual) (0-1.0) k/uL Macrocytosis Chloride (98-107) mmol/L BUN (9-20) mg/dL Creatinine (0.66-1.25) mg/dL Glucose (74-99) mg/dL POC Glucose (mg/dL) 162 H 178 H (75-99) mg/dL AST (17-59) U/L Total Protein (6.3-8.2) g/dL Albumin (3.5-5.0) g/dL Crossmatch 09/10/20 09/10/20 09/10/20 Range/Units 04:24 04:24 06:38 WBC 32.3 H (3.8-10.6) k/uL RBC 2.28 L (4.30-5.90) m/uL Hgb 7.5 L (13.0-17.5) gm/dL Hct 23.3 L (39.0-53.0) % MCV 102.2 H (80.0-100.0) fL RDW 20.9 H (11.5-15.5) % Neutrophils # (Manual) 23.50 H (1.3-7.7) k/uL Monocytes # (Manual) 4.85 H (0-1.0) k/uL Macrocytosis Marked A Chloride 112 H (98-107) mmol/L BUN 55 H (9-20) mg/dL Creatinine 2.48 H (0.66-1.25) mg/dL Glucose 153 H (74-99) mg/dL POC Glucose (mg/dL) 148 H (75-99) mg/dL AST 112 H (17-59) U/L Total Protein 5.9 L (6.3-8.2) g/dL Albumin 2.5 L (3.5-5.0) g/dL Crossmatch Microbiology - Last 24 Hours (Table) 09/08/20 12:45 Gram Stain - Final Sputum Sputum Culture - Final 09/08/20 16:43 Blood Culture - Preliminary Blood No Growth after 24 hours Assessment and Plan Plan: 1 Mental status changes, with unresponsiveness, likely secondary to acute myocardial infarction, and third-degree heart block, status post transvenous pacemaker, as well as intubation and mechanical ventilation on September 07 , status post extubation on 09/08/2020, Rule out anoxic encephalopathy. He is Oa x1 and that could be his baseline Consider underlying dementia 2 Hypotension, currently on norepinephrine, A requirements are down compared to yesterday and the patient continues to be V paced rate of 80 3 acute non-ST segment elevation myocardial infarction with elevation of troponins, able to the cardiac catheterization based on underlying acute kidney injury. Note that the patient is known to have COPD and previous bypass surgery 4 acute kidney injury, improving, cr is down to 2.4 5 acute leukocytosis currently on a combination of daptomycin and Zosyn, cul tures are negative, WBC is elevated 6 History of CVA. 7 Diabetes mellitus. 8 History of hyperlipidemia. 9 History of hypertension. 10 History of hypothyroidism. 11 History of BPH. 12 Multiple other medical problems and comorbidities. 13 Chronic anemia and interval drop in the Hb, the patient is also known to have chronic iron deficiency anemia. 14 History of chronic bronchial asthma. Plan: Keep transvenous pacer, Vpaced rate 80 norepinephrine to weaned off lactated Ringer's at 75 mL an hour Zosyn and daptomycin. Monitor Cr and consider cath once improved possible pacemaker, permanent DO NOT RESUSCITATE
[2020-09-10] MEDS ORDERED: ALPRAZolam 0.25 MG TAB PO PRN (10:29)
--- NOTE | 2020-09-10 10:55 | P.PN ---
Subjective Progress Note Date: 09/10/20 85-year-old male with a history of diabetes mellitus type 2, coronary artery disease status post CABG, hypertension, dyslipidemia, hypothyroidism, and multiple decubitus ulcers with recent sepsis secondary to MRSA requiring IV antibiotics. Patient is a resident at [facility] and EMS was called for the patient being unresponsive. In the ER he was found to have third-degree AV block. Laboratory analysis showed a white blood cell count 25.6, hemoglobin 8.4, and troponin of 2.13, his potassium was also noted to be 6.3, BUN 79, and creatinine 4.2. He was immediately taken to the cardiac [facility] for insertion of a transvenous pacemaker. He is minutes the ICU for further monitoring. Critical care was consulted. Due to his renal failure nephrology was consulted. Infectious disease was consulted who recommended starting the patient empirically on Zosyn and daptomycin as well as checking blood cultures. Echocardiogram: Diffuse global hypokinesis, ejection fraction 30-35% Patient seen and examined at bedside. He is currently resting and does not wake up to voice. Per nursing's and O 0 has been very restless and required Xanax last night. They're concerned with him pulling at lines and tubes as he continues to require transvenous pacemaker. General: non toxic, no distress, appears at stated age Derm: warm, dry Head: atraumatic, normocephalic, symmetric Eyes: EOMI, no lid lag, anicteric sclera Mouth: no lip lesion, mucus membranes moist Cardiovascular: S1S2 reg, no murmur, positive posterior tibial pulse bilateral, Lungs: Decreased breath sounds bilateral], no rhonchi, no rales , no accessory muscle use Abdominal: soft, nontender to palpation, no guarding, no appreciable organomegaly Ext: + gross muscle atrophy, no edema, no contractures Neuro: CN II-XI grossly intact, no focal neuro deficits Psych: Sleeping does not arouse to voice, will not attempt to wake up as the patient does move any lines he is at risk for due to his requirement for transvenous pacemaker Third-degree heart block Non-STEMI Systolic cardiomyopathy with ejection fraction 30-30% -Cardiology recommendations appreciated: plans are for PPM and possible cath once renal function is stabilized. Toxic metabolic encephalopathy -Safe and supportive care -Likely secondary continue third-degree heart block, acute myocardial infarction, and possibly sepsis Shock, possibly septic versus cardiogenic -Started on Midrin secondary to hypotension -Continue to wean the Levophed -Critical care recs Acute renal failure with hyperkalemia and severe anion gap metabolic acidosis -Nephrology recommendations appreciated - conitnue with LR - Avoid nephrotoxic agents Macrocytic anemia -Status post 1 unit of packed red blood cells - possibly secondary to hypothyroidism - check B12 and Folic Acid Diabetes mellitus type 2 - SSI - follow BS - hold levemir - A1C 5.7 Multiple pressure ulcers -Frequent turns -Offload -Barrier cream Chronic: Coronary artery disease Dyslipidemia Hypothyroidism Asthma History of CVA BPH DVT prophylaxis: SCDs Discussed with: patient, nursing Anticipated discharge: 5-[address]: return to [facility] facility A total of 35 minutes was spent on the care of this complex patient more than 50% of the time was spent in counseling and care coordination. Objective - Vital Signs Vital signs: Vital Signs Temp 98.4 F 09/10/20 08:00 Pulse 79 09/10/20 10:00 Resp 17 09/10/20 10:00 BP 111/61 09/10/20 06:00 Pulse Ox 93 L 09/10/20 10:00 Intake & Output 09/09/20 09/10/20 09/10/20 18:59 06:59 18:59 Intake Total 0620.136 9843.097 480 Output Total 605 670 155 Balance 1052.626 357.097 325 Weight 78.2 kg 78.8 kg Intake: IV 900 900 480 .9 kvo 80 Lactated Ringers 1,000 ml 900 900 300 @ 75 mls/hr IV .[id number] [facility] Rx#:[id number] Piperacillin-Tazobactam 3 100 .375 gm In Sodium Chloride 0.9% 100 ml @ 25 mls/hr IVPB Q12HR [facility] Rx #:[id number] Intake, IV Titration 137.626 127.097 Amount Norepinephrine 8 mg In 137.626 127.097 Sodium Chloride 0.9% 250 ml @ 0.05 MCG/KG/MIN 7.45 mls/hr IV .Q24H [facility] Rx#: [id number] Blood Product 620 Rc As-1 Unit 310 [id number] Output: Urine 605 670 155 Other: Voiding Method Indwelling Catheter Indwelling Catheter Indwelling Catheter ABP, PAP, CO, CI - Last Documented Arterial Blood Pressure 121/52 - Labs CBC & Chem 7: 09/10/20 04:24 09/10/20 04:24 Labs: Abnormal Lab Results - Last 24 Hours (Table) 09/07/20 09/09/20 09/09/20 Range/Units 19:20 09:05 11:31 WBC (3.8-10.6) k/uL RBC (4.30-5.90) m/uL Hgb (13.0-17.5) gm/dL Hct (39.0-53.0) % MCV (80.0-100.0) fL RDW (11.5-15.5) % Neutrophils # (Manual) (1.3-7.7) k/uL Monocytes # (Manual) (0-1.0) k/uL Macrocytosis Chloride (98-107) mmol/L BUN (9-20) mg/dL Creatinine (0.66-1.25) mg/dL Glucose (74-99) mg/dL POC Glucose (mg/dL) 403 H 165 H (75-99) mg/dL AST (17-59) U/L Total Protein (6.3-8.2) g/dL Albumin (3.5-5.0) g/dL Crossmatch See Detail 09/09/20 09/09/20 09/09/20 Range/Units 16:13 16:55 20:57 WBC 38.1 H (3.8-10.6) k/uL RBC 2.35 L (4.30-5.90) m/uL Hgb 7.9 L (13.0-17.5) gm/dL Hct 23.6 L (39.0-53.0) % MCV 100.3 H (80.0-100.0) fL RDW 19.5 H (11.5-15.5) % Neutrophils # (Manual) (1.3-7.7) k/uL Monocytes # (Manual) (0-1.0) k/uL Macrocytosis Chloride (98-107) mmol/L BUN (9-20) mg/dL Creatinine (0.66-1.25) mg/dL Glucose (74-99) mg/dL POC Glucose (mg/dL) 162 H 178 H (75-99) mg/dL AST (17-59) U/L Total Protein (6.3-8.2) g/dL Albumin (3.5-5.0) g/dL Crossmatch 09/10/20 09/10/20 09/10/20 Range/Units 04:24 04:24 06:38 WBC 32.3 H (3.8-10.6) k/uL RBC 2.28 L (4.30-5.90) m/uL Hgb 7.5 L (13.0-17.5) gm/dL Hct 23.3 L (39.0-53.0) % MCV 102.2 H (80.0-100.0) fL RDW 20.9 H (11.5-15.5) % Neutrophils # (Manual) 23.50 H (1.3-7.7) k/uL Monocytes # (Manual) 4.85 H (0-1.0) k/uL Macrocytosis Marked A Chloride 112 H (98-107) mmol/L BUN 55 H (9-20) mg/dL Creatinine 2.48 H (0.66-1.25) mg/dL Glucose 153 H (74-99) mg/dL POC Glucose (mg/dL) 148 H (75-99) mg/dL AST 112 H (17-59) U/L Total Protein 5.9 L (6.3-8.2) g/dL Albumin 2.5 L (3.5-5.0) g/dL Crossmatch Microbiology - Last 24 Hours (Table) 09/08/20 12:45 Gram Stain - Final Sputum Sputum Culture - Final 09/08/20 16:43 Blood Culture - Preliminary Blood No Growth after 24 hours
--- NOTE | 2020-09-10 11:36 | P.PN ---
Subjective This is an 85-year-old male who presented to the hospital secondary to unresponsiveness and noted to be in complete heart block. He underwent TVP placement. He continues to be maintained on TVP and is 100% paced. TVP slowed to evaluate underlying rhythm and he continues to be in complete heart block. He is confused at baseline and pulling at tubes. He does not answer any questions. He appears comfortable laying flat at rest. Blood pressure 118/51 heart rate 79 afebrile maintaining oxygen saturation on nasal cannula. Laborato ry data reviewed, WBC 32.3, hemoglobin 7.5, platelets 160, sodium 141, potassium 4.4, creatinine 2.48. Currently maintained on aspirin 81 mg daily, midodrine 5 mg 3 times a day and IV antibiotics. GENERAL: Well-appearing, well-nourished and in no acute distress. NECK: Supple without JVD or thyromegaly. LUNGS: Breath sounds clear to auscultation bilaterally. Respiration equal and unlabored. No wheezes, rales or rhonchi. HEART: Regular rate and rhythm with systolic ejection murmur at the base, no rubs or gallops. S1 and S2 heard. EXTREMITIES: Normal range of motion, no edema. No clubbing or cyanosis. Peripheral pulses intact. ASSESSMENT Complete heart block, persistent Non-ST elevated myocardial infarction Acute systolic heart failure, clinically euvolemic Schema cardiomyopathy Metabolic encephalopathy Diabetes mellitus Leukocytosis Wound infection Coronary artery disease status post bypass grafting Anemia PLAN Continue current medical regimen. Discussed with Dr. Mike, plan for possible permanent pacemaker implantation tomorrow if he remains in complete heart block. Left a message with his to discuss and update her of the plan of care. NPO after midnight tonight. Further recommendations to follow based on clinical course. Nurse Practitioner note has been reviewed, I agree with a documented findings and plan of care. Patient was seen and examined. Objective - Vital Signs Vital signs: Vital Signs Temp 98.4 F 09/10/20 08:00 Pulse 79 09/10/20 11:22 Resp 13 09/10/20 11:00 BP 111/61 09/10/20 06:00 Pulse Ox 93 L 09/10/20 11:00 Intake & Output 09/09/20 09/10/20 09/10/20 18:59 06:59 18:59 Intake Total 7479.295 4242.097 480 Output Total 605 670 155 Balance 1052.626 357.097 325 Weight 78.2 kg 78.8 kg Intake: IV 900 900 480 .9 kvo 80 Lactated Ringers 1,000 ml 900 900 300 @ 75 mls/hr IV .[id number] [facility] Rx#:[id number] Piperacillin-Tazobactam 3 100 .375 gm In Sodium Chloride 0.9% 100 ml @ 25 mls/hr IVPB Q12HR [facility] Rx #:[id number] Intake, IV Titration 137.626 127.097 Amount Norepinephrine 8 mg In 137.626 127.097 Sodium Chloride 0.9% 250 ml @ 0.05 MCG/KG/MIN 7.45 mls/hr IV .Q24H [facility] Rx#: [id number] Blood Product 620 Rc As-1 Unit 310 [id number] Output: Urine 605 670 155 Other: Voiding Method Indwelling Catheter Indwelling Catheter Indwelling Catheter ABP, PAP, CO, CI - Last Documented Arterial Blood Pressure 118/51 - Labs CBC & Chem 7: 09/10/20 04:24 09/10/20 04:24 Labs: Abnormal Lab Results - Last 24 Hours (Table) 09/07/20 09/09/20 09/09/20 Range/Units 19:20 09:05 11:31 WBC (3.8-10.6) k/uL RBC (4.30-5.90) m/uL Hgb (13.0-17.5) gm/dL Hct (39.0-53.0) % MCV (80.0-100.0) fL RDW (11.5-15.5) % Neutrophils # (Manual) (1.3-7.7) k/uL Monocytes # (Manual) (0-1.0) k/uL Macrocytosis Chloride (98-107) mmol/L BUN (9-20) mg/dL Creatinine (0.66-1.25) mg/dL Glucose (74-99) mg/dL POC Glucose (mg/dL) 403 H 165 H (75-99) mg/dL AST (17-59) U/L Total Protein (6.3-8.2) g/dL Albumin (3.5-5.0) g/dL Crossmatch See Detail 0709/09/20 09/09/20 Range/Units 16:13 16:55 20:57 WBC 38.1 H (3.8-10.6) k/uL RBC 2.35 L (4.30-5.90) m/uL Hgb 7.9 L (13.0-17.5) gm/dL Hct 23.6 L (39.0-53.0) % MCV 100.3 H (80.0-100.0) fL RDW 19.5 H (11.5-15.5) % Neutrophils # (Manual) (1.3-7.7) k/uL Monocytes # (Manual) (0-1.0) k/uL Macrocytosis Chloride (98-107) mmol/L BUN (9-20) mg/dL Creatinine (0.66-1.25) mg/dL Glucose (74-99) mg/dL POC Glucose (mg/dL) 162 H 178 H (75-99) mg/dL AST (17-59) U/L Total Protein (6.3-8.2) g/dL Albumin (3.5-5.0) g/dL Crossmatch 09/10/20 09/10/20 09/10/20 Range/Units 04:24 04:24 06:38 WBC 32.3 H (3.8-10.6) k/uL RBC 2.28 L (4.30-5.90) m/uL Hgb 7.5 L (13.0-17.5) gm/dL Hct 23.3 L (39.0-53.0) % MCV 102.2 H (80.0-100.0) fL RDW 20.9 H (11.5-15.5) % Neutrophils # (Manual) 23.50 H (1.3-7.7) k/uL Monocytes # (Manual) 4.85 H (0-1.0) k/uL Macrocytosis Marked A Chloride 112 H (98-107) mmol/L BUN 55 H (9-20) mg/dL Creatinine 2.48 H (0.66-1.25) mg/dL Glucose 153 H (74-99) mg/dL POC Glucose (mg/dL) 148 H (75-99) mg/dL AST 112 H (17-59) U/L Total Protein 5.9 L (6.3-8.2) g/dL Albumin 2.5 L (3.5-5.0) g/dL Crossmatch Microbiology - Last 24 Hours (Table) 09/08/20 12:45 Gram Stain - Final Sputum Sputum Culture - Final 09/08/20 16:43 Blood Culture - Preliminary Blood No Growth after 24 hours
[2020-09-10 11:43] LABS: Glucose,Whole Blood 123 mg/dL (75-99)
[2020-09-10] MEDS: DAPTOmycin 500 MG in SODIUM CHLORIDE 0.9% 50 ML IVPB SCH (11:59)
--- NOTE | 2020-09-10 12:41 | PN ---
PROGRESS NOTE Patient is seen for followup for acute kidney injury. Patient's renal function is currently improving. Creatinine has decreased from 4.2 at peak to 2.48 now. Urine output at about 30-100 mL an hour. PHYSICAL EXAMINATION: Today patient is comfortable. Blood pressure 118/51, heart rate 79 per minute, he is afebrile. Examination of the heart S1, S2. Examination of the lungs, bilateral breath sounds are heard. Abdomen is soft, nontender. Examination of lower extremities shows no significant edema. IT GENERALIST exam, the patient is currently sleeping. He has been arousable, confused and pulling at lines. He is moving all 4 extremities. LABS: Show sodium 141, potassium 4.4, chloride 112, CO2 is 22, BUN 55, creatinine 2.48, hemoglobin 7.5 g/dL. ASSESSMENT: 1. Acute kidney injury ATN currently improving, nonoliguric. Also component of vancomycin toxicity. 2. Severe metabolic acidosis, currently resolved. 3. Hyperkalemia associated with hyperglycemia, metabolic acidosis, acute kidney injury, currently resolved. 4. Sacral decub. PLAN: Continue with daptomycin. Continue with midodrine and try to wean down Levophed. Repeat labs in a.m. Avoid nephrotoxic agents. MMODL / IJN: [id number] /
--- NOTE | 2020-09-10 14:23 | CDI ---
Documentation Clarification Form Date: 09/10/2020 01:49:02 PM From: Lola Jang RN, CCDS Admit Date: 09/07/2020 09:11:00 PM Patient Name: Arnulfo Ortiz Visit Number: [id number] Discharge Date: ATTENTION: The Clinical Documentation Specialists (CDI) and [facility] Coding Staff appreciate your assistance in clarifying documentation. Please respond to the clarification below the line at the bottom and electronically sign. The CDI & [facility] Coding staff will review the response and follow-up if needed. Please note: Queries are made part of the Legal Health Record. If you have any questions, please contact the author of this message via ITS. Dr. Navid Clifton The patient was found unresponsive by nursing staff at [facility]. EMS found patient to be hypotensive heart rate 20, unresponsive. he was intubated and was being bagged on arrival hospital. Based on this information and the findings below, is there an additional diagnosis that is clinically appropriate for this patient? History/Risk Factors: CVA, Diabetes mellitus, Coronary artery disease, Sepsis Clinical Indicators: 85-year-old male was unresponsive at time of EMS arrival to [facility] in was intubated and being bagged on arrival to hospital. 09/07/20 (19:22) Vital signs: 96/54 79 16 97 % BVM to Mechanical Ventilator 09/07 Labs: BUN 55 CR 2.48, CO2 112 09/07 Lung/Breathing assessment ED: rales (left base), 09/07 ED (20:00) ABG/CBG: pH 7.22 pO2 >400 pCO2 33 Treatment: ICU/Telemetry monitoring 09/07 (19:40)Mechanical ventilation ( per pulmonary) ( 09/08 (12:49) Extubate Monitor O2 Sat's (titrate) Albuterol/Ipratropium Duoneb 3ML Paige Q4 and Q2 PRN Levophed IV as directed Is there an additional diagnosis that is clinically appropriate for this patient? [ ] Acute Hypoxic Respiratory Failure (pO2 <60 mm Hg or SpO2 <91% on room air) [ ] Acute Hypercapnic Respiratory Failure (pCO2 >50 and pH <7.35) [ ] Other Diagnosis, please specify [ ] Unable to determine (Template Last Revised: April 2020) MTDD
[2020-09-10 16:31] LABS: Glucose,Whole Blood 144 mg/dL (75-99)
[2020-09-10] MEDS: NOREPINEPHRINE 8 MG in SODIUM CHLORIDE 0.9% 250 ML IV SCH (19:08)
[2020-09-10] MEDS ORDERED: SODIUM CHLORIDE 0.9% 1,000 ML IV SCH ×2 (19:15)
--- NOTE | 2020-09-10 19:22 | PN ---
PROGRESS NOTE DATE OF SERVICE: 09/10/2020 REASON FOR FOLLOWUP: 1. Left gluteal MRSA infection. 2. Possible aspiration pneumonia. INTERVAL HISTORY: Patient is currently afebrile. The patient is still requiring pressor support, though requirement is trending down per the nursing staff. The patient remains to be lethargic and is unable to provide any history. No vomiting, diarrhea or any other changes reported. PHYSICAL EXAMINATION: Blood pressure 117/49 with pulse of 79, temperature 98.1. She is 99% on room air. General description is the patient is an elderly male lying in bed in no distress. Respiratory system: Unlabored breathing, decreased breath sounds in the bases. No wheeze. Heart: S1, S2. Regular rate and rhythm. Abdomen soft, no tenderness. LABS: Hemoglobin 7.4, white count of 22.3, BUN of 55, creatinine is 2.48. DIAGNOSTIC IMPRESSION AND PLAN: Patient with left gluteal abscess and cellulitis MRSA for which the patient is getting vancomycin in the hospital with renal failure, elevated potassium and heart block and there was concern for possible aspiration pneumonia. Patient is on daptomycin and Zosyn. White count showing a downward trend and we will monitor closely. Continue supportive care. MMODL / IJN: [id number] /
[2020-09-10 20:54] LABS: Glucose,Whole Blood 84 mg/dL (75-99)
[2020-09-11] MEDS: LACTATED RINGERS 1,000 ML IV SCH ×2 (06:04→20:25)
[2020-09-11] MEDS: LEVOTHYROXINE 50 MCG TAB PO SCH (06:04)
[2020-09-11 06:20] LABS: Anisocytosis Slight; HCT 24.1 % (39.0-53.0); HGB 7.9 gm/dL (13.0-17.5); MCH 33.7 pg (25.0-35.0); MCHC 32.8 g/dL (31.0-37.0); MCV 102.8 fL (80.0-100.0); Mean Platelet Volume 10.1; Platelet Count 169 k/uL (150-450); RBC 2.34 m/uL (4.30-5.90); RDW 19.8 % (11.5-15.5); WBC 24.4 k/uL (3.8-10.6)
[2020-09-11 06:35] LABS: Macrocytosis Marked
[2020-09-11 06:36] LABS: Glucose,Whole Blood 150 mg/dL (75-99)
[2020-09-11] MEDS: MIDODRINE 5 MG TAB PO SCH ×3 (06:36→17:14)
[2020-09-11] MEDS: INSULIN ASPART (NovoLOG) 100 UNIT/ML VIAL SQ SCH ×4 (06:36→20:25)
[2020-09-11 08:07] LABS: Albumin 2.4 g/dL (3.5-5.0); Calcium 9.1 mg/dL (8.4-10.2); Magnesium 1.8 mg/dL (1.6-2.3); Phosphorus 4.1 mg/dL (2.5-4.5); Potassium 4.4 mmol/L (3.5-5.1); Total Bilirubin 0.5 mg/dL (0.2-1.3); Total Protein 5.9 g/dL (6.3-8.2)
[2020-09-11] MEDS: IPRATROPIUM-ALBUTEROL 3 ML NEB INHALATION SCH ×4 (09:03→19:51)
--- NOTE | 2020-09-11 09:39 | P.PN ---
Subjective Progress Note Date: 09/11/20 85-year-old male with a history of CVA, diabetes, coronary disease, bypass grafting, and sacral wounds of recent bacteremia, who was at [facility]. Apparently, according to the ER janelle and my nurses in the ICU, the patient started having some changes in mental status. Apparently they waited fo r quite some time before EMS was called. Maybe 2 hours or so. When EMS arrived, the patient was unresponsive, and they intubated him at the scene. He was hypotensive at that time, with a heart rate of 20. He was brought to the emergency room he was further evaluated. He was found to be in third-degree heart block. The patient was taken to the catheterization laboratory and had a transvenous pacemaker placed by one of the cardiologists. Apparently, the patient has no rhythm under the pacemaker. He apparently has occasional P-wave QRS complex, but essentially his asystole. The patient is on the ventilator. 09/08/2020, the patient was extubated, on room air. He is receiving norepinep hrine at 0.05 mcg/kg/m, and lactated Ringer's at 75 mL an hour. For low hemoglobin, the patient received 1 unit of packed red blood cells. The patient is currently on Zosyn and daptomycin as per infectious diseases. Note that the patient has history of coronary artery disease. The patient developed also an acute myocardial infarctions elevation of troponin. Echocardiogram showed an ejection fraction of 30-35% along with anteroseptal and anteroapical wall motion abnormalities. Note that the patient is post coronary artery bypass surgery several years back. The patient also developed an acute kidney injury from which she is approving. White cell count was on the rise and the patient was started on a combination of Zosyn and daptomycin. Infectious disease also on the case in combination with cardiology. In terms of his acute myocardial infarction, no cardiac catheterization was done as the patient had developed an acute kidney injury.The patient remains on the percent paced with transvenous pacemaker at the rate of 80. Hemodynamically stable and pressor requirements have improved compared to yesterday. The plan is to ultimately undergoing a cardiac catheterization once the renal function improves and possibly have a pacemaker inserted. The patient was seen by Dr. Perales from cardiology. Creatinine for now is improving and is currently down to 2.48. Serum bicarb is 22 with a sodium level of 141. Troponin peaked at 98.6 consistent with an acute non-STEMI. White cell count is at 32.3. He is covered with broad-spectrum antibiotics and ID is on the case. Blood cultures of been negative.he is on room air oxygen for now. No signs of any respiratory distress. He is a no code, no intubation Evaluation 09/11/2020, the patient continues to be in third-degree AV block and the patient is currently V paced at the rate of 80. The plan is ultimately to undergo a cardiac permanent pacemaker insertion and there is being planned to be done on 09/13/2020. The patient continues to be on low-dose pressors and this morning he is on norepinephrine at a dose of 0.02 mcg/kg per minute and I'm sure this going to be weaned off over the next 24 hours. His white cell count continues to improve and his Asacol is down to 24. Hemoglobin stable at 7.9. Renal function was improving yesterday and the follow-up labs show a BUN of 48 with a creatinine of 2.1 and the creatinine is down from 2.4 down to 2.1 since yesterday. Serum bicarb is at 24. Troponin peaked at 98 and as mentioned earlier the patient suffered a acute non-STEMI. Meanwhile, he is afebrile. His cultures came back all negative. The patient was covered empirically with antibiotics. The patient remains on daptomycin and IV Zosyn for now. His echocardiogram showing an ejection fraction of 3035% along with segmental wall motion abnormalities. He is known to have CAD and previous bypass surgery. The antibiotic coverage as per ID. Blood cultures of been negative thus far. No fever. She has been infected with MRSA in the past regarding a left gluteal abscess and cellulitis. Choice of antibiotic as per ID. White cell count continues to trend downwards. The right hip wound has healed. Objective - Vital Signs Vital signs: Vital Signs Temp 97.7 F 09/11/20 09:00 Pulse 78 09/11/20 09:03 Resp 19 09/11/20 09:00 BP 123/64 09/11/20 07:00 Pulse Ox 92 L 09/11/20 09:00 Intake & Output 09/10/20 09/11/20 09/11/20 18:59 06:59 18:59 Intake Total 4241.214 8210.384 407.291 Output Total 470 470 110 Balance 975.667 786.384 297.291 Weight 80.4 kg Intake: IV 1335 1045 391 .9 kvo 260 220 60 A-line 6 Lactated Ringers 1,000 ml 975 825 225 @ 50 mls/hr IV .Q20H [facility] Rx#:[id number] Piperacillin-Tazobactam 3 100 100 .375 gm In Sodium Chloride 0.9% 100 ml @ 25 mls/hr IVPB Q12HR [facility] Rx #:[id number] Intake, IV Titration 110.667 136.384 16.291 Amount DAPTOmycin 500 mg In 50 Sodium Chloride 0.9% 50 ml @ 100 mls/hr IVPB Q48H [facility] Rx#:[id number] Norepinephrine 8 mg In 60.667 136.384 16.291 Sodium Chloride 0.9% 250 ml @ 0.05 MCG/KG/MIN 7.45 mls/hr IV .Q24H [facility] Rx#: [id number] Oral 75 Output: Urine 470 470 110 Other: Voiding Method Indwelling Catheter Indwelling Catheter ABP, PAP, CO, CI - Last Documented Arterial Blood Pressure 107/80 - Exam No acute distress, confused, currently on room air. Saturations are 93%. He is on 2 liters/nc, awake and alert and communicating. HEENT examination is grossly unremarkable. Neck supple. Full range of motion. No adenopathy thyromegaly or neck vein distention. Cardiovascular examination reveals regular rhythm rate. V paced at a rate of 80. S1-S2 normal. No S3 or S4. No discernible murmur noted. Heart sounds are distant. Lungs reveal scattered rhonchi. No wheezes or crackles. Breath sounds equal. The patient does not take deep breaths. Abdomen soft bowel sounds are heard. No masses or tenderness. Extremities are intact. No cyanosis clubbing or edema. Skin is without rash or lesion. The patient is a left gluteal stage II infection with MRSA. The right hip wound has essentially healed Neurologic examination reveals an awake individual, that does respond to verbal stimuli. He does move all 4 extremities. He seems a bit confused. - Labs CBC & Chem 7: 09/11/20 05:30 09/11/20 05:30 Labs: Abnormal Lab Results - Last 24 Hours (Table) 09/10/20 09/10/20 09/11/20 Range/Units 11:41 16:30 05:30 WBC (3.8-10.6) k/uL RBC (4.30-5.90) m/uL Hgb (13.0-17.5) gm/dL Hct (39.0-53.0) % MCV (80.0-100.0) fL RDW (11.5-15.5) % Macrocytosis Chloride 114 H (98-107) mmol/L BUN 48 H (9-20) mg/dL Creatinine 2.16 H (0.66-1.25) mg/dL Glucose 166 H (74-99) mg/dL POC Glucose (mg/dL) 123 H 144 H (75-99) mg/dL AST 63 H (17-59) U/L Total Protein 5.9 L (6.3-8.2) g/dL Albumin 2.4 L (3.5-5.0) g/dL 09/11/20 09/11/20 Range/Units 05:30 06:34 WBC 24.4 H (3.8-10.6) k/uL RBC 2.34 L (4.30-5.90) m/uL Hgb 7.9 L (13.0-17.5) gm/dL Hct 24.1 L (39.0-53.0) % MCV 102.8 H (80.0-100.0) fL RDW 19.8 H (11.5-15.5) % Macrocytosis Marked A Chloride (98-107) mmol/L BUN (9-20) mg/dL Creatinine (0.66-1.25) mg/dL Glucose (74-99) mg/dL POC Glucose (mg/dL) 150 H (75-99) mg/dL AST (17-59) U/L Total Protein (6.3-8.2) g/dL Albumin (3.5-5.0) g/dL Microbiology - Last 24 Hours (Table) 09/08/20 16:43 Blood Culture - Preliminary Blood No Growth after 48 hours 09/08/20 12:45 Gram Stain - Final Sputum Sputum Culture - Final Assessment and Plan Plan: 1 Mental status changes, with unresponsiveness, likely secondary to acute myocardial infarction, and third-degree heart block, status post transvenous pacemaker, as well as intubation and mechanical ventilation on September 07 , status post extubation on 09/08/2020, Rule out anoxic encephalopathy. He is Oa x1 and that could be his baseline Consider underlying dementia 2 Hypotension, currently on norepinephrine, continues to be V paced rate of 80 , on low-dose norepinephrine infusion for blood pressure support. 3 acute non-ST segment elevation myocardial infarction with elevation of troponins, able to the cardiac catheterization based on underlying acute kidney injury. Note that the patient is known to have COPD and previous bypass surgery 4 acute kidney injury, improving, cr is down to 2.1 5 acute leukocytosis currently on a combination of daptomycin and Zosyn, cultures are negative, WBC is elevated so count continues to improve. The wounds were inspected again and there are no signs of any active infection. 6 History of CVA. 7 Diabetes mellitus. 8 History of hyperlipidemia. 9 History of hypertension. 10 History of hypothyroidism. 11 History of BPH. 12 Multiple other medical problems and comorbidities. 13 Chronic anemia and interval drop in the Hb, the patient is also known to have chronic iron deficiency anemia. 14 History of chronic bronchial asthma. 15 left gluteal MRSA infection currently on daptomycin, the wound has healed 16 right hip stage I wound, healed Plan: Keep transvenous pacer, Vpaced rate 80 norepinephrine being weaned off lactated Ringer's at 75 mL an hour Zosyn and daptomycin. That essentially healing at this point in time. No signs of any acute infection. White cell count is also improving. Monitor Cr and consider cath once improved Will need a pacemaker, permanent DO NOT RESUSCITATE
[2020-09-11] MEDS: PIPERACILLIN-TAZOBACTAM 3.375 GM in SODIUM CHLORIDE 0.9% 100 ML IVPB SCH ×3 (09:50→22:56)
[2020-09-11] MEDS: ASPIRIN 81 MG PO SCH (09:50)
[2020-09-11] MEDS: ATORVASTATIN 40 MG TAB PO SCH (09:51)
--- NOTE | 2020-09-11 10:59 | P.PN ---
Subjective This is an 85-year-old male who presented to the hospital secondary to unresponsiveness and noted to be in complete heart block. He underwent TVP placement. He continues to be maintained on TVP and is 100% paced. TVP slowed to evaluate underlying rhythm and he continues to be in complete heart block. He is confused at baseline and pulling at tubes. He does not answer any questions. He appears comfortable laying flat at rest. Blood pressure 118/51 heart rate 79 afebrile maintaining oxygen saturation on nasal cannula. Laborato ry data reviewed, WBC 32.3, hemoglobin 7.5, platelets 160, sodium 141, potassium 4.4, creatinine 2.48. Currently maintained on aspirin 81 mg daily, midodrine 5 mg 3 times a day and IV antibiotics. 09/11/2020 Pt seen and examined laying flat in bed in no acute distress. He continues to be pacer dependent. Blood pressure 107/80 heart rate 78 afebrile and maintaining oxygen saturation on nasal cannula. He is awake and answering questions but still confused at baseline. Laboratory data reviewed, WBC 24.4, hemoglobin 7.9, platelets 169, sodium 142, potassium 4.4, creatinine 2.16. GENERAL: Well-appearing, well-nourished and in no acute distress. NECK: Supple without JVD or thyromegaly. LUNGS: Breath sounds clear to auscultation bilaterally. Respiration equal and unlabored. No wheezes, rales or rhonchi. HEART: Regular rate and rhythm with systolic ejection murmur at the base, no rubs or gallops. S1 and S2 heard. EXTREMITIES: Normal range of motion, no edema. No clubbing or cyanosis. Per ipheral pulses intact. ASSESSMENT Complete heart block, persistent Non-ST elevated myocardial infarction Acute systolic heart failure, clinically euvolemic Schema cardiomyopathy Metabolic encephalopathy Diabetes mellitus Leukocytosis Wound infection Coronary artery disease status post bypass grafting Anemia PLAN Continue current medical regimen. Plan for pacemaker insertion 09/[address] Mike. Continue to optimize his underlying infection and medical therapy. Nurse Practitioner note has been reviewed, I agree with a documented findings and plan of care. Patient was seen and examined. Objective - Vital Signs Vital signs: Vital Signs Temp 97.7 F 09/11/20 09:00 Pulse 78 09/11/20 09:03 Resp 19 09/11/20 09:00 BP 123/64 09/11/20 07:00 Pulse Ox 92 L 09/11/20 09:00 Intake & Output 09/10/20 09/11/20 09/11/20 18:59 06:59 18:59 Intake Total 3585.042 6470.384 407.291 Output Total 470 470 110 Balance 975.667 786.384 297.291 Weight 80.4 kg 80.4 kg Intake: IV 1335 1045 391 .9 kvo 260 220 60 A-line 6 Lactated Ringers 1,000 ml 975 825 225 @ 50 mls/hr IV .Q20H [facility] Rx#:[id number] Piperacillin-Tazobactam 3 100 100 .375 gm In Sodium Chloride 0.9% 100 ml @ 25 mls/hr IVPB Q12HR [facility] Rx #:[id number] Intake, IV Titration 110.667 136.384 16.291 Amount DAPTOmycin 500 mg In 50 Sodium Chloride 0.9% 50 ml @ 100 mls/hr IVPB Q48H [facility] Rx#:[id number] Norepinephrine 8 mg In 60.667 136.384 16.291 Sodium Chloride 0.9% 250 ml @ 0.05 MCG/KG/MIN 7.45 mls/hr IV .Q24H [facility] Rx#: [id number] Oral 75 Output: Urine 470 470 110 Other: Voiding Method Indwelling Catheter Indwelling Catheter ABP, PAP, CO, CI - Last Documented Arterial Blood Pressure 107/80 - Labs CBC & Chem 7: 09/11/20 05:30 09/11/20 05:30 Labs: Abnormal Lab Results - Last 24 Hours (Table) 09/10/20 09/10/20 09/11/20 Range/Units 11:41 16:30 05:30 WBC (3.8-10.6) k/uL RBC (4.30-5.90) m/uL Hgb (13.0-17.5) gm/dL Hct (39.0-53.0) % MCV (80.0-100.0) fL RDW (11.5-15.5) % Macrocytosis Chloride 114 H (98-107) mmol/L BUN 48 H (9-20) mg/dL Creatinine 2.16 H (0.66-1.25) mg/dL Glucose 166 H (74-99) mg/dL POC Glucose (mg/dL) 123 H 144 H (75-99) mg/dL AST 63 H (17-59) U/L Total Protein 5.9 L (6.3-8.2) g/dL Albumin 2.4 L (3.5-5.0) g/dL 09/11/20 09/11/20 Range/Units 05:30 06:34 WBC 24.4 H (3.8-10.6) k/uL RBC 2.34 L (4.30-5.90) m/uL Hgb 7.9 L (13.0-17.5) gm/dL Hct 24.1 L (39.0-53.0) % MCV 102.8 H (80.0-100.0) fL RDW 19.8 H (11.5-15.5) % Macrocytosis Marked A Chloride (98-107) mmol/L BUN (9-20) mg/dL Creatinine (0.66-1.25) mg/dL Glucose (74-99) mg/dL POC Glucose (mg/dL) 150 H (75-99) mg/dL AST (17-59) U/L Total Protein (6.3-8.2) g/dL Albumin (3.5-5.0) g/dL Microbiology - Last 24 Hours (Table) 09/08/20 16:43 Blood Culture - Preliminary Blood No Growth after 48 hours 09/08/20 12:45 Gram Stain - Final Sputum Sputum Culture - Final
[2020-09-11 11:42] LABS: Glucose,Whole Blood 92 mg/dL (75-99)
--- NOTE | 2020-09-11 13:57 | P.PN ---
Subjective Progress Note Date: 09/11/20 (delayed charting seen at 10am) Principal diagnosis: unresponsive Patient is a 85-year-old male with a history of diabetes mellitus type 2, coronary artery disease status post CABG, hypertension, dyslipidemia, hypothyroidism, and multiple decubitus ulcers with recent sepsis secondary to MRSA requiring IV antibiotics. Patient is a resident at [facility] and EMS was called for the patient being unresponsive. In the ER he was found to have third-degree AV block. Laboratory analysis showed a white blood cell count 25.6, hemoglobin 8.4, and troponin of 2.13, his potassium was also noted to be 6.3, BUN 79, and creatinine 4.2. He was immediately taken to the cardiac Night Auditor for insertion of a transvenous pacemaker. He is minutes the ICU for further monitoring. Critical care was consulted. Due to his renal failure nephrology was consulted. Infectious disease was consulted who recommended starting the patient empirically on Zosyn and daptomycin as well as checking blood cultures. He continued to require pacing and will have a PPM. His infection was thought that his infection was due to his ongoing gluteal abscess. Echocardiogram: Diffuse global hypokinesis, ejection fraction 30-35% Patient seen and examined at bedside. He is awake and alert to self. He did not know why he was in the hospital. No chest pain, SOB, n/v. Per nursing plan is PPM 09/13 General: non toxic, no distress, appears at stated age Derm: warm, dry Head: atraumatic, normocephalic, symmetric Eyes: EOMI, no lid lag, anicteric sclera Mouth: no lip lesion, mucus membranes moist Cardiovascular: S1S2 reg, no murmur, positive posterior tibial pulse bilateral, Lungs: Decreased breath sounds bilateral, no rhonchi, no rales , no accessory muscle use Abdominal: soft, nontender to palpation, no guarding, no appreciable organomegaly Ext: + gross muscle atrophy, no edema, no contractures Neuro: CN II-XI grossly intact, no focal neuro deficits Psych: awake alert to self and year, appropriate affect. 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 -ASA, statin Toxic metabolic encephalopathy -Safe and supportive care -Likely secondary continue third-degree heart block, acute myocardial infarction, and possibly sepsis Shock, possibly septic versus cardiogenic MRSA Gluteal Abscess -Started on Midrin secondary to hypotension -Continue to wean the Levophed -Critical care recs -ID recs -Dapto and Vano Acute renal failure with hyperkalemia and severe anion gap metabolic acidosis - Nephrology recommendations appreciated - conitnue with LR - Avoid nephrotoxic agents Macrocytic anemia -Status post 1 unit of packed red blood cells - possibly secondary to hypothyroidism - B12 normal, folic acid pending Diabetes mellitus type 2 - SSI - follow BS - hold levemir - A1C 5.7 Multiple pressure ulcers -Frequent turns -Offload -Barrier cream Chronic: Coronary artery disease Dyslipidemia Hypothyroidism Asthma History of CVA BPH DVT prophylaxis: SCDs Discussed with: patient, nursing Anticipated discharge: 5-[address]: return to [facility] facility A total of 35 minutes was spent on the care of this complex patient more than 50% of the time was spent in counseling and care coordination. Objective - Vital Signs Vital signs: Vital Signs Temp 97.1 F L 09/11/20 11:30 Pulse 79 09/11/20 13:00 Resp 13 09/11/20 13:00 BP 123/64 09/11/20 07:00 Pulse Ox 100 09/11/20 13:00 Intake & Output 09/10/20 09/11/20 09/11/20 18:59 06:59 18:59 Intake Total 7193.128 6883.384 775.797 Output Total 470 470 245 Balance 975.667 786.384 530.797 Weight 80.4 kg 80.4 kg Intake: IV 1335 1045 753 .9 kvo 260 220 110 A-line 18 Lactated Ringers 1,000 ml 975 825 525 @ 50 mls/hr IV .Q20H [facility] Rx#:[id number] Piperacillin-Tazobactam 3 100 100 .375 gm In Sodium Chloride 0.9% 100 ml @ 25 mls/hr IVPB Q12HR [facility] Rx #:[id number] Intake, IV Titration 110.667 136.384 22.797 Amount DAPTOmycin 500 mg In 50 Sodium Chloride 0.9% 50 ml @ 100 mls/hr IVPB Q48H [facility] Rx#:[id number] Norepinephrine 8 mg In 60.667 136.384 22.797 Sodium Chloride 0.9% 250 ml @ 0.05 MCG/KG/MIN 7.45 mls/hr IV .Q24H [facility] Rx#: [id number] Oral 75 Output: Urine 470 470 245 Other: Voiding Method Indwelling Catheter Indwelling Catheter Indwelling Catheter ABP, PAP, CO, CI - Last Documented Arterial Blood Pressure 116/58 - Labs CBC & Chem 7: 09/11/20 05:30 09/11/20 05:30 Labs: Abnormal Lab Results - Last 24 Hours (Table) 09/10/20 09/11/20 09/11/20 Range/Units 16:30 05:30 05:30 WBC 24.4 H (3.8-10.6) k/uL RBC 2.34 L (4.30-5.90) m/uL Hgb 7.9 L (13.0-17.5) gm/dL Hct 24.1 L (39.0-53.0) % MCV 102.8 H (80.0-100.0) fL RDW 19.8 H (11.5-15.5) % Macrocytosis Marked A Chloride 114 H (98-107) mmol/L BUN 48 H (9-20) mg/dL Creatinine 2.16 H (0.66-1.25) mg/dL Glucose 166 H (74-99) mg/dL POC Glucose (mg/dL) 144 H (75-99) mg/dL AST 63 H (17-59) U/L Total Protein 5.9 L (6.3-8.2) g/dL Albumin 2.4 L (3.5-5.0) g/dL 09/11/20 Range/Units 06:34 WBC (3.8-10.6) k/uL RBC (4.30-5.90) m/uL Hgb (13.0-17.5) gm/dL Hct (39.0-53.0) % MCV (80.0-100.0) fL RDW (11.5-15.5) % Macrocytosis Chloride (98-107) mmol/L BUN (9-20) mg/dL Creatinine (0.66-1.25) mg/dL Glucose (74-99) mg/dL POC Glucose (mg/dL) 150 H (75-99) mg/dL AST (17-59) U/L Total Protein (6.3-8.2) g/dL Albumin (3.5-5.0) g/dL Microbiology - Last 24 Hours (Table) 09/08/20 16:43 Blood Culture - Preliminary Blood No Growth after 48 hours
--- NOTE | 2020-09-11 13:59 | PN ---
PROGRESS NOTE Patient is seen for followup for acute kidney injury. His renal function continues to improve. Currently patient is maintained on IV fluids at about 75 mL an hour. He has been confused this morning, is awake and remains in soft restraints. PHYSICAL EXAMINATION: Blood pressure was 112/52, heart rate 79 per minute, he is afebrile. Examination of the heart S1, S2. Examination of the lungs, bilateral breath sounds are heard. Decreased breath sounds at bases. Abdomen is soft, nontender. Examination lower extremities shows no significant edema. TRANSMISSION SYSTEMS OPERATOR exam shows patient is confused. He is awake today. He is moving all 4 extremities. LAB: Show sodium 142, potassium 4.1, chloride 114, CO2 is 24, BUN 48, creatinine 2.16, hemoglobin 7.9 g/dL. ASSESSMENT: 1. Acute kidney, acute tubular necrosis, currently improving. Also component of vancomycin toxicity. 2. Severe metabolic acidosis, currently resolved. 3. Hyperkalemia associated with hyperglycemia, metabolic acidosis, acute kidney injury, currently improved. 4. Sacral decubitus ulcer. PLAN: Continue with daptomycin. Continue the Ringer lactate at 50 mL an hour. Continue with midodrine and wean down the Levophed. We can increase the midodrine to 10 mg t.i.d. MMODL / IJN: [id number] /
--- NOTE | 2020-09-11 15:50 | CDI ---
Documentation Clarification Form Date: 09/10/2020 01:49:00 PM From: Lola Jang RN, CCDS Admit Date: 09/07/2020 09:11:00 PM Patient Name: Arnulfo Ortiz Visit Number: [id number] Discharge Date: ATTENTION: The Clinical Documentation Specialists (CDI) and [facility] Coding Staff appreciate your assistance in clarifying documentation. Please respond to the clarification below the line at the bottom and electronically sign. The CDI & [facility] Coding staff will review the response and follow-up if needed. Please note: Queries are made part of the Legal Health Record. If you have any questions, please contact the author of this message via ITS. Dr. Navid Clifton The patient was found unresponsive by nursing staff at [facility]. EMS found patient to be hypotensive heart rate 20, unresponsive. he was intubated and was being bagged on arrival hospital. Based on this information and the findings below, is there an additional diagnosis that is clinically appropriate for this patient? 09/07 Cardiology consult: Complete heart block, probably exacerbated by the hyperkalemia and the renal failure. Respiratory failure. History/Risk Factors: CVA, Diabetes mellitus, Coronary artery disease, Sepsis Clinical Indicators: 85-year-old male was unresponsive at time of EMS arrival to [facility] in was intubated and being bagged on arrival to hospital. 09/07/20 (19:22)Vital signs: 96/54 79 16 97 % BVM to Mechanical Ventilator 09/07 Lung/Breathing assessment ED: rales (left base), 09/07 ED (20:00) ABG/CBG: pH 7.22 pO2 >400 pCO2 33 09/07 Labs: BUN 55 CR 2.48, CO2 112 Treatment: ICU/Telemetry monitoring 09/07 ( 19:40 )Mechanical ventilation ( per pulmonary) ( 09/08 (12:49) Extubate Monitor O2 Sat's (titrate) Albuterol/Ipratropium Duoneb 3ML Paige Q4 and Q2 PRN Levophed IV as directed Is there an additional diagnosis that is clinically appropriate for this patient? [ ] Acute Hypoxic Respiratory Failure (pO2 <60 mm Hg or SpO2 <91% on room air) [ ] Acute Hypercapnic Respiratory Failure (pCO2 >50 and pH <7.35) [ ] Other Diagnosis, please specify [ ] Unable to determine (Template Last Revised: April 2020) Unable to determine MTDD
[2020-09-11 18:07] LABS: Glucose,Whole Blood 56 mg/dL (75-99)
[2020-09-11 18:12] LABS: Glucose,Whole Blood 142 mg/dL (75-99)
[2020-09-11 20:23] LABS: Glucose,Whole Blood 94 mg/dL (75-99)
--- NOTE | 2020-09-11 22:43 | PN ---
PROGRESS NOTE DATE OF SERVICE: 09/11/2020 REASON FOR FOLLOWUP: 1. Left pleural MRSA and sepsis and cellulitis. 2. Possible aspiration pneumonia. INTERVAL HISTORY: The patient is afebrile. The patient is slightly more awake and alert and oriented. The patient is currently on room air. The patient is hemodynamically stable, did answer some simple questions. No vomiting or diarrhea has been reported. PHYSICAL EXAMINATION: Blood pressure 111/46, pulse of 91, temperature 98. General description is an elderly male lying in bed in no distress. Respiratory system: Unlabored breathing, decreased breath sounds in the base. No wheeze. Heart S1, S2. Regular rate and rhythm. Abdomen soft, no tenderness. LABS: Hemoglobin is 7.1, white count down to 24.4. BUN of , creatinine is 2.16. Blood culture repeat has been negative so far. DIAGNOSTIC IMPRESSION AND PLAN: Patient admitted to the hospital with sepsis, acute respiratory failure, possible aspiration pneumonia in this patient getting treatment for the left gluteal abscess cellulitis secondary MRSA and did have the patient seemed to be clinically responding to Zosyn that will be continued. White count is trending down. Continue supportive care. MMODL / IJN: [id number] /
[2020-09-12 05:33] LABS: Anisocytosis Moderate; HCT 23.4 % (39.0-53.0); HGB 7.5 gm/dL (13.0-17.5); Hypochromasia Slight; MCH 32.9 pg (25.0-35.0); Macrocytosis Marked; Mean Platelet Volume 9.6; Platelet Count 192 k/uL (150-450); RBC 2.27 m/uL (4.30-5.90); RDW 20.2 % (11.5-15.5); WBC 18.5 k/uL (3.8-10.6)
[2020-09-12 05:36] LABS: Albumin 2.3 g/dL (3.5-5.0); Calcium 8.8 mg/dL (8.4-10.2); Potassium 4.3 mmol/L (3.5-5.1); Total Bilirubin 0.4 mg/dL (0.2-1.3); Total Protein 5.7 g/dL (6.3-8.2)
[2020-09-12] MEDS: INSULIN ASPART (NovoLOG) 100 UNIT/ML VIAL SQ SCH ×4 (06:38→21:43)
[2020-09-12 06:39] LABS: Glucose,Whole Blood 113 mg/dL (75-99)
[2020-09-12] MEDS: LEVOTHYROXINE 50 MCG TAB PO SCH (06:41)
[2020-09-12] MEDS: MIDODRINE 5 MG TAB PO SCH ×3 (06:41→17:07)
[2020-09-12 06:54] LABS: Band Neutrophils % 1 %; Lymphocytes # (M) 1.48 k/uL (1.0-4.8); Monocytes # (M) 2.78 k/uL (0-1.0); Neutrophils % (M) 76 %; Nucleated Red Blood Cells 0 /100 WBC (0-0); Total Cells Counted 100
[2020-09-12] MEDS: IPRATROPIUM-ALBUTEROL 3 ML NEB INHALATION SCH ×4 (08:17→19:19)
[2020-09-12] MEDS ORDERED: FUROSEMIDE 10 MG/ML 4 ML VIAL IV STA (08:46)
--- NOTE | 2020-09-12 08:49 | XR ---
EXAMINATION TYPE: XR chest 1V DATE OF EXAM: 09/12/2020 COMPARISON: 09/09/2020 HISTORY: Shortness of breath FINDINGS: There are bilateral pleural effusions with cardiomegaly and bibasilar infiltrate. There is a diffuse interstitial pattern. Postoperative change with right-sided central line. Left-sided PICC line seen. Epicardial lead suggested. IMPRESSION: 1. Bilateral infiltrate and pleural effusion correlate for CHF. Underlying pneumonia not excluded. Fi ndings stable.
--- NOTE | 2020-09-12 09:29 | P.PN ---
Subjective This is an 85-year-old male who presented to the hospital secondary to unresponsiveness and noted to be in complete heart block. He underwent TVP placement. He continues to be maintained on TVP and is 100% paced. TVP slowed to evaluate underlying rhythm and he continues to be in complete heart block. He is confused at baseline and pulling at tubes. He does not answer any questions. He appears comfortable laying flat at rest. Blood pressure 118/51 heart rate 79 afebrile maintaining oxygen saturation on nasal cannula. Laborato ry data reviewed, WBC 32.3, hemoglobin 7.5, platelets 160, sodium 141, potassium 4.4, creatinine 2.48. Currently maintained on aspirin 81 mg daily, midodrine 5 mg 3 times a day and IV antibiotics. 09/12/2020 Pt seen and examined laying flat in bed in no acute distress. Blood pressure 102/58 heart rate 78 afebrile and maintaining oxygen saturation on nasal cannula. Laboratory data reviewed, WBC 18.5, hemoglobin 7.5, platelets 192, sodium 142, potassium 4.3 and creatinine 2.01. He continues to be 100% pacemaker dependent. He has underlying complete heart block. GENERAL: Well-appearing, well-nourished and in no acute distress. NECK: Supple without JVD or thyromegaly. LUNGS: Breath sounds clear to auscultation bilaterally. Respiration equal and unlabored. No wheezes, rales or rhonchi. HEART: Regular rate and rhythm with systolic ejection murmur at the base, no rubs or gallops. S1 and S2 heard. EXTREMITIES: Normal range of motion, trace lower extremity edema. No clubbing or cyanosis. Peripheral pulses intact. ASSESSMENT Complete heart block, persistent Non-ST elevated myocardial infarction Acute systolic heart failure, clinically euvolemic Ischemic cardiomyopathy Aspiration pneumonia Metabolic encephalopathy Diabetes mellitus Leukocytosis Wound infection Coronary artery disease status post bypass grafting Anemia PLAN Continue current medical regimen and antibiotics per ID. Plan for external pacemaker placement tomorrow with Dr. Mike Continue to optimize his underlying infection and medical therapy. Nurse Practitioner note has been reviewed, I agree with a documented findings and plan of care. Patient was seen and examined. Objective - Vital Signs Vital signs: Vital Signs Temp 97.8 F 09/12/20 04:00 Pulse 78 09/12/20 08:29 Resp 12 09/12/20 07:00 BP 102/58 09/12/20 07:00 Pulse Ox 94 L 09/12/20 07:00 Intake & Output 09/11/20 09/12/20 09/12/20 18:59 06:59 18:59 Intake Total 1351.459 909.409 63 Output Total 430 450 40 Balance 921.459 459.409 23 Weight 80.4 kg 84.3 kg Intake: IV 1323 881 63 .9 kvo 190 120 10 A-line 33 36 3 Lactated Ringers 1,000 ml 900 625 50 @ 50 mls/hr IV .Q20H [facility] Rx#:[id number] Piperacillin-Tazobactam 3 200 100 .375 gm In Sodium Chloride 0.9% 100 ml @ 25 mls/hr IVPB Q12HR [facility] Rx #:[id number] Intake, IV Titration 28.459 28.409 Amount Norepinephrine 8 mg In 28.459 28.409 Sodium Chloride 0.9% 250 ml @ 0.05 MCG/KG/MIN 7.45 mls/hr IV .Q24H [facility] Rx#: [id number] Output: Urine 430 450 40 Other: Voiding Method Indwelling Catheter Indwelling Catheter ABP, PAP, CO, CI - Last Documented Arterial Blood Pressure 115/58 - Labs CBC & Chem 7: 09/12/20 03:45 09/12/20 03:45 Labs: Abnormal Lab Results - Last 24 Hours (Table) 09/11/20 09/11/20 09/12/20 Range/Units 18:06 18:10 03:45 WBC 18.5 H (3.8-10.6) k/uL RBC 2.27 L (4.30-5.90) m/uL Hgb 7.5 L (13.0-17.5) gm/dL Hct 23.4 L (39.0-53.0) % MCV 103.0 H (80.0-100.0) fL RDW 20.2 H (11.5-15.5) % Neutrophils # (Manual) 14.20 H (1.3-7.7) k/uL Monocytes # (Manual) 2.78 H (0-1.0) k/uL Macrocytosis Marked A Chloride (98-107) mmol/L Carbon Dioxide (22-30) mmol/L BUN (9-20) mg/dL Creatinine (0.66-1.25) mg/dL Glucose (74-99) mg/dL POC Glucose (mg/dL) 56 L 142 H (75-99) mg/dL Total Protein (6.3-8.2) g/dL Albumin (3.5-5.0) g/dL 09/12/20 09/12/20 Range/Units 03:45 06:37 WBC (3.8-10.6) k/uL RBC (4.30-5.90) m/uL Hgb (13.0-17.5) gm/dL Hct (39.0-53.0) % MCV (80.0-100.0) fL RDW (11.5-15.5) % Neutrophils # (Manual) (1.3-7.7) k/uL Monocytes # (Manual) (0-1.0) k/uL Macrocytosis Chloride 114 H (98-107) mmol/L Carbon Dioxide 19 L (22-30) mmol/L BUN 45 H (9-20) mg/dL Creatinine 2.01 H (0.66-1.25) mg/dL Glucose 130 H (74-99) mg/dL POC Glucose (mg/dL) 113 H (75-99) mg/dL Total Protein 5.7 L (6.3-8.2) g/dL Albumin 2.3 L (3.5-5.0) g/dL Microbiology - Last 24 Hours (Table) 09/08/20 16:43 Blood Culture - Preliminary Blood No Growth after 72 hours
[2020-09-12] MEDS: PIPERACILLIN-TAZOBACTAM 3.375 GM in SODIUM CHLORIDE 0.9% 100 ML IVPB SCH ×2 (09:30→17:07)
[2020-09-12] MEDS: ASPIRIN 81 MG PO SCH (09:30)
[2020-09-12] MEDS: ATORVASTATIN 40 MG TAB PO SCH (09:30)
--- NOTE | 2020-09-12 09:45 | P.PN ---
Subjective Progress Note Date: 09/12/20 On 09/11/2020 patient seen in follow-up in the intensive care unit, he remains pacemaker dependent, he is V paced at a rate of 80 BPM, and underlying rhythm is complete heart block. Blood pressure is 108/46, and patient isn't requiring small amount of norepinephrine currently infusing at a rate of 1.6 mics per minute. Denies any difficulty breathing, he is currently on 2 L of oxygen and the pulse ox of 94%, his had no fever or chills overnight, his white blood cell count is improving on today's labs, and is down to 18.5 from 24.4 on yesterday's labs, hemoglobin is 7.5, sodium is 142, potassium is 4.3, chloride is 114, CO2 is 19, B1 is 45, and creatinine is slightly improved from yesterday, and is down to 2.01. Patient is on lactated Ringer's at a rate of 50 ML per hour, his urine output is in the order of 30-40 mL per hour. Today's chest x-ray showed bilateral bibasilar infiltrates and pleural effusions. Patient remains on a combination of antibiotics in the form of daptomycin, Zosyn, and he was also started on 3 doses of IV Kefzol in preparation for implantation of permanent pacemaker likely tomorrow on 09/13/2020. Neurologically patient is awake and alert, he is answering questions appropriately, slightly confused. This morning he states he is hungry, and would like to eat, he did pass his bedside swallow evaluation. No nausea or vomiting, no abdominal pain. Patient does have bilateral lower extremity edema. We think he could benefit from one dose of IV Lasix this morning. Objective - Vital Signs Vital signs: Vital Signs Temp 97.8 F 09/12/20 04:00 Pulse 78 09/12/20 08:29 Resp 12 09/12/20 07:00 BP 102/58 09/12/20 07:00 Pulse Ox 94 L 09/12/20 07:00 Intake & Output 09/11/20 09/12/20 09/12/20 18:59 06:59 18:59 Intake Total 1351.459 909.409 63 Output Total 430 450 40 Balance 921.459 459.409 23 Weight 80.4 kg 84.3 kg Intake: IV 1323 881 63 .9 kvo 190 120 10 A-line 33 36 3 Lactated Ringers 1,000 ml 900 625 50 @ 50 mls/hr IV .Q20H [facility] Rx#:[id number] Piperacillin-Tazobactam 3 200 100 .375 gm In Sodium Chloride 0.9% 100 ml @ 25 mls/hr IVPB Q12HR [facility] Rx #:[id number] Intake, IV Titration .459 28.409 Amount Norepinephrine 8 mg In .45 28.409 Sodium Chloride 0.9% 250 ml @ 0.05 MCG/KG/MIN 7.45 mls/hr IV .Q24H [facility] Rx#: [id number] Output: Urine 430 450 40 Other: Voiding Method Indwelling Catheter Indwelling Catheter ABP, PAP, CO, CI - Last Documented Arterial Blood Pressure 115/58 - Exam GENERAL EXAM: Alert,the confused, 85-year-old white male, currently on 2 L of oxygen, 93-94%, breathing comfortably,comfortable in no apparent distress. HEAD: Normocephalic/atraumatic. EYES: Normal reaction of pupils, equal size. Conjunctiva pink, sclera white. NOSE: Clear with pink turbinates. THROAT: No erythema or exudates. NECK: No masses, no JVD, no thyroid enlargement, no adenopathy. Right IJ triple- lumen catheter in place CHEST: No chest wall deformity. Symmetrical expansion. LUNGS: Equal air entry with no crackles, wheeze, rhonchi or dullness. CVS: Regular rate and rhythm, normal S1 and S2, no gallops, no murmurs, no rubs ABDOMEN: Soft, nontender. No hepatosplenomegaly, normal bowel sounds, no guarding or rigidity. EXTREMITIES: No clubbing, no edema, no cyanosis, 2+ pulses and upper and lower extremities. MUSCULOSKELETAL: Muscle strength and tone normal. Right groin transvenous pacemaker, currently 100% paced at 80 BPM, underlying rhythm is complete complete heart block SPINE: No scoliosis or deformity SKIN: No rashes, has a superficial stage 2 coccyx decubitus ulcer that is covered with dressing, wound bed is clean and dry, no drainage no slough CENTRAL NERVOUS SYSTEM: Alert and oriented -2. No focal deficits, tone is normal in all 4 extremities. PSYCHIATRIC: Alert and oriented -2. Appropriate affect. Intact judgment and insight. - Labs CBC & Chem 7: 09/12/20 03:45 09/12/20 03:45 Labs: Abnormal Lab Results - Last 24 Hours (Table) 09/11/20 09/11/20 09/12/20 Range/Units 18:06 18:10 03:45 WBC 18.5 H (3.8-10.6) k/uL RBC 2.27 L (4.30-5.90) m/uL Hgb 7.5 L (13.0-17.5) gm/dL Hct 23.4 L (39.0-53.0) % MCV 103.0 H (80.0-100.0) fL RDW 20.2 H (11.5-15.5) % Neutrophils # (Manual) 14.20 H (1.3-7.7) k/uL Monocytes # (Manual) 2.78 H (0-1.0) k/uL Macrocytosis Marked A Chloride (98-107) mmol/L Carbon Dioxide (22-30) mmol/L BUN (9-20) mg/dL Creatinine (0.66-1.25) mg/dL Glucose (74-99) mg/dL POC Glucose (mg/dL) 56 L 142 H (75-99) mg/dL Total Protein (6.3-8.2) g/dL Albumin (3.5-5.0) g/dL 09/12/20 09/12/20 Range/Units 03:45 06:37 WBC (3.8-10.6) k/uL RBC (4.30-5.90) m/uL Hgb (13.0-17.5) gm/dL Hct (39.0-53.0) % MCV (80.0-100.0) fL RDW (11.5-15.5) % Neutrophils # (Manual) (1.3-7.7) k/uL Monocytes # (Manual) (0-1.0) k/uL Macrocytosis Chloride 114 H (98-107) mmol/L Carbon Dioxide 19 L (22-30) mmol/L BUN 45 H (9-20) mg/dL Creatinine 2.01 H (0.66-1.25) mg/dL Glucose 130 H (74-99) mg/dL POC Glucose (mg/dL) 113 H (75-99) mg/dL Total Protein 5.7 L (6.3-8.2) g/dL Albumin 2.3 L (3.5-5.0) g/dL Microbiology - Last 24 Hours (Table) 09/08/20 16:43 Blood Culture - Preliminary Blood No Growth after 72 hours Assessment and Plan Plan: Assessment: #1. Mental status changes, with unresponsiveness, likely secondary to acute myocardial infarction, and third-degree heart block, status post transvenous pacemaker, as well as intubation and mechanical ventilation on September 07 , status post extubation on 09/08/2020, Rule out anoxic encephalopathy. He is Oa x1 and that could be his baseline Consider underlying dementia #2. Hypotension, currently on norepinephrine, continues to be V paced rate of 80 , on low-dose norepinephrine infusion for blood pressure support. #3. acute non-ST segment elevation myocardial infarction with elevation of troponins, able to the cardiac catheterization based on underlying acute kidney injury. Note that the patient is known to have COPD and previous bypass surgery #4. acute kidney injury, improving, cr is down to 2.1 #5. acute leukocytosis currently on a combination of daptomycin and Zosyn, cultures are negative, WBC is elevated so count continues to improve. The wounds were inspected again and there are no signs of any active infection. #6. History of CVA. #7. Diabetes mellitus. #8. History of hyperlipidemia. #9. History of hypertension. #10. History of hypothyroidism. #11. History of BPH. #12. Multiple other medical problems and comorbidities. #13. Chronic anemia and interval drop in the Hb, the patient is also known to have chronic iron deficiency anemia. #14. History of chronic bronchial asthma. #15. Left gluteal MRSA infection currently on daptomycin, the wound has healed #16. right hip stage I wound, healed Plan: Patient is to be 100% pacemaker dependent with underlying rhythm of complete heart block chest x-ray has been reviewed showing bilateral pleural effusions, and patient is significantly in positive net fluid balance We will give one-time dose of Lasix 40 mg Antibiotics per ID service recommendations, all cultures remain negative thus far, leukocytosis is improving Patient is having a permanent pacemaker implantation tomorrow on 09/13/2020 Continue to monitor the patient in the intensive care unit I performed a history & physical examination of the patient and discussed their management with my nurse practitioner, Tabitha Causey. I reviewed the nurse pra ctdelberter's note and agree with the documented findings and plan of care. Lung sounds are positive for diminished breath sounds. The findings and the impression was discussed with the patient. I attest to the documentation by the nurse practitioner. Time with Patient: Less than 30
--- NOTE | 2020-09-12 10:30 | P.PN ---
Subjective Progress Note Date: 09/12/20 Principal diagnosis: unresponsive Patient is a 85-year-old male with a history of diabetes mellitus type 2, coronary artery disease status post CABG, hypertension, dyslipidemia, hy pothyroidism, and multiple decubitus ulcers with recent sepsis secondary to MRSA requiring IV antibiotics. Patient is a resident at [facility] and EMS was called for the patient being unresponsive. In the ER he was found to have third-degree AV block. Laboratory analysis showed a white blood cell count 25.6, hemoglobin 8.4, and troponin of 2.13, his potassium was also noted to be 6.3, BUN 79, and creatinine 4.2. He was immediately taken to the cardiac [facility] for insertion of a transvenous pacemaker. He is minutes the ICU for further monitoring. Critical care was consulted. Due to his renal failure nephrology was consulted. Infectious disease was consulted who recommended starting the patient empirically on Zosyn and daptomycin as well as checking blood cultures. He continued to require pacing and will have a PPM. His infection was thought that his infection was due to his ongoing gluteal abscess. He did require levophed. Echocardiogram: Diffuse global hypokinesis, ejection fraction 30-35% Patient seen and examined at bedside. He is awake and alert to self and year. He knows that he is in the hospital. No chest pain, SOB, n/v. Per nursing plan is PPM 09/13 General: non toxic, no distress, appears at stated age Derm: warm, dry Head: atraumatic, normocephalic, symmetric Eyes: EOMI, no lid lag, anicteric sclera Mouth: no lip lesion, mucus membranes moist Cardiovascular: S1S2 reg, no murmur, positive posterior tibial pulse bilateral, Lungs: Decreased breath sounds bilateral, no rhonchi, no rales , no accessory muscle use Abdominal: soft, nontender to palpation, no guarding, no appreciable organomegaly Ext: + gross muscle atrophy, trace edema, no contractures Neuro: CN II-XI grossly intact, no focal neuro deficits Psych: awake alert to self and year, appropriate affect. 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 -ASA, statin Toxic metabolic encephalopathy -Safe and supportive care -Likely secondary continue third-degree heart block, acute myocardial infarction, and possibly sepsis Shock, possibly septic versus cardiogenic MRSA Gluteal Abscess -Started on Midodrin secondary to hypotension -Continue to wean the Levophed -Critical care recs -ID recs -Dapto and Vano Acute renal failure, resolving - Nephrology recommendations appreciated - conitnue with LR - Avoid nephrotoxic agents Macrocytic anemia -Status post 1 unit of packed red blood cells - possibly secondary to hypothyroidism - B12 normal, folic acid pending Diabetes mellitus type 2 - SSI - follow BS - hold levemir - A1C 5.7 Multiple pressure ulcers -Frequent turns -Offload -Barrier cream hyperkalemia, resolved anion gap metabolic acidosis, resolved Chronic: Coronary artery disease Dyslipidemia Hypothyroidism Asthma History of CVA BPH DVT prophylaxis: SCDs Discussed with: patient, nursing Anticipated discharge: 5-[address]: return to [facility] A total of 35 minutes was spent on the care of this complex patient more than 50% of the time was spent in counseling and care coordination. Objective - Vital Signs Vital signs: Vital Signs Temp 97.0 F L 09/12/20 08:00 Pulse 79 09/12/20 10:00 Resp 13 09/12/20 10:00 BP 87/56 09/12/20 09:00 Pulse Ox 97 09/12/20 10:00 Intake & Output 09/11/20 09/12/20 09/12/20 18:59 06:59 18:59 Intake Total 1351.459 909.409 252 Output Total 430 450 130 Balance 921.459 459.409 122 Weight 80.4 kg 84.3 kg Intake: IV 1323 881 252 .9 kvo 190 120 40 A-line 33 36 12 Lactated Ringers 1,000 ml 900 625 200 @ 50 mls/hr IV .Q20H [facility] Rx#:[id number] Piperacillin-Tazobactam 3 200 100 .375 gm In Sodium Chloride 0.9% 100 ml @ 25 mls/hr IVPB Q12HR [facility] Rx #:[id number] Intake, IV Titration .9 28.409 Amount Norepinephrine 8 mg In 28. Sodium Chloride 0.9% 250 ml @ 0.05 MCG/KG/MIN 7.45 mls/hr IV .Q24H [facility] Rx#: [id number] Output: Urine 430 450 130 Other: Voiding Method Indwelling Catheter Indwelling Catheter ABP, PAP, CO, CI - Last Documented Arterial Blood Pressure 111/47 - Labs CBC & Chem 7: 09/12/20 03:45 09/12/20 03:45 Labs: Abnormal Lab Results - Last 24 Hours (Table) 09/11/20 09/11/20 09/12/20 Range/Units 18:06 18:10 03:45 WBC 18.5 H (3.8-10.6) k/uL RBC 2.27 L (4.30-5.90) m/uL Hgb 7.5 L (13.0-17.5) gm/dL Hct 23.4 L (39.0-53.0) % MCV 103.0 H (80.0-100.0) fL RDW 20.2 H (11.5-15.5) % Neutrophils # (Manual) 14.20 H (1.3-7.7) k/uL Monocytes # (Manual) 2.78 H (0-1.0) k/uL Macrocytosis Marked A Chloride (98-107) mmol/L Carbon Dioxide (22-30) mmol/L BUN (9-20) mg/dL Creatinine (0.66-1.25) mg/dL Glucose (74-99) mg/dL POC Glucose (mg/dL) 56 L 142 H (75-99) mg/dL Total Protein (6.3-8.2) g/dL Albumin (3.5-5.0) g/dL 09/12/20 09/12/20 Range/Units 03:45 06:37 WBC (3.8-10.6) k/uL RBC (4.30-5.90) m/uL Hgb (13.0-17.5) gm/dL Hct (39.0-53.0) % MCV (80.0-100.0) fL RDW (11.5-15.5) % Neutrophils # (Manual) (1.3-7.7) k/uL Monocytes # (Manual) (0-1.0) k/uL Macrocytosis Chloride 114 H (98-107) mmol/L Carbon Dioxide 19 L (22-30) mmol/L BUN 45 H (9-20) mg/dL Creatinine 2.01 H (0.66-1.25) mg/dL Glucose 130 H (74-99) mg/dL POC Glucose (mg/dL) 113 H (75-99) mg/dL Total Protein 5.7 L (6.3-8.2) g/dL Albumin 2.3 L (3.5-5.0) g/dL Microbiology - Last 24 Hours (Table) 09/08/20 16:43 Blood Culture - Preliminary Blood No Growth after 72 hours
[2020-09-12 11:47] LABS: Glucose,Whole Blood 140 mg/dL (75-99)
--- NOTE | 2020-09-12 11:57 | PN ---
PROGRESS NOTE Patient is seen for followup for acute kidney injury. Renal function has been slowly improving. Patient remains on a small amount of IV fluids at 50 mL an hour. He is currently comfortable. Levophed is at 0.02 mcg/kg per minute. Chest x-ray shows pleural effusions. Correlate for congestive heart failure. PHYSICAL EXAMINATION: On examination today, blood pressure 111/47, heart rate 79 per minute. He is afebrile. Examination of the heart S1, S2. Examination of the lungs, bilateral breath sounds are heard. Abdomen is soft, nontender. Examination of lower extremities shows edema 1+ bilaterally. CREDIT ADVISOR exam shows patient is confused. LAB: Show sodium 142, potassium 4.3, chloride 114, CO2 is 19, BUN 45, creatinine 2.01. Hemoglobin 7.5 g/dL. ASSESSMENT: 1. Acute kidney injury, acute tubular necrosis nonoliguric slowly improving. Creatinine about the same as yesterday. Vancomycin toxicity contributing to the acute kidney injury as well. 2. Severe metabolic acidosis, now resolved. 3. Sacral decubitus ulcer. 4. Hyperkalemia associated with hyperglycemia, metabolic acidosis, acute kidney injury, currently improved. 5. Mild volume overload. DC Ringer lactate. Continue with the midodrine. Avoid nephrotoxic agents. Continue daptomycin and repeat labs in a.m. MMODL / IJN: [id number] /
[2020-09-12 12:29] LABS: Glucose,Whole Blood 194 mg/dL (75-99)
[2020-09-12] MEDS: DAPTOmycin 500 MG in SODIUM CHLORIDE 0.9% 50 ML IVPB SCH (12:52)
[2020-09-12 17:42] LABS: Glucose,Whole Blood 62 mg/dL (75-99)
[2020-09-12 17:46] LABS: Glucose,Whole Blood 111 mg/dL (75-99)
--- NOTE | 2020-09-12 18:09 | PN ---
PROGRESS NOTE DATE OF SERVICE: 09/12/2020 REASON FOR FOLLOWUP: Left gluteal MRSA infection and aspiration pneumonia. INTERVAL HISTORY: Patient is afebrile. The patient is hemodynamically stable. Patient currently more awake, alert. Currently on 2 L nasal cannula. Denies having any chest pain or cough. No abdominal pain and no diarrhea reported. PHYSICAL EXAMINATION: Blood pressure 117/56, pulse of 71, temperature 97. She is 99% on 2 L nasal cannula. General description is an elderly male lying in bed in no distress. Respiratory system: Unlabored breathing, decreased breath sounds in the base, with no wheeze. Heart S1, S2. Regular rate and rhythm. Abdomen: Soft, no tenderness. LABORATORY DATA: Hemoglobin 7.5, white count 18.5. BUN 45. Creatinine 2.01. DIAGNOSTIC IMPRESSION AND PLAN: Patient admitted to the hospital with possible aspiration pneumonia. This patient did have a left gluteal MRSA abscess and cellulitis. The patient is currently responding to Zosyn to continue while monitoring clinical course closely. Continue supportive care. MMODL / IJN: [id number] /
[2020-09-12 21:29] LABS: Glucose,Whole Blood 80 mg/dL (75-99)
[2020-09-13] MEDS: PIPERACILLIN-TAZOBACTAM 3.375 GM in SODIUM CHLORIDE 0.9% 100 ML IVPB SCH ×3 (00:30→17:08)
[2020-09-13 06:56] LABS: Glucose,Whole Blood 143 mg/dL (75-99)
[2020-09-13] MEDS: INSULIN ASPART (NovoLOG) 100 UNIT/ML VIAL SQ SCH ×4 (06:56→20:42)
[2020-09-13 06:58] LABS: Calcium 8.7 mg/dL (8.4-10.2); Potassium 4.5 mmol/L (3.5-5.1)
[2020-09-13 07:07] LABS: Anisocytosis Slight; HCT 25.7 % (39.0-53.0); HGB 8.1 gm/dL (13.0-17.5); Hypochromasia Marked; MCH 33.5 pg (25.0-35.0); MCHC 31.7 g/dL (31.0-37.0); Macrocytosis Marked; Mean Platelet Volume 9.5; Platelet Count 212 k/uL (150-450); RBC 2.43 m/uL (4.30-5.90); RDW 19.6 % (11.5-15.5); WBC 18.6 k/uL (3.8-10.6)
[2020-09-13] MEDS: IPRATROPIUM-ALBUTEROL 3 ML NEB INHALATION SCH ×4 (08:36→21:02)
[2020-09-13 08:55] LABS: Lymphocytes # (M) 3.35 k/uL (1.0-4.8); Monocytes # (M) 2.79 k/uL (0-1.0); Neutrophils # (M) 12.46 k/uL (1.3-7.7); Neutrophils % (M) 67 %; Nucleated Red Blood Cells 0 /100 WBC (0-0); Total Cells Counted 100
[2020-09-13] MEDS: MIDODRINE 5 MG TAB PO SCH ×3 (09:04→17:14)
[2020-09-13] MEDS: LEVOTHYROXINE 50 MCG TAB PO SCH (09:04)
[2020-09-13] MEDS: ASPIRIN 81 MG PO SCH (09:05)
[2020-09-13] MEDS: ATORVASTATIN 40 MG TAB PO SCH (09:05)
--- NOTE | 2020-09-13 10:11 | P.PN ---
Subjective Progress Note Date: 09/13/20 On 09/11/2020 patient seen in follow-up in the intensive care unit, he remains pacemaker dependent, he is V paced at a rate of 80 BPM, and underlying rhythm is complete heart block. Blood pressure is 108/46, and patient isn't requiring small amount of norepinephrine currently infusing at a rate of 1.6 mics per minute. Denies any difficulty breathing, he is currently on 2 L of oxygen and the pulse ox of 94%, his had no fever or chills overnight, his white blood cell count is improving on today's labs, and is down to 18.5 from 24.4 on yesterday's labs, hemoglobin is 7.5, sodium is 142, potassium is 4.3, chloride is 114, CO2 is 19, B1 is 45, and creatinine is slightly improved from yesterday, and is down to 2.01. Patient is on lactated Ringer's at a rate of 50 ML per hour, his urine output is in the order of 30-40 mL per hour. Today's chest x-ray showed bilateral bibasilar infiltrates and pleural effusions. Patient remains on a combination of antibiotics in the form of daptomycin, Zosyn, and he was also started on 3 doses of IV Kefzol in preparation for implantation of permanent pacemaker likely tomorrow on 09/13/2020. Neurologically patient is awake and alert, he is answering questions appropriately, slightly confused. This morning he states he is hungry, and would like to eat, he did pass his bedside swallow evaluation. No nausea or vomiting, no abdominal pain. Patient does have bilateral lower extremity edema. We think he could benefit from one dose of IV Lasix this morning. On 09/13/2020 patient seen in follow-up in the intensive care unit. He is resting comfortably in bed, he is confused, but not agitated, does not appear to be in any distress, no evidence of any respiratory difficulty, his breathing comfortably, currently on 2 L of oxygen with a pulse ox of 96-100%, hemodynamically patient remains pacemaker dependent, he still has a right groin transvenous pacemaker, which is pacing the patient is a ventricular rate of 80 BPM, patient is currently not requiring any vasopressor support. He remains on antibiotics in the form of daptomycin and Zosyn. Has been discontinued, blood cultures have been negative, sputum culture has shown no growth, white blood cell count is stable at 18.6, hemoglobin is 8.1, platelet count is 212, sodium is 143, potassium is 4.5, chloride is 118, CO2 is 17, BUN is 45, creatinine is 1.9. No new chest x-ray today, yesterday chest x-ray showed bibasilar infiltrates and pleural effusion. Patient did receive 1 dose of Lasix yesterday, IV fluids have been discontinued, patient is in -150 ML fluid balance of last 24 hours. Patient has been nothing by mouth after midnight for implantation of a permanent pacemaker today by Dr. Guerra Objective - Vital Signs Vital signs: Vital Signs Temp 97.6 F 09/13/20 08:00 Pulse 80 09/13/20 09:07 Resp 14 09/13/20 09:00 BP 95/54 09/13/20 09:00 Pulse Ox 100 09/13/20 09:00 Intake & Output 09/12/20 09/13/20 09/13/20 18:59 06:59 18:59 Intake Total 444.558 389 46 Output Total 600 390 40 Balance -155.442 -1 6 Weight 82.7 kg Intake: IV 416 389 46 .9 kvo 180 350 40 A-line 36 39 6 Lactated Ringers 1,000 ml 200 @ 50 mls/hr IV .Q20H [facility] Rx#:[id number] Intake, IV Titration 28.558 Amount Norepinephrine 8 mg In 28.558 Sodium Chloride 0.9% 250 ml @ 0.05 MCG/KG/MIN 7.45 mls/hr IV .Q24H [facility] Rx#: [id number] Output: Urine 600 390 40 Other: Voiding Method Indwelling Catheter Indwelling Catheter Indwelling Catheter ABP, PAP, CO, CI - Last Documented Arterial Blood Pressure 109/80 - Exam GENERAL EXAM: Alert,the confused, but not agitated 85-year-old white male, currently on 2 L of oxygen, 93-94%, breathing comfortably,comfortable in no apparent distress. HEAD: Normocephalic/atraumatic. EYES: Normal reaction of pupils, equal size. Conjunctiva pink, sclera white. NOSE: Clear with pink turbinates. THROAT: No erythema or exudates. NECK: No masses, no JVD, no thyroid enlargement, no adenopathy. Right IJ triple- lumen catheter in place CHEST: No chest wall deformity. Symmetrical expansion. LUNGS: Equal air entry with no crackles, wheeze, rhonchi or dullness. CVS: Regular rate and rhythm, normal S1 and S2, no gallops, no murmurs, no rubs ABDOMEN: Soft, nontender. No hepatosplenomegaly, normal bowel sounds, no guarding or rigidity. EXTREMITIES: No clubbing, no edema, no cyanosis, 2+ pulses and upper and lower extremities. MUSCULOSKELETAL: Muscle strength and tone normal. Right groin transvenous pacemaker, currently 100% paced at 80 BPM, underlying rhythm is complete complete heart block SPINE: No scoliosis or deformity SKIN: No rashes, has a superficial stage 2 coccyx decubitus ulcer that is covered with dressing, wound bed is clean and dry, no drainage no slough CENTRAL NERVOUS SYSTEM: Alert and oriented -2. No focal deficits, tone is normal in all 4 extremities. PSYCHIATRIC: Alert and oriented -2. Appropriate affect. Intact judgment and insight. - Labs CBC & Chem 7: 09/13/20 06:33 09/13/20 06:33 Labs: Abnormal Lab Results - Last 24 Hours (Table) 09/11/20 09/12/20 09/12/20 Range/Units 05:30 11:45 12:27 WBC (3.8-10.6) k/uL RBC (4.30-5.90) m/uL Hgb (13.0-17.5) gm/dL Hct (39.0-53.0) % MCV (80.0-100.0) fL RDW (11.5-15.5) % Neutrophils # (Manual) (1.3-7.7) k/uL Monocytes # (Manual) (0-1.0) k/uL Macrocytosis Chloride (98-107) mmol/L Carbon Dioxide (22-30) mmol/L BUN (9-20) mg/dL Creatinine (0.66-1.25) mg/dL Glucose (74-99) mg/dL POC Glucose (mg/dL) 140 H 194 H (75-99) mg/dL RBC Folate 1,663 H (280 - 791) ng/mL 09/12/20 09/12/20 09/13/20 Range/Units 17:36 17:45 06:33 WBC 18.6 H (3.8-10.6) k/uL RBC 2.43 L (4.30-5.90) m/uL Hgb 8.1 L (13.0-17.5) gm/dL Hct 25.7 L (39.0-53.0) % MCV 106.0 H (80.0-100.0) fL RDW 19.6 H (11.5-15.5) % Neutrophils # (Manual) 12.46 H (1.3-7.7) k/uL Monocytes # (Manual) 2.79 H (0-1.0) k/uL Macrocytosis Marked A Chloride (98-107) mmol/L Carbon Dioxide (22-30) mmol/L BUN (9-20) mg/dL Creatinine (0.66-1.25) mg/dL Glucose (74-99) mg/dL POC Glucose (mg/dL) 62 L 111 H (75-99) mg/dL RBC Folate (280 - 791) ng/mL 09/13/20 09/13/20 Range/Units 06:33 06:54 WBC (3.8-10.6) k/uL RBC (4.30-5.90) m/uL Hgb (13.0-17.5) gm/dL Hct (39.0-53.0) % MCV (80.0-100.0) fL RDW (11.5-15.5) % Neutrophils # (Manual) (1.3-7.7) k/uL Monocytes # (Manual) (0-1.0) k/uL Macrocytosis Chloride 118 H (98-107) mmol/L Carbon Dioxide 17 L (22-30) mmol/L BUN 45 H (9-20) mg/dL Creatinine 1.92 H (0.66-1.25) mg/dL Glucose 114 H (74-99) mg/dL POC Glucose (mg/dL) 143 H (75-99) mg/dL RBC Folate (280 - 791) ng/mL Microbiology - Last 24 Hours (Table) 09/08/20 16:43 Blood Culture - Preliminary Blood No Growth after 96 hours Assessment and Plan Plan: Assessment: #1. Mental status changes, with unresponsiveness, likely secondary to acute myocardial infarction, and third-degree heart block, status post transvenous pacemaker, as well as intubation and mechanical ventilation on September 07 , status post extubation on 09/08/2020, Rule out anoxic encephalopathy. He is Oa x1 and that could be his baseline Consider underlying dementia #2. Hypotension, resolved, currently off norepinephrine infusion #3. acute non-ST segment elevation myocardial infarction with elevation of troponins, able to the cardiac catheterization based on underlying acute kidney injury. Note that the patient is known to have COPD and previous bypass surgery #4. acute kidney injury, improving, cr is down to 2.1 #5. acute leukocytosis currently on a combination of daptomycin and Zosyn, cultures are negative, WBC is elevated so count continues to improve. The wounds were inspected again and there are no signs of any active infection. #6. History of CVA. #7. Diabetes mellitus. #8. History of hyperlipidemia. #9. History of hypertension. #10. History of hypothyroidism. #11. History of BPH. #12. Multiple other medical problems and comorbidities. #13. Chronic anemia and interval drop in the Hb, the patient is also known to have chronic iron deficiency anemia. #14. History of chronic bronchial asthma. #15. Left gluteal MRSA infection currently on daptomycin, the wound has healed #16. right hip stage I wound, healed Plan: Hemodynamically patient is doing better, and he is off the norepinephrine Remains in complete heart block, and pacemaker dependent Antibiotics per ID service recommendations, All cultures remain negative thus far, Patient is having a permanent pacemaker implantation tomorrow on 09/13/2020 Continue to monitor the patient in the intensive care unit I performed a history & physical examination of the patient and discussed their management with my nurse practitioner, Tabitha Causey. I reviewed the nurse practitioner's note and agree with the documented findings and plan of care. Lung sounds are positive for diminished breath sounds. The findings and the impression was discussed with the patient. I attest to the documentation by the nurse practitioner. Time with Patient: Less than 30
[2020-09-13] MEDS ORDERED: PROPOFOL 10 MG/ML 20 ML VIAL IV ONE (11:45)
[2020-09-13] MEDS ORDERED: MIDAZOLAM 2 MG/2 ML VIAL ONE (11:45)
[2020-09-13] MEDS ORDERED: fentaNYL (PF) 50 MCG/ML 2 ML AMP ONE (11:45)
[2020-09-13] MEDS ORDERED: IOPAMIDOL-370 50ML BTL INJ ONE (12:16)
[2020-09-13] MEDS ORDERED: LIDOCAINE 1% INJ 10MG/ML (20 ML MDV) ONE (12:18)
[2020-09-13] MEDS ORDERED: LIDOCAINE 1% INJ 10MG/ML (20 ML MDV) SQ ONE (12:27)
[2020-09-13] MEDS ORDERED: SODIUM CHLORIDE 0.9% 500 ML 500 ML IV ONE (12:34)
[2020-09-13] MEDS ORDERED: ACETAMINOPHEN TAB 325 MG TAB PO PRN (12:59)
--- NOTE | 2020-09-13 13:09 | P.EPPROC ---
- EP Procedure Note Electrophysiology Procedure Note: Diagnosis Complete heart block TVP in place for over one week Patient has a decubitus ulcer in the gluteal area He has had aspiration pneumonitis with mental status changes Cardiomyopathy Abnormal cardiac enzymes non-Q wave myocardial infarction Unable to mobilize patient on account of right groin TVP Procedure Left upper extremity venogram Removal of TVP from the right femoral vein Externalized single-chamber pacemaker, right pectoral Details Patient was brought to the EP lab in a fasting state. Written informed consent was obtained prior to the procedure. Anesthesia was in attendance Local anesthesia administered IV antibiotics administered 10 mL IV dye injected in the right arm Patent right axillary and subclavian vein Access obtained in the right axillary vein Guidewire placed in the right side up to the IVC Sheath placed 58 cm [employer] screw-in lead position and the RV septum Model #5076, serial number [id number] Paced sensing 3.3 mV, current of injury noted Lead screwed in Pacing threshold 1.2 V at 0.5 ms and pacing impedance of 805 ohms Sheaths removed Lead secured to the skin over the sleeve Area dressed with bilateral gel and sealed Connected to the pacemaker can Pacemaker programmed VVI 70 beats a minute Amplitude 5 V at 0.4 ms Plan Continue IV antibiotics Mobilize patient He may sit up and sits in a chair and ambulate if possible Treat pneumonitis and decubitus ulcer Cardiac management per cardiac G rounding team Permanent pacemaker implantation once his infection is under control and he is completely off antibiotics He may wait for several weeks while using his externalized pacemaker The pacemaker dressing area should not be removed or redressed
--- NOTE | 2020-09-13 13:54 | XR ---
EXAMINATION TYPE: XR chest 1V portable DATE OF EXAM: 09/13/2020 COMPARISON: 09/12/2020 HISTORY: Lead placement check FINDINGS: There are bilateral pleural effusions =and bibasilar infiltrate. There is a diffuse interstitial pat tern. Single lead pacemaker seen with the lead overlying the region of the right ventricle. There is postoperative changes and right-sided central line and left-sided PICC line. Hypertrophic and degener ative change of the spine. Arthropathy of the shoulders. No sizable pneumothorax. IMPRESSION: 1. Correlate for pulmonary edema versus diffuse pneumonia. 2. No postprocedural complication.
[2020-09-13] MEDS: LACTATED RINGERS 1,000 ML IV SCH (14:10)
--- NOTE | 2020-09-13 14:59 | P.PN ---
Subjective Progress Note Date: 09/13/20 (delayed charting seen at 0930) Principal diagnosis: unresponsive Patient is a 85-year-old male with a history of diabetes mellitus type 2, coronary artery disease status post CABG, hypertension, dyslipidemia, hypothyroidism, and multiple decubitus ulcers with recent sepsis secondary to MRSA requiring IV antibiotics. Patient is a resident at [facility] and EMS was called for the patient being unresponsive. In the ER he was found to have third-degree AV block. Laboratory analysis showed a white blood cell count 25.6, hemoglobin 8.4, and troponin of 2.13, his potassium was also noted to be 6.3, BUN 79, and creatinine 4.2. He was immediately taken to the cardiac [facility] for insertion of a transvenous pacemaker. He is minutes the ICU for further monitoring. Critical care was consulted. Due to his renal failure nephrology was consulted. Infectious disease was consulted who recommended starting the patient empirically on Zosyn and daptomycin as well as checking blood cultures. His infection was thought that his infection was due to his ongoing gluteal abscess. He did require levophed, which was able to be weaned. Despite correction of electrolytes he continued to need pacing. He had externalized single chamber paced right on 09/13 until he is able to be off antibiotic. Echocardiogram: Diffuse global hypokinesis, ejection fraction 30-35% Patient seen and examined at bedside. He is awake and alert to self and year. He feliciano pain, shortness of breath, nausea. General: non toxic, no distress, appears at stated age Derm: warm, dry Head: atraumatic, normocephalic, symmetric Eyes: EOMI, no lid lag, anicteric sclera Mouth: no lip lesion, mucus membranes moist Cardiovascular: S1S2 reg, no murmur, positive posterior tibial pulse bilateral, Lungs: Decreased breath sounds bilateral, no rhonchi, no rales , no accessory muscle use Abdominal: soft, nontender to palpation, no guarding, no appreciable organomegaly Ext: + gross muscle atrophy, trace edema, no contractures Neuro: CN II-XI grossly intact, no focal neuro deficits Psych: awake alert to self and year, appropriate affect. 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 -ASA, statin Toxic metabolic encephalopathy -Safe and supportive care -Likely secondary continue third-degree heart block, acute myocardial infarction, and possibly sepsis Shock, possibly septic versus cardiogenic, resolved MRSA Gluteal Abscess -continue midodrine -Critical care recs -ID recs: Dapto and zosyn Acute renal failure, resolving - Nephrology recommendations appreciated - IC fluids completed - Avoid nephrotoxic agents Macrocytic anemia -Status post 1 unit of packed red blood cells - possibly secondary to hypothyroidism - B12 normal, folic acid normal Diabetes mellitus type 2 - SSI - follow BS - hold levemir - A1C 5.7 Multiple pressure ulcers -Frequent turns -Offload -Barrier cream hyperkalemia, resolved anion gap metabolic acidosis, resolved Chronic: Coronary artery disease Dyslipidemia Hypothyroidism Asthma History of CVA BPH DVT prophylaxis: SCDs Discussed with: patient, nursing Anticipated discharge: 5-[address] A total of 35 minutes was spent on the care of this complex patient more than 50% of the time was spent in counseling and care coordination. Active Medications Acetaminophen (Acetaminophen Tab 325 Mg Tab) 650 mg PO Q6HR PRN PRN Reason: Mild Pain Albuterol/Ipratropium (Ipratropium-Albuterol 3 Ml Neb) 3 ml INHALATION RT-QID [facility] Last Admin: 09/13/20 12:20 Dose: Not Given Documented by: Albuterol/Ipratropium (Ipratropium-Albuterol 3 Ml Neb) 3 ml INHALATION RT-Q2H PRN PRN Reason: Shortness Of Breath Or Wheezing Alprazolam (Alprazolam 0.25 Mg Tab) 0.25 mg PO BID PRN PRN Reason: agitation Aspirin (Aspirin 81 Mg) 81 mg PO DAILY [facility] Last Admin: 09/13/20 09:05 Dose: 81 mg Documented by: Atorvastatin Calcium (Atorvastatin 40 Mg Tab) 40 mg PO DAILY [facility] Last Admin: 09/13/20 09:05 Dose: 40 mg Documented by: Norepinephrine Bitartrate 8 mg (/ Sodium Chloride) 258 mls @ 7.45 mls/hr IV .Q24H [facility]; Protocol Last Titration: 09/12/20 16:15 Dose: 0 mcg/kg/min, 0 mls/hr Documented by: Daptomycin 500 mg/ Sodium (Chloride) 50 mls @ 100 mls/hr IVPB Q48H [facility]; Protocol Last Admin: 09/12/20 12:52 Dose: 100 mls/hr Documented by: Piperacillin Sod/Tazobactam (Sod 3.375 gm/ Sodium Chloride) 100 mls @ 25 mls/hr IVPB Q8HR [facility] Last Admin: 09/13/20 09:04 Dose: 25 mls/hr Documented by: Lactated Ringer's (Lactated Ringers) 1,000 mls @ 20 mls/hr IV .Q24H [facility] Last Admin: 09/13/20 14:10 Dose: Not Given Documented by: Cefazolin Sodium 2 gm/ Sodium (Chloride) 50 mls @ 100 mls/hr IVPB Q6HR [facility] Stop: 09/13/20 18:29 Insulin Aspart (Insulin Aspart (Novolog) 100 Unit/Ml Vial) 0 unit SQ ACHS [facility]; Protocol Last Admin: 09/13/20 13:32 Dose: Not Given Documented by: Levothyroxine Sodium (Levothyroxine 50 Mcg Tab) 50 mcg PO DAILY@0630 [facility] Last Admin: 09/13/20 09:04 Dose: 50 mcg Documented by: Midodrine (Midodrine 5 Mg Tab) 10 mg PO AC-TID [facility] Last Admin: 09/13/20 12:31 Dose: Not Given Documented by: Naloxone HCl (Naloxone 0.4 Mg/Ml 1 Ml Vial) 0.2 mg IV Q2M PRN PRN Reason: Opioid Reversal Sodium Chloride (Sodium Chloride 0.9% Flush 10 Ml Syringe) 10 ml IV Q12HR [facility] Objective - Vital Signs Vital signs: Vital Signs Temp 97.6 F 09/13/20 08:00 Pulse 70 09/13/20 14:00 Resp 9 L 09/13/20 14:00 BP 108/43 09/13/20 14:00 Pulse Ox 100 09/13/20 14:00 Intake & Output 09/12/20 09/13/20 09/13/20 18:59 06:59 18:59 Intake Total 444.558 389 225 Output Total 600 390 120 Balance -155.442 -1 105 Weight 82.7 kg Intake: IV 416 389 225 .9 kvo 180 350 110 A-line 36 39 15 Lactated Ringers 1,000 ml 200 @ 50 mls/hr IV .Q20H [facility] Rx#:[id number] Intake, IV Titration 28.558 Amount Norepinephrine 8 mg In 28.558 Sodium Chloride 0.9% 250 ml @ 0.05 MCG/KG/MIN 7.45 mls/hr IV .Q24H [facility] Rx#: [id number] Output: Urine 600 390 120 Other: Voiding Method Indwelling Catheter Indwelling Catheter Indwelling Catheter ABP, PAP, CO, CI - Last Documented Arterial Blood Pressure 103/43 - Labs CBC & Chem 7: 09/13/20 06:33 09/13/20 06:33 Labs: Abnormal Lab Results - Last 24 Hours (Table) 09/12/20 09/12/20 09/13/20 Range/Units 17:36 17:45 06:33 WBC 18.6 H (3.8-10.6) k/uL RBC 2.43 L (4.30-5.90) m/uL Hgb 8.1 L (13.0-17.5) gm/dL Hct 25.7 L (39.0-53.0) % MCV 106.0 H (80.0-100.0) fL RDW 19.6 H (11.5-15.5) % Neutrophils # (Manual) 12.46 H (1.3-7.7) k/uL Monocytes # (Manual) 2.79 H (0-1.0) k/uL Macrocytosis Marked A Chloride (98-107) mmol/L Carbon Dioxide (22-30) mmol/L BUN (9-20) mg/dL Creatinine (0.66-1.25) mg/dL Glucose (74-99) mg/dL POC Glucose (mg/dL) 62 L 111 H (75-99) mg/dL 09/13/20 09/13/20 Range/Units 06:33 06:54 WBC (3.8-10.6) k/uL RBC (4.30-5.90) m/uL Hgb (13.0-17.5) gm/dL Hct (39.0-53.0) % MCV (80.0-100.0) fL RDW (11.5-15.5) % Neutrophils # (Manual) (1.3-7.7) k/uL Monocytes # (Manual) (0-1.0) k/uL Macrocytosis Chloride 118 H (98-107) mmol/L Carbon Dioxide 17 L (22-30) mmol/L BUN 45 H (9-20) mg/dL Creatinine 1.92 H (0.66-1.25) mg/dL Glucose 114 H (74-99) mg/dL POC Glucose (mg/dL) 143 H (75-99) mg/dL Microbiology - Last 24 Hours (Table) 09/08/20 16:43 Blood Culture - Preliminary Blood No Growth after 96 hours
[2020-09-13 16:43] LABS: Glucose,Whole Blood 82 mg/dL (75-99)
[2020-09-13 20:13] LABS: Glucose,Whole Blood 111 mg/dL (75-99)
[2020-09-13] MEDS: NOREPINEPHRINE 8 MG in SODIUM CHLORIDE 0.9% 250 ML IV SCH (22:36)
[2020-09-14] MEDS: PIPERACILLIN-TAZOBACTAM 3.375 GM in SODIUM CHLORIDE 0.9% 100 ML IVPB SCH ×3 (00:38→16:37)
[2020-09-14 05:26] LABS: Anisocytosis Slight; HCT 23.4 % (39.0-53.0); HGB 7.5 gm/dL (13.0-17.5); Hypochromasia Marked; MCH 34.2 pg (25.0-35.0); MCV 106.8 fL (80.0-100.0); Macrocytosis Marked; Mean Platelet Volume 10.2; Platelet Count 182 k/uL (150-450); RBC 2.19 m/uL (4.30-5.90); RDW 19.3 % (11.5-15.5); WBC 17.1 k/uL (3.8-10.6)
[2020-09-14 06:07] LABS: Calcium 8.7 mg/dL (8.4-10.2); Potassium 4.7 mmol/L (3.5-5.1)
[2020-09-14 06:57] LABS: Glucose,Whole Blood 102 mg/dL (75-99)
[2020-09-14] MEDS: INSULIN ASPART (NovoLOG) 100 UNIT/ML VIAL SQ SCH ×4 (06:57→20:38)
[2020-09-14] MEDS: LEVOTHYROXINE 50 MCG TAB PO SCH (06:58)
[2020-09-14] MEDS: MIDODRINE 5 MG TAB PO SCH ×3 (06:58→17:40)
[2020-09-14] MEDS: IPRATROPIUM-ALBUTEROL 3 ML NEB INHALATION SCH ×4 (08:07→19:02)
[2020-09-14] MEDS: ATORVASTATIN 40 MG TAB PO SCH (08:34)
[2020-09-14] MEDS: ASPIRIN 81 MG PO SCH (08:34)
[2020-09-14] MEDS ORDERED: FUROSEMIDE 10 MG/ML 4 ML VIAL IV STA (08:44)
--- NOTE | 2020-09-14 08:50 | P.PN ---
Subjective This is an 85-year-old male who presented to the hospital secondary to unresponsiveness and noted to be in complete heart block. He underwent TVP placement. He continues to be maintained on TVP and is 100% paced. TVP slowed to evaluate underlying rhythm and he continues to be in complete heart block. He is confused at baseline and pulling at tubes. He does not answer any questions. He appears comfortable laying flat at rest. Blood pressure 118/51 heart rate 79 afebrile maintaining oxygen saturation on nasal cannula. Laborato ry data reviewed, WBC 32.3, hemoglobin 7.5, platelets 160, sodium 141, potassium 4.4, creatinine 2.48. Currently maintained on aspirin 81 mg daily, midodrine 5 mg 3 times a day and IV antibiotics. 09/12/2020 Pt seen and examined laying flat in bed in no acute distress. Blood pressure 102/58 heart rate 78 afebrile and maintaining oxygen saturation on nasal cannula. Laboratory data reviewed, WBC 18.5, hemoglobin 7.5, platelets 192, sodium 142, potassium 4.3 and creatinine 2.01. He continues to be 100% pacemaker dependent. He has underlying complete heart block. 09/14 Patient seen and examined. Patient denies any chest pain or pressure. Blood pressures have been borderline occasionally in the 80s. He has been on the Midrin, off of levothyroxine over last 48 hours. He did have a external eyes permanent pacemaker placed from the right subclavian approach yesterday. He is being paced that around 70 bpm. His CVP has been elevated at 14 with x-ray showing bilateral vascular congestion. Suspect his hypotension multifactorial however mainly sepsis with his ejection fraction 30-35% and majority of workup consistent with sepsis although cultures have been negative today. He is still on thickened like with diet. He is asking for water. He has had poor intake with albumin 2.3. Given elevated CVP we will give 1 dose of Lasix however monitor fluid status carefully as his by mouth intake is poor. Unable to tolerate any heart failure regimen secondary to hypotension. GENERAL: Ill-appearing, well-nourished and in no acute distress. NECK: Supple without JVD or thyromegaly. LUNGS: + Bilateral crackles. HEART: Regular rate and rhythm with systolic ejection murmur at the base, no rubs or gallops. S1 and S2 heard. EXTREMITIES: Normal range of motion, trace lower extremity edema. No clubbing or cyanosis. Peripheral pulses intact. ASSESSMENT Complete heart block, persistent, status post external eyes permanent pacemaker placement 09/13/2020 Non-ST elevated myocardial infarction Acute systolic heart failure, clinically euvolemic Ischemic cardiomyopathy Aspiration pneumonia Metabolic encephalopathy Diabetes mellitus Leukocytosis Wound infection Coronary artery disease status post bypass grafting Anemia PLAN Patient with mildly increased creatinine, likely related to ATN from mild hypotensive episodes. He does appear fluid overloaded on x-ray however also third spacing from sepsis, low albumin. We will give one dose of Lasix however monitor fluid status carefully as no oral intake. Majority of his presentation appears related to sepsis and continue supportive care. Unable to tolerate heart failure regimen. Objective - Vital Signs Vital signs: Vital Signs Temp 97.4 F L 09/14/20 04:00 Pulse 69 09/14/20 08:00 Resp 14 09/14/20 08:00 BP 87/48 09/14/20 08:00 Pulse Ox 96 09/14/20 07:00 Intake & Output 09/13/20 09/14/20 09/14/20 18:59 06:59 18:59 Intake Total 258 378 140 Output Total 225 210 5 Balance 33 168 135 Intake: IV 258 210 140 .9 kvo 140 210 40 A-line 18 Piperacillin-Tazobactam 3 100 .375 gm In Sodium Chloride 0.9% 100 ml @ 25 mls/hr IVPB Q12HR ON LICENSE OF [facility] Rx #:[id number] Oral 168 Output: Urine 225 210 5 Other: Voiding Method Indwelling Catheter Indwelling Catheter ABP, PAP, CO, CI - Last Documented Arterial Blood Pressure 77/51 - Labs CBC & Chem 7: 09/14/20 04:30 09/14/20 04:30 Labs: Abnormal Lab Results - Last 24 Hours (Table) 09/13/20 09/13/20 09/14/20 Range/Units 06:33 20:11 04:30 WBC 17.1 H (3.8-10.6) k/uL RBC 2.19 L (4.30-5.90) m/uL Hgb 7.5 L (13.0-17.5) gm/dL Hct 23.4 L (39.0-53.0) % MCV 106.8 H (80.0-100.0) fL RDW 19.3 H (11.5-15.5) % Neutrophils # (Manual) 12.46 H (1.3-7.7) k/uL Monocytes # (Manual) 2.79 H (0-1.0) k/uL Macrocytosis Marked A Chloride (98-107) mmol/L Carbon Dioxide (22-30) mmol/L BUN (9-20) mg/dL Creatinine (0.66-1.25) mg/dL Glucose (74-99) mg/dL POC Glucose (mg/dL) 111 H (75-99) mg/dL 09/14/20 09/14/20 Range/Units 04:30 06:56 WBC (3.8-10.6) k/uL RBC (4.30-5.90) m/uL Hgb (13.0-17.5) gm/dL Hct (39.0-53.0) % MCV (80.0-100.0) fL RDW (11.5-15.5) % Neutrophils # (Manual) (1.3-7.7) k/uL Monocytes # (Manual) (0-1.0) k/uL Macrocytosis Chloride 115 H (98-107) mmol/L Carbon Dioxide 21 L (22-30) mmol/L BUN 49 H (9-20) mg/dL Creatinine 2.29 H (0.66-1.25) mg/dL Glucose 102 H (74-99) mg/dL POC Glucose (mg/dL) 102 H (75-99) mg/dL Microbiology - Last 24 Hours (Table) 09/08/20 16:43 Blood Culture - Preliminary Blood No Growth after 120 hours
[2020-09-14] MEDS ORDERED: FUROSEMIDE 10 MG/ML 10 ML VIAL IV STA (10:58)
[2020-09-14 11:04] VITALS: BMI 28.5
--- NOTE | 2020-09-14 11:09 | P.PN ---
Subjective Progress Note Date: 09/14/20 85-year-old male with a history of CVA, diabetes, coronary disease, bypass grafting, and sacral wounds of recent bacteremia, who was at [facility]. Apparently, according to the ER janelle and my nurses in the ICU, the patient started having some changes in mental status. Apparently they waited fo r quite some time before EMS was called. Maybe 2 hours or so. When EMS arrived, the patient was unresponsive, and they intubated him at the scene. He was hypotensive at that time, with a heart rate of 20. He was brought to the emergency room he was further evaluated. He was found to be in third-degree heart block. The patient was taken to the catheterization laboratory and had a transvenous pacemaker placed by one of the cardiologists. Apparently, the patient has no rhythm under the pacemaker. He apparently has occasional P-wave QRS complex, but essentially his asystole. The patient is on the ventilator. 09/08/2020, the patient was extubated, on room air. He is receiving norepinep hrine at 0.05 mcg/kg/m, and lactated Ringer's at 75 mL an hour. For low hemoglobin, the patient received 1 unit of packed red blood cells. The patient is currently on Zosyn and daptomycin as per infectious diseases. Note that the patient has history of coronary artery disease. The patient developed also an acute myocardial infarctions elevation of troponin. Echocardiogram showed an ejection fraction of 30-35% along with anteroseptal and anteroapical wall motion abnormalities. Note that the patient is post coronary artery bypass surgery several years back. The patient also developed an acute kidney injury from which she is approving. White cell count was on the rise and the patient was started on a combination of Zosyn and daptomycin. Infectious disease also on the case in combination with cardiology. In terms of his acute myocardial infarction, no cardiac catheterization was done as the patient had developed an acute kidney injury.The patient remains on the percent paced with transvenous pacemaker at the rate of 80. Hemodynamically stable and pressor requirements have improved compared to yesterday. The plan is to ultimately undergoing a cardiac catheterization once the renal function improves and possibly have a pacemaker inserted. The patient was seen by Dr. Perales from cardiology. Creatinine for now is improving and is currently down to 2.48. Serum bicarb is 22 with a sodium level of 141. Troponin peaked at 98.6 consistent with an acute non-STEMI. White cell count is at 32.3. He is covered with broad-spectrum antibiotics and ID is on the case. Blood cultures of been negative.he is on room air oxygen for now. No signs of any respiratory distress. He is a no code, no intubation Evaluation 09/11/2020, the patient continues to be in third-degree AV block and the patient is currently V paced at the rate of 80. The plan is ultimately to undergo a cardiac permanent pacemaker insertion and there is being planned to be done on 09/13/2020. The patient continues to be on low-dose pressors and this morning he is on norepinephrine at a dose of 0.02 mcg/kg per minute and I'm sure this going to be weaned off over the next 24 hours. His white cell count continues to improve and his Asacol is down to 24. Hemoglobin stable at 7.9. Renal function was improving yesterday and the follow-up labs show a BUN of 48 with a creatinine of 2.1 and the creatinine is down from 2.4 down to 2.1 since yesterday. Serum bicarb is at 24. Troponin peaked at 98 and as mentioned earlier the patient suffered a acute non-STEMI. Meanwhile, he is afebrile. His cultures came back all negative. The patient was covered empirically with antibiotics. The patient remains on daptomycin and IV Zosyn for now. His echocardiogram showing an ejection fraction of 3035% along with segmental wall motion abnormalities. He is known to have CAD and previous bypass surgery. The antibiotic coverage as per ID. Blood cultures of been negative thus far. No fever. She has been infected with MRSA in the past regarding a left gluteal abscess and cellulitis. Choice of antibiotic as per ID. White cell count continues to trend downwards. The right hip wound has healed. On today's evaluation of 09/14/2020, the patient remains lethargic, weak, some degree of shortness of breath and currently is on 2 L of oxygen by nasal cannula. He is paced at the rate of 70. A permanent pacemaker has not been placed. The pacemaker wires are in place for the device to be inserted later stage. No fever. No chills. White cell count at 17. Oral intake is poor. Given a dose of Lasix 40 mg IV push 1 and introduce around 150-200 mL of urine output. He remains on daptomycin, Zosyn, creatinine stable at 2.29, the white cell count is at 17 with a hemoglobin of 7.5 and a platelet count of 183. I'm not seeing any major improvement in his condition. There is some cognitive impairment probably due to the underlying dementia. Objective - Vital Signs Vital signs: Vital Signs Temp 97.6 F 09/14/20 09:00 Pulse 70 09/14/20 10:00 Resp 13 09/14/20 10:00 BP 98/57 09/14/20 10:00 Pulse Ox 99 09/14/20 10:00 Intake & Output 09/13/20 09/14/20 09/14/20 18:59 06:59 18:59 Intake Total 258 378 160 Output Total 225 210 50 Balance 33 168 110 Intake: IV 258 210 160 .9 kvo 140 210 60 A-line 18 Piperacillin-Tazobactam 3 100 .375 gm In Sodium Chloride 0.9% 100 ml @ 25 mls/hr IVPB Q12HR [facility] Rx #:[id number] Oral 168 Output: Urine 225 210 50 Other: Voiding Method Indwelling Catheter Indwelling Catheter Indwelling Catheter ABP, PAP, CO, CI - Last Documented Arterial Blood Pressure 77/51 - Exam No acute distress, confused, currently on room air. Saturations are 93%. He is on 2 liters/nc, awake and alert and communicating. No major changes condition since yesterday. Head exam was generally normal. There was no scleral icterus or corneal arcus. Mucous membranes were moist. HEENT examination is grossly unremarkable. Positive JVD Neck supple. Full range of motion. No adenopathy thyromegaly or neck vein distention. Cardiovascular examination reveals regular rhythm rate. V paced at a rate of 80. S1-S2 normal. No S3 or S4. No discernible murmur noted. Heart sounds are distant. Lungs reveal scattered rhonchi. No wheezes or crackles. Breath sounds equal. The patient does not take deep breaths. Abdomen soft bowel sounds are heard. No masses or tenderness. Extremities are intact. No cyanosis clubbing or edema. Skin is without rash or lesion. The patient is a left gluteal stage II infection with MRSA. The right hip wound has essentially healed Neurologic examination reveals an awake individual, that does respond to verbal stimuli. He does move all 4 extremities. He seems a bit confused. - Labs CBC & Chem 7: 09/14/20 04:30 09/14/20 04:30 Labs: Abnormal Lab Results - Last 24 Hours (Table) 09/13/20 09/14/20 09/14/20 Range/Units 20:11 04:30 04:30 WBC 17.1 H (3.8-10.6) k/uL RBC 2.19 L (4.30-5.90) m/uL Hgb 7.5 L (13.0-17.5) gm/dL Hct 23.4 L (39.0-53.0) % MCV 106.8 H (80.0-100.0) fL RDW 19.3 H (11.5-15.5) % Macrocytosis Marked A Chloride 115 H (98-107) mmol/L Carbon Dioxide 21 L (22-30) mmol/L BUN 49 H (9-20) mg/dL Creatinine 2.29 H (0.66-1.25) mg/dL Glucose 102 H (74-99) mg/dL POC Glucose (mg/dL) 111 H (75-99) mg/dL 09/14/20 Range/Units 06:56 WBC (3.8-10.6) k/uL RBC (4.30-5.90) m/uL Hgb (13.0-17.5) gm/dL Hct (39.0-53.0) % MCV (80.0-100.0) fL RDW (11.5-15.5) % Macrocytosis Chloride (98-107) mmol/L Carbon Dioxide (22-30) mmol/L BUN (9-20) mg/dL Creatinine (0.66-1.25) mg/dL Glucose (74-99) mg/dL POC Glucose (mg/dL) 102 H (75-99) mg/dL Microbiology - Last 24 Hours (Table) 09/08/20 16:43 Blood Culture - Preliminary Blood No Growth after 120 hours Assessment and Plan Plan: 1 acute myocardial infarction, and third-degree heart block, status post transvenous pacemaker, as well as intubation and mechanical ventilation on September 07 , status post extubation on 09/08/2020, the patient has a systolic impairment of LV function with segmental wall motion abnormalities on echocardiogram. The patient ejection fraction is around 30-35%. Chest x-ray is consistent with interstitial edema/pulmonary edema/CHF. Pneumonia is considered to be less likely. Overall clinical presentation the clinical scenario is typical of acute MA, CHF, pulmonary edema along with obvious signs of fluid overload. The pa tient was also third-degree AV block initially was given a transvenous pacemaker and currently has a pacemaker wires are in place, the pacemaker has not been internalized because of concern of an underlying infection. Is currently off pressors. 3 acute non-ST segment elevation myocardial infarction with elevation of troponins, able to the cardiac catheterization based on underlying acute kidney injury. Note that the patient is known to have COPD and previous bypass surgery 4 acute kidney injury, improving, cr is stable to 2.1 5 acute leukocytosis currently on a combination of daptomycin and Zosyn, cultures are negative, WBC is elevated so count continues to improve. The wounds were inspected again and there are no signs of any active infection. 6 History of CVA. 7 Diabetes mellitus. 8 History of hyperlipidemia. 9 History of hypertension. 10 History of hypothyroidism. 11 History of BPH. 12 Multiple other medical problems and comorbidities. 13 Chronic anemia and interval drop in the Hb, the patient is also known to have chronic iron deficiency anemia. 14 History of chronic bronchial asthma. 15 left gluteal MRSA infection currently on daptomycin, the wound has healed 16 right hip stage I wound, healed 17 episodic confusion, global weakness, generalized debility, possibly underlying dementia. Plan: Keep external pacer, Vpaced rate 70, not been internalized. IVF at KVO Give Dose of Lasix 60 mg IV push Zosyn and daptomycin. Monitor Cr and consider cath once improved Persisting there is no evidence of sepsis. There is obvious signs of decompensated heart failure based on the clinical scenario, impaired LV function, acute non-STEMI, segmental wall motion abnormalities, fluid overload and the setting of renal failure makes perfect sense that the presentation is typical of CHF. Note that the patient is adequately covered with antibiotics. Despite his leukocytosis, there is no other obvious signs of support any infection. His echo down to 17. Antibiotic coverage is adequate and in fact is more than adequate at this point in time. His wounds are all cleam. DO NOT RESUSCITATE
[2020-09-14 11:26] LABS: Glucose,Whole Blood 138 mg/dL (75-99)
[2020-09-14] MEDS: LACTATED RINGERS 1,000 ML IV SCH (12:01)
[2020-09-14] MEDS: DAPTOmycin 500 MG in SODIUM CHLORIDE 0.9% 50 ML IVPB SCH (12:01)
--- NOTE | 2020-09-14 12:33 | PN ---
PROGRESS NOTE Patient is seen for followup for acute kidney injury. Patient's renal function had improved with creatinine down to 1.92. However, his creatinine is elevated today at 2.2. Urine output has also been marginal and this is mostly associated with the low blood pressures that he has had over the past few days. The patient received a dose of IV Lasix this morning and his urine output has picked up slightly. He is maintained on midodrine 10 mg t.i.d. for low blood pressure. PHYSICAL EXAMINATION: On examination today, blood pressure 99/44, heart rate 69 per minute. He is afebrile. Examination of the heart S1, S2. Examination of the lungs, decreased breath sounds at bases. Abdomen is soft, nontender. Examination of lower extremities shows edema 1+ bilaterally. [employer] exam grossly intact. LAB: Show sodium 145, potassium 4.7, chloride 115, CO2 is 21, BUN 49, creatinine 2.29, hemoglobin 7.5 g/dL. ASSESSMENT: 1. Acute kidney injury acute tubular necrosis, nonoliguric. Renal function had been improving. Serum creatinine high again associated with low blood pressure, currently improved with IV Lasix. We will continue to monitor and add another dose of Lasix based on the urine output later on today. Continue with the midodrine in the meantime and a check cortisol level. 2. Hypotension. Check random cortisol level. Continue with midodrine. 3. Volume overload maintain currently off IV fluids. We will add a scheduled dose of Lasix. 4. Hyperkalemia associated with hyperglycemia, acute kidney injury, metabolic acidosis, now improved. 5. Sacral decubitus ulcer. 6. Severe metabolic acidosis, now resolved. 7. Possible aspiration pneumonia. PLAN: Continue with midodrine. Check cortisol levels. Agree with IV Lasix this morning. Repeat another dose later on today based on the urine output. Check iron profile if not done recently for workup of anemia. MMODL / IJN: [id number] /
[2020-09-14 12:53] LABS: Glucose,Whole Blood 105 mg/dL (75-99)
--- NOTE | 2020-09-14 14:59 | P.PN ---
Subjective Progress Note Date: 09/14/20 Principal diagnosis: unresponsive Patient is a 85-year-old male with a history of diabetes mellitus type 2, coronary artery disease status post CABG, hypertension, dyslipidemia, hy pothyroidism, and multiple decubitus ulcers with recent sepsis secondary to MRSA requiring IV antibiotics. Patient is a resident at [facility] and EMS was called for the patient being unresponsive. In the ER he was found to have third-degree AV block. Laboratory analysis showed a white blood cell count 25.6, hemoglobin 8.4, and troponin of 2.13, his potassium was also noted to be 6.3, BUN 79, and creatinine 4.2. He was immediately taken to the cardiac [employer] Pain[facility] for insertion of a transvenous pacemaker. He is minutes the ICU for further monitoring. Critical care was consulted. Due to his renal failure nephrology was consulted. Infectious disease was consulted who recommended starting the patient empirically on Zosyn and daptomycin as well as checking blood cultures. His infection was thought that his infection was due to his ongoing gluteal abscess. He did require levophed, which was able to be weaned. Despite correction of electrolytes he continued to need pacing. He had externalized single chamber paced right on 09/13 until he is able to be off antibiotic. Echocardiogram: Diffuse global hypokinesis, ejection fraction 30-35% Patient seen and examined at bedside. He feels short of breath today, no nausea, no vomiting, no diarrhea. General: non toxic, no distress, appears at stated age Derm: warm, dry Head: atraumatic, normocephalic, symmetric Eyes: EOMI, no lid lag, anicteric sclera Mouth: no lip lesion, mucus membranes moist Cardiovascular: S1S2 reg, no murmur, positive posterior tibial pulse bilateral, Lungs: ronchi bilateral, no accessory muscle use Abdominal: soft, nontender to palpation, no guarding, no appreciable organomegaly Ext: + gross muscle atrophy, trace edema, no contractures Neuro: CN II-XI grossly intact, no focal neuro deficits Psych: awake alert to self and year, appropriate affect. 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 -ASA, statin Toxic metabolic encephalopathy -Safe and supportive care -Likely secondary continue third-degree heart block, acute myocardial infarction, and possibly sepsis Shock, possibly septic versus cardiogenic, resolved MRSA Gluteal Abscess -continue midodrine -Critical care recs -ID recs: Dapto and zosyn Acute renal failure, resolving - Nephrology recommendations appreciated - IC fluids completed - Avoid nephrotoxic agents Macrocytic anemia -Status post 1 unit of packed red blood cells - possibly secondary to hypothyroidism - B12 normal, folic acid normal Diabetes mellitus type 2 - SSI - follow BS - hold levemir - A1C 5.7 Multiple pressure ulcers -Frequent turns -Offload -Barrier cream hyperkalemia, resolved anion gap metabolic acidosis, resolved Chronic: Coronary artery disease Dyslipidemia Hypothyroidism Asthma History of CVA BPH Poor over all prognosis, Likely combination of sepsis and NSTEMI with CHF and 3rd degree heart block. DVT prophylaxis: SCDs Discussed with: patient, nursing Anticipated discharge: 5-[address]: return to [facility] A total of 35 minutes was spent on the care of this complex patient more than 50% of the time was spent in counseling and care coordination. Active Medications Acetaminophen (Acetaminophen Tab 325 Mg Tab) 650 mg PO Q6HR PRN PRN Reason: Mild Pain Albuterol/Ipratropium (Ipratropium-Albuterol 3 Ml Neb) 3 ml INHALATION RT-QID [facility] Last Admin: 09/14/20 11:57 Dose: Not Given Documented by: Albuterol/Ipratropium (Ipratropium-Albuterol 3 Ml Neb) 3 ml INHALATION RT-Q2H PRN PRN Reason: Shortness Of Breath Or Wheezing Alprazolam (Alprazolam 0.25 Mg Tab) 0.25 mg PO BID PRN PRN Reason: agitation Aspirin (Aspirin 81 Mg) 81 mg PO DAILY [facility] Last Admin: 09/14/20 08:34 Dose: 81 mg Documented by: Atorvastatin Calcium (Atorvastatin 40 Mg Tab) 40 mg PO DAILY [facility] Last Admin: 09/14/20 08:34 Dose: 40 mg Documented by: Heparin Sodium (Porcine) (Heparin Sodium,Porcine/Pf 5,000 Unit/0.5 Ml Syringe) 5,000 unit SQ Q8HR [facility] Piperacillin Sod/Tazobactam (Sod 3.375 gm/ Sodium Chloride) 100 mls @ 25 mls/hr IVPB Q8HR [facility] Last Admin: 09/14/20 08:31 Dose: 25 mls/hr Documented by: Insulin Aspart (Insulin Aspart (Novolog) 100 Unit/Ml Vial) 0 unit SQ ACHS [facility]; Protocol Last Admin: 09/14/20 12:51 Dose: Not Given Documented by: Levothyroxine Sodium (Levothyroxine 50 Mcg Tab) 50 mcg PO DAILY@0630 [facility] Last Admin: 09/14/20 06:58 Dose: 50 mcg Documented by: Megestrol Acetate (Megestrol 400 Mg/10 Ml Cup) 400 mg PO DAILY [facility] Midodrine (Midodrine 5 Mg Tab) 10 mg PO AC-TID [facility] Last Admin: 09/14/20 12:50 Dose: 10 mg Documented by: Naloxone HCl (Naloxone 0.4 Mg/Ml 1 Ml Vial) 0.2 mg IV Q2M PRN PRN Reason: Opioid Reversal Sodium Chloride (Sodium Chloride 0.9% Flush 10 Ml Syringe) 10 ml IV Q12HR [facility] Last Admin: 09/14/20 10:01 Dose: 10 ml Documented by: Objective - Vital Signs Vital signs: Vital Signs Temp 97.9 F 09/14/20 12:00 Pulse 70 09/14/20 13:00 Resp 17 09/14/20 13:00 BP 98/50 09/14/20 13:00 Pulse Ox 792 H 09/14/20 13:00 Intake & Output 09/13/20 09/14/20 09/14/20 18:59 06:59 18:59 Intake Total 258 378 190 Output Total 225 210 215 Balance 33 168 -25 Weight 82.7 kg Intake: IV 258 210 190 .9 kvo 140 210 90 A-line 18 Piperacillin-Tazobactam 3 100 .375 gm In Sodium Chloride 0.9% 100 ml @ 25 mls/hr IVPB Q12HR [facility] Rx #:[id number] Oral 168 Output: Urine 225 210 215 Other: Voiding Method Indwelling Catheter Indwelling Catheter Indwelling Catheter ABP, PAP, CO, CI - Last Documented Arterial Blood Pressure 77/51 - Labs CBC & Chem 7: 09/14/20 04:30 09/14/20 04:30 Labs: Abnormal Lab Results - Last 24 Hours (Table) 09/13/20 09/14/20 09/14/20 Range/Units 20:11 04:30 04:30 WBC 17.1 H (3.8-10.6) k/uL RBC 2.19 L (4.30-5.90) m/uL Hgb 7.5 L (13.0-17.5) gm/dL Hct 23.4 L (39.0-53.0) % MCV 106.8 H (80.0-100.0) fL RDW 19.3 H (11.5-15.5) % Macrocytosis Marked A Chloride 115 H (98-107) mmol/L Carbon Dioxide 21 L (22-30) mmol/L BUN 49 H (9-20) mg/dL Creatinine 2.29 H (0.66-1.25) mg/dL Glucose 102 H (74-99) mg/dL POC Glucose (mg/dL) 111 H (75-99) mg/dL 09/14/20 09/14/20 09/14/20 Range/Units 06:56 11:24 12:51 WBC (3.8-10.6) k/uL RBC (4.30-5.90) m/uL Hgb (13.0-17.5) gm/dL Hct (39.0-53.0) % MCV (80.0-100.0) fL RDW (11.5-15.5) % Macrocytosis Chloride (98-107) mmol/L Carbon Dioxide (22-30) mmol/L BUN (9-20) mg/dL Creatinine (0.66-1.25) mg/dL Glucose (74-99) mg/dL POC Glucose (mg/dL) 102 H 138 H 105 H (75-99) mg/dL Microbiology - Last 24 Hours (Table) 09/08/20 16:43 Blood Culture - Preliminary Blood No Growth after 120 hours
--- NOTE | 2020-09-14 15:41 | P.PN ---
Progress Note - Text Progress Note Date: 09/14/20 Advanced Care Planning: Diagnoses: Failure to thrive, non-STEMI, third-degree heart block, sepsis Discussion: Person(s) present and participating in discussion: , one daughter in person, 1 daughter over the phone, 2 grandsons Summary: Despite maximal medical therapy including aggressive IV antibiotics, diuresis, and external pacemaker patient has not had functional improvement. He continues to eat and drink little. His renal function is worsening. His breathing has remained labored. We discussed that he is a DO NOT RESUSCITATE. We also discussed the fact that we do not anticipate significant functional improvement in his status. Daughter feels as though he would not want to keep going in this state. His feels as though he is a fighter. We discussed that we may want to consider shifting our goal to ensuring that he is comfortable and enjoys every day left versus pursuing aggressive medical care. Family will continue to consider and will update us if they want to have informative meeting with hospice or palliative. A total of 22 minutes of face to face time was spent discussing advanced care planning.
[2020-09-14] MEDS ORDERED: HEPARIN SODIUM,PORCINE/PF 5,000 UNIT/0.5 ML SYRINGE SQ SCH (16:00)
--- NOTE | 2020-09-14 16:34 | PN ---
PROGRESS NOTE DATE OF SERVICE: 09/14/2020. REASON FOR FOLLOWUP: Left great toe infection with pneumonia. INTERVAL HISTORY: The patient is afebrile. The patient mentioned feeling not that great but denies having any chest pain, shortness of breath, cough, no abdominal pain. No diarrhea. PHYSICAL EXAMINATION: Blood pressure 110/54, pulse of 70, temperature is 97.9. He is 95% on 2 L nasal cannula. General description is a middle-aged male lying in bed in no distress. Respiratory system: Unlabored breathing, decreased breath sounds at bases. No wheeze. Heart S1, S2. Regular rate and rhythm. Abdomen soft, no tenderness. LABS: BUN and creatinine slightly up. White count 17.1. DIAGNOSTIC IMPRESSION AND PLAN: Patient admitted to the hospital with sepsis. Source is likely combination of infection on the left gluteal abscess and cellulitis. Overall cellulitis has resolved. We will discontinue daptomycin. Continue Zosyn and monitor clinical course closely. MMODL / IJN: [id number] /
[2020-09-14 17:53] LABS: Glucose,Whole Blood 62 mg/dL (75-99)
[2020-09-14 17:58] LABS: Glucose,Whole Blood 68 mg/dL (75-99)
[2020-09-14] MEDS ORDERED: DEXTROSE 50% SYRINGE 50 ML IVP STA (17:59)
[2020-09-14] MEDS ORDERED: DEXTROSE 50% SYRINGE 50 ML IVP ONE (18:00)
[2020-09-14 18:26] LABS: Glucose,Whole Blood 62 mg/dL (75-99)
[2020-09-14 18:29] LABS: Glucose,Whole Blood 89 mg/dL (75-99)
[2020-09-14 18:57] LABS: Glucose,Whole Blood 227 mg/dL (75-99)
[2020-09-14 19:05] VITALS: PULSE 70
[2020-09-14] MEDS ORDERED: GLYCOPYRROLATE 0.2 MG/ML 2 ML VIAL IVP PRN (21:22)
[2020-09-14] MEDS ORDERED: LORazepam 2 MG/ML INJ IV PRN (21:22)
[2020-09-14] MEDS ORDERED: MORPHINE SULFATE 2 MG/ML SYRINGE IV PRN (21:22)
[2020-09-14] MEDS ORDERED: ATROPINE OPHTH SOLN 1% 5ML BTL SUBLINGUAL PRN (21:22)
[2020-09-14] MEDS ORDERED: MORPHINE SULFATE (100 MG/2 ML) 100 MG in SODIUM CHLORIDE 0.9% 100 ML IV SCH (21:30)
[2020-09-14 21:39] VITALS: TEMP 97.8
[2020-09-15 03:26] LABS: % Iron Saturation 30.96 (15.00-50.00)
--- NOTE | 2020-09-15 04:35 | P.PN ---
Progress Note - Text Progress Note Date: 09/15/20 Advanced Care Planning: Diagnoses: 3rd Degree AV block Discussion: Person(s) present and participating in discussion: Daughter, , Multiple other family members Summary: Discussed in detail regarding the patient's goals of care. The family noted that in light of the recent conversations the patient's gradually deteriorating condition including worsening blood pressure, they wished for the patient to be transitioned to comfort care. They note that they wish to focus more on his quality of life and would also like a hospice evaluation. A hospice consult was placed with comfort care orders given to RN. A total of 15 minutes of face to face time was spent discussing advanced care planning.
[2020-09-15 05:03] VITALS: BP 56/36; RESP 7
[2020-09-15] MEDS: IPRATROPIUM-ALBUTEROL 3 ML NEB INHALATION SCH (07:30)
[2020-09-15] MEDS ORDERED: MEGESTROL 400 MG/10 ML CUP PO SCH (09:00)
--- NOTE | 2020-09-15 16:01 | P.DS ---
Providers Date of admission: 09/07/20 21:11 Expected date of discharge: 09/15/20 Attending physician: Jorge Alberto Schaeffer MD Consults: 09/07/20 21:11 Consult Physician Stat Consulting Provider: Navid Clifton Consult Reason/Comments: vent dependance, 3rd degree heart block Do you want consulting provider notified?: Already Contacted Consult Physician Stat Consulting Provider: [facility] Consult Reason/Comments: 3rd degree heart block Do you want consulting provider notified?: Already Contacted 09/08/20 00:38 Consult Physician Stat Consulting Provider: Vicenta Kyle Consult Reason/Comments: low urine output Do you want consulting provider notified?: Yes 09/08/20 01:26 Consult Physician Urgent Consulting Provider: Brett Montenegro Consult Reason/Comments: Septic shock Do you want consulting provider notified?: Yes Primary care physician: Dinh Elias MD Hospital Course: Discharge Diagnosis: Third-degree heart block Non-STEMI 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 Patient is a resident at [facility] and EMS was called for the patient being unresponsive. In the ER he was found to have third-degree AV block. Laboratory analysis showed a white blood cell count 25.6, hemoglobin 8.4, and troponin of 2.13, his potassium was also noted to be 6.3, BUN 79, and creatinine 4.2. He was immediately taken to the cardiac [employer] for insertion of a transvenous pacemaker. He is minutes the ICU for further monitoring. Critical care was consulted. Due to his renal failure nephrology was consulted. Infectious disease was consulted who recommended starting the patient empirically on Zosyn and daptomycin as well as checking blood cultures. His infection was thought that his infection was due to his ongoing gluteal abscess. He did require levophed, which was able to be weaned. Despite correction of electrolytes he continued to need pacing. He had externalized single chamber paced right on 7/29 until he is able to be off antibiotic. He continued to have decreased oral intake, low blood pressures, and no significant continued improvement. We have discussed possibility of hospice care with family. On the evening of 09/14 his blood pressure continued to decrease and family elected for conservative measures. Patient subsequently passed on the morning of 09/15. Echocardiogram: Diffuse global hypokinesis, ejection fraction 30-35% A total of 15 minutes of time were spent preparing this complex discharge summary . Patient Condition at Discharge: Stable Plan - Discharge Summary Discharge Rx Participant: No New Discharge Prescriptions: No Action Ondansetron HCl [Zofran] 4 mg PO Q6H PRN PRN Reason: Nausea And Vomiting Vancomycin 500 mg IVPB Q24HR Insulin Detemir [Levemir Flextouch] 10 units SQ HS Discharge Medication List Insulin Detemir [Levemir Flextouch] 10 units SQ HS 09/07/20 [History] Ondansetron HCl [Zofran] 4 mg PO Q6H PRN 09/07/20 [History] Vancomycin 500 mg IVPB Q24HR 09/07/20 [History] Follow up Appointment(s)/Referral(s): Dinh Elias MD [Primary Care Provider] - 1-2 days Discharge Disposition: - Preliminary Cause of Preliminary Cause of : heart failure
== END 2020-09-15 08:16 | disposition expired | DRG 260 ==
LOC: EC 19:18 → 2SICU 21:11
PROVIDERS: ADMIT Internal Medicine; ATTEND Internal Medicine
PROC: 5A1935Z Respiratory Ventilation, Less than 24 Consecutive Hours (ICD-10-PCS; 2020-09-07)
PROC: 3E033XZ Introduction of Vasopressor into Peripheral Vein, Percutaneous Approach (ICD-10-PCS; 2020-09-07)
PROC: 4A133J1 Monitoring of Arterial Pulse, Peripheral, Percutaneous Approach (ICD-10-PCS; 2020-09-07)
PROC: 3E0G76Z Introduction of Nutritional Substance into Upper GI, Via Natural or Artificial Opening (ICD-10-PCS; 2020-09-07)
PROC: 04HY32Z Insertion of Monitoring Device into Lower Artery, Percutaneous Approach (ICD-10-PCS; 2020-09-07)
PROC: 4A133B1 Monitoring of Arterial Pressure, Peripheral, Percutaneous Approach (ICD-10-PCS; 2020-09-07)
PROC: 02HV33Z Insertion of Infusion Device into Superior Vena Cava, Percutaneous Approach (ICD-10-PCS; 2020-09-07)
PROC: 5A1223Z Performance of Cardiac Pacing, Continuous (ICD-10-PCS; 2020-09-07)
PROC: 30243N1 Transfusion of Nonautologous Red Blood Cells into Central Vein, Percutaneous Approach (ICD-10-PCS; 2020-09-09)
PROC: 02HK3JZ Insertion of Pacemaker Lead into Right Ventricle, Percutaneous Approach (ICD-10-PCS; principal; 2020-09-13 11:00)
DX: I44.2 Atrioventricular block, complete (principal); A41.02 Sepsis due to Methicillin resistant Staphylococcus aureus; I21.4 Non-ST elevation (NSTEMI) myocardial infarction; N17.0 Acute kidney failure with tubular necrosis; J96.00 Acute respiratory failure, unspecified whether with hypoxia or hypercapnia; R65.21 Severe sepsis with septic shock; J69.0 Pneumonitis due to inhalation of food and vomit; G92 Toxic encephalopathy; I50.21 Acute systolic (congestive) heart failure; G93.1 Anoxic brain damage, not elsewhere classified; E87.2 Acidosis; L02.31 Cutaneous abscess of buttock; L03.317 Cellulitis of buttock; J98.11 Atelectasis; D63.8 Anemia in other chronic diseases classified elsewhere; L89.152 Pressure ulcer of sacral region, stage 2; L89.211 Pressure ulcer of right hip, stage 1; I11.0 Hypertensive heart disease with heart failure; F03.90 Unspecified dementia, unspecified severity, without behavioral disturbance, psychotic disturbance, mood disturbance, and anxiety; J44.9 Chronic obstructive pulmonary disease, unspecified; E11.65 Type 2 diabetes mellitus with hyperglycemia; Z79.4 Long term (current) use of insulin; Z66 Do not resuscitate; Z51.5 Encounter for palliative care; R62.7 Adult failure to thrive; I25.5 Ischemic cardiomyopathy; E78.5 Hyperlipidemia, unspecified; E87.5 Hyperkalemia; E03.9 Hypothyroidism, unspecified; D50.9 Iron deficiency anemia, unspecified; D53.9 Nutritional anemia, unspecified; I25.10 Atherosclerotic heart disease of native coronary artery without angina pectoris; T36.8X5A Adverse effect of other systemic antibiotics, initial encounter; N40.1 Benign prostatic hyperplasia with lower urinary tract symptoms; R33.8 Other retention of urine; M62.50 Muscle wasting and atrophy, not elsewhere classified, unspecified site; R41.89 Other symptoms and signs involving cognitive functions and awareness; Z79.01 Long term (current) use of anticoagulants; Z79.899 Other long term (current) drug therapy; Z78.1 Physical restraint status; Z95.1 Presence of aortocoronary bypass graft; Z87.19 Personal history of other diseases of the digestive system; Z90.49 Acquired absence of other specified parts of digestive tract; Z90.89 Acquired absence of other organs; Z90.79 Acquired absence of other genital organ(s); Z87.2 Personal history of diseases of the skin and subcutaneous tissue; Z86.14 Personal history of Methicillin resistant Staphylococcus aureus infection; Z86.73 Personal history of transient ischemic attack (TIA), and cerebral infarction without residual deficits; Z87.01 Personal history of pneumonia (recurrent); Z98.42 Cataract extraction status, left eye; Z98.41 Cataract extraction status, right eye; Z98.890 Other specified postprocedural states; Z88.2 Allergy status to sulfonamides
CPT/HCPCS: 33210; 36415; 36600; 71045; 80048; 80053; 80202; 82533; 82550; 82607; 82747; 82805; 83036; 83540; 83550; 83735; 84100; 84145; 84439; 84443; 84484; 85025; 85027; 85610; 85730; 86850; 86900; 86901; 86920; 87040; 87070; 87205; 93005; 93306; 94002; 94003; 94640; 96365; 96374; 96375; 99285